=== PATIENT | female | born 1950 | race Caucasian/White ===

== ENCOUNTER 2019-11-13 13:32 | Emergency (ER) | payer MEDICARE, SELFPAY ==
--- NOTE | ~2019-11-13 | XR_ITS ---
XR foot RT min 3V, XR foot LT min 3V 11/13/2019 14:09 Indication: Foot pain in the metatarsal area. Status post foot injury. Procedure: 4 views each foot Comparison: No prior studies for comparison. Findings: There is mild bilateral osteoarthritis of the first MTP joint. There are degenerative calca alphonse enthesophytes. No fracture or traumatic malalignment. Lisfranc joints intact. No erosive changes . Normal mineralization. No focal soft tissue abnormality. 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 2: Prominent bilateral calcaneal enthesophytes. Reviewed, dictated and finalized at location A. 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 2: Prominent bilateral calcaneal enthesophytes. 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 2: Prominent bilateral calcaneal enthesophytes.
--- NOTE | 2019-11-13 13:40 | ED.GENADULT ---
HPI - General Adult General Chief complaint: Extremity Injury, Lower Stated complaint: injury Foot Time Seen by Provider: 11/13/19 13:40 Source: patient Mode of arrival: ambulatory Limitations: no limitations History of Present Illness HPI narrative: 69-year-old female patient presents to the [facility] with complaints of bilateral foot pain but more so on the left than the right. Patient states about 3 days ago she was helping her daughter clean out her garage and states that biking some shovels fell on both feet. Patient states she has had a lot more pain to the left foot and is having pain with movement as well as trying to bear weight on the foot. Patient states she does have a history of neuropathy so she states that the pain does have to be pretty high for her to feel it. Patient states she has been taking ibuprofen for her symptoms. Patient was told couple months ago that she is prediabetic and started on metformin. Related Data Home Medications Medication Instructions Recorded Confirmed allopurinol 300 mg DAILY 11/13/19 11/13/19 amitriptyline 50 mg BID 11/13/19 11/13/19 atorvastatin 10 mg DAILY 11/13/19 11/13/19 meclizine 25 mg TID PRN 11/13/19 11/13/19 metformin 500 mg DAILY 11/13/19 11/13/19 omeprazole 20 mg BID 11/13/19 11/13/19 triamterene-hydrochlorothiazid 1 tablet DAILY 11/13/19 11/13/19 Allergies Allergy/AdvReac Type Severity Reaction Status Date / Time morphine Allergy Severe ANAPHALACTI Unverified 11/13/19 13:57 C Review of Systems Review of Systems: Narrative: CONSTITUTIONAL: Denies fever, chills, or sweats. EYES: Denies visual changes, redness, or discharge. ENT: Denies rhinorrhea, congestion, sore throat, or otalgia. CARDIOVASCULAR: Denies chest pain, palpitations, or edema. RESPIRATORY: Denies cough or dyspnea. GASTROINTESTINAL: Denies abdominal pain, nausea, vomiting, or diarrhea. GENITOURINARY: Denies dysuria or hematuria. SKIN: Denies rash or itching. MUSCULOSKELETAL: Denies back pain, joint pain, or myalgia. Positive bilateral foot pain x3 days more so on the left than the right. NEUROLOGIC: Denies headache, numbness, or weakness. PSYCHIATRIC: Denies anxiety or depression. [facility] Past Medical History Medical History (Updated 11/13/19 @ 14:20 by KENDRICK White) Anxiety Arthritis Asthma Bronchitis Cataracts, bilateral Cholecystitis, acute COPD (chronic obstructive pulmonary disease) Depression Diabetes Fibromyalgia Fractures Right foot GERD (gastroesophageal reflux disease) Hypertension Pneumonia Sleep apnea Surgical History Surgical History (Updated 11/13/19 @ 13:44 by KENDRICK White) H/O: hysterectomy Social History Social History Gender identity (if verbalized by the patient): Female Comments At the time of my signature I agree with nursing past medical history, surgical, social, and family history. There is no relevant family history pertinent to the presenting complaint. Exam Narrative: Exam Narrative: GENERAL: Well-appearing, well-nourished, and in no acute distress. HEAD: Normocephalic, atraumatic. EYES: PERRLA and EOMI. ENT: Nares clear, no rhinorrhea or epistaxis. Mucous membranes moist. NECK: Supple. No lymphadenopathy CHEST: Clear to auscultation. No respiratory distress. HEART: Regular rate and rhythm. No murmur heard. Normal peripheral pulses. ABDOMEN: Soft, nontender, nondistended, normal active bowel sounds. EXTREMITIES: Patient unable to bear weight and ambulate on left foot. Patient is able to bear weight onto the right foot and is able to ambulate on the right foot. erythema noted on the lateral side of the left foot, no lesions, ulcers or break in skin integrity. There is some warmth noted over the redness to the left lateral foot area. The L foot is without obvious asymmetry or deformity when compared to the R foot. No bony step-off, tender to palpation over the right midfoot p
[2019-11-13 13:52] VITALS: BP 118/83; PULSE 102; RESP 16; TEMP 37.5; O2SAT 99
== END 2019-11-13 14:24 | disposition home or self-care (01) ==
PROVIDERS: Emergency Provider Nurse Practitioner Family
DX: S93.602A Unspecified sprain of left foot, initial encounter (principal); S93.601A Unspecified sprain of right foot, initial encounter; L03.116 Cellulitis of left lower limb; J44.9 Chronic obstructive pulmonary disease, unspecified; E11.9 Type 2 diabetes mellitus without complications; I10 Essential (primary) hypertension; W22.8XXA Striking against or struck by other objects, initial encounter
CPT/HCPCS: 73630; 99214; G0463

== ENCOUNTER 2022-07-01 08:52 | Outpatient (CLI) | payer MEDICARE, SELFPAY | END 2022-07-01 08:53 | disposition home or self-care (01) | LOC: ANHAUDIO 08:53 | PROVIDERS: PCP Internal Medicine; Visit Provider Otolaryngology | DX: H90.3 Sensorineural hearing loss, bilateral (principal) | CPT/HCPCS: 92557; 92567 ==

== ENCOUNTER 2023-05-21 09:18 | Inpatient (IN) | payer MEDICARE, MEDICAID, SELFPAY ==
[2023-05-21] VITALS (22 sets, daily range): BP systolic 98–170; BP diastolic 48–152; PULSE 92–103; RESP 12–29; TEMP 36.4–36.5; O2SAT 85–97; BMI 34.2
--- NOTE | ~2023-05-21 | CT_ITS ---
EXAMINATION: CT cervical spine wo con DATE: 05/21/2023 10:38 INDICATION: Head injury TECHNIQUE: Computed tomography (CT) of the cervical spine was performed without intravenous contrast. The dose-length product was 447.21 mGy-cm. COMPARISON: None FINDINGS: Straightening of the normal cervical lordosis. No spondylolisthesis or facet subluxation. Moderate os teoarthritis at the atlantoaxial articulation. Vertebral body heights are normal. No fracture. Modera te to severe disc height loss at C5-C6, moderate disc height loss at C4-C5 and C6-C7 and mild disc he ight loss at remaining as well as in the remaining cervical spine and at T1-T2. Severe uncovertebral osteoarthritis on the right at C4-C5 and on the left at C5-C6 and C6-C7. Mild to moderate uncovertebr al osteoarthritis at a few additional cervical levels. Severe facet osteoarthritis on the left at C2- C3 and C7-T1 through T2-T3 and on the right at C3-C4, C6-C7 and T2-T3. Mild to moderate facet osteoar thritis the remaining levels. There is mild central canal stenosis resulting from a prominent posteri or disc osteophyte complex at C5-C6. There is multilevel mild bilateral cervical neural foraminal tyrell nosis most prominent on the left at C5-C6 and C6-C7. Small amount of atherosclerotic calcifications a t the bilateral distal common carotid arteries and carotid bulbs. Cervical soft tissues are otherwise unremarkable. Visualized apices of lungs are clear. IMPRESSION: 1. Moderate to severe cervical spondylosis. No acute osseous abnormality. Reviewed, dictated and finalized at location A. CT OPENER
--- NOTE | ~2023-05-21 | CT_ITS ---
EXAMINATION: CT abdomen pelvis wo con DATE: 05/21/2023 12:59 INDICATION: Diffuse abdominal tenderness and vomiting TECHNIQUE: Computed tomography (CT) of the abdomen and pelvis was performed without intravenous contr ast. The dose-length product was 2174.11 mGy-cm. Automated exposure control and iterative reconstruct ion technique were employed. COMPARISON: CT dated 12/09/2005. FINDINGS: There is a 9 mm left lower lobe nodule. There is bibasilar airspace disease which may repre sent atelectasis or pneumonia. Mild cardiomegaly. No significant pleural or pericardial effusion. Moderate diffuse atherosclerosis without aneurysm. Nonobstructive bowel gas pattern. The liver, pancr eas, adrenal glands and kidneys are unremarkable for limits of noncontrast examination with motion ar tifact. There is splenomegaly. Gallbladder not identified, likely surgically absent. There is fluid t hroughout the small bowel which is nonspecific, although can be seen within enteritis. No lymphadenop athy. No acute osseous abnormality. IMPRESSION: 1. Bilateral lower lobe airspace disease may represent atelectasis and/or pneumonia. 2: 9 mm left lower lobe nodule. Follow-up low dose CT chest and 3 months recommended. 3: Small bowel contains fluid throughout with air-fluid levels. No obstruction. Findings suspicious f or enteritis in the appropriate clinical setting. Reviewed, dictated and finalized at location A. ARATION SUPERVISOR CANNING IMPRESSION: 1. Bilateral lower lobe airspace disease may represent atelectasis and/or pneum onia. 2: 9 mm left lower lobe nodule. Follow-up low dose CT chest and 3 months recom mended. 3: Small bowel contains fluid throughout with air-fluid levels. No obstruction. Findings suspicious for enteritis in the appropriate clinical setting.
--- NOTE | ~2023-05-21 | CT_ITS ---
EXAMINATION: CTA chest PE protocol DATE: 05/23/2023 12:43 BARTENDER INDICATION: Hypoxia. TECHNIQUE: Computed tomographic angiography (CTA) of the chest was performed with 100 mL Omnipaque-35 0 intravenous contrast. The dose-length product was 680.95 mGy-cm. Maximum intensity projection 3D-re constructions of the aorta and other arteries were constructed by the technologist on a separate work station. Automated exposure control and iterative reconstruction technique were employed. COMPARISON: Nuclear ventilation perfusion scan and chest x-ray dated 05/21/2023. FINDINGS: Study is technically adequate without evidence for central pulmonary embolism. Lower lobe s ubsegmental pulmonary arteries not well evaluated due to motion artifact. Small pleural effusions. Me diastinal lymphadenopathy, likely reactive. Right hilar lymphadenopathy. There is multifocal pneumoni a of the right upper and lower lobe and to a lesser degree the left lower lobe, consistent with pneum onia. No pneumothorax. No endobronchial lesions. IMPRESSION: 1. Multifocal pneumonia with small pleural effusions. 2: No large central pulmonary embolism. 3: Mediastinal and right hilar lymphadenopathy, likely reactive. Reviewed, dictated and finalized at location B. ENDER
--- NOTE | ~2023-05-21 | US_ITS ---
EXAMINATION:US venous doppler LE BI INDICATION:Moderate embolism TECHNIQUE: Multiple grayscale, color flow and Doppler images of the right and left lower extremity de ep venous systems were obtained and reviewed. COMPARISON:No prior studies for comparison. FINDINGS: The common femoral, superficial femoral and popliteal veins demonstrate normal respiratory variation, augmentation and compressibility. Color flow is also seen within the posterior tibial, pe roneal, greater saphenous and profunda veins. IMPRESSION: 1: No lower extremity deep venous thrombosis. Reviewed, dictated and finalized at location A. KER MECHANIC
--- NOTE | ~2023-05-21 | NM_ITS ---
NM lung vent and perfusion INDICATION: Elevated d-dimer. Hypoxia. TECHNIQUE: The patient inhaled aerosolized 13.2 mCi xenon-133. Following ventilation scan, 5.5 mCi T c 99m MAA was injected intravenously for perfusion images. Multiple images were then acquired. COMPARISON: Chest x-ray dated 05/21/2023 FINDINGS: The comparison chest radiograph demonstrates right perihilar airspace disease, suspicious f or pneumonia. The lungs are hyperinflated which is consistent with, but not diagnostic of chronic obs tructive pulmonary disease. There is retention of radiotracer on washout images. There are small-mod erate perfusion abnormalities of the mid lungs bilaterally IMPRESSION: 1: Intermediate probability for pulmonary embolism. Reviewed, dictated and finalized at location A. OR MECHANICAL DEVELOPMENT ENGINEER
--- NOTE | ~2023-05-21 | XR_ITS ---
EXAMINATION: XR chest 1V portable DATE: 05/21/2023 10:32 INDICATION: Shortness of breath and medial right-sided chest pain TECHNIQUE: frontal view of the chest was obtained. COMPARISON: Chest radiograph dated 06/08/2014 FINDINGS: Linear discoid atelectasis at the lateral left lower lung zone. More ill-defined right perihilar opac ities which could represent additional atelectasis or pneumonia. No pleural effusion or pneumothorax. The cardiomediastinal silhouette is normal. Reverse right total shoulder arthroplasty. IMPRESSION: 1. Right perihilar opacities which could represent atelectasis or pneumonia. Reviewed, dictated and finalized at location A. ULTING INTERN
--- NOTE | ~2023-05-21 | CT_ITS ---
EXAMINATION: CT brain wo con DATE: 05/21/2023 10:38 INDICATION: Head injury TECHNIQUE: Computed tomography (CT) of the head was performed without intravenous contrast. Sagittal and coronal reconstructions were performed. The mA was adjusted according to patient size. Iterative reconstruction technique was employed. The dose-length product was 605.33 mGy-cm. COMPARISON: head CT dated 03/26/2004 FINDINGS: No fracture. There is mild streak artifact centered near the vertex which does not significantly limi t evaluation. No acute intracranial hemorrhage, acute infarction or abnormal extra axial fluid collec tion. Symmetric prominence of the sulci consistent with mild age-appropriate diffuse cerebral volume loss. Ventricles are normal and symmetric. No mass/mass effect. Changes of left intraocular lens repl acement. Small left mastoid effusion. IMPRESSION: 1. Normal aging brain. No fracture or acute intracranial process. Reviewed, dictated and finalized at location A. WICH MACHINE OPERATOR
--- NOTE | 2023-05-21 09:26 | ECG_ITS ---
Measurements Intervals [place] Rate: 99 P: 76 IN: 147 QRS: 4 QRSD: 94 T: 90 QT: 333 QTc: 429 Interpretive Statements SINUS RHYTHM BASELINE ARTIFACT NONSPECIFIC ST & T-WAVE ABNORMALITY BORDERLINE ECG NO PREVIOUS ECG AVAILABLE FOR COMPARISON Electronically Signed On 05-21-2023 14:10:16 INSPECTOR CIRCUITRY NEGATIVE by Wilfredo Plasencia M.D.
[2023-05-21] MEDS: ONDANSETRON INJ 4 MG/2 ML VIAL IV PUSH ×3 (10:17→18:53)
[2023-05-21] MEDS: SODIUM CHLORIDE 0.9% IV 1,000 ML 999 ML IV CONT ×2 (10:17→13:07)
[2023-05-21 10:20] LABS: Alveolar/Arterial O2 Gradient 43.7 mmHg; Base Excess ABG 0.3 mEq/l (+/-2.0); Carboxyhemoglobin 1.5 % THb (0-2.0); Fractional Inspired Oxygen 21 %; HCO3 ABG 24.6 mEq/l (22.0-26.0); Methemoglobin ABG 0.1 %THb (0-1.5); Oxygen Content ABG 16.3 %vol (16.0-22.0); Oxygen Saturation ABG 91.7 % (95.0-100.0); Oxyhemoglobin 89.3 % THb (90.0-100.0); PCO2 ABG 38.3 mmHg (35.0-45.0); PO2 ABG 60.2 mmHg (80.0-100.0); PO2 FiO2 Ratio Arterial Blood 2.87 %; Reduced Hemoglobin 9.1 %THb (0-5.0); pH ABG 7.425 (7.350-7.450)
[2023-05-21 10:20] LABS: Basophils Absolute Auto 0.1 K/mm3 (0.0-0.1); Basophils Percent Auto 0.3 % (0.2-1.2); Eosinophils Absolute Auto 1.5 K/mm3 (0-0.3); Eosinophils Percent Auto 7.7 % (0-4.4); Hematocrit 40.9 % (37.0-47.0); Hemoglobin 12.6 g/dL (12.0-15.0); Immature Granulocyte Percent A 0.5 % (0-0.5); Lymphocytes Absolute Auto 1.39 K/mm3 (0.9-3.2); Lymphocytes Percent Auto 7.4 % (18.3-44.2); Mean Corpuscular HGB Conc 30.8 g/dl (32-36); Mean Corpuscular Hemoglobin 27.3 pg (26-34); Mean Corpuscular Volume 88.5 fl (80-100); Mean Platelet Volume 10.8 fl (7.4-10.4); Monocytes Absolute Auto 1.2 K/mm3 (0.1-0.6); Monocytes Percent Auto 6.5 % (2.6-8.5); Neutrophils Absolute Auto 14.7 K/mm3 (1.3-6.7); Neutrophils Percent Auto 77.6 % (45.5-73.1); Platelet Count Result 311 k/mm3 (150-375); Red Blood Count 4.62 M/mm3 (4.2-5.4); Red Cell Distribution Width 15.3 % (11.5-14.5); White Blood Count 18.9 K/mm3 (4.5-10.0)
[2023-05-21 10:22] LABS: Device ROOM AIR; Modified Allen's Test Pass; Site Drawn LEFT RADIAL
--- NOTE | 2023-05-21 10:24 | PC.NURSE ---
O2 NC 2 2l applied
[2023-05-21 10:56] LABS: Influenza A QL RT-PCR Negative (Negative); Influenza B QL RT-PCR Negative (Negative); RSV RNA, RT-PCR Negative (Negative); SARS-CoV-2 RNA PCR Negative (Negative)
[2023-05-21 11:01] LABS: Partial Thromboplastin Time 33.9 SECONDS (22.3-36.8); Prothrombin Time 13.7 Seconds (11.1-14.7)
[2023-05-21 11:18] LABS: Lactic Acid Reflex 1.2 mmol/L (0.7-2.0)
[2023-05-21 11:30] LABS: Appearance Urine Cloudy (Clear); Bacteria Urine 4+ /hpf; Bilirubin Urine Negative (Negative); Blood Urine Trace (Negative); Color Urine Yellow (Yellow); Glucose Urine UA 3+ mg/dL (Negative); Ketones Urine Trace mg/dL (Negative); Leukocyte Esterase Ur 1+ LEU/UL (Negative); Nitrate Urine Negative (Negative); Protein Urine 3+ mg/dL (Negative); RBC Urine 0-2 /hpf (0-2); Specific Grav Ur 1.026 (1.001-1.035); Squamous Epithelial Cell Urine Moderate /hpf (Few); WBC Urine 51-100 /hpf
[2023-05-21 11:31] LABS: Alanine Aminotransferase 28 U/L (6-35); Albumin Level 4.3 g/dL (3.5-5.1); Alkaline Phosphatase 125 U/L (38-126); Anion Gap 12 mmol/L (8-16); Aspartate Amino Transferase 31 U/L (14-36); Bilirubin,Total 0.9 mg/dL (0.2-1.3); Blood Urea Nitrogen 27 mg/dL (7-17); Calcium 9.3 mg/dL (8.4-10.2); Carbon Dioxide 24 mmol/L (22-30); Chloride 102 mmol/L (98-107); Estimated Glomerular Filt Rate 32; Glucose 180 mg/dL (65-110); Lipase 35 U/L (23-300); Magnesium 2.3 mg/dL (1.6-2.3); Potassium 4.1 mmol/L (3.4-5.0); Sodium 138 mmol/L (137-145)
[2023-05-21 11:42] LABS: NT Pro B Type Natriuretic Pept 223 pg/mL (19.9-100); Troponin I < 0.012 ng/mL (0.000-0.034)
[2023-05-21 11:52] LABS: Add Urine Microscopic? YES
--- NOTE | 2023-05-21 12:35 | ED.GENADULT ---
HPI - General Adult General Chief complaint: Chest Pain Stated complaint: N/V, SOB, CP X 3days Time Seen by Provider: 05/21/23 09:44 Source: patient, family, EMS, RN notes reviewed and old records reviewed Mode of arrival: EMS Limitations: no limitations History of Present Illness HPI narrative: This is a 73 year old female with history of multiple medical problems who presents for evaluation of multiple complaints. Patient states she has history of falls due to leg giving out . She reports she fell walking to bathroom on and Tuesday. She hit her head on tub but denies LOC. She also reports right lower chest pain for a few days. This pain has been constant but waxing and waning severity. She also reports nausea and vomiting. EMS reports patient was 84% on room air. She denies fever. Related Data Home Medications Medication Instructions Recorded Confirmed allopurinol 300 mg tablet 300 mg DAILY 11/13/19 11/13/19 amitriptyline 50 mg tablet 50 mg BID 11/13/19 11/13/19 atorvastatin 10 mg tablet 10 mg DAILY 11/13/19 11/13/19 meclizine 25 mg tablet 25 mg TID PRN Dizziness 11/13/19 11/13/19 metformin 500 mg tablet 500 mg DAILY 11/13/19 11/13/19 omeprazole 20 mg capsule,delayed 20 mg BID 11/13/19 11/13/19 release triamterene 75 1 tablet DAILY 11/13/19 11/13/19 mg-hydrochlorothiazide 50 mg tablet Allergies Allergy/AdvReac Type Severity Reaction Status Date / Time morphine Allergy Severe ANAPHALACTI Verified 05/21/23 11:24 C Review of Systems Constitutional: Constitutional: Reports fatigue and Reports weakness ENT: Reports epistaxis Cardiovascular: Cardiovascular: Denies syncope, Denies rapid heart rate, Denies irregular heart rhythm, Denies leg edema and Denies dyspnea Respiratory: Respiratory: Denies chest congestion, Reports cough, Denies hemoptysis, Denies excessive phlegm production and Denies dyspnea Gastrointestinal: Gastrointestinal: Reports abdominal pain, Denies hematochezia, Denies diarrhea, Reports nausea and Reports vomiting Genitourinary: Genitourinary: Denies hematuria and Denies dysuria Musculoskeletal: Musculoskeletal: Denies joint swelling, Denies loss of height and Denies muscle weakness Neurologic: Denies syncope, Denies focal weakness and Reports weakness PMFSH Past Medical History Medical History (Updated 05/21/23 @ 17:57 by Dacia Han MD) Anxiety Arthritis Asthma Bronchitis Chronic obstructive pulmonary disease Depression Fibromyalgia Fractures Right foot Gastroesophageal reflux disease Hypertension Pneumonia Sleep apnea Intolerant of CPAP. Type 2 diabetes mellitus Surgical History Surgical History (Updated 05/21/23 @ 15:45 by Paula Naylor PA-C) History of cardiac catheterization Per patient, showed signs of prior IA but no interventions undertaken. History of cholecystectomy History of exploratory laparotomy History of hysterectomy Social History Social History (Updated 05/21/23 @ 14:49 by Paula Naylor PA-C) Social History: Surrogate medical decision maker: Code status: Full code. Smoking status: Never smoker Exam Const: General: no acute distress and alert Nutritional Appearance: obese Orientation/consciousness: patient oriented x3 HENMT: Head: normal to inspection Face and sinus: normal facial exam Eyes: EOM: EOMs intact bilaterally Resp: Effort & Inspection: normal respiratory effort Auscultation: clear to auscultation bilaterally Cardio: Rate: tachycardic Rhythm: regular rhythm Heart sounds: no murmurs GI: GI Palp: Yes Soft to palpation, Yes Tenderness to palpation present (GI) (diffuse), No Guarding due to palpation present (GI) and No Rigid due to palpation Auscultation: normal bowel sounds Skin: General skin exam: normal color Rashes: no rashes Neuro: General: patient oriented x3, moves all extremities and CN's II-XI intact bilaterally Psych: Mental Status: mental status grossly normal Aff
[2023-05-21] MEDS: AZITHROMYCIN 500 MG/NS 250 ML 500 MG/250 ML BAG 250 MG IVPB (13:07)
[2023-05-21] MEDS: KETOROLAC 30 MG/ML VIAL (*BKC) IV PUSH (13:57)
--- NOTE | 2023-05-21 14:44 | PM.IMHP ---
H&P: HPI History of Present Illness Date/Time: 05/21/23 15:45 Chief Complaint: Multiple complaints. Narrative: This is a 73-year-old female with hypertension, dyslipidemia, chronic obstructive pulmonary disease, sleep apnea, type 2 diabetes mellitus, fibromyalgia, and gastroesophageal reflux disease who presented to the emergency department via EMS from home for evaluation of multiple complaints. The patient provides the following history. She has not felt well for several days with symptoms to include decreased appetite with minimal oral intake since Tuesday, nausea, vomiting, nonproductive cough, right anterior pleuritic chest pain, generalized malaise, and fatigue. She has fallen 2 times this week due to weakness and she reports hitting her head on the bathtub when trying to get off the toilet on but there was no loss of consciousness or injury. It is not unusual for her to have shortness of breath with everyday activities and she has always felt that she would benefit from oxygen at home however reports that she has never qualified. At baseline she will get short of breath even when putting dishes away. The last several days she has felt increasingly short of breath and today she came in for evaluation due to ongoing symptoms. She denies sick contacts, dysphagia, concerns for aspiration, sinus congestion, sore throat, exertional chest pain, syncope, and diarrhea. She has issues with urinary incontinence which is an ongoing problem and is not new. No dysuria or hematuria. No lower extremity edema or calf pain. She denies personal and family history of venous thromboembolism. On EMS arrival her SpO2 was 84% on room air. She is currently on 4 L nasal cannula with an SpO2 in the mid upper 90s. She was afebrile on arrival. Blood pressures have been stable. Labs were significant for a WBC count of 18.9, D-dimer 1.10, normal electrolytes, BUN 27, creatinine 1.60, lactic acid 1.2, troponin less than 0.012, proBNP 223. Urine was cloudy with 3+ protein, 3+ glucose, trace ketones, 1+ leukocyte esterase, 51 to 100 WBC, and 4+ bacteria. She tested negative for influenza, RSV, and COVID. Chest x-ray showed right perihilar opacities which could represent atelectasis or pneumonia. CT of the abdomen pelvis showed bilateral lower lobe airspace disease, 9 mm left lower lobe nodule, and small-bowel containing fluid throughout with air-fluid levels suspicious for enteritis. V/Q scan showed intermediate probability for pulmonary embolism. She received a dose of azithromycin and ceftriaxone and she is being admitted in this setting for further treatment. Review of Systems Review of Systems: Twelve systems were reviewed and are negative except for as per HPI. [facility] Past Medical History Medical History Anxiety Arthritis Asthma Bronchitis Chronic obstructive pulmonary disease Depression Fibromyalgia Fractures Right foot Gastroesophageal reflux disease Hypertension Pneumonia Sleep apnea Intolerant of CPAP. Type 2 diabetes mellitus Surgical History Surgical History History of cardiac catheterization Per patient, showed signs of prior MS but no interventions undertaken. History of cholecystectomy History of exploratory laparotomy History of hysterectomy Social History Social History (Updated 05/21/23 @ 21:53 by Paula Naylor PA-C) Social History: Surrogate medical decision maker: Rolando Urmila, spouse. Code status: Full code. Smoking status: Never smoker Alcohol intake: never Substance use: never Lack of Transportation: No Lack of Food: Never True Current Housing: I Have Housing Concerned About Future Housing: No Difficulty Paying Gas/Electric Bills: No Difficulty Paying for Meds: No Currently Unemployed: No Education: High School Diploma/GED Difficulty w/ Childcare or Family Care: No Spiritual ca
[2023-05-21] MEDS: SODIUM CHLORIDE 0.9% IV 1,000 ML 125 ML IV CONT (17:49)
--- NOTE | 2023-05-21 18:11 | ADMGEN ---
This patient, Cristal Kearns, was admitted to 3 [facility] Surg Room 325-02. Patient/family oriented to hospital policies and general routines including ID bracelet, bed and alarms, visiting hours, pain management, procedures, bathroom and other care routines, personal items, smoking policy, room service/diet, and visiting hours. Information on how to activate the Rapid Response Team has been discussed. Patient/Family are encouraged to report perceived risks to care and to ask questions if they do not understand what they are told or what they should do.
[2023-05-21 18:19] LABS: Glucose Point of Care 135 mg/dl (65-105)
[2023-05-21] MEDS: ACETAMINOPHEN 325 MG TABLET 650 MG PO (18:48)
[2023-05-21] MEDS: PANTOPRAZOLE 40 MG TABLET PO (21:14)
[2023-05-21] MEDS: HYDROcodone/acetaminophen (*CRX) 5-325 MG TABLET 1 TAB PO (21:16)
[2023-05-21] MEDS: DICYCLOMINE HCL 10 MG CAPSULE PO (21:16)
[2023-05-21] MEDS: traZODone HCL 50 MG TABLET 100 MG PO (21:16)
[2023-05-21] MEDS: GABAPENTIN 300 MG CAPSULE PO (21:16)
[2023-05-21 21:35] LABS: Glucose Point of Care 175 mg/dl (65-105)
[2023-05-21] MEDS: ENOXAPARIN 100 MG/ML SYRINGE 95 MG SUB-Q (22:53)
[2023-05-21] MEDS: VERAPAMIL HCL 180 MG TABLET ER PO (22:53)
[2023-05-21] MEDS: AMITRIPTYLINE HCL 25 MG TABLET 50 MG PO (22:53)
[2023-05-22] VITALS (20 sets, daily range): BP systolic 100–151; BP diastolic 57–66; PULSE 75–92; RESP 16–20; TEMP 36.4–36.9; O2SAT 90–97
[2023-05-22] MEDS: ALBUTEROL SULFATE NEB 2.5 MG/3 ML INH INHALATION ×4 (02:59→19:52)
[2023-05-22] MEDS: SODIUM CHLORIDE 0.9% IV 1,000 ML 125 ML IV CONT (03:17)
[2023-05-22] MEDS: HYDROcodone/acetaminophen (*CRX) 5-325 MG TABLET 1 TAB PO (03:29)
[2023-05-22 07:46] LABS: Basophils Percent Auto 0.3 % (0.2-1.2); Eosinophils Percent Auto 0.1 % (0-4.4); Hematocrit 36.3 % (37.0-47.0); Hemoglobin 10.6 g/dL (12.0-15.0); Immature Granulocyte Absolute 0.05 K/mm3 (0.00-0.031); Immature Granulocyte Percent A 0.6 % (0-0.5); Immature Platelet Fraction Pct 4.6 % (0.9-11.2); Lymphocytes Absolute Auto 1.58 K/mm3 (0.9-3.2); Lymphocytes Percent Auto 17.5 % (18.3-44.2); Mean Corpuscular HGB Conc 29.2 g/dl (32-36); Mean Corpuscular Hemoglobin 27.4 pg (26-34); Mean Corpuscular Volume 93.8 fl (80-100); Monocytes Absolute Auto 0.7 K/mm3 (0.1-0.6); Monocytes Percent Auto 7.5 % (2.6-8.5); Neutrophils Absolute Auto 6.7 K/mm3 (1.3-6.7); Platelet Count Result 218 k/mm3 (150-375); Red Blood Count 3.87 M/mm3 (4.2-5.4); Red Cell Distribution Width 15.2 % (11.5-14.5)
[2023-05-22 07:55] LABS: Alanine Aminotransferase 22 U/L (6-35); Albumin Level 3.3 g/dL (3.5-5.1); Alkaline Phosphatase 104 U/L (38-126); Anion Gap 12 mmol/L (8-16); Aspartate Amino Transferase 25 U/L (14-36); Bilirubin,Total 0.5 mg/dL (0.2-1.3); Blood Urea Nitrogen 27 mg/dL (7-17); Calcium 8.3 mg/dL (8.4-10.2); Carbon Dioxide 15 mmol/L (22-30); Chloride 110 mmol/L (98-107); Estimated CRCL calculation 32 ml/min; Estimated Glomerular Filt Rate 32; Glucose 119 mg/dL (65-110); Magnesium 2.7 mg/dL (1.6-2.3); Potassium 3.6 mmol/L (3.4-5.0); Sodium 137 mmol/L (137-145)
[2023-05-22 08:17] LABS: Glucose Point of Care 110 mg/dl (65-105)
--- NOTE | 2023-05-22 08:20 | PM.IMPN ---
Progress Note: A&P Assessment and Plan (1) Acute respiratory failure with hypoxia: Code(s): J96.01 - Acute respiratory failure with hypoxia Status: Acute Assessment and Plan: New oxygen requirement of 4 L NC to keep sats greater than 90%, slightly tachypneic and elevated heart rate on presentation. D-dimer elevated VQ scan with intermediate results for PE. CTA has been deferred at this time due to renal function. Continue treatment dosing of Lovenox for PE. Will obtain BLE doppler Wean oxygen as tolerated. 12/:Obviously dyspneic with activity. Has difficulty speaking in full sentences. SOB improves with rest. (2) Pneumonia: Qualifiers: Laterality: bilateral Lung location: lower lobe of lung Pneumonia type: due to unspecified organism Qualified Code(s): J18.9 - Pneumonia, unspecified organism Code(s): J18.9 - Pneumonia, unspecified organism Status: Acute Assessment and Plan: New o2 requirement, right sided chest pain, leukocytosis of 18.9, tachypnea, and tachycardia on admission. Sputum, urine, and blood cultures sent Started on Rocephin and Azithromycin IVF with NS at 100 ml per hour incentive spirometer Nebs Q6 hours 12/: Lungs are coarse to BLL. On CAP coverage. Encourage IS. Wean o2 as tolerated. (3) Left lower lobe pulmonary nodule: Code(s): R91.1 - Solitary pulmonary nodule Status: Acute Assessment and Plan: Incidental finding on imaging will need outpatient follow up with repeat CT scan in 3 months recommended. Added this to the D/C paperwork. (4) Renal failure: Code(s): N19 - Unspecified kidney failure Status: Acute Assessment and Plan: Unknown baseline renal function. Cr on admission was 1.60, GFR 32 IVF NS at 100 ml per hour strict I and O's. (5) Abnormal urinalysis: Code(s): R82.90 - Unspecified abnormal findings in urine Status: Acute Assessment and Plan: Concerning for possible UTI, recent falls x 2 this week. On Rocephin Urine culture sent and pending Reports urinary frequency (6) Chronic obstructive pulmonary disease: Code(s): J44.9 - Chronic obstructive pulmonary disease, unspecified Status: Acute Assessment and Plan: Not on home oxygen or daily inhalers. Only on albuterol inhaler and nebs. Q6 albuterol nebs for PNA now on 4 l NC Needs home o2 study prior to d/c (7) Type 2 diabetes mellitus: Code(s): E11.9 - Type 2 diabetes mellitus without complications Status: Acute Assessment and Plan: Hgb A1c unknown. On dapagliflozin and metformin at home. Holding metformin considering renal function. Continuing with empagliflozin achs accu checks, SSI low dose, and hypoglycemic protocol ordered. AM fasting blood glucose was 119 Placing on regular diet as her A1C is relatively normal and her fasting glucose is good. She reports that she knows what she should and should not eat. Plan Feeding:general diet Analgesia:tylenol Thromboembolic prophylaxis: lovenox Ulcer prophylaxis: na Glycemic control: Empagliflozin, SSI with hypoglycemia protocol Bowel regimen: N/A, she has chronic loose stools. Lines: PIV Antibiotics: Rocephin, azithromycin Disposition: home when medically ready Subjective Date/time seen: 05/22/23 08:20 Interval history: HPI obtained from the chart, This is a 73-year-old female with hypertension, dyslipidemia, chronic obstructive pulmonary disease, sleep apnea, type 2 diabetes mellitus, fibromyalgia, and gastroesophageal reflux disease who presented to the emergency department via EMS from home for evaluation of multiple complaints. The patient provides the following history. She has not felt well for several days with symptoms to include decreased appetite with minimal oral intake since Tuesday, nausea, vomiting, nonproductive cough, right anterior pleuritic chest pain, generalized malaise, and
[2023-05-22] MEDS: PANTOPRAZOLE 40 MG TABLET PO ×2 (08:53→18:05)
[2023-05-22] MEDS: VERAPAMIL HCL 180 MG TABLET ER PO ×2 (08:53→20:47)
[2023-05-22] MEDS: DICYCLOMINE HCL 10 MG CAPSULE PO ×3 (08:54→18:05)
[2023-05-22] MEDS: NIFEdipine 30 MG TAB.ER.24 PO (08:54)
[2023-05-22] MEDS: EMPAGLIFLOZIN 25 MG TABLET PO (08:54)
[2023-05-22] MEDS: FERROUS SULFATE 325 MG TABLET DR PO (08:54)
[2023-05-22] MEDS: ASPIRIN 325 MG TABLET PO (08:54)
[2023-05-22] MEDS: AMITRIPTYLINE HCL 25 MG TABLET 50 MG PO ×2 (08:54→18:05)
[2023-05-22] MEDS: ATORVASTATIN 10 MG TABLET PO (08:54)
[2023-05-22] MEDS: allopurinoL 300 MG TABLET PO (08:54)
[2023-05-22] MEDS: NIACIN 100 MG TABLET PO (08:54)
[2023-05-22] MEDS: SODIUM CHLORIDE 0.9% IV 1,000 ML 100 ML IV CONT (09:28)
[2023-05-22] MEDS: ENOXAPARIN 100 MG/ML SYRINGE 95 MG SUB-Q ×2 (09:28→20:47)
[2023-05-22 10:24] LABS: Hemoglobin A1C 6.5 % (<5.7)
[2023-05-22 11:42] LABS: Glucose Point of Care 120 mg/dl (65-105)
[2023-05-22] MEDS: AZITHROMYCIN 500 MG/NS 250 ML 500 MG/250 ML BAG 250 MG IVPB (13:21)
[2023-05-22] MEDS: MECLIZINE HCL 25 MG TABLET PO (13:21)
[2023-05-22 16:39] LABS: Glucose Point of Care 196 mg/dl (65-105)
[2023-05-22 20:03] LABS: Glucose Point of Care 125 mg/dl (65-105)
[2023-05-22] MEDS: traZODone HCL 50 MG TABLET 100 MG PO (20:46)
[2023-05-22] MEDS: GABAPENTIN 300 MG CAPSULE PO (20:47)
[2023-05-23] VITALS (15 sets, daily range): BP systolic 114–130; BP diastolic 61–74; PULSE 76–99; RESP 18–20; TEMP 35.9–36.6; O2SAT 91–98
[2023-05-23] MEDS: ALBUTEROL SULFATE NEB 2.5 MG/3 ML INH INHALATION ×4 (01:38→20:13)
[2023-05-23 06:16] LABS: Basophils Percent Auto 0.5 % (0.2-1.2); Hematocrit 31.4 % (37.0-47.0); Hemoglobin 9.6 g/dL (12.0-15.0); Immature Granulocyte Absolute 0.05 K/mm3 (0.00-0.031); Immature Granulocyte Percent A 0.8 % (0-0.5); Lymphocytes Absolute Auto 1.14 K/mm3 (0.9-3.2); Lymphocytes Percent Auto 17.6 % (18.3-44.2); Mean Corpuscular HGB Conc 30.6 g/dl (32-36); Mean Corpuscular Hemoglobin 27.7 pg (26-34); Mean Corpuscular Volume 90.8 fl (80-100); Monocytes Absolute Auto 0.6 K/mm3 (0.1-0.6); Monocytes Percent Auto 8.6 % (2.6-8.5); Neutrophils Absolute Auto 4.7 K/mm3 (1.3-6.7); Neutrophils Percent Auto 72.5 % (45.5-73.1); Platelet Count Result 225 k/mm3 (150-375); Red Blood Count 3.46 M/mm3 (4.2-5.4); Red Cell Distribution Width 15.3 % (11.5-14.5); White Blood Count 6.5 K/mm3 (4.5-10.0)
[2023-05-23 06:35] LABS: Alanine Aminotransferase 20 U/L (6-35); Albumin Level 2.9 g/dL (3.5-5.1); Alkaline Phosphatase 90 U/L (38-126); Anion Gap 7 mmol/L (8-16); Aspartate Amino Transferase 20 U/L (14-36); Bilirubin,Total 0.3 mg/dL (0.2-1.3); Blood Urea Nitrogen 27 mg/dL (7-17); Calcium 8.2 mg/dL (8.4-10.2); Carbon Dioxide 22 mmol/L (22-30); Chloride 111 mmol/L (98-107); Estimated CRCL calculation 33 ml/min; Estimated Glomerular Filt Rate 32; Glucose 136 mg/dL (65-110); Potassium 3.5 mmol/L (3.4-5.0); Sodium 140 mmol/L (137-145)
[2023-05-23 08:17] LABS: Glucose Point of Care 132 mg/dl (65-105)
[2023-05-23] MEDS: EMPAGLIFLOZIN 25 MG TABLET PO (08:32)
[2023-05-23] MEDS: MECLIZINE HCL 25 MG TABLET PO ×2 (08:34→16:47)
[2023-05-23] MEDS: ATORVASTATIN 10 MG TABLET PO (08:35)
[2023-05-23] MEDS: AMITRIPTYLINE HCL 25 MG TABLET 50 MG PO ×2 (08:35→16:47)
[2023-05-23] MEDS: PANTOPRAZOLE 40 MG TABLET PO ×2 (08:36→16:47)
[2023-05-23] MEDS: NIACIN 100 MG TABLET PO (08:36)
[2023-05-23] MEDS: DICYCLOMINE HCL 10 MG CAPSULE PO ×3 (08:36→16:48)
[2023-05-23] MEDS: allopurinoL 300 MG TABLET PO (08:36)
[2023-05-23] MEDS: FERROUS SULFATE 325 MG TABLET DR PO (08:36)
[2023-05-23] MEDS: NIFEdipine 30 MG TAB.ER.24 PO (08:37)
[2023-05-23] MEDS: VERAPAMIL HCL 180 MG TABLET ER PO ×2 (08:38→20:53)
[2023-05-23] MEDS: ASPIRIN 325 MG TABLET PO (08:38)
[2023-05-23] MEDS: ENOXAPARIN 100 MG/ML SYRINGE 95 MG SUB-Q (08:43)
--- NOTE | 2023-05-23 09:59 | PCPTNOTE ---
attempted PT eval 930, pt report tired, up all night due to her room mate issues. Asked PT to come back later.
--- NOTE | 2023-05-23 10:47 | PM.IMPN ---
Progress Note: A&P Assessment and Plan (1) Acute respiratory failure with hypoxia: Code(s): J96.01 - Acute respiratory failure with hypoxia Status: Acute Assessment and Plan: New oxygen requirement of 4 L NC to keep sats greater than 90%, slightly tachypneic and elevated heart rate on presentation. D-dimer elevated VQ scan with intermediate results for PE. CTA has been deferred at this time due to renal function. Continue treatment dosing of Lovenox for PE. Will obtain BLE doppler Wean oxygen as tolerated. 12/:Obviously dyspneic with activity. Has difficulty speaking in full sentences. SOB improves with rest. 12: Improved dyspnea able to speak in complete sentences minimal shortness of breath at rest (2) Pneumonia: Qualifiers: Laterality: bilateral Lung location: lower lobe of lung Pneumonia type: due to unspecified organism Qualified Code(s): J18.9 - Pneumonia, unspecified organism Code(s): J18.9 - Pneumonia, unspecified organism Status: Acute Assessment and Plan: New o2 requirement, right sided chest pain, leukocytosis of 18.9, tachypnea, and tachycardia on admission. Sputum, urine, and blood cultures sent Started on Rocephin and Azithromycin IVF with NS at 100 ml per hour incentive spirometer Nebs Q6 hours 12/: Lungs are coarse to BLL. On CAP coverage. Encourage IS. Wean o2 as tolerated. 05/23: Right upper and lower quadrant as well as left lower quadrant multifocal pneumonia. Add CPT, continue to wean oxygen as tolerated. Complete azithromycin course oral and change IV antibiotics to Augmentin. (3) Left lower lobe pulmonary nodule: Code(s): R91.1 - Solitary pulmonary nodule Status: Acute Assessment and Plan: Incidental finding on imaging will need outpatient follow up with repeat CT scan in 3 months recommended. Added this to the D/C paperwork. (4) Renal failure: Code(s): N19 - Unspecified kidney failure Status: Acute Assessment and Plan: Unknown baseline renal function. Cr on admission was 1.60, GFR 32 IVF NS at 100 ml per hour strict I and O's. 05/23: Unchanged renal function creatinine 1.6 GFR 32 today. Patient reports prior GFR was in the upper 40s. Continue IV fluids to flush kidneys status post IV contrast but likely discontinue fluids tomorrow. (5) Abnormal urinalysis: Code(s): R82.90 - Unspecified abnormal findings in urine Status: Acute Assessment and Plan: Concerning for possible UTI, recent falls x 2 this week. On Rocephin Urine culture sent and pending Reports urinary frequency 05/23: Urine culture grows pansensitive continue Augmentin (6) Chronic obstructive pulmonary disease: Code(s): J44.9 - Chronic obstructive pulmonary disease, unspecified Status: Acute Assessment and Plan: Not on home oxygen or daily inhalers. Only on albuterol inhaler and nebs. Q6 albuterol nebs for PNA now on 4 l NC Needs home o2 study prior to d/c 05/23: on 3 LPM NC, continue to wean, add CPT and encourage IS use. agree with home oxygen eval at discharge if unable to wean to Room Air (7) Type 2 diabetes mellitus: Code(s): E11.9 - Type 2 diabetes mellitus without complications Status: Acute Assessment and Plan: Hgb A1c unknown. On dapagliflozin and metformin at home. Holding metformin considering renal function. Continuing with empagliflozin achs accu checks, SSI low dose, and hypoglycemic protocol ordered. AM fasting blood glucose was 119 Placing on regular diet as her A1C is relatively normal and her fasting glucose is good. She reports that she knows what she should and should not eat. Plan Feeding:general diet Analgesia:tylenol Thromboembolic prophylaxis: lovenox, changed to daily in absence of PE Ulcer prophylaxis: na Glycemic control: Empagliflozin, SSI with hypoglycemia protocol Bowel regimen: N/A, she has chronic loose stool
[2023-05-23 11:47] LABS: Glucose Point of Care 193 mg/dl (65-105)
[2023-05-23] MEDS: AZITHROMYCIN 500 MG/NS 250 ML 500 MG/250 ML BAG 250 MG IVPB (12:17)
[2023-05-23] MEDS: SODIUM CHLORIDE 0.9% IV 1,000 ML 100 ML IV CONT (15:55)
[2023-05-23] MEDS: ACETAMINOPHEN 325 MG TABLET 650 MG PO (16:01)
[2023-05-23 16:49] LABS: Glucose Point of Care 169 mg/dl (65-105)
[2023-05-23] MEDS: traZODone HCL 50 MG TABLET 100 MG PO (20:53)
[2023-05-23] MEDS: GABAPENTIN 300 MG CAPSULE PO (20:53)
[2023-05-23 21:29] LABS: Glucose Point of Care 157 mg/dl (65-105)
[2023-05-24] VITALS (9 sets, daily range): BP systolic 117–159; BP diastolic 40–60; PULSE 77–100; RESP 16–28; TEMP 36.2–36.6; O2SAT 88–96
[2023-05-24] MEDS: ACETAMINOPHEN 325 MG TABLET 650 MG PO (01:47)
[2023-05-24] MEDS: SODIUM CHLORIDE 0.9% IV 1,000 ML 100 ML IV CONT (01:51)
[2023-05-24 06:33] LABS: Basophils Percent Auto 0.4 % (0.2-1.2); Hematocrit 32.2 % (37.0-47.0); Hemoglobin 9.6 g/dL (12.0-15.0); Immature Granulocyte Absolute 0.11 K/mm3 (0.00-0.031); Immature Granulocyte Percent A 1.6 % (0-0.5); Lymphocytes Absolute Auto 1.26 K/mm3 (0.9-3.2); Lymphocytes Percent Auto 18.5 % (18.3-44.2); Mean Corpuscular HGB Conc 29.8 g/dl (32-36); Mean Corpuscular Hemoglobin 27.3 pg (26-34); Mean Corpuscular Volume 91.5 fl (80-100); Mean Platelet Volume 9.7 fl (7.4-10.4); Monocytes Absolute Auto 0.6 K/mm3 (0.1-0.6); Monocytes Percent Auto 8.5 % (2.6-8.5); Neutrophils Absolute Auto 4.8 K/mm3 (1.3-6.7); Platelet Count Result 258 k/mm3 (150-375); Red Blood Count 3.52 M/mm3 (4.2-5.4); Red Cell Distribution Width 15.4 % (11.5-14.5); White Blood Count 6.8 K/mm3 (4.5-10.0)
[2023-05-24 07:00] LABS: Alanine Aminotransferase 17 U/L (6-35); Alkaline Phosphatase 85 U/L (38-126); Anion Gap 10 mmol/L (8-16); Aspartate Amino Transferase 17 U/L (14-36); Bilirubin,Total 0.3 mg/dL (0.2-1.3); Blood Urea Nitrogen 21 mg/dL (7-17); Calcium 8.3 mg/dL (8.4-10.2); Carbon Dioxide 18 mmol/L (22-30); Chloride 114 mmol/L (98-107); Estimated CRCL calculation 38 ml/min; Estimated Glomerular Filt Rate 37; Glucose 117 mg/dL (65-110); Potassium 3.7 mmol/L (3.4-5.0); Sodium 142 mmol/L (137-145)
[2023-05-24] MEDS: ALBUTEROL SULFATE NEB 2.5 MG/3 ML INH INHALATION ×3 (07:45→20:39)
[2023-05-24 08:35] LABS: Glucose Point of Care 125 mg/dl (65-105)
[2023-05-24] MEDS: EMPAGLIFLOZIN 25 MG TABLET PO (08:47)
[2023-05-24] MEDS: ASPIRIN 325 MG TABLET PO (08:47)
[2023-05-24] MEDS: PANTOPRAZOLE 40 MG TABLET PO ×2 (08:47→16:41)
[2023-05-24] MEDS: AZITHROMYCIN 250 MG TABLET 500 MG PO (08:47)
[2023-05-24] MEDS: MECLIZINE HCL 25 MG TABLET PO ×2 (08:47→16:41)
[2023-05-24] MEDS: VERAPAMIL HCL 180 MG TABLET ER PO ×2 (08:48→21:30)
[2023-05-24] MEDS: NIACIN 100 MG TABLET PO (08:50)
[2023-05-24] MEDS: FERROUS SULFATE 325 MG TABLET DR PO (08:50)
[2023-05-24] MEDS: allopurinoL 300 MG TABLET PO (08:50)
[2023-05-24] MEDS: FUROSEMIDE 40 MG TABLET PO (08:50)
[2023-05-24] MEDS: AMOXICILLIN/CLAVULANATE K 875-125 MG TAB 1 TABLET PO ×2 (08:51→21:30)
[2023-05-24] MEDS: DICYCLOMINE HCL 10 MG CAPSULE PO ×3 (08:51→16:41)
[2023-05-24] MEDS: NIFEdipine 30 MG TAB.ER.24 PO (08:51)
[2023-05-24] MEDS: ATORVASTATIN 10 MG TABLET PO (08:51)
[2023-05-24] MEDS: ENOXAPARIN 40 MG/0.4 ML SYRINGE SUB-Q (08:51)
[2023-05-24] MEDS: AMITRIPTYLINE HCL 25 MG TABLET 50 MG PO ×2 (08:51→16:41)
[2023-05-24] MEDS: ONDANSETRON INJ 4 MG/2 ML VIAL IV PUSH (09:01)
--- NOTE | 2023-05-24 10:50 | PM.IMPN ---
Progress Note: A&P Assessment and Plan (1) Acute respiratory failure with hypoxia: Code(s): J96.01 - Acute respiratory failure with hypoxia Status: Acute Assessment and Plan: New oxygen requirement of 4 L NC to keep sats greater than 90%, slightly tachypneic and elevated heart rate on presentation. D-dimer elevated VQ scan with intermediate results for PE. CTA has been deferred at this time due to renal function. Continue treatment dosing of Lovenox for PE. Will obtain BLE doppler Wean oxygen as tolerated. 12:Obviously dyspneic with activity. Has difficulty speaking in full sentences. SOB improves with rest. 05/23: Improved dyspnea able to speak in complete sentences minimal shortness of breath at rest 12: Oxygen titrated to 2 liters/minute. (2) Pneumonia: Qualifiers: Laterality: bilateral Lung location: lower lobe of lung Pneumonia type: due to unspecified organism Qualified Code(s): J18.9 - Pneumonia, unspecified organism Code(s): J18.9 - Pneumonia, unspecified organism Status: Acute Assessment and Plan: New o2 requirement, right sided chest pain, leukocytosis of 18.9, tachypnea, and tachycardia on admission. Sputum, urine, and blood cultures sent Started on Rocephin and Azithromycin IVF with NS at 100 ml per hour incentive spirometer Nebs Q6 hours 12: Lungs are coarse to BLL. On CAP coverage. Encourage IS. Wean o2 as tolerated. 05/23: Right upper and lower quadrant as well as left lower quadrant multifocal pneumonia. Add CPT, continue to wean oxygen as tolerated. Complete azithromycin course oral and change IV antibiotics to Augmentin. 05/24: Oxygen is being titrated, CPT is being tolerated well. (3) Left lower lobe pulmonary nodule: Code(s): R91.1 - Solitary pulmonary nodule Status: Acute Assessment and Plan: Incidental finding on imaging will need outpatient follow up with repeat CT scan in 3 months recommended. Added this to the D/C paperwork. (4) Renal failure: Code(s): N19 - Unspecified kidney failure Status: Acute Assessment and Plan: Unknown baseline renal function. Cr on admission was 1.60, GFR 32 IVF NS at 100 ml per hour strict I and O's. 05/23: Unchanged renal function creatinine 1.6 GFR 32 today. Patient reports prior GFR was in the upper 40s. Continue IV fluids to flush kidneys status post IV contrast but likely discontinue fluids tomorrow. 05/24: Creatinine 1.4 BUN 21 estimated GFR 37 estimated creatinine clearance 38. IV fluids discontinued. (5) Abnormal urinalysis: Code(s): R82.90 - Unspecified abnormal findings in urine Status: Acute Assessment and Plan: Concerning for possible UTI, recent falls x 2 this week. On Rocephin Urine culture sent and pending Reports urinary frequency 05/23: Urine culture grows pansensitive continue Augmentin (6) Chronic obstructive pulmonary disease: Code(s): J44.9 - Chronic obstructive pulmonary disease, unspecified Status: Acute Assessment and Plan: Not on home oxygen or daily inhalers. Only on albuterol inhaler and nebs. Q6 albuterol nebs for PNA now on 4 l NC Needs home o2 study prior to d/c 05/23: on 3 LPM NC, continue to wean, add CPT and encourage IS use. agree with home oxygen eval at discharge if unable to wean to Room Air 05/24: Oxygen weaned with 2 liters/minute (7) Type 2 diabetes mellitus: Code(s): E11.9 - Type 2 diabetes mellitus without complications Status: Acute Assessment and Plan: Hgb A1c unknown. On dapagliflozin and metformin at home. Holding metformin considering renal function. Continuing with empagliflozin achs accu checks, SSI low dose, and hypoglycemic protocol ordered. AM fasting blood glucose was 119 Placing on regular diet as her A1C is relatively normal and her fasting glucose is good. She reports that she knows what she should and should not eat.
[2023-05-24 11:56] LABS: Glucose Point of Care 121 mg/dl (65-105)
[2023-05-24 14:55] LABS: Influenza A QL RT-PCR Negative (Negative); Influenza B QL RT-PCR Negative (Negative); RSV RNA, RT-PCR Negative (Negative); SARS-CoV-2 RNA PCR Negative (Negative)
[2023-05-24 15:36] LABS: Strep Group A RT-PCR NOT DETECTED (Negative)
[2023-05-24 17:06] LABS: Glucose Point of Care 168 mg/dl (65-105)
[2023-05-24 20:55] LABS: Glucose Point of Care 133 mg/dl (65-105)
[2023-05-24] MEDS: traZODone HCL 50 MG TABLET 100 MG PO (21:30)
[2023-05-24] MEDS: GABAPENTIN 300 MG CAPSULE PO (21:30)
[2023-05-25] VITALS (11 sets, daily range): BP systolic 124–131; BP diastolic 49–64; PULSE 73–102; RESP 18–20; TEMP 36.3–36.6; O2SAT 91–96
[2023-05-25] MEDS: ALBUTEROL SULFATE NEB 2.5 MG/3 ML INH INHALATION ×4 (02:17→19:25)
[2023-05-25 06:45] LABS: Basophils Percent Auto 0.5 % (0.2-1.2); Hematocrit 31.7 % (37.0-47.0); Hemoglobin 9.7 g/dL (12.0-15.0); Immature Granulocyte Absolute 0.27 K/mm3 (0.00-0.031); Immature Granulocyte Percent A 3.7 % (0-0.5); Lymphocytes Absolute Auto 1.33 K/mm3 (0.9-3.2); Lymphocytes Percent Auto 18.2 % (18.3-44.2); Mean Corpuscular HGB Conc 30.6 g/dl (32-36); Mean Corpuscular Hemoglobin 27.5 pg (26-34); Mean Corpuscular Volume 89.8 fl (80-100); Mean Platelet Volume 10.1 fl (7.4-10.4); Monocytes Absolute Auto 0.6 K/mm3 (0.1-0.6); Monocytes Percent Auto 7.9 % (2.6-8.5); Neutrophils Absolute Auto 5.1 K/mm3 (1.3-6.7); Neutrophils Percent Auto 69.7 % (45.5-73.1); Nucleated Red Blood Cells Perc 0.3 % (0.0-0.2); Platelet Count Result 302 k/mm3 (150-375); Red Blood Count 3.53 M/mm3 (4.2-5.4); Red Cell Distribution Width 15.3 % (11.5-14.5); White Blood Count 7.3 K/mm3 (4.5-10.0)
[2023-05-25 07:02] LABS: Alanine Aminotransferase 17 U/L (6-35); Albumin Level 3.2 g/dL (3.5-5.1); Alkaline Phosphatase 94 U/L (38-126); Anion Gap 9 mmol/L (8-16); Aspartate Amino Transferase 17 U/L (14-36); Bilirubin,Total 0.3 mg/dL (0.2-1.3); Blood Urea Nitrogen 17 mg/dL (7-17); Calcium 8.4 mg/dL (8.4-10.2); Carbon Dioxide 22 mmol/L (22-30); Chloride 110 mmol/L (98-107); Estimated CRCL calculation 35 ml/min; Estimated Glomerular Filt Rate 34; Glucose 130 mg/dL (65-110); Potassium 3.3 mmol/L (3.4-5.0); Sodium 141 mmol/L (137-145)
[2023-05-25 07:53] LABS: Glucose Point of Care 116 mg/dl (65-105)
[2023-05-25] MEDS: DICYCLOMINE HCL 10 MG CAPSULE PO ×3 (08:44→17:38)
[2023-05-25] MEDS: FERROUS SULFATE 325 MG TABLET DR PO (08:44)
[2023-05-25] MEDS: allopurinoL 300 MG TABLET PO (08:44)
[2023-05-25] MEDS: AZITHROMYCIN 250 MG TABLET 500 MG PO (08:44)
[2023-05-25] MEDS: AMITRIPTYLINE HCL 25 MG TABLET 50 MG PO ×2 (08:44→17:38)
[2023-05-25] MEDS: EMPAGLIFLOZIN 25 MG TABLET PO (08:44)
[2023-05-25] MEDS: AMOXICILLIN/CLAVULANATE K 875-125 MG TAB 1 TABLET PO ×2 (08:45→20:51)
[2023-05-25] MEDS: VERAPAMIL HCL 180 MG TABLET ER PO ×2 (08:45→20:51)
[2023-05-25] MEDS: PANTOPRAZOLE 40 MG TABLET PO ×2 (08:45→17:38)
[2023-05-25] MEDS: FUROSEMIDE 40 MG TABLET PO (08:45)
[2023-05-25] MEDS: NIACIN 100 MG TABLET PO (08:45)
[2023-05-25] MEDS: ASPIRIN 325 MG TABLET PO (08:45)
[2023-05-25] MEDS: ATORVASTATIN 10 MG TABLET PO (08:45)
[2023-05-25] MEDS: NIFEdipine 30 MG TAB.ER.24 PO (08:45)
[2023-05-25] MEDS: POTASSIUM CHLORIDE 20 MEQ ER TABLET 40 MEQ PO (08:48)
[2023-05-25 11:21] LABS: Glucose Point of Care 161 mg/dl (65-105)
--- NOTE | 2023-05-25 11:57 | PM.IMPN ---
Progress Note: A&P Assessment and Plan (1) Acute respiratory failure with hypoxia: Code(s): J96.01 - Acute respiratory failure with hypoxia Status: Acute Assessment and Plan: New oxygen requirement of 4 L NC to keep sats greater than 90%, slightly tachypneic and elevated heart rate on presentation. D-dimer elevated VQ scan with intermediate results for PE. CTA has been deferred at this time due to renal function. Continue treatment dosing of Lovenox for PE. Will obtain BLE doppler Wean oxygen as tolerated. 12/: Obviously dyspneic with activity. Has difficulty speaking in full sentences. SOB improves with rest. 12/: Improved dyspnea able to speak in complete sentences minimal shortness of breath at rest 12/: Oxygen titrated to 2 liters/minute. 12: Patient is back to 3 liters/minute with crackles. Ordered IV diuresis. (2) Pneumonia: Qualifiers: Laterality: bilateral Lung location: lower lobe of lung Pneumonia type: due to unspecified organism Qualified Code(s): J18.9 - Pneumonia, unspecified organism Code(s): J18.9 - Pneumonia, unspecified organism Status: Acute Assessment and Plan: New o2 requirement, right sided chest pain, leukocytosis of 18.9, tachypnea, and tachycardia on admission. Sputum, urine, and blood cultures sent Started on Rocephin and Azithromycin IVF with NS at 100 ml per hour incentive spirometer Nebs Q6 hours 12/: Lungs are coarse to BLL. On CAP coverage. Encourage IS. Wean o2 as tolerated. 12: Right upper and lower quadrant as well as left lower quadrant multifocal pneumonia. Add CPT, continue to wean oxygen as tolerated. Complete azithromycin course oral and change IV antibiotics to Augmentin. 12: Oxygen is being titrated, CPT is being tolerated well. 126: Patient on oral antibiotics. Still requiring 3 L oxygen. Attempting IV diuresis. (3) Left lower lobe pulmonary nodule: Code(s): R91.1 - Solitary pulmonary nodule Status: Acute Assessment and Plan: Incidental finding on imaging will need outpatient follow up with repeat CT scan in 3 months recommended. Added this to the D/C paperwork. (4) Renal failure: Code(s): N19 - Unspecified kidney failure Status: Acute Assessment and Plan: Unknown baseline renal function. Cr on admission was 1.60, GFR 32 IVF NS at 100 ml per hour strict I and O's. 05/23: Unchanged renal function creatinine 1.6 GFR 32 today. Patient reports prior GFR was in the upper 40s. Continue IV fluids to flush kidneys status post IV contrast but likely discontinue fluids tomorrow. 05/24: Creatinine 1.4 BUN 21 estimated GFR 37 estimated creatinine clearance 38. IV fluids discontinued. 05/25: Creatinine 1.5 BUN 17 estimated GFR 34 estimated creatinine clearance 35 (5) Abnormal urinalysis: Code(s): R82.90 - Unspecified abnormal findings in urine Status: Acute Assessment and Plan: Concerning for possible UTI, recent falls x 2 this week. On Rocephin Urine culture sent and pending Reports urinary frequency 05/23: Urine culture grows pansensitive Klebsiella continue Augmentin (6) Chronic obstructive pulmonary disease: Code(s): J44.9 - Chronic obstructive pulmonary disease, unspecified Status: Acute Assessment and Plan: Not on home oxygen or daily inhalers. Only on albuterol inhaler and nebs. Q6 albuterol nebs for PNA now on 4 l NC Needs home o2 study prior to d/c 05/23: on 3 LPM NC, continue to wean, add CPT and encourage IS use. agree with home oxygen eval at discharge if unable to wean to Room Air 05/24: Oxygen weaned with 2 liters/minute 05/25: Oxygen back to 3 liters/minute (7) Type 2 diabetes mellitus: Code(s): E11.9 - Type 2 diabetes mellitus without complications Status: Acute Assessment and Plan: Hgb A1c unknown. On dapagliflozin and metformin at home. Holding metformin considering renal f
[2023-05-25] MEDS: FUROSEMIDE INJ 40 MG/4 ML VIAL IV PUSH (13:22)
[2023-05-25 14:30] LABS: Mycoplasma IgM Antibody Titer 281 U/mL (<770)
[2023-05-25 16:39] LABS: Glucose Point of Care 144 mg/dl (65-105)
[2023-05-25] MEDS: GABAPENTIN 300 MG CAPSULE PO (20:51)
[2023-05-25] MEDS: traZODone HCL 50 MG TABLET 100 MG PO (20:51)
[2023-05-25 21:16] LABS: Glucose Point of Care 160 mg/dl (65-105)
[2023-05-26] VITALS (14 sets, daily range): BP systolic 112–139; BP diastolic 50–57; PULSE 73–107; RESP 16–20; TEMP 36.6–36.8; O2SAT 91–100
[2023-05-26] MEDS: ALBUTEROL SULFATE NEB 2.5 MG/3 ML INH INHALATION ×4 (02:08→18:13)
[2023-05-26 06:29] LABS: Basophils Absolute Auto 0.1 K/mm3 (0.0-0.1); Basophils Percent Auto 0.8 % (0.2-1.2); Hemoglobin 9.5 g/dL (12.0-15.0); Immature Granulocyte Absolute 0.27 K/mm3 (0.00-0.031); Immature Granulocyte Percent A 4.5 % (0-0.5); Lymphocytes Absolute Auto 1.24 K/mm3 (0.9-3.2); Lymphocytes Percent Auto 20.8 % (18.3-44.2); Mean Corpuscular HGB Conc 30.6 g/dl (32-36); Mean Corpuscular Volume 88.1 fl (80-100); Mean Platelet Volume 9.4 fl (7.4-10.4); Monocytes Absolute Auto 0.5 K/mm3 (0.1-0.6); Monocytes Percent Auto 8.1 % (2.6-8.5); Neutrophils Absolute Auto 3.9 K/mm3 (1.3-6.7); Neutrophils Percent Auto 65.8 % (45.5-73.1); Nucleated Red Blood Cells Perc 0.3 % (0.0-0.2); Platelet Count Result 298 k/mm3 (150-375); Red Blood Count 3.52 M/mm3 (4.2-5.4); Red Cell Distribution Width 15.3 % (11.5-14.5)
[2023-05-26 06:41] LABS: Alanine Aminotransferase 17 U/L (6-35); Albumin Level 3.2 g/dL (3.5-5.1); Alkaline Phosphatase 89 U/L (38-126); Anion Gap 8 mmol/L (8-16); Aspartate Amino Transferase 19 U/L (14-36); Bilirubin,Total 0.4 mg/dL (0.2-1.3); Blood Urea Nitrogen 18 mg/dL (7-17); Calcium 8.5 mg/dL (8.4-10.2); Carbon Dioxide 22 mmol/L (22-30); Chloride 110 mmol/L (98-107); Estimated CRCL calculation 35 ml/min; Estimated Glomerular Filt Rate 34; Glucose 132 mg/dL (65-110); Potassium 3.5 mmol/L (3.4-5.0); Sodium 140 mmol/L (137-145)
[2023-05-26 08:26] LABS: Glucose Point of Care 121 mg/dl (65-105)
--- NOTE | 2023-05-26 08:51 | PM.IMPN ---
Progress Note: A&P Assessment and Plan (1) Acute respiratory failure with hypoxia: Code(s): J96.01 - Acute respiratory failure with hypoxia Status: Acute Assessment and Plan: New oxygen requirement of 4 L NC to keep sats greater than 90%, slightly tachypneic and elevated heart rate on presentation. D-dimer elevated VQ scan with intermediate results for PE. CTA has been deferred at this time due to renal function. Continue treatment dosing of Lovenox for PE. Will obtain BLE doppler Wean oxygen as tolerated. 12/3: Obviously dyspneic with activity. Has difficulty speaking in full sentences. SOB improves with rest. 12/: Improved dyspnea able to speak in complete sentences minimal shortness of breath at rest 12: Oxygen titrated to 2 liters/minute. 05/25: Patient is back to 3 liters/minute with crackles. Ordered IV diuresis. 05/26: Improving, home O2 eval, DC today or tomorrow on home oxygen (2) Pneumonia: Qualifiers: Laterality: bilateral Lung location: lower lobe of lung Pneumonia type: due to unspecified organism Qualified Code(s): J18.9 - Pneumonia, unspecified organism Code(s): J18.9 - Pneumonia, unspecified organism Status: Acute Assessment and Plan: New o2 requirement, right sided chest pain, leukocytosis of 18.9, tachypnea, and tachycardia on admission. Sputum, urine, and blood cultures sent Started on Rocephin and Azithromycin IVF with NS at 100 ml per hour incentive spirometer Nebs Q6 hours 12/3: Lungs are coarse to BLL. On CAP coverage. Encourage IS. Wean o2 as tolerated. 12: Right upper and lower quadrant as well as left lower quadrant multifocal pneumonia. Add CPT, continue to wean oxygen as tolerated. Complete azithromycin course oral and change IV antibiotics to Augmentin. 05/24: Oxygen is being titrated, CPT is being tolerated well. 05/25: Patient on oral antibiotics. Still requiring 3 L oxygen. Attempting IV diuresis. 05/26: Home O2 eval, Augmentin on discharge to complete antibiotics for pneumonia (3) Left lower lobe pulmonary nodule: Code(s): R91.1 - Solitary pulmonary nodule Status: Acute Assessment and Plan: Incidental finding on imaging will need outpatient follow up with repeat CT scan in 3 months recommended. Added this to the D/C paperwork. Patient aware of nodule from previous facility, unknown prior size. Patient has follow up scheduled in June (4) Renal failure: Code(s): N19 - Unspecified kidney failure Status: Acute Assessment and Plan: Unknown baseline renal function. Cr on admission was 1.60, GFR 32 IVF NS at 100 ml per hour strict I and O's. 05/23: Unchanged renal function creatinine 1.6 GFR 32 today. Patient reports prior GFR was in the upper 40s. Continue IV fluids to flush kidneys status post IV contrast but likely discontinue fluids tomorrow. 05/24: Creatinine 1.4 BUN 21 estimated GFR 37 estimated creatinine clearance 38. IV fluids discontinued. 05/25: Creatinine 1.5 BUN 17 estimated GFR 34 estimated creatinine clearance 35 05/26: Creatinine 1.5 BUN 18 estimated GFR 34 estimated creatinine clearance 35 (5) Abnormal urinalysis: Code(s): R82.90 - Unspecified abnormal findings in urine Status: Acute Assessment and Plan: Concerning for possible UTI, recent falls x 2 this week. On Rocephin Urine culture sent and pending Reports urinary frequency 05/23: Urine culture grows pansensitive Klebsiella continue Augmentin (6) Chronic obstructive pulmonary disease: Code(s): J44.9 - Chronic obstructive pulmonary disease, unspecified Status: Acute Assessment and Plan: Not on home oxygen or daily inhalers. Only on albuterol inhaler and nebs. Q6 albuterol nebs for PNA now on 4 l NC Needs home o2 study prior to d/c 05/23: on 3 LPM NC, continue to wean, add CPT and encourage IS use. agree with home oxygen eval at discharge if unable to wean
[2023-05-26] MEDS: ASPIRIN 325 MG TABLET PO (09:10)
[2023-05-26] MEDS: EMPAGLIFLOZIN 25 MG TABLET PO (09:10)
[2023-05-26] MEDS: PANTOPRAZOLE 40 MG TABLET PO ×2 (09:10→16:33)
[2023-05-26] MEDS: DICYCLOMINE HCL 10 MG CAPSULE PO ×3 (09:10→16:33)
[2023-05-26] MEDS: FUROSEMIDE 40 MG TABLET PO (09:10)
[2023-05-26] MEDS: FERROUS SULFATE 325 MG TABLET DR PO (09:10)
[2023-05-26] MEDS: AMOXICILLIN/CLAVULANATE K 875-125 MG TAB 1 TABLET PO ×2 (09:11→21:30)
[2023-05-26] MEDS: NIACIN 100 MG TABLET PO (09:11)
[2023-05-26] MEDS: AMITRIPTYLINE HCL 25 MG TABLET 50 MG PO ×2 (09:11→16:33)
[2023-05-26] MEDS: NIFEdipine 30 MG TAB.ER.24 PO (09:11)
[2023-05-26] MEDS: allopurinoL 300 MG TABLET PO (09:11)
[2023-05-26] MEDS: ATORVASTATIN 10 MG TABLET PO (09:11)
[2023-05-26] MEDS: VERAPAMIL HCL 180 MG TABLET ER PO ×2 (09:20→21:30)
[2023-05-26] MEDS: LOPERAMIDE HCL 2 MG CAPSULE 4 MG PO (10:37)
[2023-05-26 12:11] LABS: Glucose Point of Care 130 mg/dl (65-105)
[2023-05-26] MEDS: SACCHAROMYCES BOULARDII 250 MG CAPSULE PO ×2 (13:13→16:33)
--- NOTE | 2023-05-26 14:00 | PCRCNOTE ---
HOME O2 EVAL DONE, NO HOME O2 NEEDED AT THIS TIME. IM AWARE THAT THE PATIENT WOULD LIKE TO HAVE HOME O2, ALTHOUGH AFTER SPENDING OVER 30 MINUTES WITH PATIENT ON ROOM AIR WITH WALKING IN THE [place], HER SATS DID NOT DROP. SHE STAYED 92-93% ON ROOM AIR WITH ACTIVITY. RN NOTIFIED, KEPT HER OFF OF O2, WILL CONTINUE TO MONITOR HER SATS WITH VITALS CHECKS AND RESP. TXS
--- NOTE | 2023-05-26 14:05 | HOMEO2EVAL ---
Evaluation was performed at [facility] Home Oxygen Evaluation RC: Home Oxygen (O2) Evaluation Start: 05/26/23 10:38 Freq: ONCE Status: Active Protocol: RPE Activity Type Activity Date Activity User E-sign Co-sign Detail Recorded Client Recorded Date Recorded By Document 05/26/23 11:30 MARY ANN [email or web address] 05/26/23 14:00 MARY ANN Document 05/26/23 11:35 MARY ANN [email or web address] 05/26/23 14:00 MARY ANN Document 05/26/23 11:45 MARY ANN [email or web address] 05/26/23 14:00 MARY ANN 05/26/23 05/26/23 05/26/23 11:30 11:35 11:45 Home O2 Evaluation [Oxygen] -Test Phase Resting Exercise Resting -Oxygen Delivery Room Air Room Air Room Air [Pulse Oximetry] -Pulse Oximetry (90-100 %) 95 93 96 [Pulse Rate] -Pulse Rate (60-100 beats/min) 82 107 H 90 [Evaluation] -Activity Tolerance Fair -Rating of Perceived Dyspnea (PD) +3 Moderate Difficulty, But Can Continue -Rate of Perceived Exertion (PE) 17 Very Hard Query Text:Click the Protocol Button to View the RPE Scale [Exercise] -Ambulation Distance (feet) 400 -Ambulation Distance (meters) 121.91 [Comments] -Home Oxygen Evaluation Comments NO HOME O2 NEEDED AT THIS TIME. [Charges] -Evaluation Charges O2 Evaluation by Pulmonary
[2023-05-26 14:43] LABS: Toxigenic C. Diff NEGATIVE (NEGATIVE)
[2023-05-26 17:21] LABS: Glucose Point of Care 173 mg/dl (65-105)
[2023-05-26 21:05] LABS: Glucose Point of Care 193 mg/dl (65-105)
[2023-05-26] MEDS: traZODone HCL 50 MG TABLET 100 MG PO (21:30)
[2023-05-26] MEDS: GABAPENTIN 300 MG CAPSULE PO (21:30)
[2023-05-26] MEDS: ACETAMINOPHEN 325 MG TABLET 650 MG PO (21:30)
[2023-05-27] VITALS (11 sets, daily range): BP systolic 115; BP diastolic 96; PULSE 80–130; RESP 18; TEMP 36.6; O2SAT 87–93
[2023-05-27] MEDS: ALBUTEROL SULFATE NEB 2.5 MG/3 ML INH INHALATION ×2 (02:44→09:17)
[2023-05-27 07:49] LABS: Glucose Point of Care 131 mg/dl (65-105)
[2023-05-27] MEDS: DICYCLOMINE HCL 10 MG CAPSULE PO ×2 (08:27→13:45)
[2023-05-27] MEDS: allopurinoL 300 MG TABLET PO (08:28)
[2023-05-27] MEDS: AMITRIPTYLINE HCL 25 MG TABLET 50 MG PO (08:28)
[2023-05-27] MEDS: EMPAGLIFLOZIN 25 MG TABLET PO (08:28)
[2023-05-27] MEDS: FUROSEMIDE 40 MG TABLET PO (08:28)
[2023-05-27] MEDS: FERROUS SULFATE 325 MG TABLET DR PO (08:28)
[2023-05-27] MEDS: ASPIRIN 325 MG TABLET PO (08:28)
[2023-05-27] MEDS: AMOXICILLIN/CLAVULANATE K 875-125 MG TAB 1 TABLET PO (08:28)
[2023-05-27] MEDS: NIFEdipine 30 MG TAB.ER.24 PO (08:28)
[2023-05-27] MEDS: NIACIN 100 MG TABLET PO (08:29)
[2023-05-27] MEDS: SACCHAROMYCES BOULARDII 250 MG CAPSULE PO ×2 (08:29→13:45)
[2023-05-27] MEDS: PANTOPRAZOLE 40 MG TABLET PO (08:29)
[2023-05-27] MEDS: VERAPAMIL HCL 180 MG TABLET ER PO (08:29)
[2023-05-27] MEDS: ATORVASTATIN 10 MG TABLET PO (08:29)
--- NOTE | 2023-05-27 10:59 | HOMEO2EVAL ---
Evaluation was performed at [facility] Home Oxygen Evaluation RC: Home Oxygen (O2) Evaluation Start: 05/26/23 10:38 Freq: ONCE Status: Active Protocol: RPE Activity Type Activity Date Activity User E-sign Co-sign Detail Recorded Client Recorded Date Recorded By Document 05/26/23 11:30 MARY ANN [email or web address] 05/26/23 14:00 MARY ANN Document 05/26/23 11:35 MARY ANN [email or web address] 05/26/23 14:00 MARY ANN Document 05/26/23 11:45 MARY ANN [email or web address] 05/26/23 14:00 MARY ANN Document 05/27/23 10:00 MARY ANN [email or web address] 05/27/23 10:59 MARY ANN Document 05/27/23 10:01 MARY ANN [email or web address] 05/27/23 10:59 MARY ANN Document 05/27/23 10:05 MARY ANN [email or web address] 05/27/23 10:59 MARY ANN Document 05/27/23 10:06 MARY ANN [email or web address] 05/27/23 10:59 MARY ANN Document 05/27/23 10:15 MARY ANN [email or web address] 05/27/23 10:59 MARY ANN 05/26/23 05/26/23 05/26/23 11:30 11:35 11:45 Home O2 Evaluation [Oxygen] -Test Phase Resting Exercise Resting -Oxygen Delivery Room Air Room Air Room Air -Oxygen Flow Rate (L/min) [Pulse Oximetry] -Pulse Oximetry (90-100 %) 95 93 96 [Pulse Rate] -Pulse Rate (60-100 beats/min) 82 107 H 90 [Evaluation] -Activity Tolerance Fair -Rating of Perceived Dyspnea (PD) +3 Moderate Difficulty, But Can Continue -Rate of Perceived Exertion (PE) 17 Very Hard Query Text:Click the Protocol Button to View the RPE Scale [Exercise] -Ambulation Distance (feet) 400 -Ambulation Distance (meters) 121.91 [Comments] -Home Oxygen Evaluation Comments NO HOME O2 NEEDED AT THIS TIME. [Charges] -Evaluation Charges O2 Evaluation by Pulmonary 05/27/23 05/27/23 05/27/23 10:00 10:01 10:05 Home O2 Evaluation [Oxygen] -Test Phase Resting Resting Exercise -Oxygen Delivery Room Air Nasal Cannula Nasal Cannula -Oxygen Flow Rate (L/min) 2 2 [Pulse Oximetry] -Pulse Oximetry (90-100 %) 87 L 93 87 L [Pulse Rate] -Pulse Rate (60-100 beats/min) 100 129 H [Evaluation] -Activity Tolerance -Rating of Perceived Dyspnea (PD) -Rate of Perceived Exertion (PE) Query Text:Click the Protocol Button to View the RPE Scale [Exercise] -Ambulation Distance (feet) -Ambulation Distance (meters) [Comments] -Home Oxygen Evaluation Comments Pt requires 2 L at rest and 3 L with activity [Charges] -Evaluation Charges O2 Evaluation by Pulmonary 05/27/23 05/27/23 10:06 10:15 Home O2 Evaluation [Oxygen] -Test Phase Exercise Resting -Oxygen Delivery Nasal Cannula Nasal Cannula -Oxygen Flow Rate (L/min) 3 2 [Pulse Oximetry] -Pulse Oximetry (90-100 %) 90 92 [Pulse Rate] -Pulse Rate (60-100 beats/min) 130 H 96 [Evaluation] -Activity Tolerance -Rating of Perceived Dyspnea (PD) -Rate of Perceived Exertion (PE) Query Text:Click the Protocol Button to View the RPE Scale [Exercise] -Ambulation Distance (feet) -Ambulation Distance (meters) [Comments] -Home Oxygen Evaluation Comments [Charges] -Evaluation Charges
--- NOTE | 2023-05-27 11:11 | PCRCNOTE ---
Home o2 eval repeated, pt requires 2 l rest and 3 l activity. Will arrange O2 with [facility] [place], she has CPAP and Nebs with [facility] [place] already. RN notified.
[2023-05-27] MEDS: BENZONATATE 100 MG CAPSULE 200 MG PO ×2 (11:33→13:45)
[2023-05-27 11:41] LABS: Glucose Point of Care 146 mg/dl (65-105)
--- NOTE | 2023-05-27 12:01 | PM.DS ---
DS: Admitting Diagnosis Discharge Date 05/27/2023 Admitting Diagnosis acute respiratory failure with hypoxia, pneumonia, left lower lobe pulmonary nodule, renal failure, abnormal urinalysis, type 2 diabetes mellitus, COPD DS: Discharge Diagnosis Discharge Diagnosis (1) Acute respiratory failure with hypoxia: Code(s): J96.01 - Acute respiratory failure with hypoxia Status: Acute (2) Pneumonia: Qualifiers: Laterality: bilateral Lung location: lower lobe of lung Pneumonia type: due to unspecified organism Qualified Code(s): J18.9 - Pneumonia, unspecified organism Code(s): J18.9 - Pneumonia, unspecified organism Status: Acute (3) Left lower lobe pulmonary nodule: Code(s): R91.1 - Solitary pulmonary nodule Status: Acute (4) Renal failure: Code(s): N19 - Unspecified kidney failure Status: Acute (5) Abnormal urinalysis: Code(s): R82.90 - Unspecified abnormal findings in urine Status: Acute (6) Chronic obstructive pulmonary disease: Code(s): J44.9 - Chronic obstructive pulmonary disease, unspecified Status: Acute (7) Type 2 diabetes mellitus: Code(s): E11.9 - Type 2 diabetes mellitus without complications Status: Acute DS: Summary Hospital Course Reason for hospitalization: Multiple complaints including shortness of breath and cough Hospital Course: This is a 73-year-old female with hypertension, dyslipidemia, chronic obstructive pulmonary disease, sleep apnea, type 2 diabetes mellitus, fibromyalgia, and gastroesophageal reflux disease who presented to the emergency department via EMS from home for evaluation of multiple complaints. The patient provides the following history. She has not felt well for several days with symptoms to include decreased appetite with minimal oral intake since Tuesday, nausea, vomiting, nonproductive cough, right anterior pleuritic chest pain, generalized malaise, and fatigue. She has fallen 2 times this week due to weakness and she reports hitting her head on the bathtub when trying to get off the toilet on but there was no loss of consciousness or injury. It is not unusual for her to have shortness of breath with everyday activities and she has always felt that she would benefit from oxygen at home however reports that she has never qualified. At baseline she will get short of breath even when putting dishes away. The last several days she has felt increasingly short of breath and today she came in for evaluation due to ongoing symptoms. She denies sick contacts, dysphagia, concerns for aspiration, sinus congestion, sore throat, exertional chest pain, syncope, and diarrhea. She has issues with urinary incontinence which is an ongoing problem and is not new. No dysuria or hematuria. No lower extremity edema or calf pain. She denies personal and family history of venous thromboembolism. 05/22:? Patient is seen today resting in bed on 3 L nasal cannula.? She appears unwell.? Today she reports weakness, shortness of breath with exertion, inspiratory right-sided chest pain with a nonproductive cough, urinary frequency and generalized pain to her abdomen and back. She does report chronic loose stools and some fecal incontinence that she has had since a bowel surgery 3 years ago. 05/23:? Patient seen resting in bed on 3 L nasal cannula.? She appears less ill than previously described.? Patient still having shortness of breath with exertion and still requiring 3 L oxygen for 91% saturation per nursing staff.? Patient was up all night because her roommate was significantly ill.? IV fluids continue to infuse.? Renal function stable since admission.? Patient recalls last GFR was in the upper 40s but she has remained at 32 since admission.? He due to sustained hypoxia in intermediate risk on V/Q scan, ordered CTA of the chest definitive PE evaluation.? CTA was negative for PE does show multifocal pneumonia and small pleural effusio
== END 2023-05-27 14:15 | disposition home health service (06) | DRG 193 ==
LOC: ANHED 10:01 → ANH3MEDSUR 16:04
PROVIDERS: Internal Medicine; Nurse Practitioner Acute Care; Physician Assistant; Admitting Provider Hospitalist; Emergency Provider General Practice; PCP Internal Medicine; Visit Provider Nurse Practitioner
DX: J18.9 Pneumonia, unspecified organism (principal); I26.99 Other pulmonary embolism without acute cor pulmonale; J96.01 Acute respiratory failure with hypoxia; N17.9 Acute kidney failure, unspecified; J44.0 Chronic obstructive pulmonary disease with (acute) lower respiratory infection; N39.0 Urinary tract infection, site not specified; J90 Pleural effusion, not elsewhere classified; B96.1 Klebsiella pneumoniae [K. pneumoniae] as the cause of diseases classified elsewhere; R91.1 Solitary pulmonary nodule; E78.5 Hyperlipidemia, unspecified; E11.9 Type 2 diabetes mellitus without complications; K21.9 Gastro-esophageal reflux disease without esophagitis; R32 Unspecified urinary incontinence; M79.7 Fibromyalgia; Z20.822 Contact with and (suspected) exposure to COVID-19; M19.90 Unspecified osteoarthritis, unspecified site; F41.9 Anxiety disorder, unspecified; Z90.49 Acquired absence of other specified parts of digestive tract; Z90.710 Acquired absence of both cervix and uterus; Z79.84 Long term (current) use of oral hypoglycemic drugs
CPT/HCPCS: 36415; 36600; 70450; 71045; 71275; 72125; 74176; 78582; 80053; 81001; 82375; 82805; 82948; 83036; 83050; 83605; 83690; 83735; 83880; 84484; 85025; 85055; 85380; 85610; 85730; 86738; 87040; 87077; 87086; 87088; 87186; 87493; 87637; 87651; 93005; 93970; 94618; 94640; 94668; 97110; 97161; 97165; 97530; 97535; A9270; A9540; A9558; J0456; J0696; J1650; J1885; J1940; J2405; J7030; Q9967

== ENCOUNTER 2023-09-21 14:12 | Inpatient (IN) | payer MEDICARE, MEDICAID, SELFPAY ==
[2023-09-21] VITALS (41 sets, daily range): BP systolic 112–170; BP diastolic 48–131; PULSE 77–104; RESP 13–31; TEMP 36.1–36.6; O2SAT 91–100; BMI 35.4
--- NOTE | ~2023-09-21 | US_ITS ---
EXAMINATION: US venous doppler [facility] DATE: 09/23/2023 13:12 INDICATION: Syncope. Shortness of breath. Elevated d-dimer. TECHNIQUE: Grayscale ultrasound images without and with compression and Doppler ultrasound images of the bilateral lower extremity veins were obtained. COMPARISON: 05/22/2023 FINDINGS: The visualized portions of right common femoral vein, profunda (deep) femoral vein, femoral vein, pop liteal vein, posterior tibial veins, peroneal veins, gastrocnemius vein and greater saphenous vein ou tflow are patent. The visualized portions of left common femoral vein, profunda femoral vein, femoral vein, popliteal v ein, posterior tibial veins, peroneal veins, gastrocnemius vein and greater saphenous vein outflow ar e patent. IMPRESSION: 1. No deep venous thrombosis in either lower limb. Reviewed, dictated and finalized at location A.
--- NOTE | ~2023-09-21 | CT_ITS ---
EXAMINATION: CTA BRAIN/CAROTID DATE: 09/22/2023 15:18 INDICATION: Syncope. TECHNIQUE: Computed tomographic angiography (CTA) of the head and neck was performed with 100 mL Omni paque-350 intravenous contrast. Multiplanar reconstructions and maximum intensity projection 3D-recon structions of the carotid arteries and of the intracranial arteries were created by the technologist on a separate workstation. Precontrast CT of the head was also obtained. Automated exposure control and iterative reconstruction technique were employed.The dose-length product was 1663.20 mGy-cm. COMPARISON: 05/21/2023 FINDINGS: Carotid arteries: Visualized aortic arch is normal in caliber with scattered nonhemodynamically significant atheroscler otic plaque and no dissection. There are some additional nonhemodynamically significant atherosclerot ic plaque in the great vessels arising from the aortic arch. There is 10% stenosis of the right carot id bulb relative to normal distal artery lumen diameter (NASCET criteria). There is 25% stenosis of t he left carotid bulb relative to normal distal artery lumen diameter. Moderate cervical spondylosis. Multinodular goiter with multiple subcentimeter likely benign thyroid nodules. Cervical soft tissues are unremarkable. Visualized portions of the lungs are clear. Head: No acute intracranial hemorrhage, acute infarction or abnormal extra axial fluid collection. There is mild scattered white matter hypoattenuation consistent with chronic small vessel ischemic disease. S ymmetric prominence of the sulci consistent with mild age-appropriate diffuse cerebral volume loss. V entricles are normal and symmetric. No mass/mass effect. No abnormally enhancing brain lesions identi fied on the post contrast images. Changes of left intraocular lens replacement. The orbits and parana jose sinuses are normal. Very small left mastoid effusion. Intracranial arteries Bilateral vertebral arteries are codominant. Small amount of nonhemodynamically significant atheroscl erotic plaque at the bilateral carotid siphons. There is no hemodynamically significant stenosis in t he vertebral, basilar and internal carotid arteries. Vertebral arteries are codominant. There are no aneurysms identified. Both A1 and P1 segments are patent. There is a patent anterior communicating a rtery. Cerebral arterial arborization appears symmetric. IMPRESSION: 1. 10% stenosis of the right carotid bulb relative to normal distal artery lumen diameter (NASCET cri teria). 2. 25% stenosis of the left carotid bulb relative to normal distal artery lumen diameter. 3. No acute intracranial process with unremarkable cerebral CT angiogram. Reviewed, dictated and finalized at location A. IMPRESSION: 1. 10% stenosis of the right carotid bulb relative to normal distal artery lume n diameter (NASCET criteria). 2. 25% stenosis of the left carotid bulb relative to normal distal artery lumen diameter. 3. No acute intracranial process with unremarkable cerebral CT angiogram.
--- NOTE | ~2023-09-21 | CT_ITS ---
EXAMINATION: CTA chest PE protocol DATE: 09/23/2023 09:38 INDICATION: Syncope. Shortness of breath. TECHNIQUE: Computed tomography angiography (CTA) of the chest was performed with 100 mL Omnipaque-350 intravenous contrast timed to evaluate the pulmonary arteries. Coronal maximum intensity projection 3D-reconstructions were created by the technologist. Automated exposure control and iterative reconst ruction technique were employed. The dose-length product was 632.60 mGy-cm. COMPARISON: CT 05/23/2023 FINDINGS: The lungs demonstrate mild atelectasis. There is a 9 mm nodule in left lower lobe. No pleur al effusion. The heart size is normal. There are coronary artery calcifications. No pericardial effus ion. The central pulmonary is enlarged, consistent with pulmonary arterial hypertension. There is no pulmonary embolus. There is a right shoulder arthroplasty. There are bridging endplate osteophytes at multiple levels in the spine, consistent with diffuse idiopathic skeletal hyperostosis (DISH). IMPRESSION: 1. No pulmonary embolus. Sensitivity is mildly decreased by motion artifact and suboptimal contrast o pacification. 2. 9 mm left lower lobe pulmonary nodule, which may be infection or primary bronchogenic carcinoma. N oncontrast low-dose chest CT is recommended in 3 months. Reviewed, dictated and finalized at location A. IMPRESSION: 1. No pulmonary embolus. Sensitivity is mildly decreased by motion artifact and suboptimal contrast opacification. 2. 9 mm left lower lobe pulmonary nodule, which may be infection or primary bro nchogenic carcinoma. Noncontrast low-dose chest CT is recommended in 3 months.
--- NOTE | ~2023-09-21 | CT_ITS ---
EXAMINATION: CT abdomen pelvis w con DATE: 09/21/2023 17:04 INDICATION: Abdominal pain TECHNIQUE: Computed tomography (CT) of the abdomen and pelvis was performed with 100 mL Omnipaque-350 intravenous contrast. Automated exposure control and iterative reconstruction technique were employe d. The dose-length product was 1121.27 mGy-cm. COMPARISON: 05/21/2023 FINDINGS: Mild discoid atelectasis/scarring at the left lung base. Interval decrease in size of a previously 9 mm, currently 8 x 6 mm nodule at the anterobasilar left lower lobe. Heart size is normal. Atheroscler otic coronary artery calcifications. No pericardial or pleural effusion. Gallbladder is not visualize d and likely surgically absent. Unchanged mild dilation of the common bile duct which measures up to 9 mm but without intrahepatic biliary ductal dilation. Pancreas, bilateral adrenal glands and left ki dney are normal. 1.1 cm low-attenuation cyst at the lower pole of the right kidney. Unchanged mild no nspecific splenomegaly measuring 18.2 cm in maximal length. There are few diverticula along the sigmo id colon without adjacent from trace stranding to suggest diverticulitis. No bowel obstruction. The a ppendix is not visualized. No pericecal inflammatory change to suggest acute appendicitis. Bladder is normal. The uterus is not identified and has likely been surgically resected. No free intraperitonea l gas or fluid. No pathologically enlarged abdominal or pelvic lymphadenopathy. There is calcified at herosclerosis of the aorta and many of the other arteries. Moderate lumbar and lower thoracic spondyl osis. IMPRESSION: 1. No acute intra-abdominal/pelvic process. 2. Persistent mild dilation the common bile duct to 9 mm which is within normal limits post cholecyst ectomy but would correlate with liver function tests. If clinically indicated could consider HIDA sca n for further evaluation. 3. Interval decrease in size of a now 8 x 6 mm indeterminate left lower lobe nodule. Recommend additi onal 6 month follow-up low-dose noncontrast chest CT. Reviewed, dictated and finalized at location A. IMPRESSION: 1. No acute intra-abdominal/pelvic process. 2. Persistent mild dilation the common bile duct to 9 mm which is within normal limits post cholecystectomy but would correlate with liver function tests. If clinically indicated could consider HIDA scan for further evaluation. 3. Interval decrease in size of a now 8 x 6 mm indeterminate left lower lobe no dule. Recommend additional 6 month follow-up low-dose noncontrast chest CT.
--- NOTE | 2023-09-21 15:09 | ECG_ITS ---
Measurements Intervals [place] Rate: 90 P: 65 IL: 157 QRS: -5 QRSD: 92 T: 82 QT: 380 QTc: 465 Interpretive Statements SINUS RHYTHM MODERATE VOLTAGE CRITERIA FOR LVH, CONSIDER NORMAL VARIANT [MEETS CRITERIA IN ONE OF: R(aVL), S(V1), R(V5), R(V5/V6)+S(V1)] NONSPECIFIC ST AND T WAVE ABNORMALITY COMPARED TO ECG 05/21/2023 09:29:40 NO SIGNIFICANT CHANGES Electronically Signed On 09-21-2023 15:56:04 CDT by Ham Montoya M.D.
[2023-09-21] MEDS: SODIUM CHLORIDE 0.9% IV 1,000 ML 999 ML IV CONT (15:36)
[2023-09-21 15:38] LABS: Basophils Percent Auto 0.2 % (0.2-1.2); Hematocrit 44.3 % (37.0-47.0); Hemoglobin 14.5 g/dL (12.0-15.0); Immature Granulocyte Absolute 0.02 K/mm3 (0.00-0.031); Immature Granulocyte Percent A 0.2 % (0-0.5); Lymphocytes Absolute Auto 1.47 K/mm3 (0.9-3.2); Lymphocytes Percent Auto 14.2 % (18.3-44.2); Mean Corpuscular HGB Conc 32.7 g/dl (32-36); Mean Corpuscular Hemoglobin 26.7 pg (26-34); Mean Corpuscular Volume 81.6 fl (80-100); Mean Platelet Volume 10.3 fl (7.4-10.4); Monocytes Absolute Auto 0.6 K/mm3 (0.1-0.6); Neutrophils Absolute Auto 8.3 K/mm3 (1.3-6.7); Neutrophils Percent Auto 79.4 % (45.5-73.1); Platelet Count Result 311 k/mm3 (150-375); Red Blood Count 5.43 M/mm3 (4.2-5.4); Red Cell Distribution Width 15.9 % (11.5-14.5); White Blood Count 10.4 K/mm3 (4.5-10.0)
--- NOTE | 2023-09-21 16:15 | ED.SYNCOPE ---
HPI - Syncope General Chief Complaint: Syncope Stated Complaint: syncopy Time Seen by Provider: 09/21/23 15:10 History of Present Illness HPI narrative: patient is a 73-year-old female who presents ER after having a syncopal episode. Patient reports she has chronic diarrhea and chronic abdominal discomfort. Today she is having bowel movement. She had had a couple episodes of diarrhea and a soft bowel movement and then lost consciousness. No chest pain or chest pressure. No fevers chills sweats. Patient does feel like she is dehydrated reports that she has a dry mouth. Related Data Home Medications Medication Instructions Recorded Confirmed allopurinol 300 mg tablet 300 mg PO DAILY 11/13/19 05/21/23 amitriptyline 50 mg tablet 50 mg PO BID 11/13/19 05/21/23 atorvastatin 10 mg tablet 10 mg PO DAILY 11/13/19 05/21/23 omeprazole 20 mg capsule,delayed 20 mg PO BID 11/13/19 05/21/23 release albuterol 90 mcg/actuation aerosol 90 mcg inhalation Q6H PRN short of 05/21/23 05/21/23 inhaler breath albuterol sulfate 2.5 mg/3 mL 2.5 mg inhalation Q6H 05/21/23 05/21/23 (0.083 %) solution for nebulization aspirin 325 mg tablet 325 mg PO DAILY 05/21/23 05/21/23 cyanocobalamin (vitamin B-12) 1 tab-cap PO DIRECTED 05/21/23 05/21/23 dapagliflozin propanediol 10 mg 10 mg PO DAILY 05/21/23 05/21/23 tablet (Farxiga) dicyclomine 10 mg capsule 10 mg PO TID 05/21/23 05/21/23 ergocalciferol (vitamin D2) 50,000 50,000 unit PO DIRECTED 05/21/23 05/21/23 unit tablet ferrous sulfate 325 mg (65 mg 325 mg PO DAILY 05/21/23 05/21/23 iron) tablet furosemide 40 mg tablet 40 mg PO DAILY 05/21/23 05/21/23 gabapentin 300 mg capsule 300 mg PO HS 05/21/23 05/21/23 hydrocodone 5 mg-acetaminophen 325 1 tablet PO Q4H PRN pain 4-6 05/21/23 05/21/23 mg tablet loperamide 2 mg tablet 2 mg PO Q3H PRN Diarrhea 05/21/23 05/21/23 niacin 100 mg tablet 100 mg PO DAILY 05/21/23 05/21/23 nifedipine 30 mg tablet,extended 30 mg PO DAILY 05/21/23 05/21/23 release 24 hr ondansetron 4 mg disintegrating 4 mg PO Q8H PRN Nausea And Vomiting 05/21/23 05/21/23 tablet trazodone 100 mg tablet 100 mg PO HS 05/21/23 05/21/23 verapamil 180 mg tablet,extended 180 mg PO BID 05/21/23 05/21/23 release Allergies Allergy/AdvReac Type Severity Reaction Status Date / Time morphine Allergy Severe ANAPHALACTI Verified 05/21/23 11:24 C Review of Systems Review of Systems: All systems reviewed & are unremarkable except as noted in HPI and below Constitutional: Constitutional: Denies chills, Reports fatigue and Denies fever(s) ENT: Reports system reviewed and no additional complaints, except as documented Cardiovascular: Cardiovascular: Reports no additional cardiovascular complaints Respiratory: Respiratory: Reports no additional respiratory complaints Gastrointestinal: Gastrointestinal: Reports abdominal pain, Reports diarrhea, Denies nausea and Denies vomiting Genitourinary: Genitourinary: Reports no additional female genitourinary complaints Musculoskeletal: Musculoskeletal: Reports no additional musculoskeletal complaints Neurologic: Reports syncope, Denies headache(s), Denies focal weakness and Denies numbness [facility] Past Medical History Medical History Anxiety Arthritis Asthma Bronchitis Chronic obstructive pulmonary disease Depression Fibromyalgia Fractures Right foot Gastroesophageal reflux disease Hypertension Pneumonia Sleep apnea Intolerant of CPAP. Type 2 diabetes mellitus Surgical History Surgical History History of cardiac catheterization Per patient, showed signs of prior PA but no interventions undertaken. History of cholecystectomy History of exploratory laparotomy History of hysterectomy Social History Social History (Updated 05/21/23 @ 21:53 by Paula Naylor PA-C) Social History: Surrogate me
[2023-09-21 16:44] LABS: Alanine Aminotransferase 22 U/L (6-35); Albumin Level 3.6 g/dL (3.5-5.1); Alkaline Phosphatase 79 U/L (38-126); Anion Gap 3 mmol/L (4-12); Aspartate Amino Transferase 25 U/L (14-36); Bilirubin,Total 0.4 mg/dL (0.2-1.3); Blood Urea Nitrogen 18 mg/dL (7-17); Calcium 8.1 mg/dL (8.4-10.2); Carbon Dioxide 36 mmol/L (22-30); Chloride 100 mmol/L (98-107); Estimated CRCL calculation 36 ml/min; Estimated Glomerular Filt Rate 37; Glucose 194 mg/dL (65-110); Potassium 2.3 mmol/L (3.4-5.0); Sodium 139 mmol/L (137-145)
[2023-09-21] MEDS: SODIUM CHLORIDE 0.9% IV 1,000 ML 30 ML (17:10)
[2023-09-21] MEDS: POTASSIUM CHLORIDE INJ 40 MEQ in SODIUM CHLORIDE 0.9% IV 500 ML 130 MEQ IVPB ×2 (17:10→23:54)
[2023-09-21 18:08] LABS: Appearance Urine Clear (Clear); Bacteria Urine None Seen /hpf; Bilirubin Urine Negative (Negative); Blood Urine Negative (Negative); Color Urine Yellow (Yellow); Glucose Urine UA 3+ mg/dL (Negative); Ketones Urine Negative (Negative); Leukocyte Esterase Ur Negative LEU/UL (Negative); Nitrate Urine Negative (Negative); Non Pathogenic Casts 0-2; Protein Urine 2+ mg/dL (Negative); RBC Urine 0-2 /hpf (0-2); Squamous Epithelial Cell Urine Occasional /hpf (Few); Urobilinogen Urine 0.2 mg/dL (<2.0); WBC Urine 0-5 /hpf (0-3); pH Urine 6.5 (5.0-9.0)
[2023-09-21 18:12] LABS: Add Urine Microscopic? YES; Specific Grav Ur 1.033 (1.001-1.035)
--- NOTE | 2023-09-21 18:46 | PM.IMHP ---
H&P: HPI History of Present Illness Date/Time: 09/21/23 18:46 [facility] Past Medical History Medical History Anxiety Arthritis Asthma Bronchitis Chronic obstructive pulmonary disease Depression Fibromyalgia Fractures Right foot Gastroesophageal reflux disease Hypertension Pneumonia Sleep apnea Intolerant of CPAP. Type 2 diabetes mellitus Surgical History Surgical History History of cardiac catheterization Per patient, showed signs of prior SD but no interventions undertaken. History of cholecystectomy History of exploratory laparotomy History of hysterectomy Social History Social History (Updated 05/21/23 @ 21:53 by Paula Naylor PA-C) Social History: Surrogate medical decision maker: Rolando Kearns, spouse. Code status: Full code. Smoking status: Never smoker Alcohol intake: never Substance use: never Lack of Transportation: No Lack of Food: Never True Current Housing: I Have Housing Concerned About Future Housing: No Difficulty Paying Gas/Electric Bills: No Difficulty Paying for Meds: No Currently Unemployed: No Education: High School Diploma/GED Difficulty w/ Childcare or Family Care: No Spiritual care concerns: No Meds Home Medications and Allergies Home Medications Medication Instructions Recorded Confirmed Type allopurinol 300 mg tablet 300 mg PO DAILY 11/13/19 05/21/23 History amitriptyline 50 mg tablet 50 mg PO BID 11/13/19 05/21/23 History atorvastatin 10 mg tablet 10 mg PO DAILY 11/13/19 05/21/23 History omeprazole 20 mg capsule,delayed 20 mg PO BID 11/13/19 05/21/23 History release albuterol 90 mcg/actuation aerosol 90 mcg inhalation Q6H PRN short of 05/21/23 05/21/23 History inhaler breath albuterol sulfate 2.5 mg/3 mL 2.5 mg inhalation Q6H 05/21/23 05/21/23 History (0.083 %) solution for nebulization aspirin 325 mg tablet 325 mg PO DAILY 05/21/23 05/21/23 History cyanocobalamin (vitamin B-12) 1 tab-cap PO DIRECTED 05/21/23 05/21/23 History dapagliflozin propanediol 10 mg 10 mg PO DAILY 05/21/23 05/21/23 History tablet (Farxiga) dicyclomine 10 mg capsule 10 mg PO TID 05/21/23 05/21/23 History ergocalciferol (vitamin D2) 50,000 50,000 unit PO DIRECTED 05/21/23 05/21/23 History unit tablet ferrous sulfate 325 mg (65 mg 325 mg PO DAILY 05/21/23 05/21/23 History iron) tablet furosemide 40 mg tablet 40 mg PO DAILY 05/21/23 05/21/23 History gabapentin 300 mg capsule 300 mg PO HS 05/21/23 05/21/23 History hydrocodone 5 mg-acetaminophen 325 1 tablet PO Q4H PRN pain 4-6 05/21/23 05/21/23 History mg tablet loperamide 2 mg tablet 2 mg PO Q3H PRN Diarrhea 05/21/23 05/21/23 History niacin 100 mg tablet 100 mg PO DAILY 05/21/23 05/21/23 History nifedipine 30 mg tablet,extended 30 mg PO DAILY 05/21/23 05/21/23 History release 24 hr ondansetron 4 mg disintegrating 4 mg PO Q8H PRN Nausea And Vomiting 05/21/23 05/21/23 History tablet trazodone 100 mg tablet 100 mg PO HS 05/21/23 05/21/23 History verapamil 180 mg tablet,extended 180 mg PO BID 05/21/23 05/21/23 History release Saccharomyces boulardii 250 mg 250 mg PO TID #90 caps 05/27/23 Rx capsule (Florastor) benzonatate 200 mg capsule 200 mg PO TID PRN cough #60 caps 05/27/23 Rx Allergies Allergy/AdvReac Type Severity Reaction Status Date / Time morphine Allergy Severe ANAPHALACTI Verified 05/21/23 11:24 C Vital Signs Vital Signs - 24 hr 09/21/23 14:20 09/21/23 15:23 09/21/23 15:30 Temperature 97.9 F Pulse Rate 95 88 87 Respiratory Rate 20 19 19 Blood Pressure 131/55 L Pulse Oximetry 91 94 Oxygen Delivery Room Air 09/21/23 15:39 09/21/23 15:45 09/21/23 15:46 Temperature Pulse Rate 85 81 82 Respiratory Rate 22 H 21 H 20 Blood Pressure 128/64 Pulse Oximetry 94 93 98 Oxygen Delivery 09/21/23 15:47 09/21/23 16:00 04
[2023-09-21] MEDS: ACETAMINOPHEN 325 MG TABLET 650 MG PO (19:47)
--- NOTE | 2023-09-21 20:27 | PM.IMHP ---
H&P: HPI History of Present Illness Date/Time: 09/21/23 20:27 Chief Complaint: Syncope Narrative: 73 y/o F presents here with syncopal event with H anxiety/depression, COPD, GERD, HTN, sleep apnea (intolerant of CPAP), asthma, and fibromyalgia. Patient presented here via EMS for further evaluation of a syncopal event. Around 1230, patient was using the restroom and passing a BM when she had a syncopal episode. Unclear how long patient had LOC. Family member was in the restroom with her and were shouting/slapping to wake patient. Vomited during episode. Patient has had 3 of bowel movements today. On average goes 7-8 times per day. Patient has had chronic diarrhea/incontinence for the past 4 years as a result of a surgery (resection of an area that was concerning for a tumor in her pelvis but was a build up of fluid, found multiple adhesions) that was done at [facility] and also has chronic abdominal discomfort. Has 2 more bowel surgeries since. PCP has referred patient to specialist but she has been unable to follow-up due to hospital admissions or ER visits. +Fatigue. Denies any other nausea or vomiting. No recent fever, chills, body aches, or infections. P.o. intake has been reduced for the past year. No recent weight loss or weight gain, does report that her weight fluctuates. Only recent complication has been poorly controlled HTN. Initial VS at presentation: 97.9? F, HR 95, RR 20, 131/55, and 91% on RA. ED workup showed: WBC 10.4, no anemia, potassium 2.3, creatinine 1.4 with a GFR 37 (1.5 on 05/26/2023), glucose 194, calcium 8.1 within normal albumin level, and UA not consistent with UTI. CT of the abdomen pelvis showed no acute intra abdominal/pelvic process, persistent mild dilation the common bile duct, interval decrease in size of a now 8 x 6 mm indeterminate left lower lobe nodule. Review of Systems Review of Systems: All systems reviewed & are unremarkable except as noted in HPI and below [facility] Past Medical History Medical History (Updated 09/21/23 @ 23:16 by Greer Flores, [place]) Anxiety Arthritis Asthma Bronchitis Chronic obstructive pulmonary disease CKD (chronic kidney disease) Depression Fibromyalgia Fractures Right foot Gastroesophageal reflux disease Hypertension Pneumonia Sleep apnea Intolerant of CPAP. Type 2 diabetes mellitus Surgical History Surgical History (Updated 09/21/23 @ 22:08 by Greer Flores APRN) History of cardiac catheterization Per patient, showed signs of prior [place] but no interventions undertaken. History of cholecystectomy History of exploratory laparotomy initial, had 2 additional abdominal surgeries History of hysterectomy Social History Social History Social History: Surrogate medical decision maker: Rolando Paytonremingtongaurav, spouse. Code status: Full code. Smoking status: Never smoker Alcohol intake: never Substance use: never Do You Feel Safe in your Home?: Yes Lack of Transportation: No Lack of Food: Never True Current Housing: I Have Housing Concerned About Future Housing: No Difficulty Paying Gas/Electric Bills: No Difficulty Paying for Meds: No Currently Unemployed: No Education: High School Diploma/GED Difficulty w/ Childcare or Family Care: No Spiritual care concerns: No Meds Home Medications and Allergies Home Medications Medication Instructions Recorded Confirmed Type allopurinol 300 mg tablet 300 mg PO DAILY 11/13/19 09/21/23 History amitriptyline 50 mg tablet 50 mg PO BID 11/13/19 09/21/23 History atorvastatin 10 mg tablet 10 mg PO DAILY 11/13/19 09/21/23 History omeprazole 20 mg capsule,delayed 20 mg PO BID 11/13/19 09/21/23 History release albuterol 90 mcg/actuation aerosol 90 mcg inhalation Q6H PRN short of 05/21/23 09/21/23 History inhaler breath albuterol sulfate 2.5 mg/3 mL 2.5 mg inhalation Q6H 05/21/23 09/21/23 History (0.083 %) solution for nebulization
[2023-09-21] MEDS: SODIUM CHLORIDE 0.9% IV 1,000 ML 125 ML IV CONT (21:53)
--- NOTE | 2023-09-21 21:54 | ADMGEN ---
This patient, Cristal Kearns, was admitted to Medical Room 253-01. Patient/family oriented to hospital policies and general routines including ID bracelet, bed and alarms, visiting hours, pain management, procedures, bathroom and other care routines, personal items, smoking policy, room service/diet, and visiting hours. Information on how to activate the Rapid Response Team has been discussed. Patient/Family are encouraged to report perceived risks to care and to ask questions if they do not understand what they are told or what they should do.
[2023-09-21] MEDS: CALCIUM GLUC 1,000 MG/NS 50 ML 1,000 MG/50 ML BAG 100 MG IVPB (22:33)
[2023-09-21 23:03] LABS: Troponin I < 0.012 ng/mL (0.000-0.034)
[2023-09-21 23:28] LABS: Anion Gap 6 mmol/L (4-12); Blood Urea Nitrogen 15 mg/dL (7-17); Calcium 6.8 mg/dL (8.4-10.2); Carbon Dioxide 22 mmol/L (22-30); Chloride 111 mmol/L (98-107); Estimated CRCL calculation 47 ml/min; Estimated Glomerular Filt Rate 49; Glucose 148 mg/dL (65-110); Potassium 2.3 mmol/L (3.4-5.0); Sodium 139 mmol/L (137-145)
[2023-09-21] MEDS: traZODone HCL 50 MG TABLET 100 MG PO (23:44)
[2023-09-21] MEDS: POTASSIUM CHLORIDE 20 MEQ ER TABLET 40 MEQ PO (23:44)
[2023-09-21] MEDS: GABAPENTIN 300 MG CAPSULE PO (23:44)
[2023-09-22] VITALS (8 sets, daily range): BP systolic 151–169; BP diastolic 64–87; PULSE 74–91; RESP 18; TEMP 36.1–36.4; O2SAT 93–94
--- NOTE | 2023-09-22 | ECHO_ITS ---
Patient Info Name: Cristal Kearns Age: 73 years : 1950 Gender: Female Ht: 65 in Wt: 212 lbs BSA: 2.14 m2 HR: 81 bpm BP: 156 / 65 mmHg Technical Quality: Fair Exam Date: 09/22/2023 4:05 PM Exam Location: Echo Lab Patient Status: Outpatient Admit Date: 09/21/2023 Staff Ordering Physician: Eugenie Montanez APRN Advertising Writer: Quang Cabrera RDCS Attending Provider: Jamaica Patel MD Referring Physician: Tarik MENDEZ; Exam Type: CA echo doppler color flow Study Info Indications R55 - Syncope and collapse Complete two-dimensional, color flow and Doppler transthoracic echocardiogram is performed. Summary 1. Complete two-dimensional, color flow and Doppler transthoracic echocardiogram is performed. 2. Left ventricular chamber dimension is normal. 3. Left ventricular systolic function is normal, estimated at 60-65%. 4. There is mild concentric increased left ventricular wall thickness. 5. The left ventricular diastolic function is grade I diastolic dysfunction. 6. E/e' 14 is mildly elevated. 7. Left atrial chamber dimension is mildly enlarged. 8. There is mild mitral valve regurgitation. 9. There is trace tricuspid valve regurgitation. 10. No pulmonary hypertension, estimated pulmonary arterial systolic pressure is 23 mmHg. Left Ventricle E/e' 14 is mildly elevated. Left ventricular chamber dimension is normal. Left ventricular systolic function is normal, estimated at 60-65%. There is mild concentric increased left ventricular wall thickness. The left ventricular diastolic function is grade I diastolic dysfunction. Right Ventricle Right ventricular chamber dimension is normal. Right ventricular systolic function is normal. Left Atria Left atrial chamber dimension is mildly enlarged. Right Atria Right atrial chamber dimension is normal. Aortic Valve The aortic valve is trileaflet. There is no aortic valve stenosis. There is no aortic valve regurgitation. Pulmonic Valve There is no pulmonic regurgitation. Mitral Valve There is no mitral valve stenosis. There is mild mitral valve regurgitation. Tricuspid Valve There is trace tricuspid valve regurgitation. No pulmonary hypertension, estimated pulmonary arterial systolic pressure is 23 mmHg. Pericardium/Pleural There is no pericardial effusion. Inferior Vena Cava Normal inferior vena cava with >50% collapse upon inspiration consistent with normal right atrial pressure, 5 mmHg. Aorta The aortic root size at the sinus of Valsalva is normal. Left Ventricular Outflow Tract Name Value Normal LVOT 2D LVOT Diameter 2.0 cm LVOT Doppler LVOT Peak Gradient 4 mmHg LVOT Mean Gradient 2 mmHg LVOT VTI 20 cm LVOT VTI/AV VTI Ratio 1.0 LVOT Stroke Volume 64 ml LVOT CO 4.6 l/min LVOT CI 2.1 l/min/m2 Pulmonic Valve Name Value Normal JANISO
[2023-09-22] MEDS: ALBUTEROL SULFATE NEB 2.5 MG/3 ML INH (02:50)
[2023-09-22 05:23] LABS: Basophils Percent Auto 0.2 % (0.2-1.2); Hematocrit 38.9 % (37.0-47.0); Hemoglobin 12.5 g/dL (12.0-15.0); Immature Granulocyte Absolute 0.02 K/mm3 (0.00-0.031); Immature Granulocyte Percent A 0.4 % (0-0.5); Lymphocytes Absolute Auto 1.32 K/mm3 (0.9-3.2); Lymphocytes Percent Auto 25.7 % (18.3-44.2); Mean Corpuscular HGB Conc 32.1 g/dl (32-36); Mean Corpuscular Hemoglobin 26.7 pg (26-34); Mean Corpuscular Volume 82.9 fl (80-100); Monocytes Absolute Auto 0.4 K/mm3 (0.1-0.6); Neutrophils Absolute Auto 3.4 K/mm3 (1.3-6.7); Neutrophils Percent Auto 66.7 % (45.5-73.1); Platelet Count Result 218 k/mm3 (150-375); Red Blood Count 4.69 M/mm3 (4.2-5.4); Red Cell Distribution Width 15.7 % (11.5-14.5); White Blood Count 5.1 K/mm3 (4.5-10.0)
[2023-09-22 05:40] LABS: Alanine Aminotransferase 19 U/L (6-35); Albumin Level 3.3 g/dL (3.5-5.1); Alkaline Phosphatase 77 U/L (38-126); Anion Gap 4 mmol/L (4-12); Aspartate Amino Transferase 20 U/L (14-36); Bilirubin,Total 0.3 mg/dL (0.2-1.3); Blood Urea Nitrogen 15 mg/dL (7-17); Calcium 8.5 mg/dL (8.4-10.2); Carbon Dioxide 27 mmol/L (22-30); Chloride 108 mmol/L (98-107); Estimated CRCL calculation 40 ml/min; Estimated Glomerular Filt Rate 40; Glucose 147 mg/dL (65-110); Potassium 3.3 mmol/L (3.4-5.0); Sodium 139 mmol/L (137-145)
[2023-09-22 08:38] LABS: Glucose Point of Care 188 mg/dl (65-105)
[2023-09-22] MEDS: NIACIN 100 MG TABLET PO (09:06)
[2023-09-22] MEDS: EMPAGLIFLOZIN 25 MG TABLET BY MOUTH (09:06)
[2023-09-22] MEDS: allopurinoL 300 MG TABLET PO (09:06)
[2023-09-22] MEDS: ATORVASTATIN 10 MG TABLET PO (09:06)
[2023-09-22] MEDS: FERROUS SULFATE 325 MG TABLET DR BY MOUTH (09:06)
[2023-09-22] MEDS: GLIMEPIRIDE 2 MG TABLET PO (09:07)
[2023-09-22] MEDS: TORSEMIDE 20 MG TABLET 40 MG PO (09:07)
[2023-09-22] MEDS: PANTOPRAZOLE 40 MG TABLET PO ×2 (09:07→17:42)
[2023-09-22] MEDS: lisinopriL 20 MG TABLET PO (09:07)
[2023-09-22] MEDS: CYANOCOBALAMIN 1,000 MCG TABLET 1000 MCG PO (09:08)
[2023-09-22] MEDS: DICYCLOMINE HCL 10 MG CAPSULE PO ×3 (09:08→17:42)
[2023-09-22] MEDS: POTASSIUM CHLORIDE 20 MEQ ER TABLET 40 MEQ PO (09:41)
--- NOTE | 2023-09-22 11:27 | PC.NURSE ---
On 09/22/23, the student, [Viji Negron], provided care and completed [facility] documentation on this patient. I have reviewed the student's documentation and agree with the findings.
[2023-09-22 12:15] LABS: Glucose Point of Care 151 mg/dl (65-105)
--- NOTE | 2023-09-22 13:34 | PM.IMPN ---
Progress Note: A&P Assessment and Plan (1) Syncope: Code(s): R55 - Syncope and collapse Status: Acute (2) Hypocalcemia: Code(s): E83.51 - Hypocalcemia Status: Acute (3) CKD (chronic kidney disease): Code(s): N18.9 - Chronic kidney disease, unspecified Status: Acute (4) Hypertension: Code(s): I10 - Essential (primary) hypertension Status: Acute (5) Acute hypokalemia: Code(s): E87.6 - Hypokalemia Status: Acute (6) Type 2 diabetes mellitus: Code(s): E11.9 - Type 2 diabetes mellitus without complications Status: Acute (7) Diarrhea: Code(s): R19.7 - Diarrhea, unspecified Status: Acute Plan Syncope Reports previous episode of syncope likely secondary to dehydration but could arrhythmia from hypokalemia or over diuresis Orthostatic negative Echo pending CTA head and neck pending lipid panel pending EKG SR Troponin negative IV fluids 1L Hypokalemia 2.3 POA replaced continuous potline monitor 3.3 today Potassium daily mag pending DDIMER pending Diabetes Accu-Cheks a.c. HS sliding scale insulin hold oral diabetic medications resume patient's home long-acting Hemoglobin A1c goal less than 7 pending lipid panel pending Diabetic diet consult to dietitian encourage lifestyle modifications and weight loss Optimize Darin inhibitors and statins. Watch for hypoglycemia/hypoglycemic protocol ordered Diarrhea Chronic resumed home medication monitor electrolytes replace as needed Code status: Full code per patient DVT prophylaxis: Lovenox Stress ulcer prophylaxis: Protonix 40 daily PT/OT notes: PT/OT pendng Disposition: Patient admitted for further evaluation of syncopal episode, plan to discharge to home when medically stable. Time Spent With Patient Time with patient: 15 - 25 minutes Subjective Date/time seen: 09/22/23 13:34 Interval history: Admission: Medical Record Narrative: 73 y/o F presents here with syncopal event with PMH anxiety/depression, COPD, GERD, HTN, sleep apnea (intolerant of CPAP), asthma, and fibromyalgia. Patient presented here via EMS for further evaluation of a syncopal event.? Around 1230, patient was using the restroom and passing a BM when she had a syncopal episode. Unclear how long patient had LOC. Family member was in the restroom with her and were shouting/slapping to wake patient. Vomited during episode. Patient has had 3 of bowel movements today. On average goes 7-8 times per day. 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 Has 2 more bowel surgeries since. PCP has referred patient to specialist but she has been unable to follow-up due to hospital admissions or ER visits. +Fatigue. Denies any other nausea or vomiting.? No recent fever, chills, body aches, or infections.? P.o. intake has been reduced for the past year. No recent weight loss or weight gain, does report that her weight fluctuates. Only recent complication has been poorly controlled HTN. Initial VS at presentation:? 97.9? F, HR 95, RR 20, 131/55, and 91% on RA. ED workup showed:? WBC 10.4, no anemia, potassium 2.3, creatinine 1.4 with a GFR 37 (1.5 on 05/26/2023), glucose 194, calcium 8.1 within normal albumin level, and UA not consistent with UTI.? CT of the abdomen pelvis showed no acute intra abdominal/pelvic process, persistent mild dilation the common bile duct, interval decrease in size of a now 8 x 6 mm indeterminate left lower lobe nodule. 09/21: Patient poor historian of event was told by family she passed out on the toilet. Patient still hypertensive will get CTA of head and carotids and echo. Patient also had complaints of LT scapula pain a
[2023-09-22 14:10] LABS: Magnesium 1.9 mg/dL (1.6-2.3)
[2023-09-22 15:28] LABS: D Dimer 0.59 ug/mL (<0.48)
[2023-09-22] MEDS: HYDROcodone/acetaminophen (*CRX) 5-325 MG TABLET 1 TAB PO (15:53)
[2023-09-22 17:04] LABS: Glucose Point of Care 137 mg/dl (65-105)
[2023-09-22] MEDS: traZODone HCL 50 MG TABLET 100 MG PO (20:03)
[2023-09-22] MEDS: GABAPENTIN 300 MG CAPSULE PO (20:03)
[2023-09-22] MEDS: AMITRIPTYLINE HCL 25 MG TABLET 50 MG PO (20:06)
[2023-09-22 20:39] LABS: Glucose Point of Care 199 mg/dl (65-105)
[2023-09-22 23:03] LABS: Hemoglobin A1C 6.6 % (<5.7)
[2023-09-23] VITALS (9 sets, daily range): BP systolic 138–151; BP diastolic 51–76; PULSE 69–106; RESP 18–20; TEMP 36.7–36.9; O2SAT 93–99
[2023-09-23 06:20] LABS: Hemoglobin 12.3 g/dL (12.0-15.0); Mean Corpuscular HGB Conc 31.5 g/dl (32-36); Mean Corpuscular Hemoglobin 26.4 pg (26-34); Mean Corpuscular Volume 83.7 fl (80-100); Mean Platelet Volume 10.4 fl (7.4-10.4); Platelet Count Result 232 k/mm3 (150-375); Red Blood Count 4.66 M/mm3 (4.2-5.4); Red Cell Distribution Width 15.7 % (11.5-14.5); White Blood Count 4.9 K/mm3 (4.5-10.0)
[2023-09-23 06:33] LABS: Alanine Aminotransferase 18 U/L (6-35); Albumin Level 3.3 g/dL (3.5-5.1); Alkaline Phosphatase 77 U/L (38-126); Anion Gap 6 mmol/L (4-12); Aspartate Amino Transferase 22 U/L (14-36); Bilirubin,Total 0.3 mg/dL (0.2-1.3); Blood Urea Nitrogen 16 mg/dL (7-17); Calcium 8.4 mg/dL (8.4-10.2); Carbon Dioxide 29 mmol/L (22-30); Chloride 104 mmol/L (98-107); Cholesterol 171 mg/dL (0-200); Estimated CRCL calculation 40 ml/min; Estimated Glomerular Filt Rate 40; Glucose 140 mg/dL (65-110); HDL Direct 29 mg/dL; Potassium 2.9 mmol/L (3.4-5.0); Sodium 139 mmol/L (137-145); Triglycerides 320 mg/dL (<150)
[2023-09-23 06:44] LABS: LDL Cholesterol Direct 97 mg/dL
[2023-09-23 08:15] LABS: Glucose Point of Care 99 mg/dl (65-105)
[2023-09-23] MEDS: LIDOCAINE 5% PATCH 1 PATCH TRANSDERM (08:24)
[2023-09-23] MEDS: AMITRIPTYLINE HCL 25 MG TABLET 50 MG PO ×2 (08:25→20:05)
[2023-09-23] MEDS: NIACIN 100 MG TABLET PO (08:26)
[2023-09-23] MEDS: DICYCLOMINE HCL 10 MG CAPSULE PO ×3 (08:26→16:12)
[2023-09-23] MEDS: PANTOPRAZOLE 40 MG TABLET PO ×2 (08:26→16:12)
[2023-09-23] MEDS: FERROUS SULFATE 325 MG TABLET DR BY MOUTH (08:26)
[2023-09-23] MEDS: lisinopriL 20 MG TABLET PO (08:26)
[2023-09-23] MEDS: allopurinoL 300 MG TABLET PO (08:27)
[2023-09-23] MEDS: GLIMEPIRIDE 2 MG TABLET PO (08:27)
[2023-09-23] MEDS: TORSEMIDE 20 MG TABLET 40 MG PO (08:27)
[2023-09-23] MEDS: EMPAGLIFLOZIN 25 MG TABLET BY MOUTH (08:27)
[2023-09-23] MEDS: ATORVASTATIN 10 MG TABLET PO (08:28)
[2023-09-23] MEDS: POTASSIUM CHLORIDE 20 MEQ ER TABLET 40 MEQ PO (08:28)
[2023-09-23] MEDS: CYANOCOBALAMIN 1,000 MCG TABLET 1000 MCG PO (08:28)
--- NOTE | 2023-09-23 11:37 | PC.NURSE ---
On 09/23/23, the student, [Joaquim Johnson], provided care and completed [facility] documentation on this patient. I have reviewed the student's documentation and agree with the findings.
[2023-09-23 11:47] LABS: Glucose Point of Care 165 mg/dl (65-105)
--- NOTE | 2023-09-23 13:24 | P.PNIM_ITS ---
Progress Note: A&P Assessment and Plan (1) Syncope: Code(s): R55 - Syncope and collapse Status: Acute (2) Hypocalcemia: Code(s): E83.51 - Hypocalcemia Status: Acute (3) CKD (chronic kidney disease): Code(s): N18.9 - Chronic kidney disease, unspecified Status: Acute (4) Hypertension: Code(s): I10 - Essential (primary) hypertension Status: Acute (5) Acute hypokalemia: Code(s): E87.6 - Hypokalemia Status: Acute (6) Type 2 diabetes mellitus: Code(s): E11.9 - Type 2 diabetes mellitus without complications Status: Acute (7) Diarrhea: Code(s): R19.7 - Diarrhea, unspecified Status: Acute Plan Syncope * Reports previous episode of syncope likely secondary to dehydration but could arrhythmia from hypokalemia or over diuresis * Orthostatic negative * Echo pending * CTA head and neck no acute findings * lipid panel pending * EKG SR * Troponin negative * IV fluids 1L * CT no PE 9mm nodule will need f/u [address] Hypokalemia * 2.3 POA * replaced * 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 HS * sliding scale insulin * hold oral diabetic medications * resume patient's home long-acting * Hemoglobin A1c goal less than 7 pending * lipid panel pending * Diabetic diet * consult to dietitian * encourage lifestyle modifications and weight loss * Optimize Darin inhibitors and statins. * Watch for hypoglycemia/hypoglycemic protocol ordered Diarrhea * Chronic * resumed home medication * monitor electrolytes replace as needed * schedule Imodium Code status: Full code per patient DVT prophylaxis: Lovenox Stress ulcer prophylaxis: Protonix 40 daily PT/OT notes: PT/OT pendng Disposition: Patient admitted for further evaluation of syncopal episode, plan to discharge to home when medically stable. Time Spent With Patient Time with patient: 15 - 25 minutes Subjective Date/time seen: 09/23/23 13:24 Interval history: Admission: Medical Record Narrative: 73 y/o F presents here with syncopal event with PMH anxiety/depression, COPD, GERD, HTN, sleep apnea (intolerant of CPAP), asthma, and fibromyalgia. Patient presented here via EMS for further evaluation of a syncopal event.? Around 1230, patient was using the restroom and passing a BM when she had a syncopal episode. Unclear how long patient had LOC. Family member was in the restroom with her and were shouting/slapping to wake patient. Vomited during episode. Patient has had 3 of bowel movements today. On average goes 7-8 times per day. 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 Has 2 more bowel surgeries since. PCP has referred patient to specialist but she has been unable to follow-up due to hospital admissions or ER visits. +Fatigue. Denies any other nausea or vomiting.? No recent fever, chills, body aches, or infections.? P.o. intake has been reduced for the past year. No recent weight loss or weight gain, does report that her weight fluctuates. Only recent complication has been poorly controlled HTN. Initial VS at presentation:? 97.9? F, HR 95, RR 20, 13
--- NOTE | 2023-09-23 13:24 | PM.IMPN ---
Progress Note: A&P Assessment and Plan (1) Syncope: Code(s): R55 - Syncope and collapse Status: Acute (2) Hypocalcemia: Code(s): E83.51 - Hypocalcemia Status: Acute (3) CKD (chronic kidney disease): Code(s): N18.9 - Chronic kidney disease, unspecified Status: Acute (4) Hypertension: Code(s): I10 - Essential (primary) hypertension Status: Acute (5) Acute hypokalemia: Code(s): E87.6 - Hypokalemia Status: Acute (6) Type 2 diabetes mellitus: Code(s): E11.9 - Type 2 diabetes mellitus without complications Status: Acute (7) Diarrhea: Code(s): R19.7 - Diarrhea, unspecified Status: Acute Plan Syncope Reports previous episode of syncope likely secondary to dehydration but could arrhythmia from hypokalemia or over diuresis Orthostatic negative Echo pending CTA head and neck no acute findings lipid panel pending EKG SR Troponin negative IV fluids 1L CT no PE 9mm nodule will need f/u [address] Hypokalemia 2.3 POA replaced continuous athletic monitor 3.3 today Potassium daily mag pending /5: 2.9 still with diarrhea replaced Diabetes Accu-Cheks a.c. HS sliding scale insulin hold oral diabetic medications resume patient's home long-acting Hemoglobin A1c goal less than 7 pending lipid panel pending Diabetic diet consult to dietitian encourage lifestyle modifications and weight loss Optimize Darin inhibitors and statins. Watch for hypoglycemia/hypoglycemic protocol ordered Diarrhea Chronic resumed home medication monitor electrolytes replace as needed schedule Imodium Code status: Full code per patient DVT prophylaxis: Lovenox Stress ulcer prophylaxis: Protonix 40 daily PT/OT notes: PT/OT pendng Disposition: Patient admitted for further evaluation of syncopal episode, plan to discharge to home when medically stable. Time Spent With Patient Time with patient: 15 - 25 minutes Subjective Date/time seen: 09/23/23 13:24 Interval history: Admission: Medical Record Narrative: 73 y/o F presents here with syncopal event with PMH anxiety/depression, COPD, GERD, HTN, sleep apnea (intolerant of CPAP), asthma, and fibromyalgia. Patient presented here via EMS for further evaluation of a syncopal event.? Around 1230, patient was using the restroom and passing a BM when she had a syncopal episode. Unclear how long patient had LOC. Family member was in the restroom with her and were shouting/slapping to wake patient. Vomited during episode. Patient has had 3 of bowel movements today. On average goes 7-8 times per day. 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 Has 2 more bowel surgeries since. PCP has referred patient to specialist but she has been unable to follow-up due to hospital admissions or ER visits. +Fatigue. Denies any other nausea or vomiting.? No recent fever, chills, body aches, or infections.? P.o. intake has been reduced for the past year. No recent weight loss or weight gain, does report that her weight fluctuates. Only recent complication has been poorly controlled HTN. Initial VS at presentation:? 97.9? F, HR 95, RR 20, 131/55, and 91% on RA. ED workup showed:? WBC 10.4, no anemia, potassium 2.3, creatinine 1.4 with a GFR 37 (1.5 on 05/26/2023), glucose 194, calcium 8.1 within normal albumin level, and UA not consistent with UTI.? CT of the abdomen pelvis showed no acute intra abdominal/pelvic process, persistent mild dilation the common bile duct, interval decrease in size of a now 8 x 6 mm indeterminate left lower lobe nodule. 09/21: Patient poor historian of event was told by family she passed out on the toilet. Patient still
[2023-09-23] MEDS: LOPERAMIDE HCL 2 MG CAPSULE PO ×3 (13:46→20:05)
[2023-09-23] MEDS: POTASSIUM CHLORIDE INJ 40 MEQ in SODIUM CHLORIDE 0.9% IV 500 ML 130 MEQ IVPB (13:46)
[2023-09-23] MEDS: HYDROcodone/acetaminophen (*CRX) 5-325 MG TABLET 1 TAB PO (13:48)
--- NOTE | 2023-09-23 14:17 | PC.NURSE ---
On 09/23/23, the student, [Mariela Quarles], provided care and completed [facility] documentation on this patient. I have reviewed the student's documentation and agree with the findings.
[2023-09-23 17:18] LABS: Glucose Point of Care 186 mg/dl (65-105)
[2023-09-23] MEDS: traZODone HCL 50 MG TABLET 100 MG PO (20:04)
[2023-09-23] MEDS: GABAPENTIN 300 MG CAPSULE PO (20:05)
[2023-09-23 20:59] LABS: Glucose Point of Care 217 mg/dl (65-105)
[2023-09-24 04:00] VITALS: PULSE 75
[2023-09-24 04:33] VITALS: BP 142/58; PULSE 77; RESP 16; TEMP 36.4; O2SAT 93
[2023-09-24 04:46] LABS: Hematocrit 41.5 % (37.0-47.0); Hemoglobin 13.1 g/dL (12.0-15.0); Mean Corpuscular HGB Conc 31.6 g/dl (32-36); Mean Corpuscular Hemoglobin 26.4 pg (26-34); Mean Corpuscular Volume 83.5 fl (80-100); Mean Platelet Volume 10.3 fl (7.4-10.4); Platelet Count Result 246 k/mm3 (150-375); Red Blood Count 4.97 M/mm3 (4.2-5.4); Red Cell Distribution Width 15.5 % (11.5-14.5)
[2023-09-24] MEDS: LOPERAMIDE HCL 2 MG CAPSULE PO ×3 (04:52→12:28)
[2023-09-24 04:58] LABS: Alanine Aminotransferase 22 U/L (6-35); Albumin Level 3.6 g/dL (3.5-5.1); Alkaline Phosphatase 83 U/L (38-126); Anion Gap 7 mmol/L (4-12); Aspartate Amino Transferase 25 U/L (14-36); Bilirubin,Total 0.3 mg/dL (0.2-1.3); Blood Urea Nitrogen 18 mg/dL (7-17); Calcium 8.6 mg/dL (8.4-10.2); Carbon Dioxide 31 mmol/L (22-30); Chloride 103 mmol/L (98-107); Estimated CRCL calculation 35 ml/min; Estimated Glomerular Filt Rate 34; Glucose 144 mg/dL (65-110); Potassium 3.3 mmol/L (3.4-5.0); Sodium 141 mmol/L (137-145)
[2023-09-24 08:00] VITALS: PULSE 81
[2023-09-24 08:12] LABS: Glucose Point of Care 173 mg/dl (65-105)
[2023-09-24] MEDS: FERROUS SULFATE 325 MG TABLET DR BY MOUTH (08:46)
[2023-09-24] MEDS: GLIMEPIRIDE 2 MG TABLET PO (08:47)
[2023-09-24] MEDS: CYANOCOBALAMIN 1,000 MCG TABLET 1000 MCG PO (08:47)
[2023-09-24] MEDS: NIFEdipine 30 MG TAB.ER.24 PO (08:47)
[2023-09-24] MEDS: allopurinoL 300 MG TABLET PO (08:47)
[2023-09-24] MEDS: AMITRIPTYLINE HCL 25 MG TABLET 50 MG PO (08:47)
[2023-09-24] MEDS: POTASSIUM CHLORIDE 20 MEQ ER TABLET 40 MEQ PO (08:47)
[2023-09-24] MEDS: EMPAGLIFLOZIN 25 MG TABLET BY MOUTH (08:47)
[2023-09-24] MEDS: DICYCLOMINE HCL 10 MG CAPSULE PO ×2 (08:48→12:28)
[2023-09-24] MEDS: TORSEMIDE 20 MG TABLET 40 MG PO (08:48)
[2023-09-24] MEDS: PANTOPRAZOLE 40 MG TABLET PO (08:48)
[2023-09-24] MEDS: NIACIN 100 MG TABLET PO (08:48)
[2023-09-24] MEDS: ATORVASTATIN 10 MG TABLET PO (08:48)
[2023-09-24] MEDS: LIDOCAINE 5% PATCH 1 PATCH TRANSDERM (08:49)
[2023-09-24 12:00] VITALS: PULSE 87
[2023-09-24 12:20] LABS: Glucose Point of Care 152 mg/dl (65-105)
--- NOTE | 2023-09-24 12:50 | P.DS_ITS ---
DS: Admitting Diagnosis Discharge Date 09/24/2023 Admitting Diagnosis Syncope DS: Discharge Diagnosis Discharge Diagnosis (1) Syncope: Code(s): R55 - Syncope and collapse Status: Acute (2) Hypocalcemia: Code(s): E83.51 - Hypocalcemia Status: Acute (3) CKD (chronic kidney disease): Code(s): N18.9 - Chronic kidney disease, unspecified Status: Acute (4) Hypertension: Code(s): I10 - Essential (primary) hypertension Status: Acute (5) Acute hypokalemia: Code(s): E87.6 - Hypokalemia Status: Acute (6) Type 2 diabetes mellitus: Code(s): E11.9 - Type 2 diabetes mellitus without complications Status: Acute (7) Diarrhea: Code(s): R19.7 - Diarrhea, unspecified Status: Acute Plan Syncope * Reports previous episode of syncope likely secondary to dehydration but could arrhythmia from hypokalemia or over diuresis * Orthostatic negative * Echo pending * CTA head and neck no acute findings * lipid panel pending * EKG SR * Troponin negative * IV fluids 1L * CT no PE 9mm nodule will need f/u [address] Hypokalemia * 2.3 POA * replaced * continuous environmental monitoring 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 HS * sliding scale insulin * hold oral diabetic medications * resume patient's home long-acting * Hemoglobin A1c goal less than 7 pending * lipid panel pending * Diabetic diet * consult to dietitian * encourage lifestyle modifications and weight loss * Optimize Darin inhibitors and statins. * Watch for hypoglycemia/hypoglycemic protocol ordered Diarrhea * Chronic * resumed home medication * monitor electrolytes replace as needed * schedule Imodium Disposition: Patient discharged to home with family will need to follow-up with GI for chronic diarrhea and schedule Chest CT in 3 months to evaluate lung nodule. DS: Summary Hospital Course Reason for hospitalization: Syncope Hospital Course: Admission:? Medical Record Narrative: 73 y/o F presents here with syncopal event with PMH anxiety/depression, COPD, GERD, HTN, sleep apnea (intolerant of CPAP), asthma, and fibromyalgia. Patient presented here via EMS for further evaluation of a syncopal event.? Around 1230, patient was using the restroom and passing a BM when she had a syncopal episode. Unclear how long patient had LOC. Family member was in the restroom with her and were shouting/slapping to wake patient. Vomited during episode. Patient has had 3 of bowel movements today. On average goes 7-8 times per day. 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 Has 2 more bowel surgeries since. PCP has referred patient to specialist but she has been unable to follow-up due to hospital admissions or ER visits. +Fatigue. Denies any other nausea or vomiting.? No recent fever, chills, body aches, or infections.? P.o. intake has been reduced for the past year. No recent weight loss or weight gain, does report that her weight fluctuates. Only recent complication has been poorly controlled HTN. Initial VS at presentation:? 97.9? F, HR 95, RR 20, 131/55, and 91% on RA. ED workup showed:? WBC 10.4,
--- NOTE | 2023-09-24 12:50 | PM.DS ---
DS: Admitting Diagnosis Discharge Date 09/24/2023 Admitting Diagnosis Syncope DS: Discharge Diagnosis Discharge Diagnosis (1) Syncope: Code(s): R55 - Syncope and collapse Status: Acute (2) Hypocalcemia: Code(s): E83.51 - Hypocalcemia Status: Acute (3) CKD (chronic kidney disease): Code(s): N18.9 - Chronic kidney disease, unspecified Status: Acute (4) Hypertension: Code(s): I10 - Essential (primary) hypertension Status: Acute (5) Acute hypokalemia: Code(s): E87.6 - Hypokalemia Status: Acute (6) Type 2 diabetes mellitus: Code(s): E11.9 - Type 2 diabetes mellitus without complications Status: Acute (7) Diarrhea: Code(s): R19.7 - Diarrhea, unspecified Status: Acute Plan Syncope Reports previous episode of syncope likely secondary to dehydration but could arrhythmia from hypokalemia or over diuresis Orthostatic negative Echo pending CTA head and neck no acute findings lipid panel pending EKG SR Troponin negative IV fluids 1L CT no PE 9mm nodule will need f/u [address] Hypokalemia 2.3 POA replaced continuous quality assurance monitor body 3.3 today Potassium daily mag pending 09/22: 2.9 still with diarrhea replaced Diabetes Accu-Cheks a.c. HS sliding scale insulin hold oral diabetic medications resume patient's home long-acting Hemoglobin A1c goal less than 7 pending lipid panel pending Diabetic diet consult to dietitian encourage lifestyle modifications and weight loss Optimize Darin inhibitors and statins. Watch for hypoglycemia/hypoglycemic protocol ordered Diarrhea Chronic resumed home medication monitor electrolytes replace as needed schedule Imodium Disposition: Patient discharged to home with family will need to follow-up with GI for chronic diarrhea and schedule Chest CT in 3 months to evaluate lung nodule. DS: Summary Hospital Course Reason for hospitalization: Syncope Hospital Course: Admission:? Medical Record Narrative: 73 y/o F presents here with syncopal event with PMH anxiety/depression, COPD, GERD, HTN, sleep apnea (intolerant of CPAP), asthma, and fibromyalgia. Patient presented here via EMS for further evaluation of a syncopal event.? Around 1230, patient was using the restroom and passing a BM when she had a syncopal episode. Unclear how long patient had LOC. Family member was in the restroom with her and were shouting/slapping to wake patient. Vomited during episode. Patient has had 3 of bowel movements today. On average goes 7-8 times per day. 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 Has 2 more bowel surgeries since. PCP has referred patient to specialist but she has been unable to follow-up due to hospital admissions or ER visits. +Fatigue. Denies any other nausea or vomiting.? No recent fever, chills, body aches, or infections.? P.o. intake has been reduced for the past year. No recent weight loss or weight gain, does report that her weight fluctuates. Only recent complication has been poorly controlled HTN. Initial VS at presentation:? 97.9? F, HR 95, RR 20, 131/55, and 91% on RA. ED workup showed:? WBC 10.4, no anemia, potassium 2.3, creatinine 1.4 with a GFR 37 (1.5 on 05/26/2023), glucose 194, calcium 8.1 within normal albumin level, and UA not consistent with UTI.? CT of the abdomen pelvis showed no acute intra abdominal/pelvic process, persistent mild dilation the common bile duct, interval decrease in size of a now 8 x 6 mm indeterminate left lower lobe nodule. 09/21: Patient poor historian of event was told by family she passed out on the toilet.? Patient still hypertensive will get CTA of head and carotids and ech
== END 2023-09-24 13:40 | disposition home or self-care (01) | DRG 641 ==
LOC: ANHED 18:04 → ANH3MEDSUR 20:07 → ANH2MED 21:02
PROVIDERS: Student in an Organized Health Care Education/Training Program; Admitting Provider Family Medicine; Emergency Provider Emergency Medicine; PCP Internal Medicine; Visit Provider Nurse Practitioner Family
DX: E86.0 Dehydration (principal); R55 Syncope and collapse; K52.9 Noninfective gastroenteritis and colitis, unspecified; E83.51 Hypocalcemia; E87.6 Hypokalemia; E11.22 Type 2 diabetes mellitus with diabetic chronic kidney disease; F41.9 Anxiety disorder, unspecified; F32.A Depression, unspecified; G47.30 Sleep apnea, unspecified; I12.9 Hypertensive chronic kidney disease with stage 1 through stage 4 chronic kidney disease, or unspecified chronic kidney disease; J44.9 Chronic obstructive pulmonary disease, unspecified; K21.9 Gastro-esophageal reflux disease without esophagitis; M79.7 Fibromyalgia; R91.8 Other nonspecific abnormal finding of lung field; N18.32 Chronic kidney disease, stage 3b; Z90.49 Acquired absence of other specified parts of digestive tract; Z90.710 Acquired absence of both cervix and uterus; Z79.82 Long term (current) use of aspirin; Z79.84 Long term (current) use of oral hypoglycemic drugs
CPT/HCPCS: 36415; 70496; 70498; 71275; 74177; 80048; 80053; 80061; 81001; 82948; 83036; 83735; 84443; 84484; 85025; 85027; 85380; 93005; 93306; 93970; 96361; 96365; 96366; 96375; 96376; 97161; 97165; 99285; A9270; G0378; J0612; J3480; J7030; J7040; Q9967

== ENCOUNTER 2023-11-01 06:56 | Emergency (ER) | payer MEDICARE, MEDICAID, SELFPAY ==
--- NOTE | ~2023-11-01 | CT_ITS ---
Clinical Indication: Chest pain CT Scan of the Chest with Contrast: Technique: Contiguous sections were acquired throughout the chest after intravenous administration of 100 cc of Omnipaque 350. Dose reduction technique was used on this scan by utilizing automated expos ure control and iterative reconstruction technique. The dose-length product (DLP) was 489.77 mGy-cm. COMPARISON: 09/23/2023 Findings: There is no evidence of any significant mediastinal, hilar or axillary lymphadenopathy. There is no f illing defect in the pulmonary arterial tree to suggest pulmonary embolus. There is no evidence of ao rtic dissection or aneurysm. There is no evidence of pleural or pericardial effusion. Stable 9 mm left lower lobe pulmonary nodule present. There is new patchy consolidation extensive inv olving the right upper lobe, with more focal areas of involvement in the left upper lobe and right lo wer lobe. Images through the upper abdomen reveal stable mild epigastric/peripancreatic lymphadenopathy. Impression: No evidence of pulmonary embolus, aortic dissection, or aortic aneurysm. Patchy multifocal pneumonia, most extensive in the right upper lobe, with additional involvement as d etailed above. Stable 9 mm left lower lobe pulmonary nodule, indeterminate. Mild epigastric/peripancreatic lymphadenopathy is indeterminate, stable from prior exam. Reviewed, dictated and finalized at location M. Impression: No evidence of pulmonary embolus, aortic dissection, or aortic aneurysm. Patchy multifocal pneumonia, most extensive in the right upper lobe, with addit ional involvement as detailed above. Stable 9 mm left lower lobe pulmonary nodule, indeterminate. Mild epigastric/peripancreatic lymphadenopathy is indeterminate, stable from pr ior exam.
--- NOTE | ~2023-11-01 | XR_ITS ---
Clinical Indication: Chest pain PA and lateral views of the chest: Comparison: 05/21/2023 Findings: There is focal hazy opacity, somewhat nodular morphology, the right perihilar region. There is linear left basilar scarring or atelectasis.. Cardiomediastinal silhouette is within normal limi ts. Bones and soft tissues are unremarkable, aside from stable right shoulder arthroplasty. Impression: Focal hazy, somewhat nodular opacity, in the right perihilar region. Findings could reflect focal pne umonia, or possibly pulmonary nodule. Consider short-term follow-up exam after interval therapy versu s chest CT to further evaluate at this time. Reviewed, dictated and finalized at location . Impression: Focal hazy, somewhat nodular opacity, in the right perihilar region. Findings c ould reflect focal pneumonia, or possibly pulmonary nodule. Consider short-term follow-up exam after interval therapy versus chest CT to further evaluate at t his time.
[2023-11-01 06:56] VITALS: BP 154/71; PULSE 88; RESP 13; TEMP 36.4; O2SAT 95
--- NOTE | 2023-11-01 07:05 | ECG_ITS ---
SEE SCANNED COPY FOR CONFIRMED REPORT MTDD
--- NOTE | 2023-11-01 07:33 | ED.CHESTPAIN ---
HPI - Chest Pain General Chief Complaint: Chest Pain Stated Complaint: CHEST PAIN Time Seen by Provider: 11/01/23 07:03 History of Present Illness HPI narrative: 73-year-old female presenting to the ED for evaluation chest pain that started last night. Patient states that the chest pain started last night while she is resting. Patient was treated with aspirin and nitro EN route by EMS and reports no change in her symptoms. Patient does report a prior cardiac history. Related Data Home Medications Medication Instructions Recorded Confirmed allopurinol 300 mg tablet 300 mg PO DAILY 11/13/19 09/21/23 amitriptyline 50 mg tablet 50 mg PO BID 11/13/19 09/21/23 omeprazole 20 mg capsule,delayed 20 mg PO BID 11/13/19 09/21/23 release albuterol 90 mcg/actuation aerosol 90 mcg inhalation Q6H PRN short of 05/21/23 09/21/23 inhaler breath albuterol sulfate 2.5 mg/3 mL 2.5 mg inhalation Q6H 05/21/23 09/21/23 (0.083 %) solution for nebulization cyanocobalamin (vitamin B-12) 1 tab-cap PO DIRECTED 05/21/23 09/21/23 dapagliflozin propanediol 10 mg 10 mg PO BID 05/21/23 09/21/23 tablet (Farxiga) dicyclomine 10 mg capsule 10 mg PO TID 05/21/23 09/21/23 ergocalciferol (vitamin D2) 50,000 50,000 unit PO DIRECTED 05/21/23 09/21/23 unit tablet ferrous sulfate 325 mg (65 mg 325 mg PO DAILY 05/21/23 09/21/23 iron) tablet gabapentin 300 mg capsule 300 mg PO HS 05/21/23 09/21/23 loperamide 2 mg tablet 2 mg PO Q3H PRN Diarrhea 05/21/23 09/21/23 niacin 100 mg tablet 100 mg PO DAILY 05/21/23 09/21/23 ondansetron 4 mg disintegrating 4 mg PO Q8H PRN Nausea And Vomiting 05/21/23 09/21/23 tablet trazodone 100 mg tablet 100 mg PO HS 05/21/23 09/21/23 glimepiride 2 mg tablet 2 mg PO DAILY 09/21/23 09/21/23 meclizine 25 mg tablet 25 mg PO TID PRN Dizziness Or 09/21/23 09/21/23 Vertigo metformin 500 mg tablet 500 mg PO DAILY 09/21/23 09/21/23 torsemide 40 mg tablet 40 mg PO QAM 09/21/23 09/21/23 Allergies Allergy/AdvReac Type Severity Reaction Status Date / Time No Known Allergies Allergy Verified 09/21/23 23:29 Review of Systems Review of Systems: All systems reviewed & are unremarkable except as noted in HPI and below PMFSH Past Medical History Medical History (Updated 11/01/23 @ 09:55 by Dyllan Hoyos MD) Anxiety Arthritis Asthma Bronchitis Chronic obstructive pulmonary disease CKD (chronic kidney disease) Depression Fibromyalgia Fractures Right foot Gastroesophageal reflux disease Hypertension Pneumonia Sleep apnea Intolerant of CPAP. Type 2 diabetes mellitus Surgical History Surgical History (Updated 09/21/23 @ 22:08 by Greer Flores APRN) History of cardiac catheterization Per patient, showed signs of prior AK but no interventions undertaken. History of cholecystectomy History of exploratory laparotomy initial, had 2 additional abdominal surgeries History of hysterectomy Social History Social History Social History: Surrogate medical decision maker: Rolando Kearns, spouse. Code status: Full code. Smoking status: Never smoker Alcohol intake: never Substance use: never Do You Feel Safe in your Home?: Yes Lack of Transportation: No Lack of Food: Never True Current Housing: I Have Housing Concerned About Future Housing: No Difficulty Paying Gas/Electric Bills: No Difficulty Paying for Meds: No Currently Unemployed: No Education: High School Diploma/GED Difficulty w/ Childcare or Family Care: No Spiritual care concerns: No Exam Narrative: APPEARANCE: Well appearing, no pain, no distress, well-nourished. HEAD: normocephalic, atraumatic. EYES: PERRLA/EOMI, conjunctivae clear. NOSE: Normal no drainage EARS:TMS clear with good light reflex. THROAT: Pharynx clear, no exudate. NECK: Supple. No adenopathy, no masses. RESPIRATORY: Airway patent, respirations nonlabored. Clear to auscultation bilatera
[2023-11-01 07:35] LABS: Basophils Percent Auto 0.2 % (0.2-1.2); Hematocrit 39.9 % (37.0-47.0); Hemoglobin 12.9 g/dL (12.0-15.0); Immature Granulocyte Absolute 0.06 K/mm3 (0.00-0.031); Immature Granulocyte Percent A 0.5 % (0-0.5); Lymphocytes Absolute Auto 1.73 K/mm3 (0.9-3.2); Lymphocytes Percent Auto 15.2 % (18.3-44.2); Mean Corpuscular HGB Conc 32.3 g/dl (32-36); Mean Corpuscular Hemoglobin 26.9 pg (26-34); Mean Corpuscular Volume 83.1 fl (80-100); Mean Platelet Volume 10.4 fl (7.4-10.4); Monocytes Absolute Auto 0.8 K/mm3 (0.1-0.6); Neutrophils Absolute Auto 8.8 K/mm3 (1.3-6.7); Neutrophils Percent Auto 77.1 % (45.5-73.1); Platelet Count Result 287 k/mm3 (150-375); Red Cell Distribution Width 15.7 % (11.5-14.5); White Blood Count 11.4 K/mm3 (4.5-10.0)
[2023-11-01 07:46] LABS: Alanine Aminotransferase 16 U/L (6-35); Albumin Level 3.8 g/dL (3.5-5.1); Alkaline Phosphatase 100 U/L (38-126); Anion Gap 7 mmol/L (4-12); Aspartate Amino Transferase 20 U/L (14-36); Bilirubin,Total 0.7 mg/dL (0.2-1.3); Blood Urea Nitrogen 19 mg/dL (7-17); Calcium 8.8 mg/dL (8.4-10.2); Carbon Dioxide 27 mmol/L (22-30); Chloride 104 mmol/L (98-107); Estimated CRCL calculation 43 ml/min; Estimated Glomerular Filt Rate 44; Glucose 173 mg/dL (65-110); Lipase 26 U/L (23-300); Potassium 3.2 mmol/L (3.4-5.0); Prothrombin Time 14.1 Seconds (11.1-14.7); Sodium 138 mmol/L (137-145)
[2023-11-01 07:57] LABS: Troponin I < 0.012 ng/mL (0.000-0.034)
[2023-11-01 08:03] VITALS: BP 159/91; PULSE 88; RESP 16; O2SAT 94
[2023-11-01 09:00] VITALS: BP 150/88; PULSE 88; RESP 16; O2SAT 97
[2023-11-01 10:00] VITALS: BP 120/88; PULSE 88; RESP 16; O2SAT 96
[2023-11-01 10:04] LABS: Influenza A QL RT-PCR Negative (Negative); Influenza B QL RT-PCR Negative (Negative); RSV RNA, RT-PCR Negative (Negative); SARS-CoV-2 RNA PCR Negative (Negative)
[2023-11-01] MEDS: AMOXICILLIN/CLAVULANATE K 875-125 MG TAB 1 TABLET PO (10:04)
[2023-11-01] MEDS: AZITHROMYCIN 250 MG TABLET 500 MG PO (10:05)
--- NOTE | 2023-11-01 11:01 | ECG_ITS ---
SEE SCANNED COPY FOR CONFIRMED REPORT MTDD
[2023-11-01 11:22] LABS: Troponin I < 0.012 ng/mL (0.000-0.034)
[2023-11-01 11:30] VITALS: BP 184/80; PULSE 88; RESP 20; O2SAT 97
== END 2023-11-01 11:30 | disposition home or self-care (01) ==
PROVIDERS: Emergency Provider Emergency Medicine; PCP Internal Medicine
DX: J18.9 Pneumonia, unspecified organism (principal); F41.9 Anxiety disorder, unspecified; J45.909 Unspecified asthma, uncomplicated; N18.9 Chronic kidney disease, unspecified; K21.9 Gastro-esophageal reflux disease without esophagitis; E11.22 Type 2 diabetes mellitus with diabetic chronic kidney disease; I12.9 Hypertensive chronic kidney disease with stage 1 through stage 4 chronic kidney disease, or unspecified chronic kidney disease; J44.9 Chronic obstructive pulmonary disease, unspecified; Z20.822 Contact with and (suspected) exposure to COVID-19
CPT/HCPCS: 36415; 71046; 71275; 80053; 83690; 84484; 85025; 85610; 85730; 87637; 93005; 99284; A9270; Q9967

== ENCOUNTER 2024-07-29 02:39 | Observation (INO) | payer MEDICARE, MEDICAID, SELFPAY ==
[2024-07-29] VITALS (7 sets, daily range): BP systolic 130–179; BP diastolic 52–89; PULSE 76–89; RESP 12–22; TEMP 35.8–36.7; O2SAT 94–97
--- NOTE | ~2024-07-29 | CT_ITS ---
EXAMINATION: CT abdomen pelvis w con DATE: 07/29/2024 04:02 INDICATION: Chronic diarrhea TECHNIQUE: Computed tomography (CT) of the abdomen and pelvis was performed with 100 mL Omnipaque-350 intravenous contrast. Automated exposure control and iterative reconstruction technique were employe d. The dose-length product was 1231.34 mGy-cm. COMPARISON: None FINDINGS: Minimal discoid atelectasis at the lingula. No significant change sufficient respiratory motion in an approximately 1 cm nodular opacity in the anterobasilar left lower lobe which appears well decreased since earlier CT dated 05/21/2023. Heart size is normal. Lipomatous hypertrophy of the atrial septum. No pericardial effusion. Unchanged mild dilation of the common bile duct without intrahepatic biliar y ductal dilation and likely relate to prior cholecystectomy with absent gallbladder. Splenomegaly me asuring at least 15.8 cm in maximal length. Pancreas, bilateral adrenal glands and left kidney are no rmal. Unchanged 1 cm low-attenuation cyst at the inferior right kidney. There is fluid throughout the colon consistent with nonspecific diarrhea. No bowel obstruction. Mild sigmoid diverticulosis withou t adjacent inflammatory stranding to suggest diverticulitis. Bladder is normal. The uterus is not ekta ntified and has likely been surgically resected. No free intraperitoneal gas or fluid. No pathologica lly enlarged abdominal or pelvic lymphadenopathy. Moderate lumbar and lower thoracic spondylosis.. IMPRESSION: 1. Fluid throughout the colon consistent with nonspecific diarrhea. Correlate clinically for possible gastroenteritis. 2. Nonspecific splenomegaly which could be related to body habitus. 3. No significant change in approximately 1 cm left lower lobe nodule which appears decreased in size since 05/21/2023 favoring a benign etiology, likely sequela of prior infection. Reviewed, dictated and finalized at location A. [employer] BIOM[employer]UFA[employer]URING TECHNICIAN IMPRESSION: 1. Fluid throughout the colon consistent with nonspecific diarrhea. Correlate c linically for possible gastroenteritis. 2. Nonspecific splenomegaly which could be related to body habitus. 3. No significant change in approximately 1 cm left lower lobe nodule which yao ears decreased in size since 05/21/2023 favoring a benign etiology, likely seque la of prior infection.
--- NOTE | ~2024-07-29 | XR_ITS ---
EXAMINATION: XR chest 1V DATE: 07/29/2024 04:02 INDICATION: Weakness TECHNIQUE: frontal view of the chest was obtained. COMPARISON: Chest radiograph and CT dated 11/01/2023 FINDINGS: The lungs are now clear with no focal airspace opacities, pulmonary edema, pleural effusion or pneumo thorax. The cardiomediastinal silhouette is normal. Reverse right total shoulder arthroplasty. IMPRESSION: 1. No acute cardiopulmonary disease. Reviewed, dictated and finalized at location A. K TURNER
--- NOTE | 2024-07-29 02:50 | ECG_ITS ---
Test Date: 2024-07-29 02:55:01 Measurements Intervals [place] Rate: 85 P: 79 IN: 163 QRS: -10 QRSD: 90 T: 74 QT: 357 QTc: 426 Interpretive Statements SINUS RHYTHM LOW QRS VOLTAGE IN PRECORDIAL LEADS POSSIBLE ANTERIOR MYOCARDIAL INFARCTION , PROBABLY OLD CONSIDER INFERIOR INFARCT, AGE INDETERMINATE BORDERLINE ST-T WAVE ABNORMALITY- HIGH LATERAL LEADS BASELINE ARTIFACT- I, II, III, AVR, AVL, AVF ABNORMAL ECG No previous ECG available for comparison Electronically Signed On 07-29-2024 07:50:56 BIOMETRIC SCREENER by Jacob Bardales D.O.
--- NOTE | 2024-07-29 02:52 | ED_ITS ---
HPI - Weakness General Chief complaint: Weakness Stated complaint: SICK/WEAK Time Seen by Provider: 07/29/24 02:46 Source: patient and RN notes reviewed Mode of arrival: EMS Limitations: no limitations History of Present Illness HPI Narrative: Patient presents with report of sickness and being weak approximately 1 week's duration. He has been having diarrhea for several weeks. She continues to pass flatus. She lives at states that her son moved in her at 1 point during a divorce but she also somewhat recently lost her . She denies any recent travel. She was prescribed antibiotics in the form of azithromycin 3 weeks ago, in other words preceding the symptoms. She was prescribed is due to a virus that she had at that time. At this point she cannot keep any foods down recently. She only experiences abdominal pain she stools. She is not on anticoagulation other than aspirin. EMS found her to be saturating on room air at 83% and applied 2 L nasal cannula at which point she improved to 94%. She states that she is supposed to be on 4 L supplemental oxygen p.r.n. at home. Her granddaughter has been sick and vomiting. She has a history of COPD and CHF as well CKD and depression. She states she has been experiencing occasional chest pain. She has not been taking any of her medications in the past week. She was hospitalized with pneumonia twice in the past 6 months. In regards to cardiac risk factors: Hypertension +, hyperlipidemia +, nonsmoker, diabetes mellitus +; obese +; she is on Farxiga for her diabetes. 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 Her father had myocardial infarction at age of 60. Related Data Home Medications ?Medication ?Instructions ?Recorded ?Confirmed ?Last Taken ?Type allopurinol 300 mg tablet 300 mg PO DAILY 11/13/19 07/29/24 07/22/24 History amitriptyline 50 mg tablet 50 mg PO BID 11/13/19 07/29/24 07/22/24 History omeprazole 20 mg capsule,delayed 20 mg PO BID 11/13/19 07/29/24 07/22/24 History release albuterol 90 mcg/actuation aerosol 90 mcg inhalation Q6H PRN short of 05/21/23 07/29/24 Unknown History inhaler breath albuterol sulfate 2.5 mg/3 mL 2.5 mg inhalation Q6H 05/21/23 07/29/24 Unknown History (0.083 %) solution for nebulization cyanocobalamin (vitamin B-12) 1 tab-cap PO DIRECTED 05/21/23 07/29/24 Unknown History dapagliflozin propanediol 10 mg 10 mg PO BID 05/21/23 07/29/24 07/22/24 History tablet (Farxiga) dicyclomine 10 mg capsule 10 mg PO TID 05/21/23 07/29/24 07/22/24 History ergocalciferol (vitamin D2) 50,000 50,000 unit PO DIRECTED 05/21/23 07/29/24 07/22/24 History unit tablet ferrous sulfate 325 mg (65 mg 325 mg PO DAILY 05/21/23 07/29/24 07/22/24 History iron) tablet gabapentin 300 mg capsule 300 mg PO TID 05/21/23 07/29/24 07/22/24 History loperamide 2 mg tablet 2 mg PO Q3H PRN Diarrhea 05/21/23 07/29/24 07/22/24 History niacin 100 mg tablet 100 mg PO DAILY 05/21/23 07/29/24 Unknown History ondansetron 4 mg disintegrating 4 mg PO Q8H PRN Nausea And Vomiting 05/21/23 07/29/24 07/22/24 History tablet trazodone 100 mg tablet 100 mg PO HS 05/21/23 07/29/24 07/22/24 History glimepiride 2 mg tablet 2 mg PO DAILY 09/21/23 07/29/24 07/22/24 History meclizine 25 mg tablet 25 mg PO TID PRN Dizziness Or 09/21/23 07/29/24 07/22/24 History Vertigo metformin 500 mg tablet 500 mg PO DAILY 09/21/23 07/29/24 Unknown History torsemide 40 mg tablet 40 mg PO QAM 09/21/23 07/29/24 07/22/24 History clotrimazole-betamethasone 1 1 applic topical BID 07/29/24 07/29/24 Unknown History %-0.05 % topical cream escitalopram oxalate 10 mg tablet 10 mg PO DAILY 07/29/24 07/29/24 07/22/24 History furosemide 40 mg tablet mg 07/29/24 07/22/24 History triamcinolone acetonide 0.1 % applic topical 07/29/24 Unknown History topical cream Allergies Allergy/AdvReac Type Severity Reaction Status Date / Time No Known Allergies Allergy Verified 07/29/24 09:41 [facility] Past Medical History Medical History (Updated 07/30/24 @ 18:50 by Roseanna Aguilar MD) HLD (hyperlipidemia) CKD (chronic kidney disease) Type 2 diabetes mellitus Gastroesophageal reflux disease Chronic obstructive pulmonary disease Anxiety Depression Arthritis Fractures Right foot Fibromyalgia Sleep apnea Intolerant of CPAP. Pneumonia Bronchitis Asthma Hypertension Surgical History Surgical History (Updated 09/21/23 @ 22:08 by Greer Flores APRN) History of cardiac catheterization Per patient, showed signs of prior VT but no interventions undertaken. History of exploratory laparotomy initial, had 2 additional abdominal surgeries History of cholecystectomy History of hysterectomy Family History Family History Father Cardiomegaly Mother Breast cancer Social History Social History (Updated 07/30/24 @ 18:51 by Roseanna Aguilar MD) Social History: Previous Surrogate medical decision maker: Rolando Urmila, spouse (but she states she underwent a divorce and that he recently ) Code status: Full code. Smoking status: Never smoker Alcohol intake: never Substance use: never Do You Feel Safe in your Home?: Yes Lack of Transportation: No Lack of Food: Never True Current Housing: I Have Housing Concerned About Future Housing: No Difficulty Paying Gas/Electric Bills: No Difficulty Paying for Meds: No Currently Unemployed: No Education: High School Diploma/GED Difficulty w/ Childcare or Family Care: No Living arrangements: with family Additional living arrangements comments: son moved in Spiritual care concerns: No Exam 2 Narrative: GENERAL: well-nourished, and in mild acute distress. HEAD: Normocephalic, atraumatic. EYES: Non injected, non icteric ENT: Nares clear, no rhinorrhea or epistaxis. NECK: Supple. CHEST: Speaking in full sentences. No respiratory distress. On nasal cannula. HEART: Regular rate and rhythm. . ABDOMEN: Soft, nondistended. Generalized tenderness to palpation throughout. No rigidity or guarding. Not peritoneal. EXTREMITIES: Normal range of motion. No lower extremity edema. SKIN: Warm, dry, no rash. NEURO: No focal deficits. Alert and oriented x3. PSYCH: Normal mood and affect. Course Vital Signs Vital signs: Vital Signs Temperature 96.5 F L 07/29/24 02:41 Pulse Rate 84 07/29/24 02:41 Respiratory Rate 18 07/29/24 02:41 Blood Pressure 179/89 H 07/29/24 02:41 Pulse Oximetry 95 07/29/24 02:41 Oxygen Delivery Nasal Cannula 07/29/24 02:41 Oxygen Flow Rate 2 07/29/24 02:41 Temperature 97.7 F 07/30/24 14:00 Pulse Rate 66 07/30/24 14:00 Respiratory Rate 20 07/30/24 14:00 Blood Pressure 116/72 07/30/24 14:00 Pulse Oximetry 97 07/30/24 14:00 Oxygen Delivery Room Air 07/30/24 08:00 Oxygen Flow Rate 2 07/29/24 02:41 MDM - Weakness MDM Narrative Medical decision making narrative: Patient presents with report diarrhea a few weeks duration and that at this point she has been weak for approximately 1 week. In the emergency department she is afebrile with vital signs that show hypertension. She is saturating appropriately on nasal cannula. History of COPD and CHF and she reports that she is supposed to be on L O2 PRN at home but had been hypoxic on room air 83% when EMS arrived b/c not wearing it. My differential diagnosis for chronic diarrhea includes, but not limited to: Infectious (giardia, E histolytica, C difficile), medications (antibiotics, antacids, lactulose, sorbitol, chemotherapy, colchicine, gold), inflammatory etiology (such as IBD, radiation enteritis, ischemic colitis, diverticulitis). Also possible are malabsorption issues due to bile salt deficiency (cirrhosis, cholestasis, ileal disease, bacterial overgrowth), pancreatic insufficiency, mucosal abnormalities (celiac sprue, tropical sprue, Whipple disease), or lactose intolerance. They are also secretory causes such as hormonal (VIP, carcinoid tumor, medullary cancer of thyroid, a linear [place]son, glucagon, thyroxine), laxative abuse, neoplasm; finally motility issues may be the cause (IBS, scleroderma, hyperthyroidism, diabetic autonomic neuropathy). Patient's hemoglobin is 16.1, already concerning for a degree of hemoconcentration but especially when compared to previous which is now a 4 g increase. Patient's creatinine is 1.73 which is elevated from baseline although it does appear she has chronic kidney dysfunction therefore MOOSE superimposed on CKD. Will give 1 L IV fluids. She is mildly hyperglycemic with anion gap and low CO2 but not frankly acidotic and without ketonuria on UA (only proteinuria and glucosuria). Only mild elevation of BNP. Unable to obtain orthostatics as even just performing bedside ambulation assessment does not go well. Patient becomes very symptomatic, nauseated, vomiting, and nearly fainted. Admitted after discussing with hospitalist Differential Diagnosis Differential diagnosis: Likely acute myocardial infarction, anemia, hypoglycemia, sepsis, dehydration and other (Concern for electrolyte abnormalities) Lab Data Attestation: I reviewed the patient's lab results. 07/29/24 02:58 07/29/24 02:58 Labs: Lab Results 07/29/24 07/29/24 07/29/24 Range/Units 02:55 02:56 02:58 WBC 9.6 (4.5-10.0) K/mm3 RBC 5.63 H (4.2-5.4) M/mm3 Hgb 16.1 H D (12.0-15.0) g/dL Hct 48.5 H (37.0-47.0) % MCV 86.1 (80-100) fl MCH 28.6 (26-34) pg MCHC 33.2 (32-36) g/dl RDW 15.1 H (11.5-14.5) % Plt Count 305 (150-375) k/mm3 MPV 9.7 (7.4-10.4) fl Immature Gran % (Auto) 0.5 (0-0.5) % Neut % (Auto) 75.6 H (45.5-73.1) % Lymph % (Auto) 18.1 L (18.3-44.2) % [place] % (Auto) 5.4 (2.6-8.5) % Eos % (Auto) 0.0 (0-4.4) % Baso % (Auto) 0.4 (0.2-1.2) % Lymph # (Auto) 1.74 (0.9-3.2) K/mm3 [place] # (Auto) 0.5 (0.1-0.6) K/mm3 Eos # (Auto) 0.0 (0-0.3) K/mm3 Baso # (Auto) 0.0 (0.0-0.1) K/mm3 Abs Immat Gran (auto) 0.05 H (0.00-0.031) K/mm3 Absolute Neuts (auto) 7.3 H (1.3-6.7) K/mm3 Absolute Nucleated RBC 0.000 (0.0-0.012) K/mm3 Nucleated RBC % 0.0 (0.0-0.2) % PT 13.8 (11.1-14.7) Seconds INR 1.0 APTT 31.8 (22.3-36.8) Seconds Sodium 138 (137-145) mmol/L Potassium 4.6 (3.4-5.0) mmol/L Chloride 105 (98-107) mmol/L Carbon Dioxide 17 L (22-30) mmol/L Anion Gap 16 H (4-12) mmol/L BUN 41 H D (7-17) mg/dL Creatinine 1.73 H (0.7-1.0) mg/dL Estim Creat Clear Calc Not Reportable Estimated GFR 29 L (59 - ) Glucose 171 H (65-110) mg/dL Lactic Acid 1.2 (0.7-2.0) mmol/L Calcium 9.1 (8.4-10.2) mg/dL Magnesium 2.2 (1.6-2.3) mg/dL Total Bilirubin 0.8 (0.2-1.3) mg/dL AST 36 (14-36) U/L ALT 42 H (6-35) U/L Alkaline Phosphatase 104 (38-126) U/L Troponin I < 0.012 (0.000-0.034) ng/mL NT-Pro-B Natriuret Pep 209 H (19.9-100) pg/mL Total Protein 9.0 H (6.3-8.2) g/dL Albumin 4.4 (3.5-5.1) g/dL Urine Color (Yellow) Urine Appearance (Clear) Urine pH (5.0-9.0) Ur Specific [place] (1.001-1.035) Urine Protein (Negative) mg/dL Urine Glucose (UA) (Negative) mg/dL Urine Ketones (Negative) mg/dL Ur Blood (Man) (Negative) Urine Nitrate (Negative) Urine Bilirubin (Negative) Urine Urobilinogen (<2.0) mg/dL Add Ur Microanalysis Leukocyte Esterase Rfl (Negative) CARLTON/UL Urine RBC (0-2) /hpf Urine WBC (0-3) /hpf Ur Squamous Epith Cells (Few) /hpf Urine Bacteria /hpf Urine Casts Hyaline Casts (None) /lpf Granular Casts (None) /lpf Urine Mucus /lpf Influenza A (RT-PCR) (Negative) Influenza B (RT-PCR) (Negative) RSV (RT-PCR) (Negative) SARS-CoV-2 RNA (RT-PCR) (Negative) 07/29/24 07/29/24 Range/Units 02:59 03:39 WBC (4.5-10.0) K/mm3 RBC (4.2-5.4) M/mm3 Hgb (12.0-15.0) g/dL Hct (37.0-47.0) % MCV (80-100) fl MCH (26-34) pg MCHC (32-36) g/dl RDW (11.5-14.5) % Plt Count (150-375) k/mm3 MPV (7.4-10.4) fl Immature Gran % (Auto) (0-0.5) % Neut % (Auto) (45.5-73.1) % Lymph % (Auto) (18.3-44.2) % [place] % (Auto) (2.6-8.5) % Eos % (Auto) (0-4.4) % Baso % (Auto) (0.2-1.2) % Lymph # (Auto) (0.9-3.2) K/mm3 [place] # (Auto) (0.1-0.6) K/mm3 Eos # (Auto) (0-0.3) K/mm3 Baso # (Auto) (0.0-0.1) K/mm3 Abs Immat Gran (auto) (0.00-0.031) K/mm3 Absolute Neuts (auto) (1.3-6.7) K/mm3 Absolute Nucleated RBC (0.0-0.012) K/mm3 Nucleated RBC % (0.0-0.2) % PT (11.1-14.7) Seconds INR APTT (22.3-36.8) Seconds Sodium (137-145) mmol/L Potassium (3.4-5.0) mmol/L Chloride (98-107) mmol/L Carbon Dioxide (22-30) mmol/L Anion Gap (4-12) mmol/L BUN (7-17) mg/dL Creatinine (0.7-1.0) mg/dL Estim Creat Clear Calc Estimated GFR (59 - ) Glucose (65-110) mg/dL Lactic Acid (0.7-2.0) mmol/L Calcium (8.4-10.2) mg/dL Magnesium (1.6-2.3) mg/dL Total Bilirubin (0.2-1.3) mg/dL AST (14-36) U/L ALT (6-35) U/L Alkaline Phosphatase (38-126) U/L Troponin I (0.000-0.034) ng/mL NT-Pro-B Natriuret Pep (19.9-100) pg/mL Total Protein (6.3-8.2) g/dL Albumin (3.5-5.1) g/dL Urine Color Yellow (Yellow) Urine Appearance Clear (Clear) Urine pH 5.0 (5.0-9.0) Ur Specific [place] 1.025 (1.001-1.035) Urine Protein 3+ H (Negative) mg/dL Urine Glucose (UA) 3+ H (Negative) mg/dL Urine Ketones Negative (Negative) mg/dL Ur Blood (Man) Trace (Negative) Urine Nitrate Negative (Negative) Urine Bilirubin Negative (Negative) Urine Urobilinogen 0.2 (<2.0) mg/dL Add Ur Microanalysis Reviewed Leukocyte Esterase Rfl Negative (Negative) CARLTON/UL Urine RBC 0-2 (0-2) /hpf Urine WBC 0-5 (0-3) /hpf Ur Squamous Epith Cells Few (Few) /hpf Urine Bacteria None seen /hpf Urine Casts >20 Hyaline Casts Present (None) /lpf Granular Casts Present (None) /lpf Urine Mucus Present /lpf Influenza A (RT-PCR) Negative (Negative) Influenza B (RT-PCR) Negative (Negative) RSV (RT-PCR) Negative (Negative) SARS-CoV-2 RNA (RT-PCR) Negative (Negative) ABG Data ABG results: 07/29/24 04:26 VBG pH 7.314 VBG pCO2 38.0 L VBG pO2 45.5 H VBG HCO3 18.9 L O2 Delivery Device Nasal cannula O2 Liters/Min 2.0 FiO2 28 Imaging Data Attestation: I personally reviewed and interpreted this imaging study as follows: My impression: Cardiomegaly and left-sided haziness on my independent interpretation of chest x-ray. Patient also has evidence of a prior shoulder replacement Radiologist's impression: CT abdomen pelvis with contrast Stat Rad: Comparison is made to prior CT scan of the abdomen and pelvis dated 09/21/2023. The gallbladder is not visualized. Mild common bile duct dilatation can be seen post cholecystectomy. Sigmoid diverticulosis without acute diverticulitis. Splenomegaly. No acute findings in the abdomen or pelvis. No incidental findings. ECG Data EKG #1: Attestation: I personally reviewed and interpreted this ECG as follows: ECG completion date: 07/29/24 ECG completion time: 02:55 Interpretation: Normal sinus rhythm at a rate of 85 beats per minute. OR interval 163. QRS 90. QT/QTC 357/399. No T-wave inversions. Discharge Plan Discharge Clinical Impression: Elevated hemoglobin, Acute kidney injury superimposed on CKD, Hyperglycemia due to diabetes mellitus, Proteinuria due to type 2 diabetes mellitus, Glucosuria, Generalized weakness, Chronic diarrhea Patient Disposition: Still a Patient Condition: Stable
[2024-07-29 03:01] LABS: Basophils Percent Auto 0.4 % (0.2-1.2); Hematocrit 48.5 % (37.0-47.0); Hemoglobin 16.1 g/dL (12.0-15.0); Immature Granulocyte Absolute 0.05 K/mm3 (0.00-0.031); Immature Granulocyte Percent A 0.5 % (0-0.5); Lymphocytes Absolute Auto 1.74 K/mm3 (0.9-3.2); Lymphocytes Percent Auto 18.1 % (18.3-44.2); Mean Corpuscular HGB Conc 33.2 g/dl (32-36); Mean Corpuscular Hemoglobin 28.6 pg (26-34); Mean Corpuscular Volume 86.1 fl (80-100); Mean Platelet Volume 9.7 fl (7.4-10.4); Monocytes Absolute Auto 0.5 K/mm3 (0.1-0.6); Monocytes Percent Auto 5.4 % (2.6-8.5); Neutrophils Absolute Auto 7.3 K/mm3 (1.3-6.7); Neutrophils Percent Auto 75.6 % (45.5-73.1); Platelet Count Result 305 k/mm3 (150-375); Red Blood Count 5.63 M/mm3 (4.2-5.4); Red Cell Distribution Width 15.1 % (11.5-14.5); White Blood Count 9.6 K/mm3 (4.5-10.0)
[2024-07-29 03:11] LABS: Lactic Acid Reflex 1.2 mmol/L (0.7-2.0); Sodium 138 mmol/L (137-145)
--- OUTSIDE RECORDS SUMMARY | 2024-07-29 03:23 | XMS_ITS | Encounter Summary ---
Author Organization [facility] Address 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 diff 12/05/2021 12/04/2021 12/05/2021 3:51 PM CDT R/O C. diff 04/11/2023 04/11/2023 04/11/2023 8:12 AM CDT documented as of this encounter Care Teams Pearl Glue Drier Relationship Specialty Start Date End Date Jevon Felix MD [address] [phone] PCP - General Internal Medicine 09/01/21 documented as of this encounter
--- OUTSIDE RECORDS SUMMARY | 2024-07-29 03:23 | XMS_ITS | Encounter Summary ---
Author Organization [facility] Address 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
--- OUTSIDE RECORDS SUMMARY | 2024-07-29 03:23 | XMS_ITS | Encounter Summary ---
Author Organization [facility] Address 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
--- OUTSIDE RECORDS SUMMARY | 2024-07-29 03:23 | XMS_ITS | Data Portability ---
Author Organization [facility], Main Office Address [address] [place] [address] Care Team Providers Care [employer]er Name Role Phone [facility] FAX OTHER Assessment Encounter Date Assessment Date Assessment LastModified by Organization Details LastModified Time 10/12/2021 10/12/2021 71 year old s/p right shoulder reverse total replacment aitzkowitz Not available 10/18/2021 18:42:56 10/13/2021 10/13/2021 71 year old s/p right shoulder reverse total replacment aitzkowitz Not available 10/18/2021 20:20:19 10/15/2021 10/15/2021 71 year old s/p right shoulder reverse total replacment aitzkowitz Not available 10/18/2021 21:11:29 Plan of Treatment Reminders Order Date Submit Date Provider Last Modified By Organization Details Last Modified Time Details Appointments None recorded. Lab None recorded. Referral physical therapist referral 2021 ÓSCAR Not available 3 05:01:25 occupationa l therapist referral 2021 022 ÓSCAR Not available 3 05:01:25 Procedures None recorded. Surgeries None recorded. Imaging None recorded. Medication Orders allopurinol 300 mg tablet 2021 022 [email or web address] Not available 04:11:25 cyanocobala min (vitamin B-12) 5,000 mcg capsule 2021 022 [email or web address] Not available 04:11:25 metformin 500 mg tablet 2021 022 pcheng9 Not available 04:11:25 niacin 100 mg tablet 2021 022 pcheng9 Not available 04:11:26 albuterol sulfate 2.5 mg/3 mL (0.083 %) solution for nebulizatio n 2021 022 pcheng9 Not available 04:11:24 albuterol sulfate HFA 90 mcg/actuati on aerosol inhaler 2021 022 pcheng9 Not available 04:11:25 hydrocodone 10 mg-acetamin ophen 325 mg tablet 2021 022 pcheng9 Not available 04:11:25 ibuprofen 600 mg tablet 2021 022 pcheng9 Not available 04:11:26 trazodone 100 mg tablet 2021 022 pcheng9 Not available 04:11:26 furosemide 20 mg tablet 2021 022 pcheng9 Not available 04:11:26 verapamil ER (SR) 180 mg tablet,exte nded release 2021 022 pcheng9 Not available 04:11:26 gabapentin 300 mg capsule 2021 022 pcheng9 Not available 2 04:11:25 nortriptyli ne 50 mg capsule 2021 022 pcheng9 Not available 04:11:26 omeprazole 20 mg capsule,del ayed release 2021 022 pcheng9 Not available 2 04:11:26 ferrous sulfate 325 mg (65 mg iron) tablet 2021 022 pcheng9 Not available 04:11:25 atorvastati n 10 mg tablet 2021 022 pcheng9 Not available 04:11:25 meclizine 25 mg tablet 2021 022 pcheng9 Not available 04:11:26 aspirin 325 mg tablet,carson yed release 2021 022 pcheng9 Not available 04:11:25 gabapentin 300 mg capsule 2021 022 pcheng9 Not available 04:09:55 cyanocobala min (vitamin B-12) 5,000 mcg capsule 2021 022 pcheng9 Not available 04:09:55 metformin 500 mg tablet 2021 022 pcheng9 Not available 04:09:55 niacin 100 mg tablet 2021 022 pcheng9 Not available 04:09:56 nortriptyli ne 50 mg capsule 2021 022 pcheng9 Not available 04:09:55 omeprazole 20 mg capsule,del ayed release 2021 022 pcheng9 Not available 04:09:56 albuterol sulfate 2.5 mg/3 mL (0.083 %) solution for nebulizatio n 2021 022 pcheng9 Not available 2 04:09:54 albuterol sulfate HFA 90 mcg/actuati on aerosol inhaler 2021 022 pcheng9 Not available 04:09:54 atorvastati n 10 mg tablet 2021 022 pcheng9 Not available 04:09:55 hydrocodone 10 mg-acetamin ophen 325 mg tablet 2021 022 pcheng9 Not available 04:09:55 ibuprofen 600 mg tablet 2021 022 pcheng9 Not available 04:09:55 aspirin 325 mg tablet,carson yed release 2021 022 pcheng9 Not available 04:09:55 trazodone 100 mg tablet 2021 022 pcheng9 Not available 04:09:56 furosemide 20 mg tablet 2021 022 pcheng9 Not available 04:09:55 verapamil ER (SR) 180 mg tablet,exte nded release 2021 022 pcheng9 Not available 04:09:56 cyanocobala min (vitamin B-12) 5,000 mcg capsule 2021 022 pcheng9 Not available 04:09:03 metformin 500 mg tablet 2021 022 pcheng9 Not available 04:09:03 niacin 100 mg tablet 2021 022 pcheng9 Not available 04:09:03 gabapentin 300 mg capsule 2021 022 pcheng9 Not available 04:09:03 albuterol sulfate 2.5 mg/3 mL (0.083 %) solution for nebulizatio n 2021 022 pcheng9 Not available 04:09:02 albuterol sulfate HFA 90 mcg/actuati on aerosol inhaler 2021 022 pcheng9 Not available 04:09:02 hydrocodone 10 mg-acetamin ophen 325 mg tablet 2021 022 pcheng9 Not available 04:09:03 ibuprofen 600 mg tablet 2021 022 pcheng9 Not available 04:09:03 aspirin 325 mg tablet,carson yed release 2021 022 pcheng9 Not available 04:09:03 trazodone 100 mg tablet 2021 022 pcheng9 Not available 04:09:03 furosemide 20 mg tablet 2021 022 pcheng9 Not available 04:09:03 verapamil ER (SR) 180 mg tablet,exte nded release 2021 022 pcheng9 Not available 04:09:03 Patient TargetsNo targets recorded. Patient Instructions Encounter Date Encounter Id Patient Instructions Last Modified By Organization Details Last Modified Time 10/12/2021 [id number] gout: care instructions aitzkowitz Not available 10/18/2021 19:01:54 learning about t ype 2 diabetes aitzkowitz Not available 10/18/2021 19:01:54 type 2 diabetes: care instructions aitzkowitz Not available 10/18/2021 19:01:53 chronic obstruct dara pulmonary disease (COPD): care instructions aitzkowitz Not available 10/18/2021 19:01:54 learning about c opd and how to prevent lung infections aitzkowitz Not available 10/18/2021 19:01:53 anxiety disorder : care instructions aitzkowitz Not available 10/18/2021 19:01:53 high blood press ure: care instructions aitzkowitz Not available 10/18/2021 19:01:53 learning about h igh blood pressure aitzkowitz Not available 10/18/2021 19:01:53 Preventing Depression From Coming Back: Care Instructions aitzkowitz Not available 10/18/2021 19:01:53 gastroesophageal reflux disease (GERD): care instructions aitzkowitz Not available 10/18/2021 19:01:53 anemia: care instructions aitzkowitz Not available 10/18/2021 19:01:53 high cholesterol : care instructions aitzkowitz Not available 10/18/2021 19:01:53 I have personall y reviewed prior hospital documents, labs, studies, and orders relevant to this encounter. All recent laboratory data fully reviewed. I spent {{16 17 18 19 20* 21 22 23 24 25}} minutes counseling and discussing advance directives and/or end of life care planning and decisions with the {{patient* surrogate patient and surrogate}} today. I reviewed the current relevant diagnoses, treatment options, natural history, and prognosis and clarified the patient's goals of care. aitzkowitz Not available 10/18/2021 19:01:33 10/13/2021 [id number] learning about t ype 2 diabetes aitzkowitz Not available 10/18/2021 20:29:01 type 2 diabetes: care instructions aitzkowitz Not available 10/18/2021 20:29:01 Preventing Depression From Coming Back: Care Instructions aitzkowitz Not available 10/18/2021 20:29:01 gastroesophageal reflux disease (GERD): care instructions aitzkowitz Not available 10/18/2021 20:29:01 chronic obstruct dara pulmonary disease (COPD): care instructions aitzkowitz Not available 10/18/2021 20:29:00 learning about c opd and how to prevent lung infections aitzkowitz Not available 10/18/2021 20:29:00 high cholesterol : care instructions aitzkowitz Not available 10/18/2021 20:29:00 anxiety disorder : care instructions aitzkowitz Not available 10/18/2021 20:29:01 high blood press ure: care instructions aitzkowitz Not available 10/18/2021 20:29:00 learning about h igh blood pressure aitzkowitz Not available 10/18/2021 20:29:01 10/15/2021 [id number] learning about t ype 2 diabetes aitzkowitz Not available 10/18/2021 21:13:01 type 2 diabetes: care instructions aitzkowitz Not available 10/18/2021 21:13:01 chronic obstruct dara pulmonary disease (COPD): care instructions aitzkowitz Not available 10/18/2021 21:13:02 learning about c opd and how to prevent lung infections aitzkowitz Not available 10/18/2021 21:13:02 anxiety disorder : care instructions aitzkowitz Not available 10/18/2021 21:13:02 high blood press ure: care instructions azucena Not available 10/18/2021 21:13:02 learning about h igh blood pressure azucena Not available 10/18/2021 21:13:02 Reason for Referral Physical Therapist Referral for Rehabilitation therapy Referring Physician: Remy Gutierrez, Internal Medicine, Encounter Date: 10/12/2021 Occupational Therapist Refer ral for Rehabilitation therapy Referring Physician: Remy Gutierrez, Internal Medicine, Encounter Date: 10/12/2021 Results Created Date Observation Date Name Description Value Unit Range Abnormal Flag Note LastModifiedBy Organization Detail LastModifiedTime Result Notes None recorded. Problems Name Problem SNOMED Code Status Onset Date Resolution Date Notes Provider Name and Address Organization Details Recorded Time Generalized anxiety disorder 23568121 Active 2021 [place] [address] [place], [address], [place] [facility] 2 17:34:46 Lumbar radiculopat hy 984121629 Active 2021 [place] [address] [place], [address], [place] [facility] 2 17:34:55 Chronic kidney disease stage 3 967916249 Active 2021 [place] [address] [place], [address], [place] [facility] 2 17:35:07 Chronic obstructive pulmonary disease 31806454 Active 2021 [place] [address] [place], [address], [place] [facility] 2 17:35:19 Type 2 diabetes mellitus 31582312 Active 2021 Remy Gutierrez MD [address] [place] [address], [address], [place] [facility] 2 17:38:36 Diabetic peripheral neuropathy 097973052 Active 2021 [place] [address] [facility] [place], [address], [place] [facility] 2 17:38:47 Essential hypertensio n 80209488 Active 2021 [place] [address] [place], [address], [place] [facility] 2 17:38:59 Gastroesoph ageal reflux disease 652221676 Active 2021 [place] [address] [place], [address], [place] [facility] 2 17:39:05 Gout 48198636 Active 2021 Remy Gutierrez MD [address] [place] [address], [address], [place] [facility] 2 17:39:10 Hyperlipide andrew 95896817 Active 2021 Remy Gutierrez MD [address] [place] [address], [address], [place] [facility] 2 17:39:17 Irritable bowel syndrome 77870432 Active 2021 Remy Gutierrez MD [address] [place] [address], [place], [address], [place] [facility] 2 17:39:28 Obesity 320748777 Active 2021 [place] [address] [place], [address], [place] [facility] 2 17:39:33 Obstructive sleep apnea syndrome 54277401 Active 2021 Remy Gutierrez MD [address] [place] [address], [address], [place] [facility] 2 17:39:40 Rheumatoid arthritis 32366738 Active 2021 [place] [address] [place], [address], [place] [facility] 2 17:39:47 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 2021 [place] [address] [facility], [place], [address], [place] [facility] 2 17:52:30 Chronic kidney disease due to type 2 diabetes mellitus 230532171219 Active 2021 [place] [address] [address] [facility], [place], [address], [place] [facility] 2 17:53:12 Morbid obesity 806236864 Active 2021 [place] [address] [facility], [place], [address], [place] [facility] 2 17:53:23 Major depressive disorder 407377280 Active 2021 [place] [address] [facility], [place], [address], [place] [facility] 2 18:29:52 Total shoulder replacement Active 2021 [place] [address] [address] [facility], [place], [address], [place] [facility] 2 18:30:17 Disorder of rotator cuff 199742578 Active 2021 [place] [address] [address] [facility], [place], [address], [place] [facility] 2 18:31:03 Anemia 619076736 Active 2021 [place] [address] [facility], [place], [address], [place] [facility] 2 18:41:47 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 Procedures Surgical History Date Name Laterality Status Provider Name and Address Organization Details Recorded Time Appendectomy completed Remy Gutierrez MD [address] [place] [address], [address], [facility] 10/18/2021 17:40:32 total hysterectomy completed Remy Gutierrez MD [address] [place] [address], [address], [facility] 10/18/2021 17:48:32 cholecystectomy completed Remy Gutierrez MD [address] [place] [address], [address], [facility] 10/18/2021 17:48:46 Cardiac Catheterization / PCI completed Remy Gutierrez MD [address] [place] [address], [address], [facility] 10/18/2021 17:48:57 Imaging Results None recorded. Procedure Notes None recorded. Medical Equipment None Reported. Allergies No known drug allergies Medications Name Sig Start Date Stop Date Status Note LastModified by Organization Details LastModified Time metformin 500 mg tablet Take 1 tablet every day by oral route. 2021 active Not Available Not Available Not Avai lable acetaminophe n 325 mg tablet Take 2 tablets every 6 hours by oral route as needed. active Not Available Not Available N ot Available albuterol sulfate 2.5 mg/3 mL (0.083 %) solution for nebulization Inhale 3 mL every 6 hours by nebulizatio n route. 2021 active Not Available Not Available Not Avai lable atorvastatin 10 mg tablet Take 1 tablet every day by oral route. 2021 active Not Available Not Available Not Avai lable verapamil ER (SR) 180 mg tablet,exten ded release Take 1 tablet twice a day by oral route. 2021 active Not Available Not Available Not Avai lable hydrocodone 10 mg-acetamino phen 325 mg tablet from ekit 10325 one every six hours prn 2021 active Not Available Not Available Not Avai lable aspirin 325 mg tablet,delay ed release Take 1 tablet twice a day by oral route. 2021 active Not Available Not Available Not Avai lable trazodone 100 mg tablet Take 1 tablet every day by oral route. 2021 active Not Available Not Available Not Avai lable meclizine 25 mg tablet Take 1 tablet 3 times a day by oral route as needed. 2021 active Not Available Not Available Not Avai lable ferrous sulfate 325 mg (65 mg iron) tablet Take 1 tablet every day by oral route. 2021 active Not Available Not Available Not Avai lable niacin 100 mg tablet Take 1 tablet every day by oral route. 2021 active Not Available Not Available Not Avai lable gabapentin 300 mg capsule Take 1 capsule every day by oral route. 2021 active Not Available Not Available Not Avai lable omeprazole 20 mg capsule,carson yed release Take 1 capsule twice a day by oral route. 2021 active Not Available Not Available Not Avai lable allopurinol 300 mg tablet Take 1 tablet every day by oral route. 2021 active Not Available Not Available Not Avai lable furosemide 20 mg tablet Take 1 tablet every day by oral route. 2021 active Not Available Not Available Not Avai lable ibuprofen 600 mg tablet Take 1 tablet every 6 hours by oral route as needed. 2021 active Not Available Not Available Not Avai lable albuterol sulfate HFA 90 mcg/actuatio n aerosol inhaler Inhale 2 puffs every 6 hours by inhalation route as needed. 2021 active Not Available Not Available Not Avai lable ondansetron 4 mg disintegrati ng tablet Place 1 tablet every 8 hours by translingua l route as needed. active Not Available Not Available No t Available nortriptylin e 50 mg capsule Take 1 capsule twice a day by oral route. 2021 active Not Available Not Available Not Avai lable cyanocobalam in (vitamin B-12) 5,000 mcg capsule Take 1 capsule every day by oral route. 2021 active Not Available Not Available Not Avai lable Vitals Date Recorded Body temperature Respiratory rate Oxygen saturation Oxygen saturation in Arterial blood by Pulse oximetry Heart rate Body weight Body mass index (BMI) Body height Systolic blood pressure Diastolic blood pressure Provider Name and Address Organization Details Last Updated DateTime 2 98.4 [degF] 22 /min 96 % 96 % 86 /min 67014.2 9 g 31 kg/m2 170.18 cm 173 mm[Hg] 91 mm[Hg] [place] [address] [place], [address], [facility] 17:50:37 Date Recorded Body height Heart rate Oxygen saturation Oxygen saturation in Arterial blood by Pulse oximetry Respiratory rate Body temperature Systolic blood pressure Diastolic blood pressure Provider Name and Address Organization Details Last Updated DateTime 2 170.18 cm 83 /min 96 % 96 % 18 /min 97.1 [degF] 143 mm[Hg] 74 mm[Hg] [place] [address] [place], [address] , [facility] 19:57:41 Date Recorded Body height Heart rate Oxygen saturation Oxygen saturation in Arterial blood by Pulse oximetry Respiratory rate Body temperature Systolic blood pressure Diastolic blood pressure Provider Name and Address Organization Details Last Updated DateTime 2 170.18 cm 78 /min 96 % 96 % 16 /min 98.7 [degF] 137 mm[Hg] 63 mm[Hg] [place] [address] [place], [address] [facility] 2 20:56:45 Social History Question Answer Notes LastModified by Organizat ion Details LastModified Time Tobacco Smoking Status Never Smoker Marie Boby [facility], [facility] 10/10/2021 17:08:32 Do You Have An Advance Directive? Yes Information not available 10/18/2021 What Is Your Level Of Alcohol Consumption? None Information not available 10/18/2021 Are You Blind Or Do You Have Difficulty Seeing? No Information not available 10/18/2021 What Is Your Code Status? Full Code Information not available 10/10/2021 Are You Deaf Or Do You Have Serious Difficulty Hearing? No Information not available 10/18/2021 Able To Care For Self? Yes Information not available 10/18/2021 Live Alone Or With Others? Alone Information not available 10/18/2021 Do You Have A Caregiver? No Information not available 10/18/2021 Do You Have A Medical Power Of Assisted Living Assistant? Yes Information not available 10/18/2021 How Many Children Do You Have? 2 Information not available 10/18/2021 What Is Your Relationship Status? Information not available 10/18/2021 Do You Use Any Illicit Or Recreational Drugs? No Information not available 10/10/2021 Sex: Unknown Functional Status Question Answer Note LastModified by Organizat ion Details LastModified Time Do you have difficulty walking or climbing stairs? No Information not available 10/18/2021 Are you able to walk? YESWOREST Information not available 10/18/2021 Do you have difficulty doing errands alone? No Information not available 10/18/2021 Are you able to care for yourself? Yes Information not available 10/18/2021 Do you have difficulty dressing or bathing? No Information not available 10/18/2021 Mental Status Question Answer Note LastModified by Organization D etails LastModified Time Do you have difficulty concentrating, remembering or making decisions? No Information no t available 10/18/2021 Family History Nothing Reported. Medical History Condition Response Diabetes Y Psychiatric -- Anxiety Disorder Y Osteoarthritis / DJD Y Obesity Y Hyperlipidemia Y Asthma Y Anemia Y Back Pain Y GERD / Reflux Y Sleep Apnea / RON Y Hypertension Y Gynecological HistoryNo gynecological history recorded. Obstetrics History GPAL:G 0 P 0 0 0 0 Immunizations Vaccine Type Date Status Note Provider Nam e and Address Organization Details Recorded Time SARS-COV-2 (COVID-19) vaccine, UNSPECIFIED 1 completed Marie Saleeby null, [place] - [facility] 10/10/2021 17:05:01 SARS-COV-2 (COVID-19) vaccine, UNSPECIFIED 1 completed Marie Saleeby null[place] [facility] 10/10/2021 17:05:10 Hep A, unspecified formulation 6 completed Marie Saleeby [place] [facility] 10/10/2021 17:05:24 influenza, unspecified formulation 9 completed Marie Saleeby [place] [facility] 10/10/2021 17:06:36 influenza, unspecified formulation 0 completed Marie Saleeby [place] [facility] 10/10/2021 17:06:59 Pneumococcal conjugate PCV 13 9 completed Marie Saleeby null[place] [facility] 10/10/2021 17:07:24 pneumococcal polysaccharide PPV23 0 completed Marie Saleeby null[place] [facility] 10/10/2021 17:07:38 pneumococcal polysaccharide PPV23 0 completed Marie Saleeby null[place] [facility] 10/10/2021 17:07:48 Tdap 6 completed Marie Saleeby [place] [facility] 10/10/2021 17:08:05 Tdap 6 completed Marie Saleeby null[place] [facility] 10/10/2021 17:08:14 Past Encounters Encounter ID Performer Location Encounter Start Date Encounter Closed Date Diagnosis/Indication Diagnosis SNOMED-CT Code Diagnosis ICD10 Code Diagnosis Note [id number] Remy Gutierrez MD [facility] [address] [address] [place] [address] 10/12/2021 16:41:51 10/24/2021 00:38:14 Disorder of rotator cuff 391314235 M75.81 has had total right shoulder replacemen t , Chronic ki dney disease due to type 2 diabetes mellitus 6384959568 08 E11.22 stage three , avoid nsaids and nephrotoxi c agentsmoni tor hgbaic , Chronic ob structive pulmonary disease 92364375 J44.9 has had some issues before leaving hospital ,, was evaluted for PE and was negativesh e does not want to use cpap at night , Major depr essive disorder 070629047 F32.9 long history of mdd , will continue nortryptyl ine Essential hypertension 95812735 I10 vital signs every eight hours ,echo Global systolic function was normal. The estimated ejection fraction was65%.- Left atrium: The atrium was normal in size.- Right ventricle: The cavity size was normal. Systolic function was normal. Gastroesop hageal reflux disease 479615230 K21.9 no complaints of reflux , continue ppi Diabetic p eripheral neuropathy 852558581 E11.40 on low dose of gabapentin ,, will titrate if needed, Gout 24380125 M10.9 no recnet flares, remains on allopurina l at high dose which can be nephrotoxi c in itself, will need to monitor renal function as well as uric acid Hyperlipidemia 70980246 E78.5 continue on low alessandra sugar diabetic diet as well as low fat cardiac Type 2 melvin betes mellitus 35498134 E11.22 accuchecks ac and hadhgbaic with admission labson low dose of metformin ,, only on one dose a day , Anemia 578917429 D64.9 monitor cbc to trend H?h History of reverse prosthetic total arthroplasty of right shoulder 2993875074 4662742 Z96.611 has done well ,, ar remains in sling, has followup appt with orthopedic surgeon on ontinu e PT and pain managemnt Vertigo 590424469 R42 long hisotry ,, uses meclizine prn Generalize d anxiety disorder 96936137 F41.1 has been taking trazdone and can increase dose during day if needed Anterior epistaxis 50167 4002 R04.0 sudden onset on 10/11.. 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 The estimated ejection fraction was65%.- Left atrium: The atrium was normal in size.- Right ventricle: The cavity size was normal. Systolic function was normal. Gastroesop hageal reflux disease [id number] K21.9 no complaints of reflux , continue ppi Diabetic p eripheral neuropathy 104911730 E11.40 on low dose of gabapentin ,, will titrate if needed, Hyperlipidemia 86931329 E78.5 continue on low alessandra sugar diabetic diet as well as low fat cardiac Type 2 melvin betes mellitus 19793635 E11.22 accuchecks ac and hadhgbaic with admission labson low dose of metformin ,, only on one dose a day , History of reverse prosthetic total arthroplasty of right shoulder [id number] Z96.611 has done well ,, ar remains in sling, has followup appt with orthopedic surgeon on ontinu e PT and pain managemnt Generalize d anxiety disorder 86612368 F41.1 has been taking trazodone and can increase dose during day if needed Anterior epistaxis [id number] [id number] R04.0 sudden onset on 10/11.. continues today ,, packed with vaseline gauze and taped in place, will followup in am10/13.. packing removed without further bleeding noted , [id number] Remy Gutierrez MD PAC 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 The estimated ejection fraction was65%.- Left atrium: The atrium was normal in size.- Right ventricle: The cavity size was normal. Systolic function was normal. Diabetic p eripheral neuropathy [id number] E11.40 on low dose of gabapentin ,, will titrate if needed, Type 2 melvin betes mellitus 37083477 E11.22 accuchecks ac and hadhgbaic with admission labson low dose of metformin ,, only on one dose a day ,10/15 hgbaic 7.3.. will continue meds as ordered, History of reverse prosthetic total arthroplasty of right shoulder [id number] Z96.611 has done well ,, ar remains in sling, has followup appt with orthopedic surgeon on ontinu e PT and pain managemnt Generalize d anxiety disorder 04642050 F41.1 has been taking trazodone and can increase dose during day if needed Health Concerns Section Related Observation LastModified by Organization Detai ls LastModified Time None Recorded Concern Status LastModified by Organization Details LastModified Time None Recorded Advance Directives Directive Y: Payers Encounter Date Sequence Insurance Name Policy Number Policy De Jesus Covered Member ID De Jesus Member ID Guarantor Name 10/12/2021 1 [facility] (MEDICARE REPLACEMENT/A DVANTAGE - HMO) [id number] Cristal Martínez [id number] Brad Martínez 10/13/2021 1 [facility] (MEDICARE REPLACEMENT/A DVANTAGE - HMO) [id number] Cristal Martínez [id number] Brad Martínez 10/15/2021 1 [facility] (MEDICARE REPLACEMENT/A DVANTAGE - HMO) [id number] Cristal Martínez [id number] Brad Martínez Notes Date Note Type Note Provider Name and Address Organization Details Recorded Time 10/12/2021 text/html 71 y.o. female p mh signif for copd, t2dm ckd 3 , morbid obesity and gout admitted from [facility] on 10/09 after admission of 10/05-10/09 after surgery for right shoulder pain ,, she has had symptoms of decreased range of motion, in the Right shoulder joint due to rotator cuff arthropathy and Osteoarthritis severe. She was managed with pain meds , physcial therapy for several months without improvemnt , Mri of 07/2021 ,,,. Complete full-thickness tear of the supraspinatus tendon withretraction.2. Infraspinatus tendinosis with partial undersurface tear involvingthe anterior fibers at the insertion.3. Marked thinning of the entire subscapularis tendon due tohigh-grade partial versus full-thickness tear.4. Nonvisualization of the extra-articular biceps tendon compatiblewith proximal rupture.5. Glenohumeral joint degenerative arthrosis with moderate effusionand diffuse synovitis.6. Moderate acromioclavicular joint degenerative arthrosis.7. Abnormal signal within the teres major and latissimus dorsi musclescould be related to prior muscle injury versus intramuscular lipomas.Would suggest follow-up imaging in 6-12 months to confirm stability.8. Increased intermediate T1 signal within the bone marrow of proximalhumerus can be due to red marrow hyperplasia as can be seen withanemia, smoking or obesity. Correlation with CBC recommended.Myeloproli ferative/replacing process is in the differential diagnosis.Continued symptoms noted despite medications including NSAIDS for 4 month(s) and Narcotics for 2 month(s)Conservative therapy including dedicated home exercise program was attempted for greater than 12 weeks with no significant improvementshe describes her pain as diffuse right shoulder pain. made worse with with rotation of shoulder forward flexion, reaching behind her back, and reaching out.post operatively she complained of increaseing sob , she has stat CTA..IMPRESSION:1. No pulmonary embolism.2. No acute cardiopulmonary process.3. Stranding and edema with scattered subcutaneous air in the rightaxilla and subpectoral regionwas placed on supplemental oxygen , stat ECHOCARDIOGRA ,,,- Left ventricle: The cavity size was normal. Wall thickness was increased.Global systolic function was normal. The estimated ejection fraction was65%.- Left atrium: The atrium was normal in size.- Right ventricle: The cavity size was normal. Systolic function was normal.Postoperatively she had a slow recovery, with complaints of pain, hypoxia, and difficulty getting off of oxygen. Medical evaluation revealed chronic asthma and sleep apnea, and further evaluation is being done. Meanwhile, she has remained on nasal cannula oxygen. Her shoulder was healing well, with pain reasonably well managed with [place] 10 mg.was discharged to skilled rehab for ongoing nursing and [place] [address] [place], [address], [facility] 10/18/2021 19:03:38 10/13/2021 text/html 71 y.o. female p mh signif for copd, t2dm ckd 3 , morbid obesity and gout admitted from [facility] on 10/09 after admission of 10/05-10/09 after surgery for right shoulder pain ,, she has had symptoms of decreased range of motion, in the Right shoulder joint due to rotators cuff arthropathy and Osteoarthritis severe. She was managed with pain meds , physical therapy for several months without improvement , Mri of 07/2021 ,,,. Complete full-thickness tear of the supraspinatus tendon withretraction.2. Infraspinatus tendinosis with partial undersurface tear involvingthe anterior fibers at the insertion.3. Marked thinning of the entire subscapularis tendon due tohigh-grade partial versus full-thickness tear.4. Nonvisualization of the extra-articular biceps tendon compatiblewith proximal rupture.5. Glenohumeral joint degenerative arthrosis with moderate effusionand diffuse synovitis.6. Moderate acromioclavicular joint degenerative arthrosis.7. Abnormal signal within the teres major and latissimus dorsi musclescould be related to prior muscle injury versus intramuscular lipomas.Would suggest follow-up imaging in 6-12 months to confirm stability.8. Increased intermediate T1 signal within the bone marrow of proximalhumerus can be due to red marrow hyperplasia as can be seen withanemia, smoking or obesity. Correlation with CBC recommended.Myeloproli ferative/replacing process is in the differential diagnosis.Continued symptoms noted despite medications including NSAIDS for 4 month(s) and Narcotics for 2 month(s)Conservative therapy including dedicated home exercise program was attempted for greater than 12 weeks with no significant improvementshe describes her pain as diffuse right shoulder pain. made worse with with rotation of shoulder forward flexion, reaching behind her back, and reaching out.post operatively she complained of increaseing sob , she has stat CTA..IMPRESSION:1. No pulmonary embolism.2. No acute cardiopulmonary process.3. Stranding and edema with scattered subcutaneous air in the rightaxilla and subpectoral regionwas placed on supplemental oxygen , stat ECHOCARDIOGRA ,,,- Left ventricle: The cavity size was normal. Wall thickness was increased.Global systolic function was normal. The estimated ejection fraction was65%.- Left atrium: The atrium was normal in size.- Right ventricle: The cavity size was normal. Systolic function was normal.Postoperatively she had a slow recovery, with complaints of pain, hypoxia, and difficulty getting off of oxygen. Medical evaluation revealed chronic asthma and sleep apnea, and further evaluation is being done. Meanwhile, she has remained on nasal cannula oxygen. Her shoulder was healing well, with pain reasonably well managed with [place] 10 mg.was discharged to skilled rehab for ongoing nursing and physical therapy 10/13... has maintained the packing in her left nares,, when removed no further bleeding noted ,, she continues with right shoulder pain and receiving pain meds, , she is using the polar pad on her shoulder and she reports that it does help . she continues on bipap and has been wearing it at night ,,she requires higher dose of o2 via nasal cannula , she is up ambulating in the room for short periods of time and tolerates well ,she denies chest pain or sob no abdominal pain ,nausea or emesis , , her appetite is fair and she is staying hydrated, , she has appt with ortho on 10/20 and her is aware , [place] [address] [facility], [place], [address], [place] [facility] 10/18/2021 20:30:22 10/15/2021 text/html 71 y.o. female p mh signif for copd, t2dm ckd 3 , morbid obesity and gout admitted from [facility] on 10/09 after admission of 10/05-10/09 after surgery for right shoulder pain ,, she has had symptoms of decreased range of motion, in the Right shoulder joint due to rotators cuff arthropathy and Osteoarthritis severe. She was managed with pain meds , physical therapy for several months without improvement , Mri of 07/2021 ,,,. Complete full-thickness tear of the supraspinatus tendon withretraction.2. Infraspinatus tendinosis with partial undersurface tear involvingthe anterior fibers at the insertion.3. Marked thinning of the entire subscapularis tendon due tohigh-grade partial versus full-thickness tear.4. Nonvisualization of the extra-articular biceps tendon compatiblewith proximal rupture.5. Glenohumeral joint degenerative arthrosis with moderate effusionand diffuse synovitis.6. Moderate acromioclavicular joint degenerative arthrosis.7. Abnormal signal within the teres major and latissimus dorsi musclescould be related to prior muscle injury versus intramuscular lipomas.Would suggest follow-up imaging in 6-12 months to confirm stability.8. Increased intermediate T1 signal within the bone marrow of proximalhumerus can be due to red marrow hyperplasia as can be seen withanemia, smoking or obesity. Correlation with CBC recommended.Myeloproli ferative/replacing process is in the differential diagnosis.Continued symptoms noted despite medications including NSAIDS for 4 month(s) and Narcotics for 2 month(s)Conservative therapy including dedicated home exercise program was attempted for greater than 12 weeks with no significant improvementshe describes her pain as diffuse right shoulder pain. made worse with with rotation of shoulder forward flexion, reaching behind her back, and reaching out.post operatively she complained of increaseing sob , she has stat CTA..IMPRESSION:1. No pulmonary embolism.2. No acute cardiopulmonary process.3. Stranding and edema with scattered subcutaneous air in the rightaxilla and subpectoral regionwas placed on supplemental oxygen , stat ECHOCARDIOGRA ,,,- Left ventricle: The cavity size was normal. Wall thickness was increased.Global systolic function was normal. The estimated ejection fraction was65%.- Left atrium: The atrium was normal in size.- Right ventricle: The cavity size was normal. Systolic function was normal.Postoperatively she had a slow recovery, with complaints of pain, hypoxia, and difficulty getting off of oxygen. Medical evaluation revealed chronic asthma and sleep apnea, and further evaluation is being done. Meanwhile, she has remained on nasal cannula oxygen. Her shoulder was healing well, with pain reasonably well managed with [place] 10 mg.was discharged to skilled rehab for ongoing nursing and physical therapy 4/26... has maintained the packing in her left nares,, when removed no further bleeding noted ,, she continues with right shoulder pain and receiving pain meds, , she is using the polar pad on her shoulder and she reports that it does help . she continues on bipap and has been wearing it at night ,,she requires higher dose of o2 via nasal cannula , she is up ambulating in the room for short periods of time and tolerates well ,she denies chest pain or sob no abdominal pain ,nausea or emesis , , her appetite is fair and she is staying hydrated, , she has appt with ortho on 10/20 and her is aware , 10/15.. continues with pain and,, she remains in a sling with ice packs prn , taking pain meds when needed,, she reports pain is tolerable except when doing therapy , ,denies chest pain or sob ,, has been ambulating in room without assistance , accuchecks have been consistently under 200 ,, [place] [address] [place], [address], [facility] 10/18/2021 21:16:01 OBGyn Episode No OBEpisode recorded.
--- OUTSIDE RECORDS SUMMARY | 2024-07-29 03:23 | XMS_ITS | Encounter Summary ---
Author Organization [email or web address] Address 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 diff 12/05/2021 12/04/2021 12/05/2021 3:51 PM CDT R/O C. diff 04/11/2023 04/11/2023 04/11/2023 8:12 AM CDT documented as of this encounter Care Teams Review Trainer Relationship Specialty Start Date End Date Jevon Felix MD [address] [phone] PCP - General Internal Medicine 09/01/21 documented as of this encounter
--- OUTSIDE RECORDS SUMMARY | 2024-07-29 03:24 | XMS_ITS | Encounter Summary ---
Author Organization [facility] Address 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
--- OUTSIDE RECORDS SUMMARY | 2024-07-29 03:24 | XMS_ITS | Clinical Summary ---
Author Organization [facility] e Address [address] 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 6.7 Gram 1 04/09/20 19 Active lancets (One Touch Delica) 33 gauge E11.9 TEST TID 300 Each 6 07/02/19 20 Active acetaminophen (TYLENOL) 325 mg tablet Take 2 Tablets (650 mg) by mouth every 6 hours as needed (pain/temp). 12/29/19 20 Active Nebulizer & Compressor For Neb Device NEBUL[employer]IES, [facility] PATIENT; [id number] 1 Each 2 01/28/20 20 Active albuterol (PROVENTIL,VENT MARY ANN) 2.5 mg /3 mL (0.083 %) Solution for Nebulization Take 3 mL (2.5 mg) by inhalation every 6 hours. [facility]; [id number] 360 mL 11 01/28/20 20 Active blood sugar diagnostic (OneTouch Verio test strips) Strip USE 4 TIMES DAILY 400 Strip 3 03/31/20 20 Active allopurinoL (ZYLOPRIM) 300 mg tablet TAKE 1 TABLET BY MOUTH DAILY 90 Tablet 3 05/09/20 20 Active atorvastatin (LIPITOR) 10 mg tablet TAKE 1 TABLET BY MOUTH DAILY LATE IN DAY 90 Tablet 3 05/09/20 20 Active gabapentin (NEURONTIN) 300 mg capsuleIndicati ons:Neuropathy involving both lower extremities TAKE 1 CAPSULE BY MOUTH DAILY AT BEDTIME 90 Capsule 3 01/21/20 21 Active Additional Information Patient taking differently: 300 mg Oral THREE TIMES DAILY, Reported on 08/25/2023 ondansetron (ZOFRAN) 4 mg Tablet Take 1 Tablet (4 mg) by mouth every 8 hours as needed for Nausea/Emesis. 24 Tablet 1 02/27/20 21 Active traZODone (DESYREL) 100 mg tablet TAKE 1 TABLET BY MOUTH EVERYDAY AT BEDTIME 30 Tablet 2 03/23/20 21 Active omeprazole (PriLOSEC) 20 mg Capsule, Delayed Release(E.C.) TAKE 1 CAPSULE BY MOUTH TWICE DAILY 180 Capsule 3 04/13/20 21 Active metFORMIN (GLUCOPHAGE) 500 mg tablet TAKE 1 TABLET BY MOUTH DAILY WITH BREAKFAST 90 Tablet 3 04/13/20 21 Active ferrous sulfate 325 mg (65 mg iron) tabletIndicatio ns:Iron deficiency anemia, unspecified iron deficiency anemia type Take 1 Tablet (325 mg) by mouth daily. 30 Tablet 2 04/14/20 21 Active meclizine (ANTIVERT) 25 mg tablet TAKE 1 TABLET BY MOUTH 3 TIMES DAILY NEEDED FOR DIZZINESS 90 Tablet 06/05/20 21 Active amitriptyline (ELAVIL) 50 mg tabletIndicatio ns:Pain in joint, multiple sites Take 1 Tablet (50 mg) by mouth 2 times daily. 180 Tablet 07/23/19 22 Active cyanocobalamin, vitamin B-12, 5,000 mcg tablet, IR & ER, biphasic Take by mouth. Ac tive niacin (NIACOR) 100 mg Tablet Take 100 mg by mouth daily. Active ergocalciferol (VITAMIN D2) 50,000 unit capsule 10/21/19 22 Active ondansetron (ZOFRAN ODT) 4 mg Tablet, Rapid Dissolve DISSOLVE ONE TABLET ON TONGUE FOUR TIMES A DAY NEEDED 10/28/19 22 Active triamterene-hyd roCHLOROthiazid e (MAXZIDE) 75-50 mg tablet 10/24/19 22 Active dapagliflozin propanediol (Farxiga) 10 mg Tablet Take 10 mg by mouth 2 times daily. Active diphenhydrAMINE (CHILDREN'S BENADRYL) 12.5 mg Tablet, Chewable Take by mouth. Activ e glimepiride (AMARYL) 2 mg tablet Take 2 mg by mouth daily with breakfast. Active HYDROcodone-long taminophen (NORCO) 5-325 mg tablet Take 1 Tablet by mouth every 4 hours as needed for Pain, Moderate. Active lisinopriL (PRINIVIL) 20 mg tablet Take 20 mg by mouth daily. Active loperamide (IMODIUM) 2 mg capsule Take 2 mg by mouth every 3 hours as needed for Diarrhea/Loose Stools. Active amLODIPine (NORVASC) 5 mg tablet Take 1 Tablet (5 mg) by mouth daily. 90 Tablet 3 09/01/19 24 Active furosemide (LASIX) 40 mg tablet take 1 tablet by mouth every day 90 Tablet 1 04/16/20 24 Active dicyclomine (BENTYL) 10 mg capsuleIndicati ons:Generalized abdominal pain TAKE 1 CAPSULE BY MOUTH THREE TIMES A DAY 270 Capsule 07/02/19 25 Active dicyclomine (BENTYL) 10 mg capsuleIndicati ons:Generalized abdominal pain take 1 capsule by mouth three times a day 270 Capsule 03/29/20 24 025 Discontinued Active Problems Problem Noted Date Diagnosed Date Benign hypertension 09/01/2023 Bilateral lower extremity edema 09/01/2023 Mild CAD 09/01/2023 Polyarthralgia 10/20/2020 CAMACHO (dyspnea on exertion) 12/26/2019 Aortic atherosclerosis 12/01/2018 Overview (12/01/2018): Chest XR; 04-03-18, Care Everywhere kh Multiple gastric polyps 07/03/2018 Overview (10/08/2021): Added automatically from request for surgery [id number] Added automatically from request for surgery [id number] Primary osteoarthritis of right knee 06/07/2018 Dupuytren's contracture of both hands 06/07/2018 Chronic right-sided low back pain 06/07/2018 Ovarian mass, left 04/03/2018 Obesity (BMI 30.0-34.9) 09/09/2015 Non-cardiac chest pain 06/11/2014 Overview (09/21/2016): Resolved symptom from May 2014 kh Memory loss 11/20/2013 Anxiety 09/22/2010 Carpal tunnel syndrome 09/17/2010 Sleep apnea 07/08/2008 Moderate persistent asthma without complication 07/08/2008 Overview (04/12/2018): Updated per 04-10-18 query kh Type 2 diabetes mellitus wit hout complication, without long-term current use of insulin 07/08/2008 Overview (12/01/2018): Updated per 11-28-18 query kh Essential hypertension Gastroesophageal reflux dise ase with esophagitis without hemorrhage Hyperlipidemia Overview (12/01/2018): Updated per 11-28-18 query kh Displacement of lumbar inter vertebral disc without myelopathy Abdominal mass Abnormal cardiovascular stress test Resolved Problems Problem Noted Date Diagnosed Date Resolved Date Postoperative anemia due to acute blood loss 2 10/20/2021 Osteoarthritis of right shoulder 10/07/2021 10/20/2021 Acute respiratory failure with hypoxia 10/07/2021 11/11/2021 Overview (10/09/2021): 10/09/2021: O2 sat <90% with PE findings of dyspnea with speaking and chronic CAMACHO which has been worked up in the past, CTA neg for PE and w/o e/o acute IT process, ECHO 10/08/2021 w/o e/o structural heart or valve disease, oxygen walk study to be considered prior to discharge at next care facility (apparently has used friends' portable oxygen in the past with noted improvement), suspect suboptimal CPAP use + opioids having synergistic effect in pt with probable OHS and nocturnal oxygen dependence Syncope 12/26/2019 10/07/2021 MOOSE (acute kidney injury) 12/26/2019 Pelvic mass in female 12/14/20162020 BMI 33.0-33.9,adult 09/09/2015 09/22/19 17 Overview (09/21/2016): Resolved inaccurate BMI kh Acute parotitis 01/10/2015 09/21/2016 Overview (09/21/2016): Resolved acute diagnosis from December 2014 kh Chronic post-traumatic headache 11/22/2014 10/07/2021 Acute renal failure 06/12/2014 09/22/19 17 Overview (09/21/2016): Resolved acute diagnosis from May 2014 kh Unspecified musculoskeletal disorders and symptoms referable to neck 01/03/2014 12/01/2018 Morbid obesity 11/20/2013 09/21/2016 Overview (09/21/2016): Resolved. BMI under 35.0 and obesity with BMI 30.0-34.9 has been added kh Body mass index 35.0-35.9, adult 11/20/2013 09/09/2015 Rotator cuff arthropathy 11/20/2013 Post concussion syndrome 07/04/2013 Epigastric abdominal pain 09/22/2010 Elevated LFTs 09/22/2010 12/01/2018 Stress 09/22/2010 12/01/2018 Dupuytren contracture 09/17/20102018 Overview (11/28/2018): Resolved duplicate diagnosis per HCC process. Kh Cardiac enlargement 09/17/2010 10/08/19 22 Myalgia and myositis 019 Reactive depression 04/10/20 18 Abdominal pain, right upper quadrant 11/20/2013 Unstable angina 10/07/2021 Encounters Date Type Department Care Team Description 07/11/2024 External Device Data [facility] Provider, Abstract 07/11/2024 External Device Data [facility] Provider, Abstract 07/04/2024 External Device Data [facility] Provider, Abstract 06/30/2024 [facility] Gastroenterology [facility] [address] [address] Eleazar Branham MD Generalized abdominal pain from Last 3 Months Immunizations Immunization Administration Dates Next Due (ADACEL/BOOSTRIX)(10 YR UP) TDAP VACCINE, 0.5ML, IM 09/09/2015,07/14/2005 (PNEUMOVAX 23)(50 YRS UP) PN EUMOCOCCAL POLYSACCHARIDE (PPV23) 0.5 ML, IM 04/16/2020,03/19/2010 (PREVNAR 13)(6 WKS UP) PNEUM OCOCCAL CONJUGATE (PCV13) 0.5 ML, IM 04/18/2019 (SPIKEVAX) (12 YRS UP PRIMAR Y SERIES) COVID-19 VACCINE - MRNA-1273(PF) 100 MCG/0.5 ML IM SUSP 08/07/2020 Hepatitis A Vaccine 04/21/2006 INFLUENZA VACCINE HIGH DOSE QUADRIVALENT 65 YR UP PF IM 04/16/2020 INFLUENZA VACCINE QUADRIVALE NT 3 YR UP PF IM 05/20/2015 Influenza Seasonal Unspecifi ed Formulation IM 01/31/2014,04/21/2006,09/24/2004,01/17,04/02/1997,04/05/1996 Influenza Vaccine High Dose 65+ Yrs IM 9,04/10/2018,05/18/2016 Influenza Vaccine Split 3+ Yrs IM 2012,04/12/2012,03/19/2010,04/04,04/02/2008 Family History Medical History Relation Name Comments Cancer Brother 1 Pancreatic Cancer Brother 1 Cancer Brother 2 Heart Failure Father Hypertension Father Breast Cancer Mother Diabetes Mother Heart Failure Mother Hypertension Mother Asthma Neg Hx Bronchitis Neg Hx Colon Cancer Neg Hx Emphysema Neg Hx Lung Cancer Neg Hx Mesothelioma Neg Hx Ovarian Cancer Neg Hx Uterine Cancer Neg Hx Relation Name Status Comments Brother 1 Brother 2 Father Mother Social History Tobacco Use Types Packs/Day Years Used Date Smoking Tobacco: Never Smokeless Tobacco: Never Alcohol Use Standard Drinks/Week Comments Never 0 (1 standard drink = 0.6 oz pur e alcohol) Financial Resource Strain Answer Date R ecorded How hard is it for you to pa y for the very basics like food, housing, medical care, and heating? Somewhat hard 06/09/2021 Food Insecurity Answer Date Recorded In the past 12 months, have you worried that your food would run out before you had money to buy more? Never true 06/09/2021 In the past 12 months, did y ou run out of food and didn't have money to buy more? Never true 06/09/2021 Transportation Needs Answer Date Record ed In the past 12 months, has l ack of transportation kept you from medical appointments or from getting medications? No 06/09/2021 Lack of Transportation (Non-Medical) Not on file 06/09/2021 Comments No Sex and Gender Information Value Date Recorded Sex Assigned at Not on file Legal Sex Female 3:06 AM [employer]ICK[employer] Gender Identity Not on file Sexual Orientation Not on file Occupation Industry Job Start Date Job End Date Not on file Not on file Not on file Not on file Last Filed Vital Signs Vital Sign Reading Time Taken Comments Blood Pressure 168/70 08/25/2023 3:00 PM [employer] Pulse 72 08/25/2023 3:00 PM [employer] Temperature 36.8 C (98.2 F) 10/09/2021 8:24 AM CDT Respiratory Rate 18 10/09/2021 3:02 PM CDT Oxygen Saturation 96% 08/25/2023 3:00 PM [employer] Inhaled Oxygen Concentration - - Weight 89.4 kg (197 lb) 08/25/2023 3:00 PM [employer] Height 165.1 cm (5' 5 ) 08/25/2023 3:00 PM [employer] Body Mass Index 32.78 08/25/2023 3:00 PM [employer] Plan of Treatment Health Maintenance Due Date Last Done Comments FIT-DNA Q 3 years 1996 Flex Sig/CT Colonography Q 5 years 1996 FIT/FOBT Q 1 year 10/11/2000 10/12/1999 ZOSTER VACCINE (1 of 2) 2001 RSV VACCINE (60+ or ) (1 - Risk 60-74 years 1-dose series) 2011 DIABETES ANNUAL RETINAL EXAM 01/30/2021 01/31/2020, 11/28/2018 DIABETES ANNUAL FOOT EXAM 10/21/2021 10/21/2020, BREAST CANCER SCREENING 09/17/2022 09/18/19, 01/15/2020, 01/03/2017, Additional history exists INFLUENZA VACCINE (#1) 2024 , 04/16/2020, 04/18/2019, Additional history exists COVID-19 Vaccine (2023-2 5 season) 2024 09/23/2020, 08/07/2020 DIABETES HBA1C Q 6 MONTHS 03/08/20242023, 02/07/2022, 06/09/2021, Additional history exists DIABETES MICROALBUMIN ANNUAL SCREEN 09/05/2024 09/06/2023, 04/13/2021, 12/10/2019, Additional history exists LDL CHOLESTEROL ANNUAL 09/05/2024 , 06/09/2021, 04/13/2021, Additional history exists DTAP/TDAP/TD VACCINES (3 - T d or Tdap) 09/08/2025 09/09/2015, 07/14/2005 COLORECTAL SCREENING 12/12/2030 12/12/2020, 12/12/2020, 04/05/2018, Additional history exists Colorectal Cancer Screening 12/12/2030 PNEUMOCOCCAL VACCINE 65+ YEARS Completed 1 , 04/18/2019, 03/19/2010 OSTEOPOROSIS SCREENING Completed 09/17/2021, 2021 Medical Devices Implanted Type [employer] Custodian Device Identifier Shelf Expiration Date Model / Serial / Lot Screw Comp Fix Loc 4.76s61th [id number] - [id number] Implanted:Qty: 1 on 10/05/2021 by Carloz Angel MD at [facility] Screw Right: Shoulder FARHANA BIOMET 07/28/2031 [id number] / / [id number] Screw Comp Carlos [id number] 655858 - [id number] Implanted:Qty: 1 on 10/05/2021 by Carloz Angel MD at [facility] Screw Right: Shoulder FARHANA BIOMET 06/30/2030 [id number] / / [id number] Screw Comp Carlos [id number] 117120 - [id number] Implanted:Qty: 1 on 10/05/2021 by Carloz Angel MD at [facility] Screw Right: Shoulder FARHANA BIOMET 05/06/2031 [id number] / / [id number] Screw Cntrl Comp Rvs 6.5x30mm [id number] - [id number] Implanted:Qty: 1 on 10/05/2021 by aCrloz Angel MD at [facility] Screw Right: Shoulder FARHANA BIOMET 07/03/2031 [id number] / / [id number] Screw Comp Fix Loc 4.36k21ka 049360 - [id number] Implanted:Qty: 1 on 10/05/2021 by Carloz Angel MD at [facility] Screw Right: Shoulder FARHANA BIOMET 07/26/2031 [id number] / / [id number] Sealant Floseal 10ml [id number] - [id number] Implanted:Qty: 1 on 01/31/2017 by Spenser Shaw MD at [facility] Sealant N/A: Abdomen SINGLETARY- GO-SIM 03/03/2018 [id number] / / [id number] Baseplate Hum Comp Rvrs Mini 25mm [id number] - [id number] Implanted:Qty: 1 on 10/05/2021 by Carloz Angel MD at [facility] Shoulder Right: Shoulder FARHANA BIOMET 09/15/2031 [id number] / / [id number] Description:All Biomet shoul joanne components are processed on requisition, [id number]. Glnsphr Versa-Dial Comp Rvs [id number] - [id number] Implanted:Qty: 1 on 10/05/2021 by Carloz Angel MD at [facility] Shoulder Right: Shoulder FARHANA BIOMET 07/29/2031 [id number] / / [id number] Stem Hum Comp Mini 11mm 164779 - [id number] Implanted:Qty: 1 on 10/05/2021 by Carloz Angel MD at [facility] Shoulder Right: Shoulder FARHANA BIOMET 01/21/2031 [id number] / / [id number] Comprehensive Reverse Shoulder System Prolon Highly Crosslinked Polyethylene Bearing Standard Implanted:Qty: 1 on 10/05/2021 by Carloz Angel MD at [facility] Shoulder Right: Shoulder FARHANA BIOMET [id number] 03/31/2026 [id number] / / [id number] Comprehensive Reverse Shoulder System Mini Humeral Tray Standard Thickness Implanted:Qty: 1 on 10/05/2021 by Carloz Angel MD at [facility] Shoulder Right: Shoulder FARHANA BIOMET [id number] 08/18/2031 [id number] / / [id number] Explanted Type [employer] Custodian Device Identifier Shelf Expiration Date Model / Serial / Lot Pin Kenyon Pablod Tip [id number] - [id number] Explanted:Qty: 1 on 10/05/2021 by Carloz Angel MD at [facility] Pin Right: Shoulder FARHANA BIOMET 09/16/2031 [id number] / / [id number] Procedures Procedure Name Priority Date/Time Associated Diagnosis Comments MICROALBUMIN/CREATI NINE RATIO, RANDOM UR Routine 09/06/2023 10:43 AM CDT LIPID PANEL Routine 09/06/2023 10:43 AM CDT HEMOGLOBIN A1C Routine 09/06/2023 10:43 AM CDT MAMMO 3D BRENTON SCREEN BILAT W OR WO CAD Routine 09/17/2021 2:28 PM CDT Breast cancer screening by mammogram XR DEXA BONE DENSITY AXIAL 1 OR MORE SITES Routine 09/17/2021 1:50 PM CDT Screening for osteoporosis HM DIABETES EYE EXAM Routine 01/31/2020 ENDOSCOPY, COLON, DIAGNOSTIC Routine 04/05/2018 from Last 3 Months or Most Recently Relevant to Health Maintenance Results * MICROALBUMIN/CREATININE RATIO, RANDOM UR (09/06/2023 10:43 AM CDT) Creatinine, Urine 213 20 - 275 mg/dL [facility] MICROALBUMIN, URINE >600.0 See Note: mg/dL [facility] Comment: Reference Range: Reference Range Not established Verified by repeat analysis. MICROALBUMIN/CREAT RATIO, UR NOTE <30 mg/g creat [facility] Comment: THE URINE ALBUMIN VALUE IS GREATER THAN 600 mg/dL THEREFORE WE ARE UNABLE TO CALCULATE EXCRETION AND/OR CREATININE RATIO. The ADA defines abnormalities in albumin excretion as follows: Albuminuria Category Result (mg/g creatinine) Normal to Mildly increased <30 Moderately increased 30-299 Severely increased > OR = 300 The ADA recommends that at least two of three specimens collected within a 3-6 month period be abnormal before considering a patient to be within a diagnostic category. [address] [address] 09/06/2023 10:4 3 AM CDT 09/06/2023 10:44 AM CDT us Jevon Felix MD URINE ORDERABLES Final Result [facility] [phone] [facility] [address] [place] [address] * (ABNORMAL) HEMOGLOBIN A1C (09/06/2023 10:43 AM CDT) HEMOGLOBIN A1C 6.7(H) <5.7 % of total Hgb [facility] Comment: For someone without known diabetes, a hemoglobin A1c value of 6.5% or greater indicates that they may have diabetes and this should be confirmed with a follow-up test. For someone with known diabetes, a value <7% indicates that their diabetes is well controlled and a value greater than or equal to 7% indicates suboptimal control. A1c targets should be individualized based on duration of diabetes, age, comorbid conditions, and other considerations. Currently, no consensus exists regarding use of hemoglobin A1c for diagnosis of diabetes for children. This test was performed on the Sharonda chio c503 platform. Effective 09/05/23, a change in test platforms from the [employer] Therapy Assistant to the Sharonda chio c503 may have shifted HbA1c results compared to historical results. Based on laboratory validation testing conducted at [facility], the Sharonda platform relative to the Vargas platform had an average increase in HbA1c value of < or = 0.3%. This difference is within accepted variability established by the National Glycohemoglobin Standardization Program. Note that not all individuals will have had a shift in their results and direct comparisons between historical and current results for testing conducted on different platforms is not recommended. 2ND INS CARD ON PHONE FASTING:YES FASTING: YES [address] [address] 09/06/2023 10:4 3 AM CDT 09/06/2023 10:44 AM CDT us Jevon Felix MD CHEMISTRY ORDERABLES Final Res ult [facility] [phone] [facility] [address] [place] [address] * (ABNORMAL) LIPID PANEL (09/06/2023 10:43 AM CDT) CHOLESTEROL 226(H) <200 mg/dL [facility] HDL 35(L) > OR = 50 mg/dL [facility] TRIGLYCERIDE 476(H) <150 mg/dL [facility] Comment: If a non-fasting specimen was collected, consider repeat triglyceride testing on a fasting specimen if clinically indicated. Jennifer et al. J. of Clin. Lipidol. 2015;9:129-169. LDL CALCULATED mg/dL (calc) [facility] Comment: LDL cholesterol not calculated. Triglyceride levels greater than 400 mg/dL invalidate calculated LDL results. Reference range: <100 Desirable range <100 mg/dL for primary prevention; <70 mg/dL for patients with CHD or diabetic patients with > or = 2 CHD risk factors. LDL-C is now calculated using the Enoc-Whit calculation, which is a validated novel method providing better accuracy than the Friedewald equation in the estimation of LDL-C. Enoc AMAYA et al. LACIE. 2013;310(19): 1661-9172 (http://education.MEDSEEK/faq/CSG769) CHOL/HDL RATIO 6.5(H) <5.0 (calc) [facility] Ye[facility] TOTAL NON-HDL CHOL(LDL+VLDL) 191(H) <130 mg/dL (calc) [facility] Comment: For patients with diabetes plus 1 major ASCVD risk factor, treating to a non-HDL-C goal of <100 mg/dL (LDL-C of <70 mg/dL) is considered a therapeutic option. [address] [address] 09/06/2023 10:4 3 AM CDT 09/06/2023 10:44 AM CDT us Jevon Felix MD CHEMISTRY ORDERABLES Final Res ult [facility] [phone] [facility] [address] [place] [address] * MAMMO SCRN BILAT 3D BR[place] W OR WO CAD (09/17/2021 2:28 PM CDT) Anatomical Region Laterality Modality Breast Bilateral Mammography Narrative 09/17/2021 3:32 PM CDT Bilateral Digital Mammogram with CAD and 3D Tomography Reason for Exam: Screening Comparison: Compared to: 01/15/2020 MAMMO SCRN BILAT 3D BR[place] W OR WO CAD Technique: 3D MLO and CC digital tomosynthesis images were acquired and synthesized 2D images (C view) were generated. This digital mammogram was also analyzed by the Computer Aided Detection System CAD). Findings: The breasts are heterogeneously dense, which may obscure small masses. There are no suspicious masses, areas of architectural distortions, or microcalcifications to suggest malignancy. No significant new findings since the prior mammogram(s). Impression: Negative screening mammogram. Recommendation: Routine annual follow-up Overall Assessment: Birads Category 1: Negative Lian Carmen [facility] MAMMO ORDERABLES Final Result * XR DEXA BONE DENSITY AXIAL 1 OR MORE SITES (09/17/2021 1:50 PM CDT) Anatomical Region Laterality Modality Digital Radiogra phy 09/17/2021 1:51 PM CDT Impressions 09/17/2021 1:54 PM CDT IMPRESSION: This is a summary page. Please refer to the complete detailed report found in the Imaging Section of the [facility] EMR. Normal bone mineral densities. Lumbar Spine: T-Score: 0.9 Left Femoral Neck: T-Score: 0.2 Left Total Femur: T-Score: 1.7 Right Femoral Neck: T-Score: 0.2 Right Total Femur: T-Score: 1.1 Statistical change: No prior exam is available. FRAX FRACTURE RISK ASSESSMENT: (Only valid Between 40-89 Years Of Age) Risk factors: Secondary osteoporosis. Rheumatoid arthritis. 10 Year Probability Of Fracture Major Osteoporotic: 8.2 % Hip: 0.4 % Comparison population: [place], Race: White A major osteoporotic fracture is defined as a fracture of the spine, forearm, hip or shoulder. Definitions: Normal: T-score above -1.0 Osteopenia T-score less than -1.0 and above -2.5 Osteoporosis: T-score <= -2.5 Follow-up Recommendations: Patients without high risk factors for osteoporosis T-score -1.0 to -1.5 - Consider repeat BMD in 5-10 years T-score -1.5 to - 2.0 - Consider repeat BMD in 3-5 years T-score -2.0 to - 2.5 - Consider repeat BMD every 2 years Patients on treatment for osteoporosis 1-2 years after initiation of treatment and every 2 [address] Tommy Lopez MD DICTATION LOCATION: 09/17/2021 1:54 PM CDT EXAMINATION: BONE DENSITY STUDY (DXA) DATE: 09/17/2021 1:50 PM HISTORY: 71 years Female. Postmenopausal. PROCEDURE: Planar images of the lumbar spine and hip(s) using a LUNAR DEXA scanner for bone mineral density determination (BMD). FINDINGS: Lumbar Spine (L1-L2): T-Score: 0.9 1.274 g/sq cm Left Femoral Neck: T-Score: 0.2 1.062 g/sq cm Left Total Femur: T-Score: 1.7 Right Femoral Neck: T-Score: 0.2 1.071 g/sq cm Right Total Femur: T-Score: 1.1 INCIDENTAL FINDINGS: L3-L4 excluded because of statistical variation. Procedure Note Tommy Lopez MD - 09/17/2021 EXAMINATION: BONE DENSITY STUDY (DXA) DATE: 09/17/2021 1:50 PM HISTORY: 71 years Female. Postmenopausal. PROCEDURE: Planar images of the lumbar spine and hip(s) using a LUNAR DEXA scanner for bone mineral density determination (BMD). FINDINGS: Lumbar Spine (L1-L2): T-Score: 0.9 1.274 g/sq cm Left Femoral Neck: T-Score: 0.2 1.062 g/sq cm Left Total Femur: T-Score: 1.7 Right Femoral Neck: T-Score: 0.2 1.071 g/sq cm Right Total Femur: T-Score: 1.1 INCIDENTAL FINDINGS: L3-L4 excluded because of statistical variation. IMPRESSION: This is a summary page. Please refer to the complete detailed report found in the Imaging Section of the [facility] EMR. Normal bone mineral densities. Lumbar Spine: T-Score: 0.9 Left Femoral Neck: T-Score: 0.2 Left Total Femur: T-Score: 1.7 Right Femoral Neck: T-Score: 0.2 Right Total Femur: T-Score: 1.1 Statistical change: No prior exam is available. FRAX FRACTURE RISK ASSESSMENT: (Only valid Between 40-89 Years Of Age) Risk factors: Secondary osteoporosis. Rheumatoid arthritis. 10 Year Probability Of Fracture Major Osteoporotic: 8.2 % Hip: 0.4 % Comparison population: [place], Race: White A major osteoporotic fracture is defined as a fracture of the spine, forearm, hip or shoulder. Definitions: Normal: T-score above -1.0 Osteopenia T-score less than -1.0 and above -2.5 Osteoporosis: T-score <= -2.5 Follow-up Recommendations: Patients without high risk factors for osteoporosis T-score -1.0 to -1.5 - Consider repeat BMD in 5-10 years T-score -1.5 to - 2.0 - Consider repeat BMD in 3-5 years T-score -2.0 to - 2.5 - Consider repeat BMD every 2 years Patients on treatment for osteoporosis 1-2 years after initiation of treatment and every 2 years [address] Tommy Lopez MD DICTATION LOCATION: 1 us [facility]AG[facility] ORDERABLES F inal Result * DIABETES EYE EXAM (01/31/2020) us Abstract Provider HEALTH MAINTENANCE Edited Resu lt - Final [facility] * ENDOSCOPY, COLON, DIAGNOSTIC (04/05/2018) us Regina Matt MD GI PROCEDURE ORDERABLES Edite d Result - Final [facility] [id number] [address] from Last 3 Months or Most Recently Relevant to Health Maintenance Insurance RX [employer] RX Member Subscriber Plan / Payer (Ef fective 2016-Present) Name:Cristal Martínez Relation to Subscriber:Self Name:Cristal Martínez Payer ID:Not on file Group ID:[id number] Type:RX Medicare Part D Address: [place] [address] Advance Directives For more information, please contact: [phone] * Full Code (Latest Code Status on File) Date Activated Date Inactivated Comments 10/05/2021 6:15 PM 10/09/2021 6:22 PM * Full Code Date Activated Date Inactivated Comments 10/05/2021 12:22 PM 10/05/2021 6:15 PM * Full Code Date Activated Date Inactivated Comments 03/20/2020 3:05 PM 03/21/2020 6:04 PM * Full Code Date Activated Date Inactivated Comments 12/26/2019 9:55 PM 12/29/2019 10:15 PM * Full Code Date Activated Date Inactivated Comments 01/31/2017 11:38 AM 02/03/2017 9:56 PM Care Teams Bottom Cementer Relationship Specialty Start Date End Date Jevon Felix MD [address] [phone] PCP - General Internal Medicine 09/01/21
--- OUTSIDE RECORDS SUMMARY | 2024-07-29 03:24 | XMS_ITS | Encounter Summary ---
Author Organization [facility] Address 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
--- OUTSIDE RECORDS SUMMARY | 2024-07-29 03:24 | XMS_ITS | Referral Summary ---
Author Organization [facility] Healthcare Address [address] [place] [address] Care Team Providers Care Field Crop Harvest Contractor Name Role Phone Regina Matt MD Unavailable Lindsay Nettles MD PhD Unavailable [phone] Linwood Franco MD Unavailable [phone] Jevon Felix MD Unavailable [phone] Jevon Felix MD Primary Care Provider [phone] Allergies No known active allergies Medications amitriptyline (ELAVIL) 50 mg tablet Take 50 mg by mouth 2 (two) times a day Active omeprazole (PriLOSEC) 20 mg capsule Take 20 mg by mouth 2 (two) times a day Active atorvastatin (LIPITOR) 20 mg tablet Take 2 tablets (40 mg total) by mouth nightly Active albuterol HFA (PROVENTIL HFA,VENTOLIN HFA,PROAIR HFA) 90 mcg/actuation inhalerIndicatio ns:Acute Asthma Attack Inhale 2 puffs every 4 (four) hours as needed for wheezing Active meclizine (ANTIVERT) 25 mg tabletIndication s:Vertigo Take 1 tablet (25 mg total) by mouth 2 (two) times a day as needed for dizziness or nausea 8 Active gabapentin (NEURONTIN) 300 mg capsule Take 1 capsule (300 mg total) by mouth 4 (four) times a day 1 Active loperamide (IMODIUM) 2 mg capsule Take 2 mg by mouth 5 times daily as needed for diarrhea 2 Active L.acid/L.casei/B .bif/B.lara/FOS (PROBIOTIC BLEND ORAL) Take 2 capsules by mouth 2 (two) times a day Active allopurinoL (ZYLOPRIM) 300 mg tablet Take 1 tablet (300 mg total) by mouth daily Active dicyclomine (BENTYL) 10 mg capsule Take 1 capsule (10 mg total) by mouth 3 (three) times a day Active dapagliflozin propanediol (FARXIGA) 10 mg tablet Take 1 tablet (10 mg total) by mouth daily Active ferrous sulfate 325 mg (65 mg of elemental iron) tabletIndication s:Iron Deficiency Anemia Take 1 tablet (325 mg total) by mouth daily with breakfast Active glimepiride (AMARYL) 2 mg tabletIndication s:type 2 diabetes mellitus Take 1 tablet (2 mg total) by mouth 2 (two) times a day Active NIFEdipine (NIFEdipine XL) 30 mg 24 hr tablet Take 1 tablet (30 mg total) by mouth daily Active ergocalciferol (VITAMIN D) 50,000 unit capsule Take 1 capsule (50,000 Units total) by mouth once a week Active meloxicam (MOBIC) 15 mg tablet Take 1 tablet (15 mg total) by mouth daily Active lidocaine (LIDODERM) 5 % Place 2 patches on the skin daily Remove & discard patch within 12 hours or as directed by . 30 patch 4 Active furosemide (LASIX) 40 mg tablet Take 1 tablet (40 mg total) by mouth daily 30 tablet 1 4 Active potassium chloride ER (KLOR-CON) 20 mEq CR tablet Take 1 tablet (20 mEq total) by mouth daily Take one tab with lasix 30 tablet 1 4 Active Active Problems Problem Noted Date Diagnosed Date Multifocal pneumonia 04/09/2024 Abdominal pain 02/08/2022 Colitis 02/06/2022 Gastroesophageal reflux dise ase with esophagitis without hemorrhage 02/16/2021 Abnormal cardiovascular stress test 10/20/2020 Cervicalgia 10/20/2020 Displacement of lumbar inter vertebral disc without myelopathy 10/20/2020 Esophagitis 10/20/2020 Essential hypertension 10/20/2020 Hyperlipidemia 10/20/2020 Overview (10/20/2020): Updated per 11-28-18 query kh Myalgia 10/20/2020 Never smoked cigarettes 10/20/2020 Abdominal mass 10/20/2020 Polyarthralgia 10/20/2020 Unstable angina (CMS/HCC) 10/20/2020 MOOSE (acute kidney injury) 12/26/2019 CAMACHO (dyspnea on exertion) 12/26/2019 Syncope 12/26/2019 Aortic atherosclerosis 12/01/2018 Overview (10/20/2020): Chest XR; 04-03-18, Care Everywhere kh Special screening for malignant neoplasms, colon 07/04/2018 Overview (07/04/2018): Added automatically from request for surgery [id number] Gastric polyp 07/04/2018 Overview (07/04/2018): Added automatically from request for surgery [id number] Multiple gastric polyps 07/03/2018 Bowel habit changes 07/03/2018 Colon cancer screening 07/03/2018 Abnormal liver scan 07/03/2018 Chronic right-sided low back pain 06/07/2018 Dupuytren's contracture of both hands 06/07/2018 Primary osteoarthritis of right knee 06/07/2018 Hypokalemia 04/03/2018 Ovarian mass, left 04/03/2018 Chest pain 04/03/2018 Acute epigastric pain 04/02/2018 Overview (04/03/2018): Added automatically from request for surgery [id number] Anemia 04/02/2018 Overview (04/03/2018): Added automatically from request for surgery [id number] Absolute anemia 04/02/2018 Overview (04/04/2018): Added automatically from request for surgery [id number] Obesity (BMI 30.0-34.9) 09/09/2015 Chronic post-traumatic headache 11/22/2014 Memory loss 11/20/2013 Post concussion syndrome 07/04/2013 Anxiety 09/22/2010 Cardiac enlargement 09/17/2010 Carpal tunnel syndrome 09/17/2010 Moderate persistent asthma without complication 07/08/2008 Overview (10/20/2020): Updated per 04-10-18 query Sleep apnea 07/08/2008 Type 2 diabetes mellitus with hypoglycemia witho ut coma 07/08/2008 Overview (10/20/2020): Updated per 11-28-18 query Immunizations Name Administration Dates Next Due Hep A, Adult 04/21/2006 Influenza, Quadrivalent, Hig h Dose, Preservative Free, Intrr 04/16/2020 Influenza, Quadrivalent, Spl it, Preservative Free, Intramuscular 05/20/2015 Influenza, Trivalent, High D ose, Split, Preservative Free, Intramuscular 04/18/2019,04/10/2018,05/18/2016 Influenza, Trivalent, IM (MDV) 4,03/20/2013,04/12/2012,03/19,04/04/2009,04/02/2008,04/21/2006 ,09/24/2004,01/18/2000,04/02/1997,03/20 Moderna SARS-CoV-2 Monovalen t Vaccination (12+ YRS) 09/23/2020,08/07/2020 Pneumococcal Conjugate PCV 13 04/18/2019 Pneumococcal Polysaccharide PPV23 04/16/2020, Tdap 09/09/2015,07/14/2005 Social History Tobacco Use Types Packs/Day Years Used Date Smoking Tobacco: Never Smokeless Tobacco: Never Alcohol Use Standard Drinks/Week Comments No 0 (1 standard drink = 0.6 oz pur e alcohol) [facility] Utilities Answer Date Recorded In the past 12 months has e [employer], gas, oil, or water Futon threatened to shut off services in your home? No 04/10/2024 Social Connection and Isolat ion Panel [NHANES] Answer Date Recorded In a typical week, how many times do you talk on the phone with family, friends, or neighbors? Three times a week 04/10/2024 How often do you get togethe r with friends or relatives? Once a week 04/10/2024 How often do you attend chur ch or jainism services? Never 04/10/2024 Do you belong to any clubs o r organizations such as presybeterian groups, unions, fraternal or athletic groups, or school groups? Yes 04/10/2024 How often do you attend meet ings of the clubs or organizations you belong to? More than 4 times per year 04/10/2024 Are you , , di vorced, , never , or living with a partner? 04/10/2024 AUDIT-C Answer Date Recorded Q1: How often do you have a drink containing alc ohol? Never 02/07/2022 Average Number of Drinks Not on file 022 Frequency of Binge Drinking Not on file 01/19 Overall Financial Resource Strain (CARDIA) Answe r Date Recorded How hard is it for you to pa y for the very basics like food, housing, medical care, and heating? Not very hard 04/10/2024 Hunger Vital Sign Answer Date Recorded Within the past 12 months, y ou worried that your food would run out before you got the money to buy more. Never true 04/10/20 24 Within the past 12 months, t he food you bought just didn't last and you didn't have money to get more. Never true 04/10/2024 PRAPARE - Transportation Answer Date Re corded In the past 12 months, has l ack of transportation kept you from medical appointments or from getting medications? No 03/21 In the past 12 months, has l ack of transportation kept you from meetings, work, or from getting things needed for daily living? No 04/10/2024 Housing Stability Vital Sign Answer Gabriel e Recorded In the last 12 months, was t here a time when you were not able to pay the mortgage or rent on time? No 04/10/2024 In the past 12 months, how m any times have you moved where you were living? 1 04/10/2024 At any time in the past 12 m [facility], were you homeless or living in a fci (including now)? No 04/10/2024 Personal Safety Answer Date Recorded Have you ever been in or are you currently in a harmful physical or emotional relationship or is someone making you feel afraid or unsafe? 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 Gender Identity Not on file Sexual Orientation Not on file Last Filed Vital Signs Vital Sign Reading Time Taken Comments Blood Pressure 157/97 04/14/2024 8:03 AM CDT Pulse 92 04/14/2024 12:33 PM CDT Temperature 36.3 C (97.3 F) 04/14/2024 8:03 AM CDT Respiratory Rate 20 04/14/2024 8:03 AM CDT Oxygen Saturation 94% 04/14/2024 12:33 PM CDT Inhaled Oxygen Concentration - - Weight 93.3 kg (205 lb 11 oz) 04/13/2024 11:31 P M CDT Height 165.1 cm (5' 5 ) 04/10/2024 9:54 PM CDT Body Mass Index 34.23 04/10/2024 9:54 PM CDT Plan of Treatment Not on file Medical Devices Implanted Type Area Livestock Speculator Device Identifier Shelf Expiration Date Model / Serial / Lot [employer] R Bard [id number] [id number] Monofilament Scaffold Full Resorbable Square Mesh - Sna - [id number] Implanted:Qty: 1 on 01/27/2021 by Marlon Decker MD at [facility] Mesh N/A: Abdomen [employer] [id number] 08/17/2023 [id number] / NA / Procedures Procedure Name Priority Date/Time Associated Diagnosis Comments EGFR Routine 04/14/2024 1:00 AM CDT HEMOGLOBIN A1C Add-On 02/07/2022 6:13 AM CDT LIPID PANEL Timed 01/27/2021 10:44 PM CDT COLONOSCOPY 12/12/2020 9:17 AM CDT from Last 3 Months or Most Recently Relevant to Health Maintenance Results * (ABNORMAL) eGFR (04/14/2024 1:00 AM CDT) eGFR 47(L) >=60 mL/min/1. 73 m2 Comment: Interpretive Data Reference Interval Normal >/= 90 mL/min/1.73m2 Mildly decreased* 60 - 89 mL/min/1.73m2 Mildly to moderately decreased 45 - 59 mL/min/1.73m2 Moderately to severely decreased 30 - 44 mL/min/1.73m2 Severely decreased 15 - 29 mL/min/1.73m2 Kidney Failure < 15 mL/min/1.73m2 *Relative to young adult level Estimated glomerular filtration rate is determined by the 2020 CKD-EPI equation recommended by the National Kidney Foundation (A Unifying Approach to GFR Estimation: Recommendations of the NKF-ASK Task Force on Reassessing the Inclusion of Race in Diagnosing Kidney Disease, JASN 2020). The CKD-EPI equation should not be used for patients with unstable renal function and has not been validated in children and those over 70. Current interpretive data was last reviewed 2021. Blood 04/14/2024 1:00 AM CDT 04/14/2024 1:14 AM CDT Erasto Hwang MD LAB BLOOD ORDERABLES Final Result [address] [place] [address] * (ABNORMAL) Hemoglobin A1c (02/07/2022 6:13 AM CDT) Hgb A1C 6.5(H) 4.0 - 5.6 % [facility] Estimated Average Glucose 140 mg/dL [facility] Comment: The ADA recommends reporting an estimated Average Glucose (eAG) with all Hemoglobin A1c results using the equation derived from a study of 507 normal and diabetic adults. Minority populations were underrepresented and children were not included. (Diabetes Care 31:6559-8029, 2008). The eAG is not equivalent to a fasting glucose. Blood 02/07/2022 6:13 AM CDT 02/07/2022 7:05 AM CDT Jake Roberts MAKE UP OPERATOR LAB BLOOD ORDERABLES F inal Result [facility] [address] [facility] Department [place] [address] * (ABNORMAL) Lipid panel (01/27/2021 10:44 PM CDT) Cholesterol 116 30 - 199 mg/dL [facility] Comment: Interpretive Data Ages < or = 19 years Acceptable: <170 mg/dL Borderline high: 170-199 mg/dL High: >or= 200 mg/dL Ages > or = 20 years Desirable: <200 mg/dL Borderline high: 200-239 mg/dL High: >or= 240 mg/dL Literature References: 1. Expert Panel on Integrated Guidelines for Cardiovascular Health and Risk Reduction in Children and Adolescents. Pediatrics 2011;128:S213 2. NCEP Expert Panel. Circulation 2004;110:227 Current Interpretive Data was last revised on 2018. Triglycerides 197(H) <=149 mg/dL [facility] Comment: Interpretive Data Ages < or = 9 years Acceptable: <75 mg/dL Borderline high: 75-99 mg/dL High: >or= 100 mg/dL Ages 10 to 20 years Acceptable: <90 mg/dL Borderline high: 90-129 mg/dL High: >or= 130 mg/dL Ages > or = 20 years Desirable: <150 mg/dL Borderline high: 150-199 mg/dL High: 200-499 mg/dL Very high: >or= 499 mg/dL Literature References: 1. Expert Panel on Integrated Guidelines for Cardiovascular Health and Risk Reduction in Children and Adolescents. Pediatrics 2011;128:S213 2. NCEP Expert Panel. Circulation 2004;110:227 Current Interpretive Data was last revised on 2018. HDL 27(L) >=40 mg/dL [facility] Comment: Interpretive Data Ages < or = 19 years Acceptable: >45 mg/dL Borderline low: 40-45 mg/dL Low: <40 mg/dL Ages > or = 20 years Desirable: >or= 60 mg/dL Low: <40 mg/dL Literature References: 1. Expert Panel on Integrated Guidelines for Cardiovascular Health and Risk Reduction in Children and Adolescents. Pediatrics 2011;128:S213 2. NCEP Expert Panel. Circulation 2004;110:227 Current Interpretive Data was last revised on 2018. LDL, calculated 50 <=129 mg/dL [facility] Comment: Interpretive Data Ages < or = 19 years Acceptable: <110 mg/dL Borderline high: 110-129 mg/dL High: >or= 130 mg/dL Ages > or = 20 years Optimal: <100 mg/dL Near optimal: 100-129 mg/dL Borderline high: 130-159 mg/dL High: >160 mg/dL Literature References: 1. Expert Panel on Integrated Guidelines for Cardiovascular Health and Risk Reduction in Children and Adolescents. Pediatrics 2011;128:S213 2. NCEP Expert Panel. Circulation 2004;110:227 Current Interpretive Data was last revised on 2018. Non-HDL Cholesterol 89 mg/dL [facility] Comment: Interpretive Data Ages < or = 19 years Acceptable: <120 mg/dL Borderline high: 120-144 mg/dL High: >145 mg/dL Ages > or = 20 years When triglycerides are >200 mg/dL, Non-HDL cholesterol is a secondary target of therapy with treatment goals that are 30 mg/dL greater than the LDL cholesterol target. Literature References: 1. Expert Panel on Integrated Guidelines for Cardiovascular Health and Risk Reduction in Children and Adolescents. Pediatrics 2011;128:S213 2. NCEP Expert Panel. Circulation 2004;110:227 Current Interpretive Data was last revised on 2018. Chol/HDL ratio 4 [facility] Blood specimen (specimen) 01/27/2021 10:44 PM CDT 01/27/2021 11:33 PM CDT us Marlon Decker MD LAB BLOOD ORDERABLES Fin al Result [facility] [address] [facility] Department of Laboratories [place], [place] [id number] * COLONOSCOPY (12/12/2020 9:17 AM CDT) Anatomical Region Laterality Modality Other Narrative Procedure Note Pepito Davalos MD - 12/12/2020 9:17 AM CDT GI ENDOSCOPY [facility] Patient Name: Sathya Martínez Procedure Date: 12/12/2020 9:17 AM Date of : 1950 Admit Type: Outpatient Age: 70 Gender: Female Attending MD: Pepito Davalos M.D. Room: [facility] ENDOSCOPY ROOM 8 Note Status: Finalized Procedure: Colonoscopy Indications: Screening for colorectal malignant neoplasm, Last colonoscopy: March 2018, Incidental constipation noted, Last scope inadequate (poor prep), pre-op planning for pelvic mass Referring MD: Linwood Franco M.D., Lindsay Nettles MD,PHD, Marlon Decker M.D. Providers: Pepito Davalos M.D. Medicines: Monitored Anesthesia Care Complications: No immediate complications. Estimated Blood Loss: Estimated blood loss: none. Procedure: Pre-Anesthesia Assessment: - Immediately prior to administration ofmedications, the patient was re-assessed for adequacy to receive sedatives. - Sedation was administered by an anesthesia professional. The sedation level attained wasmoderate. - The physical status of the patient wasre-assessed after the procedure. - The risks and benefits of the procedure and the sedation options and risks were discussed with the patient. All questions were answered and informed consent was obtained. The benefits, risks and alternatives of theprocedure and sedation were discussed and informed consentwas obtained. All questions were answered. Please referto the signed informed consent document in the medical record. The scope was passed under direct vision.The [id number] endoscope was introduced through the anus and advanced to the cecum, identified by appendiceal orifice and ileocecal valve. The colonoscopy was somewhat difficult due to poor endoscopic visualization and a tortuous colon. Successful completion of the procedure was aided by straightening and shortening the scope to obtainbowel loop reduction, using scope torsion and lavage. The patient tolerated the procedure well. The qualityof the bowel preparation was adequate to identifypolyps. The quality of the bowel preparation was evaluated using the BBPS ([place] Bowel Preparation Scale)with scores of: Right Colon = 2 (minor amount ofresidual staining, small fragments of stool and/or opaque liquid, but mucosa seen well), Transverse Colon = 3 (entire mucosa seen well with no residual staining, small fragments of stool or opaque liquid) and Left Colon = 2 (minor amount of residual staining, small fragments of stool and/or opaque liquid, but mucosa seen well). The total BBPS score equals 7. Thebowel preparation used was bisacodyl tablets via singledose instruction. Bowel prep was administered using a single dose. Findings: Skin tags were found on perianal exam. The digital rectal exam was normal. Pertinent negatives include no palpable rectal lesions. Non-bleeding external hemorrhoids were found during retroflexion and during endoscopy. The hemorrhoids were moderate. Multiple small-mouthed diverticula were found in the sigmoid colon. The exam was otherwise without abnormality on direct and retroflexion views. Impression: - Perianal skin tags found on perianal exam. - Non-bleeding external hemorrhoids. - Diverticulosis in the sigmoid colon. - The examination was otherwise normal on directand retroflexion views. - No specimens collected. Recommendation: - Discharge patient to home. - Advance diet as tolerated and high fiber diet indefinitely. - Continue present medications. - Use fiber, for example Citrucel, Fibercon, Konsylor Metamucil. - Repeat colonoscopy in 5 years for screeningpurposes. - Return to referring physician as previously scheduled. - For polyp and cancer prevention: Consider daily aspirin if OK with primary care provider; Calcium, folate, and vitamin D; healthy diet low inprocessed and red meats, exercise regularly, maintain healthy weight. See [facility] Cancer website for moreprevention tips. - Call the Colorectal Surgery offices [phone] with any questions, concerns, complications. After hours and weekends/Holidays, you will be directedto the on-call physician, if needed. Electronically signed by Pepito Davalos MD Pepito Davalos M.D. 12/12/2020 10:25:58 AM . Number of Addenda: 0 Note Initiated On: 12/12/2020 9:17 AM Recognized by the [place] [employer] for promoting quality in endoscopy Pepito Davalos MD ENDOSCOPY PROCEDURES Final R esult from Last 3 Months or Most Recently Relevant to Health Maintenance Insurance [facility] MDCR HMO REF MEDICARE SOLUTIONS IDPA [facility] MEDICARE SOLUTIONS Advance Directives For more information, please contact: [phone] * Full Code (Latest Code Status on File) Date Activated Date Inactivated Comments 04/10/2024 12:09 AM 04/14/2024 6:17 PM * Full Code Date Activated Date Inactivated Comments 02/07/2022 12:07 AM 02/09/2022 8:55 PM * Full Code Date Activated Date Inactivated Comments 01/27/2021 9:09 PM 02/06/2021 5:46 PM * Full Code Date Activated Date Inactivated Comments 12/12/2020 10:21 AM 12/12/2020 3:00 PM * Full Code Date Activated Date Inactivated Comments 12/12/2020 8:00 AM 12/12/2020 10:21 AM Care Teams Field Crop Harvest Contractor Relationship Specialty Start Date End Date Jevon Felix MD [address] [facility] [id number] [place] [address] PCP - General Internal Medicine 02/17/22 Regina Matt MD [address] [place] [address] Consulting Physician Gastroenterology 04/06/18 José MiguelLindsay MD PhD [address] [facility] [address] [place] [address] Referring Physician Obstetrics and Gynecology 11/11/20 Linwood Franco MD [address] [facility] [phone] [place] [address] Surgeon Colon and Rectal Surgery 11/11/20 Jevon Felix MD [address] [facility] [phone] [place] [address] Referring Physician Internal Medicine 02/09/22
--- OUTSIDE RECORDS SUMMARY | 2024-07-29 03:24 | XMS_ITS | Encounter Summary ---
Author Organization [facility] Address 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 diff 12/05/2021 12/04/2021 12/05/2021 3:51 PM CDT R/O C. diff 04/11/2023 04/11/2023 04/11/2023 8:12 AM CDT documented as of this encounter Care Teams Energy Conservation Engineer Relationship Specialty Start Date End Date Jevon Felix MD [address] [facility] [address] [place] [id number] PCP - General Internal Medicine 09/01/21 documented as of this encounter
--- OUTSIDE RECORDS SUMMARY | 2024-07-29 03:24 | XMS_ITS | Encounter Summary ---
Author Organization [facility] Address 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
--- OUTSIDE RECORDS SUMMARY | 2024-07-29 03:24 | XMS_ITS | Encounter Summary ---
Author Organization [facility] Address [address] [place] [address] Care Team Providers Care E Commerce Marketing Manager Name Role Phone Jevon Felix MD Primary Care Provider [phone] Encounter Details Date Type Department Care Team (Late st Contact Info) Description 12/16/2003 Outpatient Historical [address] [place] [phone] Liam Galeano MD NO ADDRESS ON FILE Social History Tobacco Use Types Packs/Day Years Used Date Smoking Tobacco: Never Assessed Comments Unknown Sex and Gender Information Value Date Recorded Sex Assigned at Not on file Legal Sex Female 3:06 AM FINANCIAL REPORTING DIRECTOR Gender Identity Not on file Sexual Orientation [...] documented as of this encounter Care Teams E Commerce Marketing Manager Relationship Specialty Start Date End Date Jevon Felix MD [address] [phone] PCP - General Internal Medicine 09/01/21 documented as of this encounter
--- OUTSIDE RECORDS SUMMARY | 2024-07-29 03:24 | XMS_ITS | Encounter Summary ---
Author Organization [facility] Address [address] [place] [address] Care Team Providers Care Instructor Of Sociology Name Role Phone Jevon Felix MD Primary Care Provider [phone] Encounter Details Date Type Department Care Team (Late st Contact Info) Description 09/25/2002 Outpatient Historical [address] [place] [phone] Liam Galeano MD NO ADDRESS ON FILE Social History Tobacco Use Types Packs/Day Years Used Date Smoking Tobacco: Never Assessed Comments Unknown Sex and Gender Information Value Date Recorded Sex Assigned at Not on file Legal Sex Female 3:06 AM CORPORATE TRAVEL AGENT Gender Identity Not on file Sexual Orientation [...] documented as of this encounter Care Teams Instructor Of Sociology Relationship Specialty Start Date End Date Jevon Felix MD [address] [phone] PCP - General Internal Medicine 09/01/21 documented as of this encounter
--- OUTSIDE RECORDS SUMMARY | 2024-07-29 03:24 | XMS_ITS | Encounter Summary ---
Author Organization [facility] Address [address] [place] [address] Care Team Providers Care Medical Writer Name Role Phone Jevon Felix MD Primary Care Provider [phone] Encounter Details Date Type Department Care Team (Late st Contact Info) Description 09/26/2002 Outpatient Historical [address] [place] [phone] Liam Galeano MD NO ADDRESS ON FILE Social History Tobacco Use Types Packs/Day Years Used Date Smoking Tobacco: Never Assessed Comments Unknown Sex and Gender Information Value Date Recorded Sex Assigned at Not on file Legal Sex Female 3:06 AM HEALTH AND WELLNESS ADVISOR Gender Identity Not on file Sexual Orientation [...] documented as of this encounter Care Teams Medical Writer Relationship Specialty Start Date End Date Jevon Felix MD [address] [phone] PCP - General Internal Medicine 09/01/21 documented as of this encounter
--- OUTSIDE RECORDS SUMMARY | 2024-07-29 03:24 | XMS_ITS | Encounter Summary ---
Author Organization [facility] Address 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 diff 12/05/2021 12/04/2021 12/05/2021 3:51 PM CDT R/O C. diff 04/11/2023 04/11/2023 04/11/2023 8:12 AM CDT documented as of this encounter Care Teams Abrasive Worker Relationship Specialty Start Date End Date Jevon Felix MD [address] [facility] 4 [place] [phone] PCP - General Internal Medicine 09/01/21 documented as of this encounter
--- OUTSIDE RECORDS SUMMARY | 2024-07-29 03:24 | XMS_ITS | Encounter Summary ---
Author Organization [facility] Address [address] [place] [address] Care Team Providers Care Metal Cleaner Name Role Phone Jevon Felix MD Primary Care Provider [phone] Encounter Details Date Type Department Care Team (Late st Contact Info) Description 05/19/2000 Outpatient Historical [address] [place] [phone] Liam Galeano MD NO ADDRESS ON FILE Social History Tobacco Use Types Packs/Day Years Used Date Smoking Tobacco: Never Assessed Comments Unknown Sex and Gender Information Value Date Recorded Sex Assigned at Not on file Legal Sex Female 3:06 AM DAY GUARD Gender Identity Not on file Sexual Orientation [...] documented as of this encounter Care Teams Metal Cleaner Relationship Specialty Start Date End Date Jevon Felix MD [address] [phone] PCP - General Internal Medicine 09/01/21 documented as of this encounter
--- OUTSIDE RECORDS SUMMARY | 2024-07-29 03:24 | XMS_ITS | Encounter Summary ---
Author Organization [facility] Address 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
--- OUTSIDE RECORDS SUMMARY | 2024-07-29 03:24 | XMS_ITS | Continuity of Care Document ---
Author Organization [facility] Address [address] [facility] [address] [place] [address] Phone Care Team Providers Care Director Of Infection Control Name Role Phone Deandre Lea MD Unavailable Unavailable Allergies, Adverse Reactions, Alerts Substance Reaction Status Criticality morphine Active No Information Medications Medication Instructions Dosage Effective Dates (start - stop) Status Comments diazepam 2 mg tablet take 1 tablet by oral route 3 times every day as needed 2 MG - Active LIPITOR (unknown strength) Not Available - Active ALLOPURINOL (unknown strength) Not Available - Active ALBUTEROL SULFATE HFA (unknown strength) Not Available - Active AMITRIPTYLINE HCL (unknown strength) Not Available - Active HYDROCODONE-ACETAMIN OPHEN (unknown strength) Not Available - Active IBUPROFEN (unknown strength) Not Available - Active MECLIZINE HCL (unknown strength) Not Available - Active OMEPRAZOLE (unknown strength) Not Available - Active TRIAMTERENE-HYDROCHL OROTHIAZID (unknown strength) Not Available - Active SYMBICORT (unknown strength) Not Available - Active ADVAIR DISKUS (unknown strength) Not Available - Active BENICAR (unknown strength) Not Available - Active Procedures Procedure Date OFFICE/OUTPATIENT VISIT EST OFFICE/OUTPATIENT VISIT EST OFFICE/OUTPATIENT VISIT EST OFFICE/OUTPATIENT VISIT EST OFFICE/OUTPATIENT VISIT EST OFFICE/OUTPATIENT VISIT EST OFFICE/OUTPATIENT VISIT EST OFFICE/OUTPATIENT VISIT EST OFFICE/OUTPATIENT VISIT EST OFFICE/OUTPATIENT VISIT NEW OFFICE/OUTPATIENT VISIT EST Advance Directives Directive Yes / No Effective Date File Name No Information Encounters Encounter Description Practice Location Reason(s) For Visit Diagnoses Date Provider Providers Copied on Encounter [facility], [address] [place] [address], [address], [place] [phone] [facility] Follow Up of lbp (chief complaint) LumbagoSacroili itisOther chronic pain 5 Venu Carrera. [address] [place], [place], [id number] . tel: [phone] [facility], [address] [place] [address], [address], [place] [phone] [facility] Follow Up of lbp (chief complaint) LumbagoLumbosac ral spondylosis without myelopathyChron ic pain disorder 5 Venu Carrera. [address] [place], [place], [id number] . tel: [phone] OFFICE/OUTPA TIENT VISIT EST [facility], [address] [place] [address], [address], [place] [phone] [facility] B L3 L4 L5 RFN (chief complaint) Lumbosacral spondylosis without myelopathyLumba go 5 Mmia Beal. [address] [place], [place], [id number] . tel: [phone] Referring Provider: Deandre Lea, [place], [address] . [facility], [address] [place] [address], [address], [place] tel:[phone] [facility] [address] Lumbosacral spondylosis without myelopathy 5 Mima Beal. [address] [place], [place], [id number] . tel: [phone] [facility], [address] [place] [address], [address], [place] [phone] [facility] Follow Up of neck and back (chief complaint) LumbagoCervical giaChronic painLumbosacral spondylosis without myelopathy 5 Venu Deandre. [address] [place], [place], [id number] . tel: [phone] [facility], [address] [place] [address], [address], [phone] [facility] Follow Up of neck, shoulder, and back pain (chief complaint) NECK DISORDER/SYMPT NOSShoulder pain 5 Venu Deandre. [address] [place], [place], [id number] . tel: [phone] OFFICE/OUTPA TIENT VISIT [facility], [address] [place] [address], [address], [place] tel:[phone] [facility] neck pain (chief complaint) NECK DISORDER/SYMPT NOS 4 Venu Deandre. [address] [place] [address], [id number] . tel: [phone] [facility], [address] [place] [address], [address], [place] [phone] [facility] neck pain (chief complaint) NECK DISORDER/SYMPT NOSCervicalgiaS houlder pain 4 Venu Deandre. [address] [place] [address], [id number] . tel: [phone] OFFICE/OUTPA TIENT VISIT [facility], [address] [place] [address], [address], [place] tel:[phone] [facility] Follow Up of neck and arm symptoms (chief complaint) NECK DISORDER/SYMPT NOS 4 Venu Deandre. [address] [place] [address], [id number] . tel: [phone] Referring Provider: Liam crowley, RETIRED [address], [place], [address] . tel:[phone] [facility], [address] [place] [address] [place], [address], [place] tel:[phone] [facility] shoulder pain (chief complaint) Shoulder painRotator cuff tear Nov-2 - 4 Venu Carrera. [address] [facility], [place], [place], [id number] . tel: [phone] OFFICE/OUTPA TIENT VISIT [facility], [address] [place] [address], [place], [address], [place] tel:[phone] [facility] Rt shoulder (chief complaint) Rotator cuff tear Simon-0 4 Allan Henry. [address] . [place], [place], [id number] . tel: [phone] OFFICE/OUTPA TIENT VISIT [facility], [address] [place] [address], [place], [address], [place] tel:[phone] [facility] MRI RESULTS (chief complaint) Rotator cuff tear Simon-0 4 Radha Diaz. [address] [facility] [address], [place], [place], [id number] . tel: [phone] OFFICE/OUTPA TIENT VISIT [facility], [address] [place] [address], [place], [address], [place] tel:[phone] [facility] Shoulder pain 4 Radha Diaz. [address] [place] [address] [address], [place], [place], [id number] . tel: [phone] OFFICE/OUTPA TIENT VISIT [facility], [address] [place] [address], [place], [address], [place] tel:[phone] [facility] Lumbosacral spondylosis without myelopathyLumba go 4 Mima Beal. [address] [facility], [place], [place], [id number] . tel: [phone] OFFICE/OUTPA TIENT VISIT [facility], [address] [place] [address] [address], [place], [address], [place] tel:[phone] [facility] LBP (chief complaint) LumbagoLumbosac ral spondylosis without myelopathy 4 Venu Carrera. [address] [place] [address], [id number] . tel: [phone] [facility], [address] [place] [address], [address], [place] [phone] [facility] Lumbosacral spondylosis without myelopathyLumba go 4 Mima Beal. [address] [place] [address], [id number] . tel: [phone] Referring Provider: Deandre Lea, [place], [address] . [facility], [address] [place] [address], [address], [phone] [facility] Lumbosacral spondylosis without myelopathy 4 Venu Carrera. [address] [place] [address], [id number] . tel: [phone] [facility], [address] [place] [address], [address], [place] [phone] [facility] medial branch blocks (chief complaint) Lumbago 4 Venu Carrera. [address] [place] [address], [id number] . tel: [phone] Referring Provider: Eleazar Thomson, [address] [place] [address], [address] . tel:[phone] OFFICE/OUTPA TIENT VISIT EST [facility], [address] [place] [address], [address], [place] tel:[phone] [facility] neck and back pain (chief complaint) CervicalgiaLumb ago 0 8 4 Venu Carrera. [address] [place] [address], [id number] . tel: [phone] Referring Provider: Eleazar Thomson, [address] [place] [address], [address] . tel:[phone] OFFICE/OUTPA TIENT VISIT [facility], [address] [place] [address], [address], tel:[phone] [facility] LumbagoCervical giaRotator cuff strain 4 Venu Carrera. [address] [place] [address], [id number] . [phone] Referring Provider: Eleazar Thomson, [address] [place] [address], [address] . tel:[phone] OFFICE/OUTPA TIENT VISIT [facility], [address] [place] [address], [address], tel:[phone] [facility] Rotator cuff strain 4 Carly Bush. [address] [place] [address], [id number] . [phone] Family History Family Member Type Diagnosis Age At Onset No Information Payers Payer name Insurance type Covered libertarian ID Authoriza tion(s) No Information Social History Type Description Quantity Date Captured Comments Alcohol Use Details Unknown Caffeine Use Details Unknown Tobacco Use Status No Information Smoking Status No Information Sex Female Chief Complaint And Reason For Visit From encounter dated '10/23/2014 08:45'. Follow Up of lbp (chief complaint). Description: Better after the RFN but still with a couple of areas of discomfort. Diazepam helps very little. Pain in the LB. Has had more than one trial of PT. Has obtained the services of an gravel wheeler to help with the issues related to her fall last fall at [facility]. Reason For Referral Reason For Referral No Information Plan Of Treatment Date Type Action Status Referral Ordered: MRI ANY JT UXTR C-MATRL RT shoulder Appointment date/timeframe: 11/19/2013 ordered Referral Ordered: DESTROY LUMB/SAC FACET JNT Appointment date/timeframe: 10/26/2013 ordered Referral Ordered: SEKOU ARIEL 1 VIEW RT ordered History Of Present Illness Encounter Date Complaint History Of Prese nt Illness Follow Up of lbp Better after th e RFN but still with a couple of areas of discomfort. Diazepam helps very little. Pain in the LB. Has had more than one trial of PT. Has obtained the services of an gravel wheeler to help with the issues related to her fall last fall at [facility]. Follow Up of lbp F/U RFN. Having LBP. 2 weeks post RFN. Some left leg instability with LBP. Hydrocodone 10/325 per PMD. Also having CABAN B L3 L4 L5 RFN Follow Up of neck and back Pain in neck toward the right shoulder. Associated headaches. can't deal with the pain anymore . Not functioning. Has had PT. Dr Lemus recommended surgery on the right shoulder. Discussed need for treatment for her depression/anxiety. Follow Up of neck, s houlder, and back pain Increasing pain in the right shoulder area. Last injected in December. HH and meds reviewed. neck pain Additional infor mation: Increasing right shoulder and arm pain. In the same areas that we injected a weak ago. Took roxicet with some benefit. Has had PT without benefit. neck pain Additional infor mation: TPI helped. Less thumb symptoms. Still with neck restriction. Still doing HEP. Follow Up of neck and arm sympto ms Shoulder injection helped. Now with right neck, upper trap into the right arm/hand as well as shoulder blade. Has had PT in the recent past. shoulder pain Location: should er. Additional information: Right shoulder surgery planned. Pt not sure how she can manage at home after the OR. Is interested in repeat injection. Last injected in July 2013. Functional Status Date Functional Assessmen t No Information Instructions Date Instruction Additional Infor mation Avoid prolonged bed rest. Relate d to Sacroiliitis Activity as tolerated. Related t o Sacroiliitis Activity as tolerated. Related t o Lumbago Avoid prolonged bed rest. Relate d to Lumbago Take medication as prescribed. R elated to Lumbago Activity as tolerated. Related t o Chronic pain Avoid prolonged bed rest. Relate d to Chronic pain Take medication as prescribed. R elated to Chronic pain apply heating pad or ice as tolerated Related to Shoulder pain activity as tolerated Related to Shoulder pain Physical activity counseling Rel ated to Dietary Surveillance Counseling Activity as tolerated Activity as tolerated Activity as tolerated Assessments Type Assessment Date assessment Lumbago assessment Sacroiliitis assessment Other chronic pain Patient Care Teams Name Effective Dates (start - stop) Status Members No Information
--- OUTSIDE RECORDS SUMMARY | 2024-07-29 03:24 | XMS_ITS | Encounter Summary ---
Author Organization [facility] Address 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
--- OUTSIDE RECORDS SUMMARY | 2024-07-29 03:24 | XMS_ITS | Encounter Summary ---
Author Organization [facility] Address 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
--- OUTSIDE RECORDS SUMMARY | 2024-07-29 03:24 | XMS_ITS | Encounter Summary ---
Author Organization [facility] Address 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
--- OUTSIDE RECORDS SUMMARY | 2024-07-29 03:24 | XMS_ITS | Encounter Summary ---
Author Organization [facility] Address [address] [place] [address] Care Team Providers Care Senior Cyber Intelligence Analyst Name Role Phone Jevon Felix MD Primary Care Provider [phone] Encounter Details Date Type Department Care Team (Late st Contact Info) Description 07/14/2001 Outpatient Historical [address] [place] [phone] Liam Galeano MD NO ADDRESS ON FILE Social History Tobacco Use Types Packs/Day Years Used Date Smoking Tobacco: Never Assessed Comments Unknown Sex and Gender Information Value Date Recorded Sex Assigned at Not on file Legal Sex Female 3:06 AM CONTINUITY EDITOR Gender Identity Not on file Sexual Orientation [...] documented as of this encounter Care Teams Senior Cyber Intelligence Analyst Relationship Specialty Start Date End Date Jevon Felix MD [address] [phone] PCP - General Internal Medicine 09/01/21 documented as of this encounter
--- OUTSIDE RECORDS SUMMARY | 2024-07-29 03:24 | XMS_ITS | Encounter Summary ---
Author Organization [employer] Address [address] [place] [address] Care Team Providers Care Vice President Commercial Bank Name Role Phone Jevon Felix MD Primary Care Provider [phone] Encounter Details Date Type Department Care Team (Late st Contact Info) Description 01/31/2001 Outpatient Historical [facility] Liam Galeano MD NO ADDRESS ON FILE Other and unspecified ovarian cyst (Primary Dx) Social History Tobacco Use Types Packs/Day Years Used Date Smoking Tobacco: Never Assessed Comments Unknown Sex and Gender Information Value Date Recorded Sex Assigned at Not on file Legal Sex Female 3:06 AM SPECIAL WARFARE COMBATANT CREWMAN Gender Identity Not on file Sexual Orientation Not on file documented as of this encounter Plan of Treatment Not on file documented as of this encounter Visit Diagnoses Diagnosis Other and unspecified ovarian cyst- Primary documented in this encounter Additional Health Concerns Infection Onset Date Last Indicated Resolved Time R/O COVID-19 12/27/2019 12/27/2019 12/28/2019 3:23 AM CDT C Diff 12/04/2021 12/04/2021 11/03/2022 1:00 AM CDT R/O C. diff 12/05/2021 12/04/2021 12/05/2021 3:51 PM CDT R/O C. diff 04/11/2023 04/11/2023 04/11/2023 8:12 AM CDT documented as of this encounter Care Teams Vice President Commercial Bank Relationship Specialty Start Date End Date Jevon Felix MD [address] [facility] [address] [place] [phone] PCP - General Internal Medicine 09/01/21 documented as of this encounter
--- OUTSIDE RECORDS SUMMARY | 2024-07-29 03:24 | XMS_ITS | Encounter Summary ---
Author Organization [facility] Address 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
--- OUTSIDE RECORDS SUMMARY | 2024-07-29 03:24 | XMS_ITS | Clinical Summary ---
Author Organization [facility] Address [address] [place] [address] Care Team Providers Care Paper Steamer Name Role Phone Regina Matt MD Unavailable Lindsay Nettles MD PhD Unavailable [phone] Linwood Franco MD Unavailable [phone] Jevon Felix MD Unavailable [phone] Jevon Felix MD Primary Care Provider [phone] Allergies No known active allergies Medications amitriptyline [...] (07/04/2018): Added automatically from request for surgery [id number] Gastric polyp 07/04/2018 Overview (07/04/2018): Added automatically from request for surgery [id number] Multiple gastric polyps 07/03/2018 Bowel habit changes 07/03/2018 Colon cancer screening 07/03/2018 Abnormal liver scan 07/03/2018 Chronic right-sided low back pain 06/07/2018 Dupuytren's contracture of both hands 06/07/2018 Primary osteoarthritis of right knee 06/07/2018 Hypokalemia 04/03/2018 Ovarian mass, left 04/03/2018 Chest pain 04/03/2018 Acute epigastric pain 04/02/2018 Overview (04/03/2018): Added automatically from request for surgery [id number] Anemia 04/02/2018 Overview (04/03/2018): Added automatically from request for surgery [id number] Absolute anemia 04/02/2018 Overview (04/04/2018): Added automatically from request for surgery [id number] Obesity (BMI 30.0-34.9) 09/09/2015 Chronic post-traumatic headache [...] 04/18/2019 Pneumococcal Polysaccharide PPV23 04/16/2020, Tdap 09/09/2015,07/14/2005 Surgical History Surgery Date Site/Laterality Comments CHOLECYSTECTOMY TOTAL ABDOMINAL HYSTERECTOMY W/ BILATERAL SALPINGOOPHORECTOMY APPENDECTOMY COLONOSCOPY UPPER GASTROINTESTINAL ENDOSCOPY Medical History Medical History Date Comments Chronic GERD Back pain Hypertension Hypercholesterolemia Vertigo Gout Diabetes mellitus (HCC) Frequent headaches Asthma Arthritis Umbilical hernia Type 2 diabetes mellitus (HCC) Sleep apnea Family History Medical History Relation Name Comments Heart attack Father Heart failure Father Breast cancer Mother Clotting disorder Mother Heart attack Mother Heart failure Mother Anesthesia problems Neg Hx Relation Name Status Comments Father Mother Social History Tobacco Use Types Packs/Day Years Used Date Smoking Tobacco: Never Smokeless Tobacco: Never Alcohol Use Standard Drinks/Week Comments No 0 (1 standard drink = 0.6 oz pur e alcohol) [facility] Utilities Answer Date Recorded In the past 12 months has th e electric, gas, oil, or water company threatened to shut off services in your [...] often do you attend chur ch or mormon services? Never 04/10/2024 Do you belong to any clubs o r organizations such as mormon groups, unions, fraternal or athletic groups, or [...] any time in the past 12 [facility], were you homeless or living in a retirement (including now)? No 04/10/2024 Personal Safety Answer Date Recorded Have you ever been in or are you currently in a harmful physical or emotional relationship or is someone making you feel afraid or unsafe? 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 Gender Identity Not on file Sexual Orientation Not on file Obstetrics History Para Term AB IAB SAB Ectopic Multiple Livin g Live Births 3 2 2 1 1 Date Outcome GA Total Labor Labor/2nd/3rd Weight Sex Type Anes PTL Steph A1 A5 Name Clin Term Term SAB Last Filed Vital Signs Vital Sign Reading [...] 04/10/2024 9:54 PM CDT Plan of Treatment Health Maintenance Due Date Last Done Comments Albumin Creatinine Ratio, Urine 1950 Depression Screening 1950 Hepatitis C Screening 1950 Dilated Eye Exam 1950 Foot Exam 1950 Hepatitis B Screening 1969 Zoster Vaccine (1 of 2) 2001 Well Visit 65+ 2016 Lipid Panel 01/27/2022 01/27/2021, 05/09/2018 Hemoglobin A1C 08/10/2022 02/07/2022, 01/09/2021 Breast Cancer Screening-Mammogram 09/17/2022 09/17/2021, 09/17/2021, 01/15/2020, Additional history exists Osteoporosis Screening-Bone Density Scan 09/18/2023 09/17/2021, 09/17/2021 Covid-19 Vaccine (3 - 2023-2 5 season) 2024 09/23/2020, 08/07/2020 Influenza Vaccine (#1) 2024 , 04/16/2020, 04/18/2019, Additional history exists Fall Risk Assessment 04/14/2025 04/14/2024 eGFR 04/14/2025 04/14/2024, 03/21, 04/12/2024, Additional history exists DTaP/Tdap/Td Vaccine (3 - Td or Tdap) 09/08/2025 09/09/2015, 07/14/2005 Colon Cancer Screening-Colonoscopy 12/12/2030 12/12/2020, 04/05/2018 Pneumococcal vaccine 65+ Completed 020, 04/18/2019, 03/19/2010 Colon Cancer Screening-CT Colonography Discontinued 12/12/2020, 04/05/2018 Colon Cancer Screening-DNA Stool Discontinued 12/13/19 21, 04/05/2018 Colon Cancer Screening-FIT Discontinued 12/12/2020, Colon Cancer Screening-Sigmoidoscopy Discontinued 12/12/2020, 04/05/2018 Medical Devices Implanted Type Area Dulite Machine Bluer Device Identifier Shelf Expiration Date Model / Serial / Lot Davol Inc/C R Bard [id number] [id number] Monofilament Scaffold Full Resorbable Square Mesh - Sna - [id number] Implanted:Qty: 1 on 01/27/2021 by Marlon Decker MD at [facility] Mesh N/A: Abdomen [employer] Inc/C R Bard [id number] 08/17/2023 [id number] / NA / Procedures Procedure Name Priority [...] 1:00 AM CDT 04/14/2024 1:14 AM CDT us Erasto Hwang MD LAB BLOOD ORDERABLES Final Result [facility] [address] [facility] Department [place] [address] * (ABNORMAL) Hemoglobin A1c (02/07/2022 6:13 AM CDT) Hgb A1C 6.5(H) 4.0 - 5.6 % [facility] Estimated Average Glucose 140 mg/dL [facility] Comment: The ADA recommends reporting an estimated Average Glucose (eAG) with all Hemoglobin A1c results using the equation derived from a study of 507 normal and diabetic adults. Minority populations were underrepresented and children were not included. (Diabetes Care 31:5021-9660, 2008). The eAG is not equivalent to a fasting glucose. Blood 02/07/2022 6:13 AM CDT 02/07/2022 7:05 AM CDT Jake Brijesh Armando HIGH RIGGER LAB BLOOD ORDERABLES F inal Result [facility] [address] Department [place] [address] * (ABNORMAL) Lipid panel (01/27/2021 10:44 PM CDT) Cholesterol 116 30 - 199 mg/dL [facility] Comment: Interpretive Data Ages < or = [...] revised on 2018. Triglycerides 197(H) <=149 mg/dL [facility] Comment: Interpretive Data Ages < or = [...] revised on 2018. HDL 27(L) >=40 mg/dL [facility] Comment: Interpretive Data Ages < or = [...] on 2018. LDL, calculated 50 <=129 mg/dL [facility] Comment: Interpretive Data Ages < or = [...] revised on 2018. Non-HDL Cholesterol 89 mg/dL [facility] Comment: Interpretive Data Ages < or = [...] last revised on 2018. Chol/HDL ratio [address] [facility] Blood specimen (specimen) 01/27/2021 10:44 PM CDT 01/27/2021 11:33 PM CDT us Marlon Decker MD LAB BLOOD ORDERABLES Fin al Result [facility] [address] [facility] [place] [address] * COLONOSCOPY (12/12/2020 9:17 AM CDT) Anatomical Region Laterality Modality Other Narrative Procedure Note Pepito Davalos MD - 12/12/2020 9:17 AM CDT [facility] Patient Name: Sathya Martínez Procedure Date: 12/12/2020 9:17 AM Date of : 1950 Admit Type: Outpatient Age: 70 Gender: Female Attending MD: Pepito Davalos M.D. Room: [facility] 8 Note Status: Finalized Procedure: [...] The scope was passed under direct vision.The [id number] endoscope was introduced through the anus [...] bowel preparation was evaluated using the BBPS (Sidney Bowel Preparation Scale)with scores of: Right Colon [...] meats, exercise regularly, maintain healthy weight. See [facility] Cancer website for moreprevention tips. - Call the Colorectal Surgery offices [phone] with any questions, concerns, complications. After hours and weekends/Holidays, you will be directedto the on-call physician, if needed. Electronically signed by Pepito Davalos MD Pepito Davalos M.D. 12/12/2020 10:25:58 AM . Number of Addenda: 0 Note Initiated On: 12/12/2020 9:17 AM Recognized by the [place] [employer] for promoting quality in endoscopy Pepito Davalos MD ENDOSCOPY PROCEDURES Final R esult from Last 3 Months or Most Recently Relevant to Health Maintenance Insurance [facility] HMO REF MEDICARE [employer] [facility] MEDICARE SOLUTIONS Advance Directives For more information, please contact: [phone] * Full Code (Latest Code Status on [...] 8:00 AM 12/12/2020 10:21 AM Care Teams Paper Steamer Relationship Specialty Start Date End Date Jevon Felix MD [address] [facility] [phone] [place] [address] PCP - General Internal Medicine 02/17/22 Regina Matt MD [address] [facility] [address] [place] [address] Consulting Physician Gastroenterology 04/06/18 Lindsay Nettles MD PhD [address] [facility] [address] [address] [place] [address] Referring Physician Obstetrics and Gynecology 11/11/20 Linwood Franco MD [address] [facility] [phone] [place] [address] Surgeon Colon and Rectal Surgery 11/11/20 Jevon Felix MD [phone] [place] [address] Referring Physician Internal Medicine 02/09/22
--- OUTSIDE RECORDS SUMMARY | 2024-07-29 03:24 | XMS_ITS | Encounter Summary ---
Author Organization [facility] Address 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
--- OUTSIDE RECORDS SUMMARY | 2024-07-29 03:24 | XMS_ITS | Encounter Summary ---
Author Organization [employer] [facility] Address [address] [place] [address] Care Team Providers Care Software Clerk Name Role Phone Jevon Felix MD Primary Care Provider [phone] Encounter Details Date Type Department Care Team (Late st Contact Info) Description 09/25/2002 Outpatient Historical [facility] Support Serv. (Adt Cardiology-[facility]) [address] 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
--- OUTSIDE RECORDS SUMMARY | 2024-07-29 03:24 | XMS_ITS | Encounter Summary ---
Author Organization [facility] Address 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
--- OUTSIDE RECORDS SUMMARY | 2024-07-29 03:24 | XMS_ITS | Encounter Summary ---
Author Organization [facility] Address 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
--- OUTSIDE RECORDS SUMMARY | 2024-07-29 03:24 | XMS_ITS | Encounter Summary ---
Author Organization [facility] Address 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
--- OUTSIDE RECORDS SUMMARY | 2024-07-29 03:24 | XMS_ITS | Encounter Summary ---
Author Organization [employer] [facility] Address [address] [place] [address] Care Team Providers Care Insulator Technician Name Role Phone Jevon Felix MD Primary Care Provider [phone] Encounter Details Date Type Department Care Team (Late st Contact Info) Description 09/25/2002 Outpatient Historical [facility] Support Serv. (Adt Cardiology[facility]) [address] [place] 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
--- OUTSIDE RECORDS SUMMARY | 2024-07-29 03:24 | XMS_ITS | Encounter Summary ---
Author Organization [facility] Address 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
--- OUTSIDE RECORDS SUMMARY | 2024-07-29 03:24 | XMS_ITS | Encounter Summary ---
Author Organization [facility] Address 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
--- OUTSIDE RECORDS SUMMARY | 2024-07-29 03:24 | XMS_ITS | Data Portability ---
Author Organization [place] - [facility] [facility], Main Office Address [address] [place] [address] Care Team Providers Care [employer] Firer Name Role Phone SHUN FELIX Primary Care Provider SHUN FELIX Referring Provider Assessment Encounter Date Assessment Date Assessment LastModified by Organization Details LastModified Time 04/02/2024 04/02/2024 73-year-old female presents for evaluation of bilateral knees, right worse than left. She has pain for about 3 years, getting progressively worse. She reports also the knees giving out frequently. Her pain is 10/10. She has been using Voltaren but has not had any other treatments. She can only walk a minimal distance before her knees begin to bother her. She has a history of diabetes, A1c level of 5.3 Review of systems per patient questionnaire physical exam: She has nonantalgic gait. Tenderness palpation over the medial joint line also over patellofemoral joints bilaterally. Range of motion 0-130 bilaterally. BMI 31.6. X-rays of the bilateral knees were reviewed, demonstrating medial degenerative changes bilaterally with joint space narrowing, sclerosis for her bilateral knee arthritis, right worse than left, we will continue conservative management. Orders for meloxicam PT were given. We also discussed cortisone injection, given her severity of pain and disruption of her sleep and other everyday activities. She tolerated that well. She will follow up as needed. She states that she wants to be seen for her shoulders as well and she can make an appointment for that. [email or web address] Not available 04/03/2024 14:10:05 04/06/2024 04/06/2024 She is here for surgical clearance for cataract but she had many medical problems that she still needs to see dr felix to have addressed. She needs to see Dr. Felix for a f/u and review of meds and possible changes in medications. She has not f/u recently and labs from october and february need repeated. has a small lymph node swollen on left clavical that she feels she is getting bigger and is more painful, will watch for now needs f/u with dr felix she has issues with incontinence and her skin gets sore easily she has a chronic rash that does not get better and is asking for more diflucan blood pressure recheck was 160/74 call placed to [facility] and was informed that the procedure was already cancelled for this patient but if we go ahead and send in the clearance it will be good for 90 days. she has an appointment with dr felix on 04/16 medication list reconciled by me today [email or web address] Not available 04/06/2024 17:01:59 04/26/2024 04/26/2024 I have reconcile d the patient's medications post their discharge from inpatient facility. Not available 04/26/2024 10:07:47 Plan of Treatment Reminders Order Date Submit Date Provider Last Modified By Organization Details Last Modified Time Details Appointments None recorded. Lab HbA1c (hemoglobin A1c), blood 2024 025 [employer] [facility], [address], [address] , [place], [address], 5 04:16:30 Referral physical therapist referral 2023 024 [email or web address] Not available 12:20:[address] referral - Please call patient to schedule an appointment . Thank you. 2024 025 [email or web address] Kush Mancini MD, [address] [place], [address], 5 13:13:54 Procedures injection/a spiration joint/bursa (PROC) 2023 024 [email or web address] In-Office Order, Internal Use Only DO Not Attach Compendium DO Not Attach Compendium, Do Not Delete/merge, [address] 4 12:25:14 Surgeries None recorded. Imaging XR, knee 2023 ÓSCAR [facility], [address] [place], [address], 14:44:40 Medication Orders Marcaine (PF) 0.5 % (5 mg/mL) injection solution 2023 [email or web address] [facility] [address], [address], 4 10:00:48 Kenalog 10 mg/mL suspension for injection 2023 024 [email or web address] [facility] [address], [address], 4 10:00:43 meloxicam 15 mg tablet 2023 024 [email or web address] [facility] [address], [address], 5 12:11:44 albuterol sulf 90 mcg/actuati on breath activated powder inhaler,sen sor 2023 024 [email or web address] [facility] [address], [address], 4 14:00:58 fluconazole 150 mg tablet 2023 024 [email or web address] [facility] [address], [address], 5 11:35:39 benzonatate 200 mg capsule 2023 024 [email or web address] [facility] [address], [address], 4 10:09:04 trazodone 100 mg tablet 2023 024 ÓSCAR [facility] [address], [address], 4 10:20:30 Diflucan 150 mg tablet 2023 024 [email or web address] [facility] [address], [address], 5 11:35:39 clotrimazol e-betametha sone 1 %-0.05 % topical cream 2023 024 ÓSCAR [facility] [address], [address], 4 10:20:30 loperamide 2 mg capsule 2024 025 ÓSCAR [facility] [address], [address], 5 13:17:40 ondansetron 4 mg disintegrat ing tablet 2024 025 ÓSCAR [facility] [address], [address], 5 13:17:41 Zithromax Z-Abram 250 mg tablet 2024 025 [email or web address] [facility] [address], [address], 5 11:35:29 escitalopra m 10 mg tablet 2024 025 ÓSCAR [facility] [address], [address], 5 12:15:22 Patient TargetsNo targets recorded. Patient Instructions Encounter Date Encounter Id Patient Instructions Last Modified By Organization Details Last Modified Time 04/26/2024 [id number] Thank you for your visit to our office today. We would like to request that you reach out to your referring or previous provider and request that they send us a Summary of Care in electronic form, so that we may have it on file in your medical record. At your visit, we had the medical records we needed to provide you with the best possible care; however, for insurance purposes, an electronic Summary of Care is beneficial. Thank you for your assistance in obtaining this information and we look forward to providing continued care to you. Please review your medication list from the Summary of Care for this visit. If there are any differences from what you are currently taking at home, please call us to discuss. Not available 04/26/2024 10:07:48 Homebound Status : {{Patient has an inability to leave the home without a taxing effort and assistance from another person Does not meet homebound status}} Required Home Health Services: {{none snf, physical therapy, occupational therapy snf, physical therapy snf}} Durable Medical Equipment needed: {{cane walker wal ker with seat manual wheelchair bedsid e commode oxygen}} Billing Guidelines CPT code 64504- Transitional Care Management services with moderate medical decision complexity ([id number]-[id number] visit within 14 days of discharge). CPT code 18334- Transitional Care Management services with high medical decision complexity (yhox-tj-pkcu visit within 7 days of discharge). Not available 04/26/2024 10:07:48 Reason for Referral Physical Therapist Referral for Pain of bilateral knee joints Referring Physician: Rolando Tripathi, Orthopedic Surgery, Encounter Date: 04/02/2024 Bulk Sealer Referral for M ultiple nodules of lung Please call patient to schedule an appointment. Thank you. Referring Physician: Shun Felix, Internal Medicine, Encounter Date: 07/20/2024 Results Created Date Observation Date Name Description Value Unit Range Abnormal Flag Note LastModifiedBy Organization Detail LastModifiedTime 04/02/20 24 XR, knee No observ ation record ed. [email or web address] [facility] [address], [place], [address], 04/02/2024 12:05:22 04/16/2004/02/2024 XR, knee No observ ation record ed. [email or web address] [facility] [address] [facility], [place], [address], 04/17/2024 09:15:39 Result Notes None recorded. Problems Name Problem SNOMED Code Status Onset Date Resolution Date Notes Provider Name and Address Organization Details Recorded Time Diverticu litis of colon 922485596 Active 2021 Not Available [employer] 4 22:35:30 Chronic back pain 051432280 Active 2021 Not Available [employer] 4 22:35:30 Folliculi tis 85701431 Completed 202109/01/2022 Chiquis mcgovern RMA null, [place] [facility] 3 12:12:39 Hearing loss 87653434 Active 2021 Not Available [employer] 4 22:35:30 Acute sinusitis 89367526 Completed 202109/01/2022 Kush Mancini MD [address] [facility], [place], [address] , [place] [facility] 3 16:50:25 Recurrent urinary tract infection 487671819 Completed 202109/01/2022 Chiquis mcgovern RMA null, [place] [facility] 3 12:13:05 Microscop ic hematuria 902084550 Completed 202109/01/2022 Chiquis mcgovern RMA null, [place] [facility] 3 12:13:42 Gastroeso phageal reflux disease 251258125 Active 2021 Not Available [employer] 4 22:35:31 Hypertrig lyceridem ia 680423895 Active 2021 Not Available [facility] 4 22:35:31 Polyp of nasal sinus 98825848 Active 2021 Not Available [facility] 4 22:35:31 Blood in urine 54677169 Completed 202109/01/2022 Chiquis mcgovern RMA null, [place] [facility] 3 12:12:15 Vitamin D deficienc y 45732416 Active 2021 Not Available [facility] 4 22:35:31 Neuropath y 499600537 Active 2021 Not Available [facility] 4 22:35:31 Osteoarth ritis 320173699 Active 2021 Not Available [facility] 4 22:35:31 Vertigo 633747447 Active 2021 Not Available [facility] 4 22:35:31 Bilateral tinnitus 25923612491 02 Active 2021 Not Available [facility] 4 22:35:31 Anxiety 98856934 Active 2021 Not Available [facility] 4 22:35:31 Acute upper respirato ry infection 48983001 Completed 202109/01/2022 Chiquis mcgovern RMA null, [place] [facility] [employer] [facility] 3 12:13:32 Essential hypertens ion 67380321 Active 2021 Not Available [facility] 4 22:35:31 Diarrhea 69764423 Completed 202109/01/2022 Kyleigh Ruvalcaba MA null, [place] [facility] [employer] [facility] 4 09:16:10 Diabetes mellitus 41022033 Active 2021 Not Available [facility] 4 22:35:31 Type 2 diabetes mellitus 62515083 Completed 202209/01/2022 Chiquis mcgovern RMA null, [place] [facility] 3 12:13:54 Chronic kidney disease 916572183 Active 2022 Not Available [facility] 4 22:35:31 Multiple nodules of lung 498019427 Active 2022 Not Available [facility] 4 22:35:31 Congestiv e heart failure 67739250 Active 2022 Chiquis mcgovern RMA null, [place] [facility] 4 15:37:34 COVID-19 193690820 Completed 202208/30/2023 Chiquis Sabillon n, RMA null, [place] [facility] 4 15:38:02 Anemia 857507723 Active 2022 Chiquis Sabillon n, RMA null, [place] [facility] 4 15:37:53 Type 2 diabetes mellitus without complicat ion 581338757 Completed 202303/20/2024 Chiquis mcgovern RMA null, [place] [facility] 4 15:26:30 Dyspnea on exertion 48061089 Active 2023 Chiquis mcgovern RMA null, [place] [facility] 4 15:37:57 Hyperlipi demia 57304597 Active 2023 Chiquis mcgovern, RMA null, [place] [facility] 15:26:36 Hypokalem ia 13198462 Active 2023 Chiquis mcgovern, RMA null, [place] [facility] 4 15:26:32 Gout 38249102 Active 2023 Chiquis mcgovern, RMA null, [place] [facility] 15:26:21 Candidias is of vagina 44085110 Completed 202303/20/2024 Shun Felix MD [address] [place] [address], [address] , [place] [facility] 4 10:16:38 Acute urinary tract infection 416573912 Completed 202303/20/2024 Chiquis mcgovern RMA null, [place] [facility] 15:26:14 Atrophic vaginitis 14161250 Completed 202303/20/2024 Chiquis mcgovern, RMA null, [facility] 4 15:26:18 Viral gastroent eritis 386612770 Active 2023 Shun Felix MD [address], [place], [address] , [facility] 4 15:39:45 Diarrhea 05465903 Active 2023 Kyleigh Ruvalcaba MA null, [facility] 4 09:16:10 Pain of bilateral knee joints 80528223112 4104 Active 2023 Tamy Keenan CNA null, [facility] 4 12:05:02 Candidias is of skin 27142481 Active 2023 Stacy Jesus NP [address], [place], [address] , [facility] 4 15:14:46 Chronic bronchiti s 30467675 Active 2023 Stacy Jesus NP [address], [place], [address] , [facility] 4 15:17:10 Cataract 015095685 Active 2023 Stacy Jesus NP [address], [place], [address] , [facility] 4 15:18:25 Pneumonia 431442666 Active 2023 Shun Felix MD [address], [place], [address] , [facility] 4 10:16:18 Candidias is of vagina 70661768 Active 2023 Shun Felix MD [address], [place], [address] , [facility] 4 10:16:38 Insomnia 338018024 Active 2023 Shun Felix MD [address], [place], [address] , [employer] 4 10:17:45 Upper respirato ry infection 29307039 Active 2024 Shun Felix MD [address], [place], [address] , [employer] 5 13:13:23 Chronic diarrhea 767940237 Active 2024 Shun Felix MD [address], [place], [address] , [facility] 5 13:14:05 Nausea 431771993 Active 2024 Shun Felix MD [address], [place], [address] , [facility] 5 13:15:26 Edema 176613165 Active 2024 Shun Felix MD [address], [place], [address] , [facility] 5 12:11:21 Notes:Medical History: Anxie ty Vertigo Bilateral hearing loss/tinnitus COVID infection 05/2023 Eosinophils 0/uL IgE 76 IU/mL Nasal polyp AAT PiMZ 124 mg% Lingular pulmonary nodule Speckeld SUKHWINDER 1:80 P-ANCA 1:40 Anti-MPO 3.8 units CHF Hypertension Mixed hyperlipidemia 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 Please review this document and add these problems to the patient's chart manually as needed. Problem Notes None recorded. Procedures Surgical History Date Name Laterality Status Provider Name and Address Organization Details Recorded Time 04/26/20 24 Transitional_Care_M anagement completed Chiquis Arellano , RMA [facility] 04/26/2024 10:07:48 04/02/20 24 Ortho - Cortisone Injection completed Rolando Tripathi MD [address] [facility] [facility] [address], [place], [address], [facility] 04/03/2024 14:10:13 04/21/20 23 Transitional_Care_M anagement completed Margie Peterson RN [facility] 04/21/2023 10:43:53 Cholecystectomy completed Tamy Keenan CNA [facility] 04/02/2024 12:02:03 Appendectomy completed Tamy Keenan CNA [facility] 04/02/2024 12:01:56 Imaging Results Imaging Date Name Status LastModified by Organiz ation Details LastModified Time 04/02/2024 XR, knee completed [email or web address] [facility] [address] [facility], [place], [address], 04/02/2024 12:05:22 04/02/2024 XR, knee completed [email or web address] [facility] [address] [facility], [place], [address], 04/17/2024 09:15:39 Procedure Notes None recorded. Medical Equipment None Reported. Allergies No known drug allergies Medications Name Sig Start Date Stop Date Status Note LastModified by Organization Details LastModified Time losartan 50 mg tablet TAKE 1 TABLET BY MOUTH EVERY DAY 06/15 completed By Hospital Not Available Not Available Not Available nifedipin e ER 30 mg tablet,ex tended release 24 hr TAKE 1 TABLET BY MOUTH EVERY DAY 2023 active ANTON 04/26/24 ok to rf Not Available Not Available Not Available cyclobenz aprine 10 mg tablet TAKE 1 TABLET BY MOUTH TWICE A DAY NEEDED FOR MUSCLE SPASM 11/17 completed Not Available Not Available Not Available amoxicill in 500 mg capsule TAKE 1 CAPSULE BY MOUTH 3 TIMES A DAY 06/15 completed Not Available Not Available Not Available furosemid e 40 mg tablet TAKE 1 TABLET BY MOUTH EVERY DAY active Not Available Not Available No t Available atorvasta tin 40 mg tablet TAKE 1 TABLET BY MOUTH EVERYDAY AT BEDTIME active Not Available Not Available No t Available metformin 500 mg tablet 02/18 completed Not Available Not Available Not Available doxycycli ne hyclate 100 mg capsule TAKE 1 CAPSULE BY MOUTH TWICE A DAY FOR 7 DAYS 11/17 completed Not Available Not Available Not Available atorvasta tin 20 mg tablet TAKE 1 TABLET BY MOUTH ONCE DAILY 04/02 completed Not Available Not Available Not Available clindamyc in HCl 300 mg capsule TAKE 1 CAPSULE BY MOUTH THREE TIMES A DAY 07/03 completed Not Available Not Available Not Available albuterol sulfate 2.5 mg/3 mL (0.083 %) solution for nebulizat ion INHALE 1 VIAL VIA NEBULIZE R THREE TIMES A DAY NEEDED FOR WHEEZING active Not Available Not Available No t Available loperamid e 2 mg capsule TAKE 1 CAPSULE BY MOUTH FOUR TIMES A DAY NEEDED FOR DIARRHEA active Not Available Not Available No t Available trazodone 50 mg tablet TAKE 1 TABLET BY MOUTH EVERY DAY AT NIGHT 08/12 completed Not Available Not Available Not Available atorvasta tin 10 mg tablet Take 1 tablet every day by oral route. 12/08 completed Not Available Not Available Not Available azithromy gigi 250 mg tablet TAKE 2 TABLETS BY MOUTH TODAY, THEN TAKE 1 TABLET DAILY FOR 4 DAYS DIRECTED 07/20 completed Not Available Not Available Not Available aspirin 325 mg tablet TAKE 1 TABLET BY MOUTH EVERY DAY START NEXT DAY 04/02 completed Not Available Not Available Not Available ofloxacin 0.3 % eye drops INSTILL 1 DROP INTO EYE THREE TIMES DAILY STARTING 2 DAYS BEFORE SURGERY, CONTINUE FOR 1 WEEK AFTER 01/11 completed Not Available Not Available Not Available fluconazo le 150 mg tablet TAKE ONE TABLET BY MOUTH TODAY AND REPEAT DOSE IN ONE WEEK 07/20 completed Not Available Not Available Not Available benzonata te 200 mg capsule TAKE 1 CAPSULE BY MOUTH THREE TIMES A DAY NEEDED FOR COUGH 06/19 completed Not Available Not Available Not Available hydrocodo ne 5 mg-acetam inophen 325 mg tablet TAKE 1 TABLET BY MOUTH EVERY 4 HOURS NEEDED FOR PAIN ON SCALE 4-6 active Not Available Not Available No t Available flurbipro fen 0.03 % eye drops INSTILL 1 DROP 3 TIMES A DAY IN SURGICAL EYE 2 DAYS PRIOR TO SURGERY, CONTINUE FOR 2 WEEKS AFTER 12/05 completed Not Available Not Available Not Available meloxicam 15 mg tablet TAKE 1 TABLET BY MOUTH EVERY DAY 07/20 completed Not Available Not Available Not Available lisinopri l 20 mg tablet TAKE 1 TABLET BY MOUTH EVERY DAY 06/15 completed Not Available Not Available Not Available ondansetr on HCl 4 mg tablet TAKE 1 TABLET (4 MG) BY MOUTH EVERY 8 HOURS NEEDED FOR NAUSEA/V OMITING 08/18 completed Not Available Not Available Not Available prednison e 20 mg tablet TAKE 2 TABLETS BY MOUTH ONCE DAILY 07/03 completed Not Available Not Available Not Available verapamil ER (SR) 180 mg tablet,ex tended release TAKE 1 TABLET BY MOUTH TWICE A DAY 04/06 completed Not Available Not Available Not Available metronida zole 500 mg tablet TAKE 1 TABLET BY MOUTH THREE TIMES A DAY FOR 7 DAYS 08/18 completed Not Available Not Available Not Available nifedipin e ER 30 mg tablet,ex tended release Take 1 tablet every day by oral route. 06/16 completed Not Available Not Available Not Available acetamino phen 300 mg-codein e 30 mg tablet TAKE 1 TABLET BY MOUTH EVERY 6 HOURS NEEDED FOR PAIN, MODERATE . 08/12 completed Not Available Not Available Not Available ciproflox acin 250 mg tablet TAKE 1 TABLET BY MOUTH EVERY 12 HOURS 04/02 completed Not Available Not Available Not Available amlodipin e 5 mg tablet TAKE 1 TABLET BY MOUTH DAILY 04/02 completed Not Available Not Available Not Available sulfameth oxazole 800 mg-trimet hoprim 160 mg tablet TAKE 1 TABLET BY MOUTH EVERY 12 HOURS 02/18 completed Not Available Not Available Not Available hydrocodo ne 10 mg-acetam inophen 325 mg tablet TAKE 1 TABLET BY MOUTH EVERY 4 HOURS NEEDED FOR PAIN, MODERATE . MAX DAILY AMOUNT 6 TABLETS 07/03 completed Not Available Not Available Not Available tramadol 50 mg tablet TAKE 1 TABLET BY MOUTH EVERY 8 HOURS NEEDED 06/15 completed Not Available Not Available Not Available amitripty line 50 mg tablet TAKE 1 TABLET BY MOUTH TWICE A DAY active Not Available Not Available No t Available triamcino lone acetonide 0.1 % topical cream APPLY A THIN LAYER TO THE AFFECTED AREA(S) BY TOPICAL ROUTE 2 TIMES PER DAY active Not Available Not Available No t Available diphenhyd ramine 12.5 mg chewable tablet Chew 2 tablets every 4 hours by oral route. 06/15 completed Not Available Not Available Not Available amoxicill in 500 mg tablet TAKE 1 TABLET BY MOUTH EVERY 8 HOURS FOR 10 DAYS 07/03 completed Not Available Not Available Not Available vancomyci n 125 mg capsule TAKE 1 CAPSULE (125 MG) BY MOUTH EVERY 6 HOURS FOR 10 DAYS. 02/18 completed Not Available Not Available Not Available glimepiri de 2 mg tablet TAKE 1 TABLET BY MOUTH TWICE A DAY REFILL S AT APPT active Not Available Not Available No t Available ketorolac 0.5 % eye drops APPLY 1 DROP 3 TIMES DAILY STARTING 2 DAYS BEFORE SURGERY, CONTINUE FOR 2 WEEKS AFTER 06/15 completed Not Available Not Available Not Available potassium chloride ER 20 mEq tablet,ex tended release(p art/cryst ) TAKE 1 TABLET BY MOUTH EVERY DAY 2024 active ANTON 04/26/24 ok to rf Not Available Not Available Not Available prednisol one acetate 1 % eye drops,dwayne pension INSTILL 1 DROP 3 TIMES A DAY STARTING AFTER SURGERY, CONTINUE FOR 3 WEEKS 12/05 completed Not Available Not Available Not Available trazodone 100 mg tablet TAKE 1 TABLET BY MOUTH EVERYDAY AT BEDTIME. NEED OFFICE VISIT FOR 90 DAYS 2024 active Not Available Not Available Not Avai lable dicyclomi ne 20 mg tablet TAKE 1 TABLET (20 MG) BY MOUTH 4 TIMES DAILY 08/18 completed Not Available Not Available Not Available ciproflox acin 0.3 % eye drops INSTILL 1 DROP 3 TIMES A DAY IN SURGICAL EYE 2 DAYS PRIOR TO SURGERY, CONTINUE FOR 1 WEEK AFTER 12/05 completed Not Available Not Available Not Available Kenalog 10 mg/mL suspensio n for injection Take 10 mg by injectio n route. 04/26 completed [facility]: [phone] Not Available Not Available Not Available meclizine 25 mg tablet TAKE 1 TABLET BY MOUTH TWICE A DAY NEEDED active Not Available Not Available No t Available amlodipin e 10 mg tablet TAKE 1 TABLET BY MOUTH EVERY DAY 04/21 completed Not Available Not Available Not Available cephalexi n 500 mg capsule TAKE 1 CAPSULE BY MOUTH TWICE A DAY 09/28 completed Not Available Not Available Not Available ferrous sulfate 325 mg (65 mg iron) tablet TAKE 1 TABLET BY MOUTH EVERY DAY 2023 active Not Available Not Available Not Avai lable clotrimaz ole-betam ethasone 1 %-0.05 % topical cream APPLY TOPICALL Y TO AFFECTED SURROUND ING AREAS OF SKIN TWICE A DAY X 2 WKS IN THE MORNING AND EVENING active Not Available Not Available No t Available lisinopri l 10 mg tablet TAKE 1 TABLET BY MOUTH DAILY 06/15 completed Not Available Not Available Not Available lidocaine 5 % topical patch PLACE 2 PATCHES ON THE SKIN DAILY REMOVE AND DISCARD PATCHES WITHIN 12 HOURS OR DIRECTED BY MD active Not Available Not Available No t Available gabapenti n 300 mg capsule TAKE 1 CAPSULE BY MOUTH THREE TIMES A DAY active Not Available Not Available No t Available omeprazol e 20 mg capsule,d elayed release TAKE 1 CAPSULE BY MOUTH EVERY DAY active Not Available Not Available No t Available allopurin ol 300 mg tablet TAKE 1 TABLET BY MOUTH EVERY DAY 2023 active Not Available Not Available Not Avai lable mupirocin 2 % topical ointment APPLY A SMALL AMOUNT TO THE AFFECTED AREA 3 TIMES A DAY 09/01 completed Not Available Not Available Not Available furosemid e 20 mg tablet TAKE 1 TABLET BY MOUTH EVERY DAY 04/21 completed Not Available Not Available Not Available triamtere ne 75 mg-hydroc hlorothia zide 50 mg tablet 06/15 completed D/C at Hospital Not Available Not Available Not Available ergocalci ferol (vitamin D2) 1,250 mcg (50,000 unit) capsule TAKE ONE CAPSULE BY MOUTH EVERY WEEK FOR 12 WEEKS active Not Available Not Available No t Available ibuprofen 600 mg tablet Take 1 tablet 3 times a day by oral route. 06/15 completed Not Available Not Available Not Available levofloxa gigi 500 mg tablet TAKE 1 TABLET BY MOUTH EVERY DAY FOR 7 DAYS 08/18 completed Not Available Not Available Not Available levofloxa gigi 750 mg tablet 07/03 completed Not Available Not Available Not Available methylpre dnisolone 4 mg tablets in a dose pack UUD On packet 12/08 completed Not Available Not Available Not Available albuterol sulfate HFA 90 mcg/actua tion aerosol inhaler TAKE 2 PUFFS BY MOUTH EVERY 4 HOURS NEEDED active Not Available Not Available No t Available ondansetr on 4 mg disintegr ating tablet PLACE 1 TABLET ON TOP OF TONGUE AND ALLOW TO DISSOLVE 3 TIMES A DAY NEEDED active Not Available Not Available No t Available cefdinir 300 mg capsule TAKE 1 CAPSULE BY MOUTH TWICE DAILY 07/03 completed Not Available Not Available Not Available dicyclomi ne 10 mg capsule TAKE 1 CAPSULE BY MOUTH THREE TIMES A DAY active Not Available Not Available No t Available amoxicill in 875 mg-potass ium clavulana te 125 mg tablet TAKE 1 TABLET BY MOUTH EVERY 12 HOURS 12/05 completed Not Available Not Available Not Available oxycodone 5 mg tablet TAKE 1 TABLET BY MOUTH EVERY 4 HOURS NEEDED FOR PAIN 08/12 completed Not Available Not Available Not Available escitalop vikram 10 mg tablet Take 1 tablet every day by oral route. 2024 active Not Available Not Available Not Avai lable rosuvasta tin 20 mg tablet TAKE 1 TABLET BY MOUTH EVERY DAY. PATIENT SHOULD CALL OFFICE 04/06 completed Not Available Not Available Not Available bupropion HCl XL 150 mg 24 hr tablet, extended release TAKE 1 TABLET (150 MG) BY MOUTH DAILY [employer]. 08/12 completed Not Available Not Available Not Available Marcaine (PF) 0.5 % (5 mg/mL) injection solution Take 20 mg by injectio n route. 04/26 completed Not Available Not Available Not Available vancomyci n 12/14 completed Not Available Not Available Not Available diclofena c 1 % topical gel APPLY 4 GRAMS TO RIGHT KNEE UP TO FOUR TIMES DAILY 08/12 completed Not Available Not Available Not Available Gavilyte- C 240 gram-22.7 2 gram-6.72 gram-5.84 gram oral solution TAKE DIRECTED 08/12 completed Not Available Not Available Not Available Suprep Bowel Prep Kit 17.5 gram-3.13 gram-1.6 gram oral solution PLEASE SEE ATTACHED FOR DETAILED DIRECTIO NS 08/12 completed Not Available Not Available Not Available OneTouch Verio test strips USE 1 STRIP TWICE A DAY active Not Available Not Available No t Available Farxiga 10 mg tablet TAKE 1 TABLET BY MOUTH EVERY DAY 2023 active ANTON 04/26/24 NOV 06/07/24 ok to rf Not Available Not Available Not Available potassium chloride ER 20 mEq tablet,ex tended release TAKE 2 TABLETS BY MOUTH EVERY DAY 04/06 completed Not Available Not Available Not Available OneTouch Delica Plus Lancet 30 gauge USE TO TEST TWICE A DAY 06/15 completed Not Available Not Available Not Available albuterol sulf 90 mcg/actua tion breath activated powder inhaler,s ensor Inhale 2 puffs every 4 hours by inhalati on route. 04/11 completed Not Available Not Available Not Available OneTouch Verio Reflect Meter USE TO TEST TWICE A DAY 06/15 completed Not Available Not Available Not Available Soaanz 40 mg tablet active Not Available Not Available No t Available Paxlovid 150 mg-100 mg tablets in a dose pack (Renal Dose) PLEASE SEE ATTACHED FOR DETAILED DIRECTIO NS 06/15 completed Not Available Not Available Not Available Vitals Date Recorded Body height Body mass index (BMI) Body weight Provider Name and Address Organization Details Last Updated DateTime 04/02/2024 165.1 cm 31.6 kg/m2 65325.55 g Tamy Keenan CNA [facility] [employer] [facility] 04/02/2024 11:53:28 Date Recorded Body height Body mass index (BMI) Body weight Body temperature Oxygen saturation Oxygen saturation in Arterial blood by Pulse oximetry Heart rate Systolic blood pressure Diastolic blood pressure Provider Name and Address Organization Details Last Updated DateTime 4 165.1 cm 33.5 kg/m2 58996.5 g 99.9 [degF] 94 % 94 % 113 /min 180 mm[Hg] 88 mm[Hg] Nancy Pablo RN [facility] [employer] [facility] 14:32:10 Date Recorded Body weight Body temperature Heart rate Oxygen saturation Oxygen saturation in Arterial blood by Pulse oximetry Systolic blood pressure Diastolic blood pressure Provider Name and Address Organization Details Last Updated DateTime 4 67869.7 g 97.2 [degF] 92 /min 96 % 96 % 138 mm[Hg] 70 mm[Hg] Chiquis becker [employer] 4 09:58:11 Date Recorded Body weight Body temperature Heart rate Oxygen saturation Oxygen saturation in Arterial blood by Pulse oximetry Systolic blood pressure Diastolic blood pressure Provider Name and Address Organization Details Last Updated DateTime 5 24715.8 4 g 98.1 [degF] 77 /min 95 % 95 % 138 mm[Hg] 64 mm[Hg] Mariposa fernando Corso12 [employer] 5 12:55:32 Date Recorded Body height Body mass index (BMI) Body weight Body temperature Heart rate Oxygen saturation Oxygen saturation in Arterial blood by Pulse oximetry Systolic blood pressure Diastolic blood pressure Provider Name and Address Organization Details Last Updated DateTime 5 165.1 cm 34.6 kg/m2 95712.2 1 g 96.8 [degF] 98 /min 95 % 95 % 130 mm[Hg] 60 mm[Hg] Chiquis becker Elieser Corso12 [employer] 5 11:33:19 Social History Question Answer Notes LastModified by Organizat ion Details LastModified Time Tobacco Smoking Status Never Smoker Not Available [facility] 08/18/2022 10:41:35 What Is Your Level Of Alcohol Consumption? None [id number] Information not available 08/18/2022 What Is Your Level Of Caffeine Consumption? None [id number] Information not available 08/18/2022 In The 14 Days Before Symptom Onset, Have You Had Close Contact With A Laboratory-confir med COVID-19 While That Case Was Ill? No Her, And Son Positive 05/20/23 Information not available 06/23/2023 In The 14 Days Before Symptom Onset, Have You Had Close Contact With A Person Who Is Under Investigation For COVID-19 While That Person Was Ill? No [id number] Information not available 08/18/2022 What Type Of Diet Are You Following? REGULAR Information not available 06/23/2023 Do You Have An Electrostatic Air Filter? Yes Information not available 06/23/2023 Do You Have A Humidifier? Yes Information not available 06/23/2023 Do You Have Moisture Problems In Your Home? No Information not available 06/23/2023 What Was The Date Of Your Most Recent Tobacco Screening? 06/23/2023 Information not available 06/23/2023 Do You Have Any Pets? Yes Information not available 06/23/2023 Do You Use Your Seat Belt Or Car Seat Routinely? Yes Information not available 06/23/2023 Do You Have Smoke And Carbon Monoxide Detectors In Your Home? Yes Information not available 06/23/2023 Are You Passively Exposed To Smoke? No Information no t available 06/23/2023 Do You Use Any Illicit Or Recreational Drugs? No [id number] Information not available 08/18/2022 Do You Use Sunscreen Routinely? No Doesn't Get Out In The Sun, When Out Will Use Information not available 06/23/2023 Has Tobacco Cessation Counseling Been Provided? No [id number] Information not available 08/18/2022 Have You Recently Traveled Abroad? No [id number] Information not available 08/18/2022 Do You Have Any Dietary Restrictions? No Information not available 06/23/2023 Do You Or Have You Ever Used Any Other Forms Of Tobacco Or Nicotine? No [id number] Information not available 08/18/2022 Sex: Unknown Functional Status None recorded. Mental Status None recorded. Family History Relationship Description Onset Age of this Age Resolved Age Notes LastModified by Organization Details LastModified Time Father Diabetes mellitus [id number] Not available 08/18/2022 10:42:52 Father Heart disease [id number] Not available 08/18/2022 10:42:52 Father Hypertensive disorder [id number] Not available 08/18/2022 10:42:52 Mother Diabetes mellitus [email or web address] Not available 2023 12:00:40 Mother Heart disease [email or web address] Not available 2023 12:01:00 Brother Diabetes mellitus multip le brothe rs Not available 04/02/2024 12:00:56 Brother Hypertensive disorder multip le brothe rs Not available 04/02/2024 12:01:18 Notes:cancer-mother Medical History Condition Response CYSTITIS N BLINDNESS N RHEUMATIC FEVER N KIDNEY STONES N BLADDER PROBLEMS N Enlarged Prostate N SLEEP APNEA N MRSA N INFECTIOUS DISEASE N LUNG DISEASE/DISORDER N HEART ARRHYTHMIA N PROSTATE N INSOMNIA N HISTORY OF DRUG ABUSE N RADIATION / CHEMOTHERAPY N COPD Y HIGH CHOLESTEROL / HYPERLIPIDEMIA N HYPERTHYROIDISM N UTI N BLOOD DISEASES N EDEMA N HYPOTHYROIDISM N SHINGLES N DEPRESSION (INCLUDING POST ) N BOWEL PROBLEMS N BACK / NECK PROBLEMS N HAVE YOU BEEN HOSPITALIZED OR SEEN IN HEALTH SYSTEM ER IN THE PAST YEAR ? N STROKE/TIA N THYROID DISEASE N BENIGN PROSTATIC HYPERPLASIA N DIALYSIS N OBESITY N GERD/NAUSEA N HISTORY WITH COMPLICATIONS WITH ANESTHES IA ? N ANEURYSM N OSTEOPOROSIS N URINARY/BLADDER/KIDNEY PROBLEMS N Increased Urination N CORONARY ARTERY DISEASE (CAD) N ARTHRITIS Y USE OF BLOOD THINNERS N NO SIGNIFICANT PAST MEDICAL HISTORY N DIABETES, TYPE Y EMPHYSEMA N [place] N GASTROINTESTINAL DISORDER N GASTROINTESTINAL BLEEDING N BLOOD CLOTS N Difficulty Urinating N HEPATITIS / LIVER DISEASE N ASTHMA Y CATARACTS N GOUT N SLEEP DISORDER N ALZHEIMER'S DISEASE N HERPES N ERECTILE DYSFUNCTION N SEIZURES/EPILEPSY N HEADACHES/MIGRAINES N GI PROBLEMS N PACEMAKER N Low Testosterone N HEART MURMUR N DIZZINESS N KIDNEY DISEASE N HEART DISEASE/HEART PROBLEMS N AIDS/HIV N MULTIPLE SCLEROSIS N LIVER DISEASE N MALE HYPOGONADISM N HYPERTENSION Y CANCER: SPECIFY N TOURETTE'S N BLOOD TRANSFUSION N ANESTHESIA COMPLICATIONS N ANEMIA/BLOOD DISORDER N ATRIAL FIBRILLATION N AUTOIMMUNE DISEASE N TUBERCULOSIS N GLAUCOMA N Gynecological HistoryNo gynecological history recorded. Obstetrics History GPAL:G 0 P 0 0 0 0 Immunizations Vaccine Type Date Status Note Provider [facility] e and Address Organization Details Recorded Time influenza nasal, unspecified formulation 04/02/2024 completed Carmen Roberts [facility] [email or web address] [facility] 04/03/2024 09:05:56 Past Encounters Encounter ID Performer Location Encounter Start Date Encounter Closed Date Diagnosis/Indication Diagnosis SNOMED-CT Code Diagnosis ICD10 Code Diagnosis Note [id number] [facility] [address] [address] 08/12/2021 00:00:00 08/12/2021 17:29:05 [id number] [facility] [id number] [place] [address] 09/10/2021 00:00:00 09/10/2021 11:36:36 [id number] [facility] [place] [address] [facility], [address] [place] [address] 09/17/2021 00:00:00 09/17/2021 11:09:32 [id number] [facility] [address] [facility] [place] [address] 09/28/2021 00:00:00 09/28/2021 11:44:52 [id number] [facility] [address] [facility] [address] 10/27/2021 00:00:00 10/27/2021 12:15:12 [id number] [facility] [address] [address] 11/10/2021 00:00:00 11/10/2021 13:24:08 [id number] [facility] [place] [address] [place] [address] 12/16/2021 00:00:00 12/16/2021 15:53:32 [id number] [facility] [address] [address] 02/18/2022 00:00:00 02/18/2022 16:20:23 [id number] [facility] [address] [address] 06/08/2022 00:00:00 06/08/2022 13:07:13 [id number] Shun Felix MD [facility] [address] [address] 08/18/2022 14:29:24 08/18/2022 14:54:04 Pre-surgery evaluation 514470131 Z01.818 check labs then decide Type 2 melvin betes mellitus 91422006 E11.9 needs labs Long-term drug therapy 031523906 Z79.899 [id number] Shun Felix MD [facility] [address] [place] [address] 09/01/2022 11:59:20 09/01/2022 12:48:20 Diabetes mellitus 38371653 E11.9 not under control, watch diet, stop metformin Essential hypertension 21831079 I10 ^ the dose Incontinence of feces 72 540310 R15.9 uisng depends Kidney disease 36604841 N08 stop metformin Liver func tion tests outside reference range 598180740 R94.5 lose weight, follow low fat diet [id number] Shun Felix MD [facility] [address] [place] [address] 11/03/2022 11:49:29 11/03/2022 12:16:01 Injury of finger 41457918 S69.90XA Essential hypertension 23832289 I10 advise dto take 20 mg qd Diabetes mellitus 153215 09 E11.9 not under control,ad d glimepride [id number] Shun Felix MD [facility] Med [address] [facility] [place] [address] 01/17/2023 12:00:11 01/17/2023 12:49:43 Diabetes mellitus 41848583 E11.9 getting better Essential hypertension 20447410 I10 better Incontinence of feces 72 205792 R15.9 using depends Kidney disease 90970106 N08 to see nephrology Liver func tion tests outside reference range 562828349 R94.5 lose weight, Adult heal th examination 950070597 Z00.00 Gastroesop hageal reflux disease 292299550 K21.9 meds help Hypertriglyceridemia 302 901332 E78.1 advised to watch diet Insomnia 113937960 G47.0 0 on trazodone Proteinuria 29175090 R80 .9 on lisinopril Bilateral tinnitus 14800 15572 102 H93.13 seen ENT Vitamin D deficiency 347 99208 E55.9 ON OTC Vertigo 734472447 R42 MECLIZINE HELP Osteoarthritis 932944393 M19.90 OTC Hyperlipidemia 68099063 E78.5 watch diet Neuropathy 123257235 G62 .9 ^ pm dose of gabapentin 600 mg Pre-surger y evaluation 302642703 Z01.818 labs , then decide [id number] Shun Felix MD [facility] Med [address] [place] [address] 04/21/2023 10:49:15 04/21/2023 12:00:38 Transition of care 6663548318 105 Z75.8 Facility: [facility] Date: 04/13/23 scharge Date: 04/15/23 scharge Diagnoses: Chest pain, orthostati c headache, hypokalemi a, heart failure Congestive heart failure 57215114 I50.9 better Essential hypertension 69857478 I10 better Nausea 881664065 R11.0 [id number] Shun Felix MD [facility] Med [facility] [address] [place] [address] 06/02/2023 14:46:17 06/02/2023 15:28:31 Cough 06744033 R05.9 likely covid ( just diagnosed today ) Pneumonia 543874320 J18. 9 already treated in the hospital Solitary n odule of lung 550642669 R91.1 needs f/u CT in 3 months [id number] Kush Mancini MD [facility] [address] [address] 06/23/2023 11:57:19 06/24/2023 08:20:06 Dyspnea on exertion 55011006 R06.09 R05.9 T78.40XA D89.9 J98.4 Solitary n odule of lung 141521755 R91.1 [id number] Shun Felix MD [facility] Med [facility] [address] [place] [address] 06/23/2023 15:22:39 06/23/2023 16:35:33 Edema of lower extremity 408665903 R60.0 keep taking furosemide [id number] Kush Mancini MD [facility] [address] [address] 07/20/2023 09:01:19 07/21/2023 15:30:03 Solitary nodule of lung 839645232 R91.1 Dyspnea on exertion 6084 5006 R06.09 R05.9 T78.40XA D89.9 J98.4 [id number] Shun Felix MD [facility] [address] [facility] [address] 08/30/2023 15:24:33 08/30/2023 16:02:55 Pre-surgery evaluation 040647615 Z01.818 low risk for cataract surgery Essential hypertension 72352843 I10 under control Diabetes mellitus 772051 09 E11.9 getting better, acu checks reviewed Long-term drug therapy 070026629 Z79.747 [id number] Stacy Jesus NP [facility] [address] [facility] [address] 02/17/2024 11:31:04 02/17/2024 12:36:43 Diabetes mellitus 07688397 E11.9 needs update labs, has urinary issues and skin is sore Dyspnea on exertion 6084 5006 R06.09 R05.9 T78.40XA D89.9 J98.4 sees pulmonary and f/u every six months Essential hypertension 58054696 I10 blood pressure borderline today, taking meds as prescribed needs to update labs; have pharmacy call if needs refills Osteoarthritis 277571885 M19.90 has arthritis in the knees, right worse, has used cream in the past but is thinking an injection might help better, the cream does not help (voltaren) Acute urin brock tract infection 405831651 N39.0 Atrophic vaginitis 74990 000 N95.2 needs to use mild soap like dove or plain dialneeds to rinse with water and pat dry with wash cloth, avoid any topical over the counter creams like vagisil Vitamin D deficiency 347 07969 E55.9 will treat with meds and recheck labs at a later date Vertigo 585780130 R42 [id number] Shun Felix MD [facility] Med [facility] [address] [facility] [address] 03/20/2024 14:55:07 03/20/2024 15:42:59 Viral gastroenteritis 032614837 A08.4 diet discussed, imodium prn, liquids [id number] Rolando Tripathi MD [facility] [address] [address] 04/02/2024 11:47:47 04/02/2024 12:44:33 Pain of bilateral knee joints 7487366549 09706 M25.561 M25.045 [id number] Stacy Jesus NP [facility] Internal [address] [place] [address] 04/06/2024 14:01:52 04/06/2024 15:32:08 Candidiasis of skin 72317266 B37.2 Candidiasis of vagina 72 051644 B37.31 Chronic bronchitis 52283 004 J42 Cataract 095389362 H26.9 trying to get right cataract completed, has had to cancel multiple times because of life changes, will try to clear now. over all is ok physical health, has a lot of stress and depression but overall ok physical assessment , will recheck blood pressure if still elevated will need to see dr felix before she can be cleared. has an upcoming appointmen with dr felix [id number] Shun Felix MD [facility] Internal [address] [place] [address] 04/26/2024 09:46:59 04/26/2024 10:31:12 Transition of care 4697340711 105 Z75.8 Facility: [facility] Date: 04/13/23 scharge Date: 04/15/23 scharge Diagnoses: Chest pain, orthostati c headache, hypokalemi a, heart failure Pneumonia 956047259 J18. 9 already treated in the hospital and better Candidiasis of vagina 72 670593 B37.31 Insomnia 229079217 G47.0 0 on trazodone [id number] Shun Felix MD [facility] Internal [address] [place] [address] 07/02/2024 12:38:08 07/02/2024 13:22:06 Upper respiratory infection 54873807 J06.9 Chronic diarrhea 6224800 09 K52.9 Nausea 453525590 R11.0 [id number] Shun Felix MD [facility] Internal [address] [place] [address] 07/20/2024 11:23:50 07/20/2024 12:22:01 Anemia 717683574 D64.9 improved Chronic back pain 103924 002 G89.29 otc Anxiety 84719901 F41.9 getting worse Chronic ki dney disease 201274320 N18.9 stable Congestive heart failure 99039581 I50.9 better Diabetes mellitus 901804 09 E11.9 better Essential hypertension 89534188 I10 under control Gastroesop hageal reflux disease 410411200 K21.9 meds help Hearing loss 22125644 H9 1.93 Hyperlipidemia 29686928 E78.5 watch diet Neuropathy 989556302 G62 .9 gabapentin helps Multiple n odules of lung 789991488 R91.8 to see pulm Osteoarthritis 007371774 M19.90 OTC Vitamin D deficiency 347 09285 E55.9 ON OTC Adult heal th examination 651919296 Z00.00 Colonoscop y- In the pastMammog vikram- 2022- NL per ptDEXA- NEVERPneum ovax- States that shes hadFLU- 04/02/2024 COVID- Had the first 3, does not want any more Edema 619848246 R60.9 on furosemide Pre-surger y evaluation 579533700 Z01.818 low risk for cataract surgery Health Concerns Section Related Observation LastModified by Organization Detai ls LastModified Time None Recorded Concern Status LastModified by Organization Details LastModified Time None Recorded Advance Directives Directive None Recorded Payers Encounter Date Sequence Insurance Name Policy Number Policy De Jesus Covered Member ID De Jesus Member ID Guarantor Name 04/02/2024 1 [facility] (MEDICARE REPLACEMENT/A DVANTAGE - HMO) [id number] Cristal Martínez [id number] Cristal Martínez 04/02/2024 2 [place] Cristal Martínez [id number] Cristal Martínez 04/06/2024 1 [facility] (MEDICARE REPLACEMENT/A DVANTAGE - HMO) [id number] Cristal Martínez [id number] Cristal Martínez 04/06/2024 2 [place] Cristal Martínez [id number] Cristal Martínez 04/26/2024 1 [facility] (MEDICARE REPLACEMENT/A DVANTAGE - HMO) [id number] Cristal Mckeon McQuay [id number] Cristal Martínez 04/26/2024 2 [place] [facility] Cristal Martínez [id number] Cristal Martínez 07/02/2024 1 [facility] (MEDICARE REPLACEMENT/A DVANTAGE - HMO) [id number] Cristal Mckeon McQuay [id number] Cristal Mckeon McQuay 07/02/2024 2 [place] [facility] Cristal Martínez [id number] Cristal Mckeon McQuay 07/20/2024 1 [facility] (MEDICARE REPLACEMENT/A DVANTAGE - HMO) [id number] Cristal Martínez [id number] Cristal Martínez 07/20/2024 2 [place] [facility] Cristal Martínez [id number] Cristal Martínez Notes Date Note Type Note Provider Name and Address Organization Details Recorded Time 04/06/2024 text/html patient is here for surgical clearance for cataract surgery for right eye. Patient experiencing grief over loss of , has son who is going through divorce living with her. Displays stress. Stacy Jesus NP [address] [address], [place], [address], [facility] [employer] [facility] 04/06/2024 17:19:38 04/26/2024 text/html Pt is here today for a follow up from the hospitalRecord and d/c summary reviewed Recovery from pneumonia- treated with abx in the hospitalFinished doxyStill has some SOB and cough. Would like a refill on her tessalon pearls. States that her sternum is real sore and tender from all the coughingHas a large nodule on her neck, states that it is sore and feels it getting largerHaving trouble sleeping, Avg maybe 2-3 hours of sleep at night which makes her so tired though out the dayStill has an irritation in the vaginal area, was treated with diflucan and a cream but states that its not helping. Itches real bad.PT IS FASTING ( [facility] ) Shun Felix MD [address] [facility] [address], [place], [address], [employer] [facility] 04/26/2024 10:29:37 07/02/2024 text/html pt is here today for sick visit onset 06/14/24. pt is having diarrea more than usual but she just started to take here medicine for that 3days ago. forgetful when it come to taking her medicine.pt is having a cough with wheezing (but is normal for her) yellowish phlegm, no tempnothing otc but tylenolpt is having body aches from a fall in on Tuesday that she had fell head first in the tub also affecting her lower left abdomen. she was rushing to the bathroom and lost her balance and couldn't stop and fell into the tubshe takes loperamide, it helps Shun Felix MD [address], [place], [address], [employer] 07/02/2024 13:18:00 07/20/2024 text/html Pt is here today for her routine follow up Will get SOB if she gets up and tries to do anything, She has been retaining fluid in her legs and had to stop wearing her rings because her fingers swell so bad. Has gained 4 lbs in the last 2 weeksShe feels her memory is getting worse. she is grieving from her husbands in 01/10 Hypertension- Controlled with medsMeds- Amlodipine 10mg daily, Lisinopril 20mg daily Diabetes- Glucose runs 150, A1c- 7.0 (03/07/24)Last eye exam- 2022- [facility] Glimepiride 2mg BID, Farxiga 10 mg qd, metformin was stopped due to kidney disease Neuropathy-gets pain and tingling in the hands and feet, more at night, Meds helpingMeds- Gabapentin 300mg qid Osteoarthritis- otc Hyperlipidemia- labs still mildly high, advise dto watch dietMeds- Atorvastatin 20mg daily Migraine- Takes med as a preventionMeds- Amitriptyline 50mg BID Pulm nodules right and left, PET 2022 showed benign, was never a smoker. Acute renal failure- improved with hydration, metformin , Furosemide and diltiazem was stopped, now on amlodipine, GFR 39, needs nephrology f/u., again discussedGERD- meds help, Omeprazole 20mg daily Bilateral hearing loss/ tinnitus - worse in her left earVertigo- meclizine helps H/O DIVERTICULITIS Unsteady gait- happens when starts walking then becomes better, using walker some timesInsomnia- on Trazodone Chronic diarrhea/ faecal incontinence, has not seen GI as ordered, taking loperamide, not under control, need to see GI Shun Felix MD [address] [facility], [facility] [address], [place], [address], [place] - [facility] 07/20/2024 12:17:05 OBGyn Episode No OBEpisode recorded.
--- OUTSIDE RECORDS SUMMARY | 2024-07-29 03:24 | XMS_ITS | Encounter Summary ---
Author Organization [facility] Address 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
--- OUTSIDE RECORDS SUMMARY | 2024-07-29 03:24 | XMS_ITS | Encounter Summary ---
Author Organization [facility] Address 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
--- OUTSIDE RECORDS SUMMARY | 2024-07-29 03:24 | XMS_ITS | Encounter Summary ---
Author Organization [employer] Address 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 diff 12/05/2021 12/04/2021 12/05/2021 3:51 PM CDT R/O C. diff 04/11/2023 04/11/2023 04/11/2023 8:12 AM CDT documented as of this encounter Care Teams Diversity Manager Relationship Specialty Start Date End Date Jevon Felix MD [address] [facility] [address] [place] [phone] PCP - General Internal Medicine 09/01/21 documented as of this encounter
--- OUTSIDE RECORDS SUMMARY | 2024-07-29 03:24 | XMS_ITS | Encounter Summary ---
Author Organization [facility] Address 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
--- OUTSIDE RECORDS SUMMARY | 2024-07-29 03:24 | XMS_ITS | Encounter Summary ---
Author Organization [facility] Address [address] [place] [address] Care Team Providers Care Bag Turner Name Role Phone Jevon Felix MD Primary Care Provider [phone] Encounter Details Date Type Department Care Team (Late st Contact Info) Description 02/02/2000 Outpatient Historical [address] [place] [phone] Liam Galeano MD NO ADDRESS ON FILE Social History Tobacco Use Types Packs/Day Years Used Date Smoking Tobacco: Never Assessed Comments Unknown Sex and Gender Information Value Date Recorded Sex Assigned at Not on file Legal Sex Female 3:06 AM MANAGER ACTUARIAL Gender Identity Not on file Sexual Orientation [...] documented as of this encounter Care Teams Bag Turner Relationship Specialty Start Date End Date Jevon Felix MD [address] [phone] PCP - General Internal Medicine 09/01/21 documented as of this encounter
--- OUTSIDE RECORDS SUMMARY | 2024-07-29 03:24 | XMS_ITS | Encounter Summary ---
Author Organization [facility] Address 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
--- OUTSIDE RECORDS SUMMARY | 2024-07-29 03:24 | XMS_ITS | Encounter Summary ---
Author Organization [employer] Address [address] [place] [address] Care Team Providers Care Aging Room Operator Name Role Phone Jevon Felix MD Primary Care Provider [phone] Encounter Details Date Type Department Care Team (Late st Contact Info) Description 09/24/2002 Outpatient Historical [facility] [address] [place] [address] Benitez Blanchard MD NO ADDRESS ON FILE Social History Tobacco Use Types Packs/Day Years Used Date Smoking Tobacco: Never Assessed Comments Unknown Sex and Gender Information Value Date Recorded Sex Assigned at Not on file Legal Sex Female 3:06 AM LIPCOAT SPRAYER Gender Identity Not on file Sexual Orientation [...] documented as of this encounter Care Teams Aging Room Operator Relationship Specialty Start Date End Date Jevon Felix MD [address] [phone] PCP - General Internal Medicine 09/01/21 documented as of this encounter
--- OUTSIDE RECORDS SUMMARY | 2024-07-29 03:24 | XMS_ITS | Encounter Summary ---
Author Organization [facility] Address 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
--- OUTSIDE RECORDS SUMMARY | 2024-07-29 03:24 | XMS_ITS | Encounter Summary ---
Author Organization [facility] Address [address] [place] [address] Care Team Providers Care Marketing Secretary Name Role Phone Jevon Felix MD Primary Care Provider [phone] Encounter Details Date Type Department Care Team (Late st Contact Info) Description 03/20/2003 Outpatient Historical [address] [place] [phone] Liam Galeano MD NO ADDRESS ON FILE Social History Tobacco Use Types Packs/Day Years Used Date Smoking Tobacco: Never Assessed Comments Unknown Sex and Gender Information Value Date Recorded Sex Assigned at Not on file Legal Sex Female 3:06 AM QUENCHER OPERATOR Gender Identity Not on file Sexual [...] documented as of this encounter Care Teams Marketing Secretary Relationship Specialty Start Date End Date Jevon Felix MD [address] [phone] PCP - General Internal Medicine 09/01/21 documented as of this encounter
--- OUTSIDE RECORDS SUMMARY | 2024-07-29 03:24 | XMS_ITS | Encounter Summary ---
Author Organization [facility] Address 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
--- OUTSIDE RECORDS SUMMARY | 2024-07-29 03:24 | XMS_ITS | Encounter Summary ---
Author Organization [facility] Address 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
--- OUTSIDE RECORDS SUMMARY | 2024-07-29 03:25 | XMS_ITS | Encounter Summary ---
Author Organization [facility] Address [address] [place] [address] Care Team Providers Care Tea Plantation Worker Name Role Phone Jevon Felix MD Primary Care Provider [phone] Encounter Details Date Type Department Care Team (Late st Contact Info) Description 09/30/2005 Outpatient Historical [address] [place] [phone] Liam Galeano MD NO ADDRESS ON FILE Social History Tobacco Use Types Packs/Day Years Used Date Smoking Tobacco: Never Assessed Comments Unknown Sex and Gender Information Value Date Recorded Sex Assigned at Not on file Legal Sex Female 3:06 AM ALCOHOLISM WORKER Gender Identity Not on file Sexual [...] documented as of this encounter Care Teams Tea Plantation Worker Relationship Specialty Start Date End Date Jevon Felix MD [address] [phone] PCP - General Internal Medicine 09/01/21 documented as of this encounter
--- OUTSIDE RECORDS SUMMARY | 2024-07-29 03:25 | XMS_ITS | Encounter Summary ---
Author Organization [facility] Address 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
--- OUTSIDE RECORDS SUMMARY | 2024-07-29 03:25 | XMS_ITS | Encounter Summary ---
Author Organization [facility] Address 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
--- OUTSIDE RECORDS SUMMARY | 2024-07-29 03:25 | XMS_ITS | Encounter Summary ---
Author Organization [facility] Address [address] [place] [address] Care Team Providers Care Runner Worker Name Role Phone Jevon Felix MD Primary Care Provider [phone] Encounter Details Date Type Department Care Team (Late st Contact Info) Description 09/30/2005 Outpatient Historical [address] [place] [phone] Liam Galeano MD NO ADDRESS ON FILE Social History Tobacco Use Types Packs/Day Years Used Date Smoking Tobacco: Never Assessed Comments Unknown Sex and Gender Information Value Date Recorded Sex Assigned at Not on file Legal Sex Female 3:06 AM FREIGHT REPRESENTATIVE Gender Identity Not on file Sexual Orientation [...] documented as of this encounter Care Teams Runner Worker Relationship Specialty Start Date End Date Jevon Felix MD [address] [phone] PCP - General Internal Medicine 09/01/21 documented as of this encounter
--- OUTSIDE RECORDS SUMMARY | 2024-07-29 03:25 | XMS_ITS | Encounter Summary ---
Author Organization [facility] Address [address] [place] [address] Care Team Providers Care Cleaning And Maintenance Worker Name Role Phone Jevon Felix MD Primary Care Provider [phone] Encounter Details Date Type Department Care Team (Late st Contact Info) Description 06/07/2007 Outpatient Historical [address] [place] [phone] Liam Galeano MD NO ADDRESS ON FILE Social History Tobacco Use Types Packs/Day Years Used Date Smoking Tobacco: Never Assessed Comments Unknown Sex and Gender Information Value Date Recorded Sex Assigned at Not on file Legal Sex Female 3:06 AM BUSINESS SERVICES REPRESENTATIVE Gender Identity Not on file Sexual [...] documented as of this encounter Care Teams Cleaning And Maintenance Worker Relationship Specialty Start Date End Date Jevon Felix MD [address] [phone] PCP - General Internal Medicine 09/01/21 documented as of this encounter
--- OUTSIDE RECORDS SUMMARY | 2024-07-29 03:25 | XMS_ITS | Encounter Summary ---
Author Organization [employer] Address [address] [place] [address] Care Team Providers Care House Principal Name Role Phone Jevon Felix MD Primary Care Provider [phone] Encounter Details Date Type Department Care Team (Latest Contact Info) Description 04/16/2008 Outpatient Historical [facility] [address] Liam Galeano MD NO ADDRESS ON FILE Hematuria, Unspecified Social History Tobacco Use Types Packs/Day Years Used Date Smoking Tobacco: Never Alcohol Use Standard Drinks/Week Comments Not Asked 0 (1 standard drink = 0.6 oz pur e alcohol) Comments No Sex and Gender Information Value Date Recorded Sex Assigned at Not on file Legal Sex Female 3:06 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 diff 12/05/2021 12/04/2021 12/05/2021 3:51 PM CDT R/O C. diff 04/11/2023 04/11/2023 04/11/2023 8:12 AM CDT documented as of this encounter Care Teams House Principal Relationship Specialty Start Date End Date Jevon Felix MD [address] [phone] PCP - General Internal Medicine 09/01/21 documented as of this encounter
--- OUTSIDE RECORDS SUMMARY | 2024-07-29 03:25 | XMS_ITS | Encounter Summary ---
Author Organization [facility] Address 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
--- OUTSIDE RECORDS SUMMARY | 2024-07-29 03:25 | XMS_ITS | Encounter Summary ---
Author Organization [facility] Address [address] [place] [address] Care Team Providers Care Buggy Runner Name Role Phone Jevon Felix MD Primary Care Provider [phone] Encounter Details Date Type Department Care Team (Late st Contact Info) Description 06/08/2007 Outpatient Historical [address] [place] [phone] Liam Galeano MD NO ADDRESS ON FILE Social History Tobacco Use Types Packs/Day Years Used Date Smoking Tobacco: Never Assessed Comments Unknown Sex and Gender Information Value Date Recorded Sex Assigned at Not on file Legal Sex Female 3:06 AM CABLE TELEVISION PROGRAM DIRECTOR Gender Identity Not on file Sexual [...] documented as of this encounter Care Teams Buggy Runner Relationship Specialty Start Date End Date Jevon Felix MD [address] [phone] PCP - General Internal Medicine 09/01/21 documented as of this encounter
--- OUTSIDE RECORDS SUMMARY | 2024-07-29 03:25 | XMS_ITS | Encounter Summary ---
Author Organization [facility] Address [address] [place] [address] Care Team Providers Care Motor Expert Name Role Phone Jevon Felix MD Primary Care Provider [phone] Encounter Details Date Type Department Care Team (Late st Contact Info) Description 04/04/2006 Outpatient Historical [address] [place] [phone] Liam Galeano MD NO ADDRESS ON FILE Social History Tobacco Use Types Packs/Day Years Used Date Smoking Tobacco: Never Assessed Comments Unknown Sex and Gender Information Value Date Recorded Sex Assigned at Not on file Legal Sex Female 3:06 AM BMET Gender Identity Not on file Sexual Orientation [...] documented as of this encounter Care Teams Motor Expert Relationship Specialty Start Date End Date Jevon Felix MD [address] [phone] PCP - General Internal Medicine 09/01/21 documented as of this encounter
--- OUTSIDE RECORDS SUMMARY | 2024-07-29 03:25 | XMS_ITS | Encounter Summary ---
Author Organization [facility] Address [address] [place] [address] Care Team Providers Care Battery Charger Name Role Phone Jevon Felix MD Primary Care Provider [phone] Encounter Details Date Type Department Care Team (Late st Contact Info) Description 09/20/2006 Outpatient Historical [address] [place] [phone] Liam Galeano MD NO ADDRESS ON FILE Social History Tobacco Use Types Packs/Day Years Used Date Smoking Tobacco: Never Assessed Comments Unknown Sex and Gender Information Value Date Recorded Sex Assigned at Not on file Legal Sex Female 3:06 AM LOBBY CONCIERGE Gender Identity Not on file Sexual Orientation [...] documented as of this encounter Care Teams Battery Charger Relationship Specialty Start Date End Date Jevon Felix MD [address] [phone] PCP - General Internal Medicine 09/01/21 documented as of this encounter
--- OUTSIDE RECORDS SUMMARY | 2024-07-29 03:25 | XMS_ITS | Encounter Summary ---
Author Organization [facility] Address 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 Gender Identity Not on file Sexual Orientation Not on file documented as of this encounter Plan of Treatment Not on file documented as of this encounter Procedures Procedure Name Priority Date/Time Associated Diagnosis Comments POC CREATININE Routine 02/13/2007 1:46 PM CDT documented in this encounter Results * POC CREATININE (02/13/2007 1:46 PM CDT) CREATININE POC 1.1 0.6 - 1.3 mg/dL INTERFACE SYSTEM 02/13/2007 1:46 PM CDT [facility] POINT OF CARE TESTING Edited INTERFACE SYSTEM Refer to clinic/hospital department documented in this encounter Visit Diagnoses Diagnosis Other chronic nonalcoholic liver disease- Primary documented in this encounter Additional Health Concerns Infection Onset Date Last Indicated Resolved Time R/O COVID-19 12/27/2019 12/27/2019 12/28/2019 3:23 AM CDT C Diff 12/04/2021 12/04/2021 11/03/2022 1:00 AM CDT R/O C. diff 12/05/2021 12/04/2021 12/05/2021 3:51 PM CDT R/O C. diff 04/11/2023 04/11/2023 04/11/2023 8:12 AM CDT documented as of this encounter Care Teams Litigation Attorney Associate Relationship Specialty Start Date End Date Jevon Felix MD [address] [phone] PCP - General Internal Medicine 09/01/21 documented as of this encounter
--- OUTSIDE RECORDS SUMMARY | 2024-07-29 03:25 | XMS_ITS | Encounter Summary ---
Author Organization [facility] Address 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
--- OUTSIDE RECORDS SUMMARY | 2024-07-29 03:25 | XMS_ITS | Encounter Summary ---
Author Organization [facility] Address [address] [place] [address] Care Team Providers Care Sewing Trimmer Name Role Phone Jevon Felix MD Primary Care Provider [phone] Encounter Details Date Type Department Care Team (Late st Contact Info) Description 04/12/2002 Outpatient Historical [address] [place] [phone] Liam Galeano MD NO ADDRESS ON FILE Social History Tobacco Use Types Packs/Day Years Used Date Smoking Tobacco: Never Assessed Comments Unknown Sex and Gender Information Value Date Recorded Sex Assigned at Not on file Legal Sex Female 3:06 AM SUPERVISOR WET ROOM Gender Identity Not on file Sexual Orientation [...] documented as of this encounter Care Teams Sewing Trimmer Relationship Specialty Start Date End Date Jevon Felix MD [address] [phone] PCP - General Internal Medicine 09/01/21 documented as of this encounter
--- OUTSIDE RECORDS SUMMARY | 2024-07-29 03:25 | XMS_ITS | Encounter Summary ---
Author Organization [facility] Address 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
--- OUTSIDE RECORDS SUMMARY | 2024-07-29 03:25 | XMS_ITS | Encounter Summary ---
Author Organization [facility] Address 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
--- OUTSIDE RECORDS SUMMARY | 2024-07-29 03:25 | XMS_ITS | Encounter Summary ---
Author Organization [facility] Address 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
--- OUTSIDE RECORDS SUMMARY | 2024-07-29 03:25 | XMS_ITS | Encounter Summary ---
Author Organization [facility] Address [address] [place] [address] Care Team Providers Care Punch Out Crew Member Name Role Phone Jevon Felix MD Primary Care Provider [phone] Encounter Details Date Type Department Care Team (Late st Contact Info) Description 04/17/2008 Outpatient Historical [facility] [place], Authorized P NO ADDRESS ON FILE Ronaldo Puentes DO [address] 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 Gender Identity Not on file Sexual Orientation Not on file documented as of this encounter Plan of Treatment Not on file documented as of this encounter Procedures Procedure Name Priority Date/Time Associated Diagnosis Comments CT ABDOMEN PELVIS WO CONTRAST Routine 04/17/2008 7:06 PM CDT URINE CULTURE Stat 04/17/2008 6:39 PM CDT PT AND APTT Stat 04/17/2008 6:35 PM CDT CBC WITH DIFFERENTIAL Stat 04/17/2008 6:35 PM CDT COMPREHENSIVE METABOLIC PANEL Stat 04/17/2008 6:35 PM CDT POC URINALYSIS DIPSTICK NON AUTOMATED Routine 04/17/2008 6:23 PM CDT URINALYSIS W/REFLEX MICROSCOPIC Stat 04/17/2008 6:20 PM CDT documented in this encounter Results * CT ABDOMEN PELVIS WO CONTRAST (04/17/2008 7:06 PM CDT) Anatomical Region Laterality Modality Abdomen Other 04/17/2008 7:06 PM CDT Narrative 04/17/2008 7:27 PM CDT [facility] [address] [place], [place] [address] Admit Date: 04/17/2008 SATHYA MARTÍNEZ Linda Sex: F Admit Prov: ER, AUTHORIZED P Date: 1950 Primary Care Prov: PILLOLiam WOODS CMRN: [id number] Room: ER-A SSN: [id number] IMAGING SERVICES Ordering Prov: N/A Accession Number: [id number] Interpretation Exam: CT the abdomen and pelvis without intravenous contrast. History: Hematuria. Right flank pain. CT the abdomen pelvis is performed without intravenous contrast. Spiral imaging is performed above the diaphragm to below the symphysis pubis. Images reconstructed in axial plane at 5 ileus. Lung liver soft tissue and bone windows reviewed. Lung bases are clear. The liver is enlarged measuring 20 cm vertical dimension. There is diffuse fatty infiltration liver. No focal lesion is seen liver on this noncontrast exam. The spleen is unremarkable this noncontrast exam. The pancreas and adrenal glands are unremarkable. There is a 2 mm nonobstructing stone in the posterior right kidney. No additional renal stones are seen. There is no renal obstruction. The ureters are normal in appearance and no ureteral stone or obstruction is seen. The uterus is surgically absent. No bowel obstruction, fluid collection, free fluid, free air, or focal acute inflammatory process is seen. The appendix is not definitely identified but I see no evidence of appendicitis or other acute abnormality. Impression: Enlarged, fatty-replaced liver. 2 mm nonobstructing stone in the right kidney. No additional urinary tract stone is seen. There is no urinary tract obstruction. Status post hysterectomy. No additional finding. No bowel obstruction or acute inflammatory process is seen. . Dictated by: ABEBE ROBLES 04/17/2008 19:22 Electronically signed by: ABEBE ROBLES 04/17/2008 19:25 Procedure Note Abebe Robles - 04/17/2008 [facility] [address] [place], [place] [address] Admit Date: 04/17/2008 RITUARNOLDOSATHYA Sex: F Admit Prov: CON, RUDY P Date:1950 Primary Care Prov: PILLOLiam WOODS CMRN: [id number] [facility] SS[facility]: [id number] IMAGING SERVICES Ordering Prov: N/A Interpretation Exam: CT the abdomen and pelvis without intravenous contrast. History: Hematuria. Right flank pain. CT the abdomen pelvis is performed without intravenous contrast.Spiral imaging is performed above the diaphragm to below the symphysispubis. Images reconstructed in axial plane at 5 ileus. Lung liver softtissue and bone windows reviewed. Lung bases are clear. The liver is enlarged measuring 20 cmvertical dimension. There is diffuse fatty infiltration liver. No focal lesionis seen liver on this noncontrast exam. The spleen is unremarkablethis noncontrast exam. The pancreas and adrenal glands are unremarkable. There is a 2 mm nonobstructing stone in the posterior right kidney.No additional renal stones are seen. There is no renal obstruction.The ureters are normal in appearance and no ureteral stone or obstructionis seen. The uterus is surgically absent. No bowel obstruction, fluid collection, free fluid, free air, or focal acute inflammatory processis seen. The appendix is not definitely identified but I see no evidenceof appendicitis or other acute abnormality. Impression: Enlarged, fatty-replaced liver. 2 mm nonobstructing stone in the right kidney. No additional urinarytract stone is seen. There is no urinary tract obstruction. Status post hysterectomy. No additional finding. No bowel obstruction or acute inflammatoryprocess is seen. . Dictated by: ABEBE ROBLES 04/17/2008 19:22 Electronically signed by: ABEBE ROBLES 04/17/2008 19:[address] ORDERABLES Final Result * URINE CULTURE (04/17/2008 6:39 PM CDT) FINAL REPORT 10-50,000 colonies/mL Escherichia coli Normal urethral dom also present. [facility] SUSCEPTIBILITY PERFORMED ON ESCHERICHIA COLI [facility] 04/17/2008 6:39 PM CDT 04/17/2008 7:03 PM CDT Narrative INTERFACE SYSTEM - 04/17/2008 11:09 PM CDT urnie in lab Organism Antibiotic Method Susceptibility Escherichia coli AMPICILLIN ELLEN MCG/ML >=32: Resistant Escherichia coli AMPICILLIN/ SULBACTAM ELLEN MCG/ML >=32: Resistant Escherichia coli PIPERACILLIN/ TAZOBACTAM ELLEN MCG/ML <=8: Susceptible Escherichia coli CEFAZOLIN ELLEN MCG/ML <=8: Susceptible Escherichia coli AZTREONAM ELLEN MCG/ML <=8: Susceptible Escherichia coli LEVOFLOXACIN ELLEN MCG/ML <=1: Susceptible Escherichia coli GENTAMICIN ELLEN MCG/ML <=0.5: Susceptible Escherichia coli TRIMETHOPRIM/ SULFAMETHOXAZOLE ELLEN MC G/ML <=10: Susceptible Escherichia coli NITROFURANTOIN ELLEN MCG/ML <=32: Susceptible Ronaldo Puentes DO MICROBIOLOGY - GENERAL ORDER JILLIAN Final Result INTERFACE SYSTEM Refer to clinic/hospital department [facility] CLIA# [id number] [address], [place] [address] * PT AND APTT (04/17/2008 6:35 PM CDT) INR 1.0 0.9 - 1.1 [facility] Comment: INR Therapeutic Range: Adult: 2.0 - 3.0 for pulmonary embolism or prophylaxis against venous thrombosis or systemic embolization. 2.0 - 3.0 for patients with tissue heart valves. 2.5 - 3.5 for patients with mechanical heart valves or post RI. Pediatric (12 years and under): 1.5 - 3.0 Although the target range in children is not well established, INR values of 1.5 - 3.0 are recommended for most patients. Higher values have been used in children with prosthetic cardiac valves and hereditary clotting disorders. (<3 days) therapeutic ranges have not been established. PROTIME 13.7 12.7 - 15.1 Seconds [facility] PTT 29.2 24.4 - 36.4 Seconds [facility] Comment: PTT Therapeutic Range: Heparin Level PTT (seconds) <0.10 units/mL <53 0.10 - 0.30 units/mL 53 - 67 0.30 - 0.70 units/mL* 67 - 95* 0.70 - 1.00 units/mL 95 - 116 *corresponds to therapeutic range for unfractionated heparin Blood specimen (specimen) 04/17/2008 6:35 PM CDT 04/17/2008 6:42 PM CDT us Ronaldo Puentse DO HEMATOLOGY ORDERABLES Edited INTERFACE SYSTEM Refer to clinic/hospital department [facility] CLIA# [id number] [address] [place] [address] * (ABNORMAL) COMPREHENSIVE METABOLIC PANEL (04/17/2008 6:35 PM CDT) CREATININE 0.76 0.51 - 0.95 mg/dL [facility] ALT 59(H) 0 - 31 U/L [facility] SODIUM 136 135 - 145 mmol/L [facility] ALKALINE PHOSPHATASE 68 35 - 104 U/L [facility] CO2 27 22 - 30 mmol/L [facility] BILIRUBIN TOTAL 0.3 0.2 - 1.0 mg/dL [facility] POTASSIUM 3.1(L) 3.5 - 4.9 mmol/L [facility] TOTAL PROTEIN 7.8 6.3 - 8.6 g/dL [facility] GLUCOSE 127(H) 65 - 99 mg/dL [facility] AST 44(H) 12 - 32 U/L [facility] BUN 16 6 - 20 mg/dL [facility] CALCIUM 9.0 8.6 - 10.2 mg/dL [facility] ALBUMIN 4.3 3.4 - 4.8 g/dL [facility] CHLORIDE 98 96 - 108 mmol/L [facility] GFR, >60 >=60 mL/min/1. 7 sq meter [facility] GFR >60 >=60 mL/min/1. 7 sq meter [facility] Comment: Modification of Diet in Renal Disease (MDRD) study formula. Estimated GFR rate interpretative information for both Americans and non- Americans is available on the [facility] Intranet at: [email or web address] Select: Lab Policies and Procedures Select: Reference Ranges - GFR Blood specimen (specimen) 04/17/2008 6:35 PM CDT 04/17/2008 6:42 PM CDT us Ronaldo Puentes DO CHEMISTRY ORDERABLES Edited INTERFACE SYSTEM Refer to clinic/hospital department [facility] CLIA# [id number] [address], [place] [address] * (ABNORMAL) CBC WITH DIFFERENTIAL (04/17/2008 6:35 PM CDT) HEMATOCRIT 41.9 35.5 - 44.0 % [facility] RDW-STDEV 41.5 37.1 - 48.7 fL [facility] RBC 5.02(H) 3.90 - 4.90 M/uL [facility] MCHC 35.3 31.5 - 35.5 % [facility] MCV 83.5 82.0 - 99.0 fL [facility] PLATELETS 339 140 - 350 K/uL [facility] HEMOGLOBIN 14.8 11.8 - 14.8 g/dL [facility] RDW 13.8 11.5 - 14.5 % [facility] WBC 10.5(H) 4.0 - 9.8 K/uL [facility] MCH 29.5 27.2 - 32.6 pg [facility] MPV 9.9 9.3 - 12.4 fL [facility] MONOCYTE ABSOLUTE 0.73 0.10 - 1.30 K/uL [facility] NEUTROPHIL ABSOLUTE 6.59 1.90 - 7.00 K/uL [facility] NEUTROPHILS 63 45 - 70 % [facility] EOSINOPHILS 0 0 - 7 % [facility] EOSINOPHIL ABSOLUTE 0.00 0.00 - 0.70 K/uL [facility] LYMPHOCYTE ABSOLUTE 3.13 0.70 - 4.50 K/uL [facility] LYMPHOCYTES 30 16 - 45 % [facility] BASOPHILS 0 0 - 2 % [facility] BASOPHILS ABSOLUTE 0.03 0.00 - 0.20 K/uL [facility] MONOCYTES 7 3 - 13 % [facility] Blood specimen (specimen) 04/17/2008 6:35 PM CDT 04/17/2008 6:42 PM CDT us Ronaldo Puentes DO HEMATOLOGY ORDERABLES Edited INTERFACE SYSTEM Refer to clinic/hospital department [facility] CLIA# [id number] [address] [place] [address] * POC URINALYSIS DIPSTICK NON AUTOMATED (04/17/2008 6:23 PM CDT) CLARITY UA Clear [facility] BLOOD UA Negative Negative [facility] PROTEIN UA Negative Negative [facility] LEUKOCYTE ESTERASE UA Negative Negative [facility] UROBILINOGEN UA Normal <=1 mg/dL [facility] SPECIFIC GRAVITY UA 1.025 1.001 - 1.030 [facility] GLUCOSE UA Negative Negative [facility] COLOR UA Yellow [facility] NITRITE UA Negative Negative [facility] BILIRUBIN UA Negative Negative [facility] PH UA 5.0 5.0 - 8.0 [facility] KETONES UA Negative Negative [facility] Urine specimen (specimen) 04/17/2008 6:23 PM CDT 04/17/2008 6:23 PM CDT us Authorized P Er POINT OF CARE TESTING Final Resu lt INTERFACE SYSTEM Refer to clinic/hospital department [facility] CLIA# [id number] [address] [place] [address] * URINALYSIS (04/17/2008 6:20 PM CDT) SPECIFIC GRAVITY UA 1.013 1.001 - 1.035 [facility] BLOOD UA Negative Negative [facility] GLUCOSE UA Negative Negative [facility] COLOR UA Yellow [facility] NITRITE UA Negative Negative [facility] UROBILINOGEN UA <1 <=1 mg/dL [facility] PH UA 5.0 5.0 - 8.0 [facility] KETONES UA Negative Negative [facility] CLARITY UA Clear Clear [facility] PROTEIN UA Negative Negative [facility] BILIRUBIN UA Negative Negative [facility] LEUKOCYTE ESTERASE UA Negative Negative [facility] Urine specimen (specimen) 04/17/2008 6:20 PM CDT 04/17/2008 6:32 PM CDT us Ronaldo Puentes DO URINE ORDERABLES Final Resul t INTERFACE SYSTEM Refer to clinic/hospital department [facility] CLIA# [id number] [address], [place] [address] documented in this encounter Visit Diagnoses Not on filedocumented in this encounter Additional Health Concerns Infection Onset Date Last Indicated Resolved Time R/O COVID-19 12/27/2019 12/27/2019 12/28/2019 3:23 AM CDT C Diff 12/04/2021 12/04/2021 11/03/2022 1:00 AM CDT R/O C. diff 12/05/2021 12/04/2021 12/05/2021 3:51 PM CDT R/O C. diff 04/11/2023 04/11/2023 04/11/2023 8:12 AM CDT documented as of this encounter Care Teams Punch Out Crew Member Relationship Specialty Start Date End Date Jevon Felix MD [address] [facility] [address] [place] [phone] PCP - General Internal Medicine 09/01/21 documented as of this encounter"
--- OUTSIDE RECORDS SUMMARY | 2024-07-29 03:25 | XMS_ITS | Encounter Summary ---
Author Organization [employer] Address 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 diff 12/05/2021 12/04/2021 12/05/2021 3:51 PM CDT R/O C. diff 04/11/2023 04/11/2023 04/11/2023 8:12 AM CDT documented as of this encounter Care Teams Shipping Room Supervisor Relationship Specialty Start Date End Date Jevon Felix MD [address] [phone] PCP - General Internal Medicine 09/01/21 documented as of this encounter
--- OUTSIDE RECORDS SUMMARY | 2024-07-29 03:25 | XMS_ITS | Encounter Summary ---
Author Organization [facility] Address 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
--- OUTSIDE RECORDS SUMMARY | 2024-07-29 03:25 | XMS_ITS | Encounter Summary ---
Author Organization [employer] Address 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 diff 12/05/2021 12/04/2021 12/05/2021 3:51 PM CDT R/O C. diff 04/11/2023 04/11/2023 04/11/2023 8:12 AM CDT documented as of this encounter Care Teams Strip Deburrer Relationship Specialty Start Date End Date Jevon Felix MD [address] [phone] PCP - General Internal Medicine 09/01/21 documented as of this encounter
--- OUTSIDE RECORDS SUMMARY | 2024-07-29 03:25 | XMS_ITS | Encounter Summary ---
Author Organization [facility] [facility] Address [address] [place] [address] Care Team Providers Care Rice Drier Operator Name Role Phone Jevon Felix MD Primary Care Provider [phone] Encounter Details Date Type Department Care Team (Late st Contact Info) Description 01/24/2006 Outpatient Historical [facility] ([facility]) [address] 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
--- OUTSIDE RECORDS SUMMARY | 2024-07-29 03:25 | XMS_ITS | Encounter Summary ---
Author Organization [facility] Address 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
--- OUTSIDE RECORDS SUMMARY | 2024-07-29 03:25 | XMS_ITS | Encounter Summary ---
Author Organization [facility] Address 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
--- OUTSIDE RECORDS SUMMARY | 2024-07-29 03:25 | XMS_ITS | Encounter Summary ---
Author Organization [email or web address] Address 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 diff 12/05/2021 12/04/2021 12/05/2021 3:51 PM CDT R/O C. diff 04/11/2023 04/11/2023 04/11/2023 8:12 AM CDT documented as of this encounter Care Teams Open Hearth Laborer Relationship Specialty Start Date End Date Jevon Felix MD [address] [facility] [address] [place] [phone] PCP - General Internal Medicine 09/01/21 documented as of this encounter
--- OUTSIDE RECORDS SUMMARY | 2024-07-29 03:25 | XMS_ITS | Encounter Summary ---
Author Organization [facility] Address 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
--- OUTSIDE RECORDS SUMMARY | 2024-07-29 03:25 | XMS_ITS | Encounter Summary ---
Author Organization [facility] Address 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
--- OUTSIDE RECORDS SUMMARY | 2024-07-29 03:25 | XMS_ITS | Encounter Summary ---
Author Organization [facility] Address 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
--- OUTSIDE RECORDS SUMMARY | 2024-07-29 03:25 | XMS_ITS | Encounter Summary ---
Author Organization [facility] Address 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
--- OUTSIDE RECORDS SUMMARY | 2024-07-29 03:25 | XMS_ITS | Encounter Summary ---
Author Organization [employer] Address 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 Gender Identity Not on file Sexual Orientation Not on file documented as of this encounter Plan of Treatment Not on file documented as of this encounter Procedures Procedure Name Priority Date/Time Associated Diagnosis Comments TROPONIN (W/REFLEX CKMB/CK) Routine 01/23/2006 10:38 PM CDT ED HOLD Routine 01/23/2006 10:38 PM CDT CBC WITH DIFFERENTIAL Routine 01/23/2006 10:38 PM CDT CBC WITH DIFFERENTIAL Routine 01/23/2006 10:38 PM CDT C-REACTIVE PROTEIN Routine 01/23/2006 10 :38 PM CDT COMPREHENSIVE METABOLIC PANEL Routine 01/23/2006 10:38 PM CDT documented in this encounter Results * CBC WITH DIFFERENTIAL (01/23/2006 10:38 PM CDT) NEUTROPHILS 59 45 - 70 % INTERFAC E SYSTEM LYMPHOCYTES 33 16 - 45 % INTERFAC E SYSTEM MONOCYTES 8 3 - 13 % INTERFACE SYSTEM EOSINOPHILS 0 0 - 7 % INTERFAC E SYSTEM BASOPHILS 0 0 - 2 % INTERFACE SYSTEM NEUTROPHIL ABSOLUTE 4.90 1.90 - 7.00 K/uL INTERFACE SYSTEM LYMPHOCYTE ABSOLUTE 2.73 0.70 - 4.50 K/uL INTERFACE SYSTEM MONOCYTE ABSOLUTE 0.68 0.10 - 1.30 K/uL INTERFACE SYSTEM EOSINOPHIL ABSOLUTE 0.00 0.00 - 0.70 K/uL INTERFACE SYSTEM BASOPHILS ABSOLUTE 0.02 0.00 - 0.20 K/uL INTERFACE SYSTEM 01/23/2006 10:3 8 PM CDT Michelle Villaseñor MD HEMATOLOGY ORDERABLES Final Resu lt Performing Organization Address [facility] de Phone Number INTERFACE SYSTEM Refer to clinic/hospital department * CBC WITH DIFFERENTIAL (01/23/2006 10:38 PM CDT) WBC 8.3 4.0 - 9.8 K/uL INTERFACE SYSTEM RBC 4.75 3.90 - 4.90 M/uL INTERFACE SYSTEM HEMOGLOBIN 13.9 11.8 - 14.8 g/dL INTERFACE SYSTEM HEMATOCRIT 40.1 35.5 - 44.0 % INTERFACE SYSTEM MCV 84.4 82.0 - 99.0 fL INTERFACE SYSTEM MCH 29.3 27.2 - 32.6 pg INTERFACE SYSTEM MCHC 34.7 31.5 - 35.5 % INTERFACE SYSTEM RDW 13.3 11.5 - 14.5 % INTERFACE SYSTEM RDW-STDEV 40.9 37.1 - 48.7 fL INTERFACE SYSTEM PLATELETS 311 140 - 350 K/uL INTERFACE SYSTEM MPV 11.3 9.3 - 12.4 fL INTERFACE SYSTEM 01/23/2006 10:3 8 PM CDT Michelle Villaseñor MD HEMATOLOGY ORDERABLES Final Resu lt INTERFACE SYSTEM Refer to clinic/hospital department * C-REACTIVE PROTEIN (01/23/2006 10:38 PM CDT) CRP 0.7 0.0 - 0.8 mg/dL INTERFACE SYSTEM 01/23/2006 10:3 8 PM CDT Michelle Villaseñor MD CHEMISTRY ORDERABLES Final Resul t Performing Organization Address [facility] Phone Number INTERFACE SYSTEM Refer to clinic/hospital department * (ABNORMAL) COMPREHENSIVE METABOLIC PANEL (01/23/2006 10:38 PM CDT) GLUCOSE 116(H) 65 - 99 mg/dL INTERFACE SYSTEM CREATININE 0.9 0.4 - 1.2 mg/dL INTERFACE SYSTEM CALCIUM 8.5(L) 8.6 - 10.2 mg/dL INTERFACE SYSTEM ALKALINE PHOSPHATASE 60 35 - 104 U/L INTERFACE SYSTEM AST 37(H) 12 - 32 U/L INTERFACE SYSTEM ALT 45(H) 0 - 31 U/L INTERFACE SYSTEM TOTAL PROTEIN 7.2 6.3 - 8.6 g/dL INTERFACE SYSTEM ALBUMIN 4.2 3.4 - 4.8 g/dL INTERFACE SYSTEM BILIRUBIN TOTAL 0.2 0.2 - 1.0 mg/dL INTERFACE SYSTEM BUN 21(H) 6 - 20 mg/dL INTERFACE SYSTEM SODIUM 140 135 - 145 mmol/L INTERFACE SYSTEM POTASSIUM 3.5 3.5 - 4.9 mmol/L INTERFACE SYSTEM CHLORIDE 105 96 - 108 mmol/L INTERFACE SYSTEM CO2 24 22 - 30 mmol/L INTERFACE SYSTEM 01/23/2006 10:3 8 PM CDT Michelle Villaseñor MD CHEMISTRY ORDERABLES Final Resul t Performing Organization Address [facility] Phone Number INTERFACE SYSTEM Refer to clinic/hospital department * TROPONIN (W/REFLEX CKMB/CK) (01/23/2006 10:38 PM CDT) TROPONIN T <0.01 <=0.03 ng/mL INTERFACE SYSTEM TROPONIN T INTERP Negative INTERFACE SYSTEM 01/23/2006 10:3 8 PM CDT us Michelle Villaseñor MD CHEMISTRY ORDERABLES Final Resul t INTERFACE SYSTEM Refer to clinic/hospital department * ED HOLD (01/23/2006 10:38 PM CDT) SPECIMEN HOLD, BLOOD 7 days INTERFACE SYSTEM 01/23/2006 10:3 8 PM CDT us Historical Provider CHEMISTRY ORDERABLES Final R esult INTERFACE SYSTEM Refer to clinic/hospital department documented in this encounter Visit Diagnoses Diagnosis Precordial pain- Primary documented in this encounter Additional Health Concerns Infection Onset Date Last Indicated Resolved Time R/O COVID-19 12/27/2019 12/27/2019 12/28/2019 3:23 AM CDT C Diff 12/04/2021 12/04/2021 11/03/2022 1:00 AM CDT R/O C. diff 12/05/2021 12/04/2021 12/05/2021 3:51 PM CDT R/O C. diff 04/11/2023 04/11/2023 04/11/2023 8:12 AM CDT documented as of this encounter Care Teams Picture Frames Inspector Relationship Specialty Start Date End Date Jevon Felix MD [address] [phone] PCP - General Internal Medicine 09/01/21 documented as of this encounter
--- OUTSIDE RECORDS SUMMARY | 2024-07-29 03:25 | XMS_ITS | CONTINUITY OF CARE DOCUMENT ---
Author Name archanadeloresjessica kelly Address Unknown Organization [facility] Address [address] [facility] [address] [place] [address] Phone [phone] Care Team Providers Care Certified Addiction Counselor Name Role Phone Humberto Connelly MD Unavailable [phone] Liam LOPEZ MD Unavailable Liam LOPEZ MD Unavailable [phone] INSURANCE PROVIDERS Payer name Policy type / Coverage type Newell red green party ID [facility] Medicaid 3 [id number] [facility] MEDICARE COMPLETE HMO Other [id number]
--- OUTSIDE RECORDS SUMMARY | 2024-07-29 03:25 | XMS_ITS | Encounter Summary ---
Author Organization [facility] Address 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
[2024-07-29 03:28] LABS: Alanine Aminotransferase 42 U/L (6-35); Albumin Level 4.4 g/dL (3.5-5.1); Alkaline Phosphatase 104 U/L (38-126); Anion Gap 16 mmol/L (4-12); Aspartate Amino Transferase 36 U/L (14-36); Bilirubin,Total 0.8 mg/dL (0.2-1.3); Blood Urea Nitrogen 41 mg/dL (7-17); Calcium 9.1 mg/dL (8.4-10.2); Carbon Dioxide 17 mmol/L (22-30); Chloride 105 mmol/L (98-107); Estimated Glomerular Filt Rate 29; Glucose 171 mg/dL (65-110); Magnesium 2.2 mg/dL (1.6-2.3); Potassium 4.6 mmol/L (3.4-5.0)
[2024-07-29 03:45] LABS: Prothrombin Time 13.8 Seconds (11.1-14.7)
[2024-07-29 03:46] LABS: Partial Thromboplastin Time 31.8 Seconds (22.3-36.8)
[2024-07-29 03:57] LABS: Add Urine Microscopic? YES; Appearance Urine Clear (Clear); Bacteria Urine None Seen /hpf; Bilirubin Urine Negative (Negative); Blood Urine Trace (Negative); Color Urine Yellow (Yellow); Glucose Urine UA 3+ mg/dL (Negative); Granular Casts Urine Present /lpf; Hyaline Casts Urine Present /lpf; Ketones Urine Negative (Negative); Leukocyte Esterase Ur Negative LEU/UL (Negative); Mucus Urine Present /lpf; Need Manual Microscopic Reviewed; Nitrate Urine Negative (Negative); Non Pathogenic Casts >20; Protein Urine 3+ mg/dL (Negative); RBC Urine 0-2 /hpf (0-2); Specific Grav Ur 1.025 (1.001-1.035); Squamous Epithelial Cell Urine Few /hpf (Few); Urobilinogen Urine 0.2 mg/dL (<2.0); WBC Urine 0-5 /hpf (0-3)
[2024-07-29 04:07] LABS: Troponin I < 0.012 ng/mL (0.000-0.034)
--- NOTE | 2024-07-29 04:21 | PCRCNOTE ---
Respiratory delayed in obtaining VBG from nurse due to patient being in CT for scans. Obtained when available.
[2024-07-29] MEDS: SODIUM CHLORIDE 0.9% IV 1,000 ML 999 ML IV CONT (04:27)
[2024-07-29 04:30] LABS: Fractional Inspired Oxygen 28 %; HCO3 VBG 18.9 mEq/l (24.0-30.0); PO2 VBG 45.5 mmHg (35.0-45.0); pH VBG 7.314 (7.300-7.400)
[2024-07-29 04:32] LABS: Device NASAL CANNULA
[2024-07-29 05:51] LABS: Influenza A QL RT-PCR Negative (Negative); Influenza B QL RT-PCR Negative (Negative); RSV RNA, RT-PCR Negative (Negative); SARS-CoV-2 RNA PCR Negative (Negative)
[2024-07-29] MEDS: ONDANSETRON INJ 4 MG/2 ML VIAL IV PUSH (08:26)
[2024-07-29 08:42] LABS: NT Pro B Type Natriuretic Pept 209 pg/mL (19.9-100)
--- NOTE | 2024-07-29 09:10 | ADMGEN ---
This patient, Cristal Kearns, was admitted to [facility] Surg Room 307-01. Patient/family oriented to hospital policies and general routines including ID bracelet, bed and alarms, visiting hours, pain management, procedures, bathroom and other care routines, personal items, smoking policy, room service/diet, and visiting hours. Information on how to activate the Rapid Response Team has been discussed. Patient/Family are encouraged to report perceived risks to care and to ask questions if they do not understand what they are told or what they should do.
--- NOTE | 2024-07-29 10:39 | PM.IMHP ---
H&P: HPI History of Present Illness Date/Time: 07/29/24 10:39 Chief Complaint: diarrhea Narrative: 74-year-old female past medical history of type 2 diabetes, and hypertension who presented to account of persistent diarrhea. Patient reported she was in usual state of health until about a week ago she started having diarrhea about 7-8 episodes per noted occasional vomiting but denies any abdominal pain no shortness for breath no chest pain no dysuria. Your which interval 4 temperature 96.5?, pulse rate 84, respiratory rate 18, saturating 95% on air. Blood pressure 179/89. Labs notable for creatinine 1.73 baseline is 1.5, NT proBNP is 2 9, UA unremarkable flu COVID RSV negative. Hemoglobin 16.1. CT abdomen and pelvis showed fluid throughout the colon consistent with nonspecific diarrhea. He was given admission. Review of Systems Review of Systems: All other systems reviewed and negative except as noted in history above. [facility] Past Medical History Medical History (Updated 07/29/24 @ 10:23 by Roseanna Aguilar MD) CKD (chronic kidney disease) Type 2 diabetes mellitus Gastroesophageal reflux disease Chronic obstructive pulmonary disease Anxiety Depression Arthritis Fractures Right foot Fibromyalgia Sleep apnea Intolerant of CPAP. Pneumonia Bronchitis Asthma Hypertension Surgical History Surgical History (Updated 09/21/23 @ 22:08 by Greer Flores APRN) History of cardiac catheterization Per patient, showed signs of prior NV but no interventions undertaken. History of exploratory laparotomy initial, had 2 additional abdominal surgeries History of cholecystectomy History of hysterectomy Family History Family History Father Cardiomegaly Mother Breast cancer Social History Social History Social History: Surrogate medical decision maker: Rolando Urmila, spouse. Code status: Full code. Smoking status: Never smoker Alcohol intake: never Substance use: never Do You Feel Safe in your Home?: Yes Lack of Transportation: No Lack of Food: Never True Current Housing: I Have Housing Concerned About Future Housing: No Difficulty Paying Gas/Electric Bills: No Difficulty Paying for Meds: No Currently Unemployed: No Education: High School Diploma/GED Difficulty w/ Childcare or Family Care: No Spiritual care concerns: No Meds Home Medications and Allergies Home Medications ?Medication ?Instructions ?Recorded ?Confirmed ?Type allopurinol 300 mg tablet 300 mg PO DAILY 11/13/19 07/29/24 History amitriptyline 50 mg tablet 50 mg PO BID 11/13/19 07/29/24 History omeprazole 20 mg capsule,delayed 20 mg PO BID 11/13/19 07/29/24 History release albuterol 90 mcg/actuation aerosol 90 mcg inhalation Q6H PRN short of 05/21/23 07/29/24 History inhaler breath albuterol sulfate 2.5 mg/3 mL 2.5 mg inhalation Q6H 05/21/23 07/29/24 History (0.083 %) solution for nebulization cyanocobalamin (vitamin B-12) 1 tab-cap PO DIRECTED 05/21/23 07/29/24 History dapagliflozin propanediol 10 mg 10 mg PO BID 05/21/23 07/29/24 History tablet (Farxiga) dicyclomine 10 mg capsule 10 mg PO TID 05/21/23 07/29/24 History ergocalciferol (vitamin D2) 50,000 50,000 unit PO DIRECTED 05/21/23 07/29/24 History unit tablet ferrous sulfate 325 mg (65 mg 325 mg PO DAILY 05/21/23 07/29/24 History iron) tablet gabapentin 300 mg capsule 300 mg PO TID 05/21/23 07/29/24 History loperamide 2 mg tablet 2 mg PO Q3H PRN Diarrhea 05/21/23 07/29/24 History niacin 100 mg tablet 100 mg PO DAILY 05/21/23 07/29/24 History ondansetron 4 mg disintegrating 4 mg PO Q8H PRN Nausea And Vomiting 05/21/23 07/29/24 History tablet trazodone 100 mg tablet 100 mg PO HS 05/21/23 07/29/24 History glimepiride 2 mg tablet 2 mg PO DAILY 09/21/23 07/29/24 History meclizine 25 mg tablet 25 mg PO TID PRN Dizziness Or 09/21/23 07/29/24 History Vertigo metformin 500 mg tablet 500 mg PO DAILY 09/21/23 07/29/24 History torsemide 40 mg tablet 40 mg PO QAM 09/21/23 07/29/24 History atorvastatin 40 mg tablet 40 mg PO HS #30 tabs 09/24/23 07/29/24 Rx cyclobenzaprine 10 mg tablet 10 mg PO BID PRN Muscle Spasm #30 09/24/23 07/29/24 Rx tabs hydrocodone 5 mg-acetaminophen 325 1 tablet PO Q4H PRN pain 4-6 #15 09/24/23 07/29/24 Rx mg tablet tabs lidocaine 5 % topical patch 1 patch transdermal DAILY #30 ea 09/24/23 07/29/24 Rx (Lidoderm) nifedipine 30 mg tablet,extended 30 mg PO QAM #30 tabs 09/24/23 07/29/24 Rx release 24 hr (Procardia XL) potassium chloride 20 mEq 40 meq (2 x 20 mEq) PO DAILY #30 09/24/23 07/29/24 Rx tablet,extended release (K-Tab) tabs clotrimazole-betamethasone 1 1 applic topical BID 07/29/24 07/29/24 History %-0.05 % topical cream escitalopram oxalate 10 mg tablet 10 mg PO DAILY 07/29/24 07/29/24 History furosemide 40 mg tablet mg 07/29/24 History triamcinolone acetonide 0.1 % applic topical 07/29/24 History topical cream Allergies Allergy/AdvReac Type Severity Reaction Status Date / Time No Known Allergies Allergy Verified 07/29/24 09:41 Vital Signs Vital Signs - 24 hr 07/29/24 02:41 07/29/24 03:02 07/29/24 04:30 Temperature 96.5 F L Pulse Rate 84 89 89 Respiratory Rate 18 22 H 18 Blood Pressure 179/89 H 161/86 H 164/77 H Pulse Oximetry 95 94 96 Oxygen Delivery Nasal Cannula Oxygen Flow Rate 2 07/29/24 05:45 07/29/24 07:26 Temperature 97.2 F L Pulse Rate 83 76 Respiratory Rate 15 20 Blood Pressure 145/77 H 154/79 H Pulse Oximetry 94 96 Oxygen Delivery Oxygen Flow Rate Exam Narrative: General: alert and comfortable Eyes: EOMI, PERRLA ENNT External ears normal, Neck is supple, no masses, Respiratory systems: Clear to auscultation Cardiovascular S1, S2, normal rhythm, no murmur, rub, or gallop; no thrill or palpable murmurs on palpation. Gastrointestinal: soft, non-tender, and non-distended abdomen with no masses; BS present Skin: no rash, lesions, ulcerations, subcutaneous nodules or induration Musculoskeletal: no abnormality and no tenderness, normal ROM Neurologic: Alert and oriented x3, non focal Mental Status Exam: normal affect H&P: Results Labs Labs: Short CBC 07/29/24 Range/Units 02:58 WBC 9.6 (4.5-10.0) K/mm3 Hgb 16.1 H D (12.0-15.0) g/dL Hct 48.5 H (37.0-47.0) % Plt Count 305 (150-375) k/mm3 BMP 07/29/24 02:58 Sodium 138 Potassium 4.6 Chloride 105 Carbon Dioxide 17 L BUN 41 H D Creatinine 1.73 H Glucose 171 H Calcium 9.1 Cardiac Enzymes 07/29/24 Range/Units 02:58 Troponin I < 0.012 (0.000-0.034) ng/mL Liver Function 07/29/24 Range/Units 02:58 Total Bilirubin 0.8 (0.2-1.3) mg/dL AST 36 (14-36) U/L ALT 42 H (6-35) U/L Alkaline Phosphatase 104 (38-126) U/L Albumin 4.4 (3.5-5.1) g/dL Urine 07/29/24 Range/Units 03:39 Urine Color Yellow (Yellow) Urine Appearance Clear (Clear) Urine pH 5.0 (5.0-9.0) Ur Specific Vaughn 1.025 (1.001-1.035) Urine Protein 3+ H (Negative) mg/dL Urine Glucose (UA) 3+ H (Negative) mg/dL Assessment and Plan Assessment and plan (1) Type 2 diabetes mellitus: Code(s): E11.9 - Type 2 diabetes mellitus without complications Status: Acute (2) Acute kidney injury superimposed on CKD: Code(s): N17.9 - Acute kidney failure, unspecified; N18.9 - Chronic kidney disease, unspecified Status: Acute Plan Diarrhea Patient had a 7-[address] abdomen pelvis unremarkable. C diff and stool culture pending. Continue fluid. MOOSE on CKD baseline creatinine appears to be 1.5, creatinine today is 1.73 Likely from dehydration Continue IV fluids and monitor closely. Type 2 diabetes Sliding scale insulin with Accu-Cheks Adjust per clinical course. Hypertension Blood pressure elevated Continue home nifedipine meds with clinical course. DVT prophylaxis Lovenox Patient is full code Surrogate decision maker is hannah Kearns Hospitalist [facility] Advance Care Plan I have confirmed that the patient's Advanced Care Plan is present, code status is documented, or surrogate decision maker is listed in patient medical record.: Yes Medication Reconciliation I have utilized all available resources to obtain, update and review the patients current medications (includes all prescriptions, OTC, herbals, cannabis, and nutritional supplements).: Yes
--- NOTE | 2024-07-29 11:25 | PCPTNOTE ---
Attempted to see for PT evaluation, Pt refused saying she is tired and sick to her stomach. Offered to get up to a chair and pt said no. Will continue to follow.
--- NOTE | 2024-07-29 11:25 | PCOTNOTE ---
Attempted OT evaluation, patient refuses due to nausea. Will follow.
[2024-07-29 12:06] LABS: Glucose Point of Care 138 mg/dl (65-105)
[2024-07-29] MEDS: NIFEdipine 30 MG TAB.ER.24 PO (16:06)
[2024-07-29] MEDS: AMITRIPTYLINE HCL 25 MG TABLET 50 MG PO (16:10)
[2024-07-29] MEDS: LACTATED RINGERS 1,000 ML 125 ML IV CONT (16:12)
[2024-07-29 16:50] LABS: Glucose Point of Care 139 mg/dl (65-105)
[2024-07-29 21:58] LABS: Glucose Point of Care 171 mg/dl (65-105)
[2024-07-30] MEDS: LACTATED RINGERS 1,000 ML 125 ML IV CONT (04:57)
[2024-07-30 06:00] VITALS: BP 118/70; PULSE 63; RESP 18; TEMP 36.5; O2SAT 96
[2024-07-30 07:54] LABS: Glucose Point of Care 139 mg/dl (65-105)
[2024-07-30] MEDS: NIFEdipine 30 MG TAB.ER.24 PO (08:18)
[2024-07-30] MEDS: AMITRIPTYLINE HCL 25 MG TABLET 50 MG PO (08:26)
[2024-07-30 11:39] LABS: Glucose Point of Care 212 mg/dl (65-105)
[2024-07-30 14:00] VITALS: BP 116/72; PULSE 66; RESP 20; TEMP 36.5; O2SAT 97
--- NOTE | 2024-07-30 14:19 | P.DS_ITS ---
DS: Admitting Diagnosis Discharge Date 07/30/24 Admitting Diagnosis diarrhea and gen weakness DS: Discharge Diagnosis Discharge Diagnosis (1) Diarrhea: Code(s): R19.7 - Diarrhea, unspecified Status: Acute DS: Summary Hospital Course Hospital Course: 74-year-old female past medical history of type 2 diabetes, and hypertension who presented to account of persistent diarrhea. Patient reported she was in usual state of health until about a week ago she started having diarrhea about 7-8 episodes per noted occasional vomiting but denies any abdominal pain no shortness for breath no chest pain no dysuria. Your which interval 4 temperature 96.5?, pulse rate 84, respiratory rate 18, saturating 95% on air. Blood pressure 179/89. Labs notable for creatinine 1.73 baseline is 1.5, NT proBNP is 2 9, UA unremarkable flu COVID RSV negative. Hemoglobin 16.1. CT abdomen and pelvis showed fluid throughout the colon consistent with nonspecific diarrhea. He was given admission. Patient noted she has not had any diarrhea since admission and she is eating and drinking okay, ambulating without any problems. BP pressure sable and wnl and will continue home meds. Thus she is discharged to follow up with PCP in 3-5 days. Time Spent with Patient Time attestation: Total time spent providing and/or coordinating discharge services: DS: Data Data Completed and Pending Labs on day of discharge: Labs from last 24 hours 07/30/24 07/30/24 07/29/24 11:34 07:49 21:02 POC Capillary Glucose 212 H 139 H 171 H 07/29/24 16:40 POC Capillary Glucose 139 H Discharge Plan Discharge Attending physician on discharge: Robbie Villavicencio Discharging Clinician: Robbie Villavicencio Anticipated Discharge Date/Time: 07/30/24 14:18 Patient Disposition: Home, Self-Care Activity: as tolerated Diet: regular Patient Instructions: Antibiotic Form Patient Language: Bermudian Stand Alone Forms: General Discharge Information Follow-up/Referrals: Elvira,Jevon Vilchis MD [Primary Care Provider] - (F/u with PCP in 3-5 days ) Discharge Medications: Continued amitriptyline 50 mg tablet 50 mg PO BID omeprazole 20 mg capsule,delayed release(DR/EC) 20 mg PO BID allopurinol 300 mg tablet 300 mg PO DAILY metformin 500 mg Tablet 500 mg PO DAILY glimepiride 2 mg Tablet 2 mg PO DAILY meclizine 25 mg Tablet 25 mg PO TID PRN (Reason: Dizziness Or Vertigo) torsemide 40 mg Tablet 40 mg PO QAM cyclobenzaprine 10 mg Tablet 10 mg PO BID PRN (Reason: Muscle Spasm) Qty: 30 0RF lidocaine [Lidoderm] 5 % Adhesive Patch,Medicated 1 patch transdermal DAILY Qty: 30 0RF nifedipine [Procardia XL] 30 mg Tablet Extended Release 24hr 30 mg PO QAM Qty: 30 0RF potassium chloride [K-Tab] 20 mEq Tablet Extended Release 40 meq PO DAILY Qty: 30 0RF atorvastatin 40 mg tablet 40 mg PO HS Qty: 30 0RF hydrocodone-acetaminophen 5-325 mg Tablet 1 tablet PO Q4H PRN (Reason: pain 4-6) Qty: 15 0RF furosemide 40 mg tablet triamcinolone acetonide 0.1 % cream TOPICAL escitalopram oxalate 10 mg tablet 10 mg PO DAILY clotrimazole-betamethasone 1-0.05 % cream 1 applic TOPICAL BID albuterol sulfate 2.5 mg /3 mL (0.083 %) Solution For Nebulization 2.5 mg INHALATION Q6H loperamide 2 mg Tablet 2 mg PO Q3H PRN (Reason: Diarrhea) Rx Instructions: administer after each loose stool until symptoms controlled; do not exceed 8 mg per 24 hrs ergocalciferol (vitamin D2) 50,000 unit Tablet 50,000 unit PO DIRECTED Rx Instructions: continue taking same as home trazodone 100 mg tablet 100 mg PO HS ferrous sulfate 325 mg (65 mg iron) Tablet 325 mg PO DAILY niacin 100 mg Tablet 100 mg PO DAILY gabapentin 300 mg Capsule 300 mg PO TID albuterol 90 mcg/actuation Aerosol 90 mcg INHALATION Q6H PRN (Reason: short of breath) Rx Instructions: take 2 puffs inhaled as needed every 6 hours ondansetron 4 mg tablet,disintegrating 4 mg PO Q8H PRN (Reason: Nausea And Vomiting) dicyclomine 10 mg capsule 10 mg PO TID dapagliflozin propanediol [Farxiga] 10 mg tablet 10 mg PO BID cyanocobalamin (vitamin B-12) 1 tab-cap PO DIRECTED Rx Instructions: continue taking same as home Date of admission: 07/29/24 07:49 Primary Care Provider: Elvira,Jevon K. Admitting Provider: Robbie Villavicencio Attending physician on admission: Robbie Villavicencio Condition: Stable
== END 2024-07-30 15:05 | disposition home or self-care (01) ==
LOC: ANHED 03:21 → ANH3MEDSUR 08:57
PROVIDERS: Admitting Provider Internal Medicine; Emergency Provider Student in an Organized Health Care Education/Training Program; PCP Internal Medicine; Visit Provider Internal Medicine
DX: R19.7 Diarrhea, unspecified (principal); R53.1 Weakness; E11.22 Type 2 diabetes mellitus with diabetic chronic kidney disease; I13.0 Hypertensive heart and chronic kidney disease with heart failure and stage 1 through stage 4 chronic kidney disease, or unspecified chronic kidney disease; I50.9 Heart failure, unspecified; N18.9 Chronic kidney disease, unspecified; N17.9 Acute kidney failure, unspecified; E11.65 Type 2 diabetes mellitus with hyperglycemia; E11.69 Type 2 diabetes mellitus with other specified complication; R80.9 Proteinuria, unspecified; D58.2 Other hemoglobinopathies; J44.9 Chronic obstructive pulmonary disease, unspecified; K21.9 Gastro-esophageal reflux disease without esophagitis; E78.5 Hyperlipidemia, unspecified; E66.9 Obesity, unspecified; Z68.32 Body mass index [BMI] 32.0-32.9, adult; F32.A Depression, unspecified; Z20.822 Contact with and (suspected) exposure to COVID-19; Z79.51 Long term (current) use of inhaled steroids; Z79.84 Long term (current) use of oral hypoglycemic drugs; Z79.899 Other long term (current) drug therapy
CPT/HCPCS: 36415; 71045; 74177; 80053; 81001; 82803; 82948; 83605; 83735; 83880; 84484; 85025; 85610; 85730; 87637; 93005; 96361; 96365; 96375; 97165; 99285; A9270; G0378; J2405; J7030; J7120; Q9967

== ENCOUNTER 2024-09-26 00:53 | Emergency (ER) | payer MEDICARE, MEDICAID, SELFPAY ==
--- NOTE | ~2024-09-26 | XR_ITS ---
Clinical Indication: Weakness PA and lateral views of the chest: Comparison: 07/29/2024 Findings: The lungs are clear, without evidence of focal consolidation or pleural effusion. Cardiome diastinal silhouette is within normal limits. Bones and soft tissues are unremarkable, aside from rig ht shoulder arthroplasty. Impression: Clear lungs. Reviewed, dictated and finalized at location . Impression: Clear lungs.
[2024-09-26 00:52] VITALS: BP 156/66; PULSE 65; RESP 14; TEMP 36.4; O2SAT 95
--- NOTE | 2024-09-26 01:00 | ECG_ITS ---
Test Date: 2024-09-26 01:02:48 Measurements Intervals [place] Rate: 60 P: 69 AK: 178 QRS: 0 QRSD: 93 T: 68 QT: 423 QTc: 426 Interpretive Statements SINUS RHYTHM DELAYED PRECORDIAL R/S TRANSITION CONSIDER INFERIOR INFARCT, AGE INDETERMINATE NONSPECIFIC T-WAVE ABNORMALITY- HIGH LATERAL LEADS ABNORMAL ECG Compared to ECG 07/29/2024 02:55:01 NO SIGNIFICANT CHANGE Electronically Signed On 09-26-2024 06:16:11 CDT by Jacob Bardales D.O.
[2024-09-26 01:40] LABS: Basophils Percent Auto 0.2 % (0.2-1.2); Hematocrit 44.4 % (37.0-47.0); Hemoglobin 14.7 g/dL (12.0-15.0); Immature Granulocyte Absolute 0.04 K/mm3 (0.00-0.031); Immature Granulocyte Percent A 0.5 % (0-0.5); Lymphocytes Absolute Auto 1.74 K/mm3 (0.9-3.2); Lymphocytes Percent Auto 19.9 % (18.3-44.2); Mean Corpuscular HGB Conc 33.1 g/dl (32-36); Mean Corpuscular Hemoglobin 28.9 pg (26-34); Mean Corpuscular Volume 87.2 fl (80-100); Mean Platelet Volume 9.7 fl (7.4-10.4); Monocytes Absolute Auto 0.5 K/mm3 (0.1-0.6); Monocytes Percent Auto 5.6 % (2.6-8.5); Neutrophils Absolute Auto 6.5 K/mm3 (1.3-6.7); Neutrophils Percent Auto 73.8 % (45.5-73.1); Platelet Count Result 270 k/mm3 (150-375); Red Blood Count 5.09 M/mm3 (4.2-5.4); Red Cell Distribution Width 14.6 % (11.5-14.5); White Blood Count 8.7 K/mm3 (4.5-10.0)
[2024-09-26 01:51] LABS: Alanine Aminotransferase 37 U/L (6-35); Albumin Level 4.2 g/dL (3.5-5.1); Alkaline Phosphatase 111 U/L (38-126); Anion Gap 16 mmol/L (4-12); Aspartate Amino Transferase 25 U/L (14-36); Bilirubin,Total 0.3 mg/dL (0.2-1.3); Blood Urea Nitrogen 21 mg/dL (7-17); Calcium 8.6 mg/dL (8.4-10.2); Carbon Dioxide 17 mmol/L (22-30); Chloride 105 mmol/L (98-107); Estimated CRCL calculation 40 ml/min; Estimated Glomerular Filt Rate 40; Glucose 193 mg/dL (65-110); Potassium 3.7 mmol/L (3.4-5.0); Sodium 138 mmol/L (137-145)
[2024-09-26 01:56] LABS: Add Urine Microscopic? YES; Appearance Urine Clear (Clear); Bacteria Urine None Seen /hpf; Bilirubin Urine Negative (Negative); Blood Urine Negative (Negative); Color Urine Yellow (Yellow); Glucose Urine UA 3+ mg/dL (Negative); Hyaline Casts Urine Present /lpf; Ketones Urine Negative (Negative); Leukocyte Esterase Ur Negative LEU/UL (Negative); Need Manual Microscopic Reviewed; Nitrate Urine Negative (Negative); Protein Urine 3+ mg/dL (Negative); RBC Urine 0-2 /hpf (0-2); Specific Grav Ur 1.032 (1.001-1.035); Squamous Epithelial Cell Urine Occasional /hpf (Few); Urobilinogen Urine 0.2 mg/dL (<2.0); WBC Urine 0-5 /hpf (0-3)
--- OUTSIDE RECORDS SUMMARY | 2024-09-26 02:08 | XMS_ITS | Encounter Summary ---
Author Organization [facility] Address 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
--- OUTSIDE RECORDS SUMMARY | 2024-09-26 02:08 | XMS_ITS | Encounter Summary ---
Author Organization [facility] Address 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
--- OUTSIDE RECORDS SUMMARY | 2024-09-26 02:08 | XMS_ITS | Data Portability ---
Author Organization [facility], Main Office Address [address] [place] [address] Care Team Providers Care Street Inspector Name Role Phone [facility] FAX OTHER Assessment Encounter Date Assessment Date [...] None recorded. Imaging None recorded. Medication Orders cyanocobala min (vitamin B-12) 5,000 mcg capsule 2021 022 [email or web address] Not available 2 04:09:03 metformin 500 mg tablet 2021 022 [...] nded release 2021 022 [email or web address] Not available 2 04:09:03 gabapentin 300 mg capsule 2021 022 [email or web address] Not available 04:09:55 cyanocobala min (vitamin B-12) 5,000 mcg capsule 2021 022 [email or web address] Not available 04:09:55 metformin 500 mg tablet 2021 022 [email or web address] Not available 2 04:09:55 niacin 100 mg tablet 2021 022 [email or web address] Not available 04:09:56 nortriptyli ne 50 mg capsule 2021 022 [email or web address] Not available 04:09:55 omeprazole 20 mg capsule,del ayed release 2021 022 [email or web address] Not available 04:09:56 albuterol sulfate 2.5 mg/3 mL (0.083 %) solution for nebulizatio n 2021 022 [email or web address] Not available 04:09:54 albuterol sulfate HFA 90 mcg/actuati on [...] mg tablet 2021 022 [email or web address] Not available 2 04:09:56 furosemide 20 mg tablet 2021 022 [email or web address] Not available 04:09:55 verapamil ER (SR) 180 mg tablet,exte nded release 2021 022 [email or web address] Not available 04:09:56 allopurinol 300 mg tablet 2021 022 [email or web address] Not available 2 04:11:25 cyanocobala min (vitamin B-12) 5,000 mcg capsule 2021 022 [email or web address] Not available 04:11:25 metformin 500 mg tablet 2021 022 [email or web address] Not available 2 04:11:25 niacin 100 mg tablet 2021 022 [email or web address] Not available 04:11:26 albuterol sulfate 2.5 mg/3 mL (0.083 %) solution for nebulizatio n 2021 022 [email or web address] Not available 04:11:24 albuterol sulfate HFA 90 mcg/actuati on aerosol inhaler 2021 022 [email or web address] Not available 04:11:25 hydrocodone 10 mg-acetamin ophen 325 mg tablet 2021 022 [email or web address] Not available 2 04:11:25 ibuprofen 600 mg tablet 2021 022 [email or web address] Not available 04:11:26 trazodone 100 mg tablet 2021 022 [email or web address] Not available 2 04:11:26 furosemide 20 mg tablet 2021 022 [email or web address] Not available 04:11:26 verapamil ER (SR) 180 mg tablet,exte nded release 2021 022 [email or web address] Not available 2 04:11:26 gabapentin 300 mg capsule 2021 022 [email or web address] Not available 2 04:11:25 nortriptyli ne 50 mg capsule 2021 022 [email or web address] Not available 2 04:11:26 omeprazole 20 mg capsule,del ayed release 2021 022 [email or web address] Not available 2 04:11:26 ferrous sulfate 325 mg (65 mg iron) tablet 2021 022 [email or web address] Not available 04:11:25 atorvastati n 10 mg tablet 2021 022 pcheng9 Not available 04:11:25 meclizine 25 mg tablet 2021 022 [email or web address] Not available 04:11:26 aspirin 325 mg tablet,carson yed release 2021 022 [email or web address] Not available 04:11:25 Patient TargetsNo targets recorded. Patient Instructions Encounter Date Encounter Id Patient Instructions Last Modified By Organization Details Last Modified Time 10/12/2021 [id number] gout: care instructions aitzkowitz Not available 10/18/2021 [...] care. aitzkowitz Not available 10/18/2021 19:01:33 10/13/2021 [id number] learning about t ype 2 diabetes aitzkowitz [...] pressure aitzkowitz Not available 10/18/2021 20:29:01 10/15/2021 [id number] learning about t ype 2 diabetes aitzkowitz [...] Organization Details Recorded Time Generalized anxiety disorder 84496654 [place] 2021 [place] [address] [place], [address], [place] [facility] 2 17:34:46 Lumbar radiculopat hy 090450902 Active 2021 [place] [address] [place], [address], [place] [facility] 2 17:34:55 Chronic kidney disease stage 3 689033046 Active 2021 [place] [address] [place], [address], [place] [facility] 2 17:35:07 Chronic obstructive pulmonary disease 89934901 Active 2021 [place] [address] [place], [address], [place] [facility] 2 17:35:19 Type 2 diabetes mellitus 31449146 Active 2021 Remy Gutierrez MD [address] [place] [address], [address], [place] - [facility] 2 17:38:36 Diabetic peripheral neuropathy 106917314 Active 2021 [place] [address] [place], [address], [place] [facility] 2 17:38:47 Essential hypertensio n 96669633 Active 2021 [place] [address] [place], [address], [place] [facility] 2 17:38:59 Gastroesoph ageal reflux disease 999933842 Active 2021 [place] [address] [place], [address], [place] [facility] 2 17:39:05 Gout 56483753 Active 2021 Remy Gutierrez MD [address] [place] [address], [address], [place] - [facility] 2 17:39:10 Hyperlipide andrew 54156154 Active 2021 Remy Gutierrez [place] [address] [place] [address], [address], [place] [facility] 2 17:39:17 Irritable bowel syndrome 80867432 Active 2021 Remy [place]ier[place] [address] [place] [address], [place], [address], [place] [facility] 2 17:39:28 Obesity 216373431 Active 2021 [place] [address] [place], [address], [place] [facility] 2 17:39:33 Obstructive sleep apnea syndrome 02775991 Active 2021 Remy Gutierrez MD [address] [place] [address], [address], [place] [facility] 2 17:39:40 Rheumatoid arthritis 10814775 Active 2021 [place] [address] [place], [address], [place] [facility] 2 17:39:47 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 2021 [place] [address] [address] [facility], [place], [address], [place] [facility] 2 17:52:30 Chronic kidney disease due to type 2 diabetes mellitus 285119400413 Active 2021 [place] [address] [facility], [place], [address], [place] [facility] 2 17:53:12 Morbid obesity 054054084 Active 2021 [place] [address] [address] [facility], [place], [address], [place] [facility] 2 17:53:23 Major depressive disorder 379301064 Active 2021 [place] [address] [address] [facility], [place], [address], [place] [facility] 2 18:29:52 Total shoulder replacement Active 2021 [place] [address] [facility], [place], [address], [place] [facility] 2 18:30:17 Disorder of rotator cuff 737814168 Active 2021 [place] [address] [address] [facility], [place], [address], [place] [facility] 2 18:31:03 Anemia 994859698 Active 2021 [place] [address] [address] [facility], [place], [address], [place] [facility] 2 18:41:47 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 Procedures Surgical History Date Name Laterality Status Provider Name and Address Organization Details Recorded Time Appendectomy completed Remy Gutierrez MD [address] [place] [address], [address], [facility] 10/18/2021 17:40:32 total hysterectomy completed Remy Gutierrez MD [address] [place] [address], [address], [facility] 10/18/2021 17:48:32 cholecystectomy completed Remy Gutierrez MD [address] [place] [address], [address], [facility] 10/18/2021 17:48:46 Cardiac Catheterization / PCI completed Remy Gutierrez MD [address] [place] [address], [address], [facility] 10/18/2021 17:48:57 Imaging Results None recorded. Procedure [...] /min 96 % 96 % 86 /min 72462.2 9 g 31 kg/m2 170.18 cm 173 mm[Hg] 91 mm[Hg] [place] [address] [place], [address], [facility] 17:50:37 Date Recorded Body height Heart rate Oxygen saturation Oxygen saturation in Arterial blood by Pulse oximetry Respiratory rate Body temperature Systolic blood pressure Diastolic blood pressure Provider Name and Address Organization Details Last Updated DateTime 2 170.18 cm 83 /min 96 % 96 % 18 /min 97.1 [degF] 143 mm[Hg] 74 mm[Hg] [place] [address] [place], [address] , [facility] 19:57:41 Date Recorded Body height Heart rate Oxygen saturation Oxygen saturation in Arterial blood by Pulse oximetry Respiratory rate Body temperature Systolic blood pressure Diastolic blood pressure Provider Name and Address Organization Details Last Updated DateTime 2 170.18 cm 78 /min 96 % 96 % 16 /min 98.7 [degF] 137 mm[Hg] 63 mm[Hg] [place] [address] [place], [address] [facility] 2 20:56:45 Social History Question Answer Notes LastModified by Organizat ion Details LastModified Time Tobacco Smoking Status Never Smoker Marie Boby [facility], [facility] 10/10/2021 17:08:32 Do You Have [...] Do You Have A Medical Power Of Global Program Manager? Yes Information not available 10/18/2021 How Many [...] History Nothing Reported. Medical History Condition Response Psychiatric -- Anxiety Disorder Y Osteoarthritis / DJD Y Obesity Y Sleep Apnea / RON Y Anemia Y Back Pain Y Diabetes Y Hyperlipidemia Y Asthma Y GERD / Reflux Y Hypertension Y Gynecological HistoryNo gynecological history [...] SNOMED-CT Code Diagnosis ICD10 Code Diagnosis Note [id number] Remy Gutierrez MD [facility] [address] [place] [address] 10/12/2021 16:41:51 10/24/2021 00:38:14 Disorder of rotator cuff 327527136 M75.81 has had total right shoulder replacemen t , Chronic ki dney disease due to type 2 diabetes mellitus 0755416145 08 E11.22 stage three , avoid nsaids and nephrotoxi c agentsmoni tor hgbaic , Chronic ob structive pulmonary disease 64029293 J44.9 has had some issues before leaving hospital ,, was evaluted for PE and was negativesh e does not want to use cpap at night , Major depr essive disorder 171529348 F32.9 long history of mdd , will continue nortryptyl ine Essential hypertension 82411105 I10 vital signs every eight hours ,echo Global systolic function was normal. The estimated ejection fraction was65%.- Left atrium: The atrium was normal in size.- Right ventricle: The cavity size was normal. Systolic function was normal. Gastroesop hageal reflux disease 251929384 K21.9 no complaints of reflux , continue ppi Diabetic p eripheral neuropathy 861556836 E11.40 on low dose of gabapentin ,, will titrate if needed, Gout 62698868 M10.9 no recnet flares, remains on allopurina l at high dose which can be nephrotoxi c in itself, will need to monitor renal function as well as uric acid Hyperlipidemia 52880467 E78.5 continue on low alessandra sugar diabetic diet as well as low fat cardiac Type 2 melvin betes mellitus 45755914 E11.22 accuchecks ac and hadhgbaic with admission labson low dose of metformin ,, only on one dose a day , Anemia 151390456 D64.9 monitor cbc to trend H?h History of reverse prosthetic total arthroplasty of right shoulder 8913929796 2502275 Z96.611 has done well ,, ar remains in sling, has followup appt with orthopedic surgeon on ontinu e PT and pain managemnt Vertigo 146338073 R42 long hisotry ,, uses meclizine prn Generalize d anxiety disorder 26744054 F41.1 has been taking trazdone and can increase dose during day if needed Anterior epistaxis 80717 4002 R04.0 sudden onset on 10/11.. 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 The estimated ejection fraction was65%.- Left atrium: The atrium was normal in size.- Right ventricle: The cavity size was normal. Systolic function was normal. Gastroesop hageal reflux disease 511964079 K21.9 no complaints of reflux , continue ppi Diabetic p eripheral neuropathy 078178390 E11.40 on low dose of gabapentin ,, will titrate if needed, Hyperlipidemia 67277326 E78.5 continue on low alessandra sugar diabetic diet as well as low fat cardiac Type 2 melvin betes mellitus 41884583 E11.22 accuchecks ac and hadhgbaic with admission labson low dose of metformin ,, only on one dose a day , History of reverse prosthetic total arthroplasty of right shoulder 1569911822 1889816 Z96.611 has done well ,, ar remains in sling, has followup appt with orthopedic surgeon on ontinu e PT and pain managemnt Generalize d anxiety disorder 54850833 F41.1 has been taking trazodone and can increase dose during day if needed Anterior epistaxis 35642 4002 R04.0 sudden onset on 10/11.. continues today ,, packed with vaseline gauze and taped in place, will followup in am10/13.. 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 The estimated ejection fraction was65%.- Left atrium: The atrium was normal in size.- Right ventricle: The cavity size was normal. Systolic function was normal. Diabetic p eripheral neuropathy 207789708 E11.40 on low dose of gabapentin ,, will titrate if needed, Type 2 melvin betes mellitus 42701864 E11.22 accuchecks ac and hadhgbaic with admission labson low dose of metformin ,, only on one dose a day ,10/15 hgbaic 7.3.. will continue meds as ordered, History of reverse prosthetic total arthroplasty of right shoulder 3879666783 3190931 Z96.611 has done well ,, ar remains in sling, has followup appt with orthopedic surgeon on ontinu e PT and pain managemnt Generalize d anxiety disorder 83835009 F41.1 has been taking trazodone and can increase dose during day if needed Health Concerns Section Related Observation LastModified by Organization Detai ls LastModified Time None Recorded Concern Status LastModified by Organization Details LastModified Time None Recorded Advance Directives Directive Y: Payers Encounter Date Sequence Insurance Name Policy Number Policy De Jesus Covered Member ID De Jesus Member ID Guarantor Name 10/12/2021 1 [facility] (MEDICARE REPLACEMENT/A DVANTAGE - HMO) [id number] Cristal Martínez [id number] Brad Martínez 10/13/2021 [facility] (MEDICARE REPLACEMENT/A DVANTAGE - HMO) [id number] Cristal Martínez [id number] Brad Martínez 10/15/2021 1 [facility] (MEDICARE REPLACEMENT/A DVANTAGE - HMO) [id number] Cristal Martínez [id number] Brad Martínez Notes Date Note Type Note Provider Name and Address Organization Details Recorded Time 10/12/2021 text/html 71 y.o. female p mh signif for copd, t2dm ckd 3 , morbid obesity and gout admitted from [facility] on 10/09 after admission of 10/05-10/09 after [...] well, with pain reasonably well managed with [place] 10 mg.was discharged to skilled rehab for ongoing nursing [place] [address] [place], [address], [facility] [place] [facility] 10/18/2021 19:03:38 10/13/2021 text/html 71 y.o. female p mh signif for copd, t2dm ckd 3 , morbid obesity and gout admitted from [facility] on 10/09 after admission of 10/05-10/09 after [...] well, with pain reasonably well managed with Bergland 10 mg.was discharged to skilled rehab for [...] her is aware , [place] [address] [facility], [place], [address], [place] [facility] 10/18/2021 20:30:22 10/15/2021 text/html 71 y.o. female p mh signif for copd, t2dm ckd 3 , morbid obesity and gout admitted from [facility] on 10/09 after admission of 10/05-10/09 after [...] well, with pain reasonably well managed with Bergland 10 mg.was discharged to skilled rehab for [...] consistently under 200 ,, [place] [address] [place], [address], [facility] 10/18/2021 21:16:01 OBGyn Episode No OBEpisode recorded.
--- OUTSIDE RECORDS SUMMARY | 2024-09-26 02:08 | XMS_ITS | Encounter Summary ---
Author Organization [facility] Address 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
--- OUTSIDE RECORDS SUMMARY | 2024-09-26 02:08 | XMS_ITS | Encounter Summary ---
Author Organization [facility] Address 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
--- OUTSIDE RECORDS SUMMARY | 2024-09-26 02:08 | XMS_ITS | Encounter Summary ---
Author Organization [facility] Address 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
--- OUTSIDE RECORDS SUMMARY | 2024-09-26 02:09 | XMS_ITS | Encounter Summary ---
Author Organization [facility] Address 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
--- OUTSIDE RECORDS SUMMARY | 2024-09-26 02:09 | XMS_ITS | Encounter Summary ---
Author Organization [facility] Address 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
--- OUTSIDE RECORDS SUMMARY | 2024-09-26 02:09 | XMS_ITS | Referral Summary ---
Author Organization [facility] Healthcare Address [address] [place] [address] Care Team Providers Care Desk Representative Name Role Phone Regina Matt MD Unavailable Lindsay Nettles MD PhD Unavailable [phone] Linwood Franco MD Unavailable [phone] Jevon Felix MD Unavailable [phone] Jevon Felix MD Primary Care Provider [phone] Allergies No known active allergies Medications amitriptyline [...] Abdominal mass 10/20/2020 Polyarthralgia 10/20/2020 Unstable angina 10/20/2020 MOOSE (acute kidney injury) 12/26/2019 CAMACHO (dyspnea on exertion) 12/26/2019 Syncope 12/26/2019 Aortic atherosclerosis 12/01/2018 Overview (10/20/2020): Chest XR; 04-03-18, Care Everywhere kh Special screening for malignant neoplasms, colon 07/04/2018 Overview (07/04/2018): Added automatically from request for surgery [id number] Gastric polyp 07/04/2018 Overview (07/04/2018): Added automatically from request for surgery [id number] Multiple gastric polyps 07/03/2018 Bowel habit changes 07/03/2018 Colon cancer screening 07/03/2018 Abnormal liver scan 07/03/2018 Chronic right-sided low back pain 06/07/2018 Dupuytren's contracture of both hands 06/07/2018 Primary osteoarthritis of right knee 06/07/2018 Hypokalemia 04/03/2018 Ovarian mass, left 04/03/2018 Chest pain 04/03/2018 Acute epigastric pain 04/02/2018 Overview (04/03/2018): Added automatically from request for surgery [id number] Anemia 04/02/2018 Overview (04/03/2018): Added automatically from request for surgery [id number] Absolute anemia 04/02/2018 Overview (04/04/2018): Added automatically from request for surgery [id number] Obesity (BMI 30.0-34.9) 09/09/2015 Chronic post-traumatic headache 11/22/2014 Memory loss 11/20/2013 Post concussion syndrome 07/04/2013 Anxiety 09/22/2010 Cardiac enlargement 09/17/2010 Carpal tunnel syndrome 09/17/2010 Moderate persistent asthma without complication 07/08/2008 Overview (10/20/2020): Updated per 04-10-18 query Sleep apnea 07/08/2008 Type 2 diabetes mellitus with hypoglycemia witho ut coma 07/08/2008 Overview (10/20/2020): Updated per 11-28-18 query Immunizations Immunization Administration Dates Next Due Hep A, Adult [...] drink = 0.6 oz pur e alcohol) [facility] Utilities Answer Date Recorded In the past 12 months has [employer], [employer], oil, or water [employer] threatened to shut off services in your [...] often do you attend chur ch or mandaen services? Never 04/10/2024 Do you belong to any clubs o r organizations such as methodist groups, unions, fraternal or athletic groups, or [...] any time in the past 12 m [facility], were you homeless or living in a residential (including now)? No 04/10/2024 Personal Safety Answer Date Recorded Have you ever been in or are you currently in a harmful physical or emotional relationship or is someone making you feel afraid or unsafe? Denies 04/10/2024 Comments No Sex and Gender Information Value Date Recorded Sex Assigned at Not on file Legal Sex Female 9:32 AM LOIN PULLER Gender Identity Not on file Sexual Orientation [...] on file Medical Devices Implanted Type Area Coremaker Experimental Device Identifier Shelf Expiration Date Model / Serial / Lot [employer] Inc/C R Bard [id number] [id number] Monofilament Scaffold Full Resorbable Square Mesh - Sna - [id number] Implanted:Qty: 1 on 01/27/2021 by Marlon Decker MD at [facility] Mesh N/A: Abdomen [employer]/C R Bard [id number] 08/17/2023 [id number] / NA / Procedures Procedure Name Priority [...] Hwang MD LAB BLOOD ORDERABLES Final Result [address] Department [place] [address] * (ABNORMAL) Hemoglobin A1c (02/07/2022 6:13 AM CDT) Pathologist [facility] Hgb A1C 6.5(H) 4.0 - 5.6 % [facility] Estimated Average Glucose 140 mg/dL [facility] Comment: The ADA recommends reporting an estimated Average Glucose (eAG) with all Hemoglobin A1c results using the equation derived from a study of 507 normal and diabetic adults. Minority populations were underrepresented and children were not included. (Diabetes Care 31:9223-3519, 2008). The eAG is not equivalent to a fasting glucose. Blood 02/07/2022 6:13 AM CDT 02/07/2022 7:05 AM CDT Jake Roberts LAB BLOOD ORDERABLES F inal Result [facility] [address] [facility] Department [place] [address] * (ABNORMAL) Lipid panel (01/27/2021 10:44 PM CDT) Cholesterol 116 30 - 199 mg/dL [facility] Comment: Interpretive Data Ages < or = [...] revised on 2018. Triglycerides 197(H) <=149 mg/dL [facility] Comment: Interpretive Data Ages < or = [...] revised on 2018. HDL 27(L) >=40 mg/dL [facility] Comment: Interpretive Data Ages < [...] on 2018. LDL, calculated 50 <=129 mg/dL [facility] Comment: Interpretive Data Ages < or [...] revised on 2018. Non-HDL Cholesterol 89 mg/dL [facility] Comment: Interpretive Data Ages < or = [...] last revised on 2018. Chol/HDL ratio 4 [facility] Blood specimen (specimen) 01/27/2021 10:44 PM CDT 01/27/2021 11:33 PM CDT us Marlon Decker MD LAB BLOOD ORDERABLES Fin al Result [facility] [address] [facility] Department [place] [address] * COLONOSCOPY (12/12/2020 9:17 AM CDT) Anatomical Region Laterality Modality Other Narrative Procedure Note DavalosPepito MD - 12/12/2020 9:17 AM CDT [facility] Patient Name: Sathya Martínez Procedure Date: 12/12/2020 9:17 AM Date of : 1950 Admit Type: Outpatient Age: 70 Gender: Female Attending MD: Pepito Davalos M.D. Room: [facility] ENDOSCOPY ROOM 8 Note Status: Finalized [...] The scope was passed under direct vision.The [id number] endoscope was introduced through the anus [...] bowel preparation was evaluated using the BBPS ([place] Bowel Preparation Scale)with scores of: Right Colon [...] meats, exercise regularly, maintain healthy weight. See [facility] Cancer website for moreprevention tips. - Call the Colorectal Surgery offices [phone] with any questions, concerns, complications. After hours and weekends/Holidays, you will be directedto the on-call physician, if needed. Electronically signed by Pepito Davalos MD Pepito Davalos M.D. 12/12/2020 10:25:58 AM . Number of Addenda: 0 Note Initiated On: 12/12/2020 9:17 AM Recognized by the [employer] for promoting quality in endoscopy Pepito Davalos MD ENDOSCOPY PROCEDURES Final R esult from Last 3 Months or Most Recently Relevant to Health Maintenance Insurance [facility] MDCR HMO REF [facility] MEDICARE ADVANTAGE IDPA IDPA U[employer] MEDICARE ADVANTAGE Advance Directives For more information, please contact: [phone] * Full Code (Latest Code Status on [...] 8:00 AM 12/12/2020 10:21 AM Care Teams Desk Representative Relationship Specialty Start Date End Date Jevon Felix MD [address] [facility] [phone] [place] [address] PCP - General Internal Medicine 02/17/22 Regina Matt MD [address] [facility] [address] [place] [address] Consulting Physician Gastroenterology 04/06/18 José MiguelLindsay MD PhD [address] [facility] [address] [place] [address] Referring Physician Obstetrics and Gynecology 11/11/20 Linwood Franco MD [address] [facility] [phone] [place] [address] Surgeon Colon and Rectal Surgery 11/11/20 Jevon Felix MD [address] [facility] [phone] [place] [address] Referring Physician Internal Medicine 02/09/22
--- OUTSIDE RECORDS SUMMARY | 2024-09-26 02:09 | XMS_ITS | Encounter Summary ---
Author Organization [employer] Address 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
--- OUTSIDE RECORDS SUMMARY | 2024-09-26 02:09 | XMS_ITS | Encounter Summary ---
Author Organization [facility] Address 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
--- OUTSIDE RECORDS SUMMARY | 2024-09-26 02:09 | XMS_ITS | Encounter Summary ---
Author Organization [facility] Address [address] [place] [address] Care Team Providers Care Latin American Studies Professor Name Role Phone Jevon Felix MD Primary Care Provider [phone] Encounter Details Date Type Department Care Team (Late st Contact Info) Description 11/16/2000 Outpatient Historical [address] [place] [phone] Liam Galeano MD NO ADDRESS ON FILE Social History Tobacco Use Types Packs/Day Years Used Date Smoking Tobacco: Never Assessed Comments Unknown Sex and Gender Information Value Date Recorded Sex Assigned at Not on file Legal Sex Female 3:06 AM CERTIFIED [employer] Gender Identity Not on file Sexual Orientation [...] documented as of this encounter Care Teams Latin American Studies Professor Relationship Specialty Start Date End Date Jevon Felix MD [address] [phone] PCP - General Internal Medicine 09/01/21 documented as of this encounter
--- OUTSIDE RECORDS SUMMARY | 2024-09-26 02:09 | XMS_ITS | Encounter Summary ---
Author Organization [facility] Address 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
--- OUTSIDE RECORDS SUMMARY | 2024-09-26 02:09 | XMS_ITS | Data Portability ---
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 Thank you. 2024 025 [email or web address] Kush Mancini MD, [address] [place], [address], 5 10:49:58 physical therapist referral 2023 024 [email or web address] Not available 12:20:17 Procedures injection/a spiration joint/bursa (PROC) 2023 024 [email or web address] In-Office Order, Internal Use Only DO Not Attach Compendium DO Not Attach Compendium, Do Not Delete/merge, [id number] 12:25:14 Surgeries None recorded. Imaging XR, knee 2023 024 ÓSCAR [facility], [facility] [place], [address], 4 14:44:40 Medication Orders escitalopra m 10 mg tablet 2024 025 [facility] [address], [address], 5 12:15:22 loperamide 2 mg capsule 2024 025 [facility] [address], [address], 5 13:17:40 ondansetron 4 mg disintegrat ing tablet 2024 025 [facility] [address], [address], 5 13:17:41 Zithromax Z-Abram 250 mg tablet 2024 025 [email or web address] [facility] [address], [address], 5 11:35:29 benzonatate 200 mg capsule 2023 024 [email or web address] [facility] [address], [address], 4 10:09:04 trazodone 100 mg tablet 2023 024 [facility] [address], [address], 4 10:20:30 Diflucan 150 mg tablet 2023 024 [email or web address] [facility] [place], [address] [place] [address], [address], 5 11:35:39 clotrimazol e-betametha sone 1 %-0.05 % topical cream 2023 024 [facility]AR [facility] [address], [address], 4 10:20:30 albuterol sulf 90 mcg/actuati on breath activated powder inhaler,sen sor 2023 024 [email or web address] [facility] [address], [address], 4 14:00:58 fluconazole 150 mg tablet 2023 024 [email or web address] [facility] [address], [address], 5 11:35:39 Marcaine (PF) 0.5 % (5 mg/mL) injection solution 2023 024 [email or web address] [facility] [address], [address], 4 10:00:48 Kenalog 10 mg/mL suspension for injection 2023 024 [email or web address] [facility] [address], [address], 4 10:00:43 meloxicam 15 mg tablet 2023 024 [email or web address] [facility] [address], [address], 5 12:11:44 Patient TargetsNo targets recorded. Patient Instructions Encounter Date Encounter Id Patient Instructions Last Modified By Organization Details Last Modified Time 04/26/2024 [id number] Thank you for your visit to our [...] homebound status}} Required Home Health Services: {{none prison, physical therapy, occupational therapy prison, physical therapy prison}} Durable Medical Equipment needed: {{cane walker wal ker with seat manual wheelchair bedsid e commode oxygen}} Billing Guidelines CPT code 00686- Transitional Care Management services with moderate medical decision complexity (muli-gw-spzh visit within 14 days of discharge). CPT code 79322- Transitional Care Management services with high medical decision complexity (zhyn-bw-gzdg visit within 7 days of discharge). Not available 04/26/2024 10:07:48 Reason for Referral Physical Therapist Referral for Pain of bilateral knee joints Referring Physician: Rolando Tripathi, Orthopedic Surgery, Encounter Date: 04/02/2024 General Counselor Referral for M ultiple nodules of lung Please call patient to schedule an appointment. Thank you. Referring Physician: Shun Felix, Internal Medicine, Encounter Date: 07/20/2024 Results Created Date Observation Date Name Description Value Unit Range Abnormal Flag Note LastModifiedBy Organization Detail LastModifiedTime 04/02/20 24 XR, knee No observ ation record ed. [email or web address] [facility] [address], [place], [address], 04/02/2024 12:05:22 04/16/2004/02/2024 XR, knee No observ ation record ed. [email or web address] [facility] [address] [place], [address], 04/17/2024 09:15:39 Result Notes None recorded. Problems Name Problem SNOMED Code Status Onset Date Resolution Date Notes Provider Name and Address Organization Details Recorded Time Diverticu litis of colon 620115643 Active 2021 Not Available [facility] 4 22:35:30 Chronic back pain 762204821 Active 2021 Not Available [facility] 4 22:35:30 Folliculi tis 12130527 Completed 202109/01/2022 Chiquis mcgovern RMA null, [place] [facility] 3 12:12:39 Hearing loss 24240751 Active 2021 Not Available [facility] 4 22:35:30 Acute sinusitis 30851597 Completed 202109/01/2022 Kush Mancini MD [address] [facility], [place], [address] , [place] [facility] 3 16:50:25 Recurrent urinary tract infection 391319802 Completed 202109/01/2022 Chiquis mcgovern RMA null, [place] [facility] 3 12:13:05 Microscop ic hematuria 972813024 Completed 202109/01/2022 Chiquis mcgovern RMA null, [place] [facility] 3 12:13:42 Gastroeso phageal reflux disease 492712603 Active 2021 Not Available [facility] 4 22:35:31 Hypertrig lyceridem ia 636082368 Active 2021 Not Available [facility] 4 22:35:31 Polyp of nasal sinus 98218696 Active 2021 Not Available [facility] 4 22:35:31 Blood in urine 71784437 Completed 202109/01/2022 Chiquis mcgovern RMA null, [place] [facility] 3 12:12:15 Vitamin D deficienc y 87829995 Active 2021 Not Available [facility] 4 22:35:31 Neuropath y 119033436 Active 2021 Not Available [facility] 4 22:35:31 Osteoarth ritis 055463318 Active 2021 Not Available [facility] 4 22:35:31 Vertigo 321353163 Active 2021 Not Available [facility] 4 22:35:31 Bilateral tinnitus 40198342270 02 Active 2021 Not Available [facility] 4 22:35:31 Anxiety 69182283 Active 2021 Not Available [facility] 4 22:35:31 Acute upper respirato ry infection 43567650 Completed 202109/01/2022 Chiquis mcgovern RMA null, [place] [facility] 3 12:13:32 Essential hypertens ion 69538873 Active 2021 Not Available [facility] 4 22:35:31 Diarrhea 12679919 Completed 202109/01/2022 Kyleigh Ruvalcaba MA null, [place] [facility] 4 09:16:10 Diabetes mellitus 99938580 Active 2021 Not Available [facility] 4 22:35:31 Type 2 diabetes mellitus 46283698 Completed 202209/01/2022 Chiquis mcgovern RMA null, [place] [facility] 3 12:13:54 Chronic kidney disease 750190094 Active 2022 Not Available [facility] 4 22:35:31 Multiple nodules of lung 159232986 Active 2022 Not Available [facility] 4 22:35:31 Congestiv e heart failure 67203810 Active 2022 Chiquis mcgovern RMA null, [place] [facility] 4 15:37:34 COVID-19 332512769 Completed 202208/30/2023 Chiquis Sabillon n, RMA null, [place] [facility] 4 15:38:02 Anemia 383473048 Active 2022 Chiquis Sabillon n, RMA null, [place] [facility] 4 15:37:53 Type 2 diabetes mellitus without complicat ion 973350424 Completed 202303/20/2024 Chiquis mcgovern RMA null, [place] [facility] 4 15:26:30 Dyspnea on exertion 08212402 Active 2023 Chiquis mcgovern RMA null, [place] [facility] 4 15:37:57 Hyperlipi demia 87911876 Active 2023 Chiquis Sabillon n, RMA null, [place] [facility] 4 15:26:36 Hypokalem ia 90682821 Active 2023 Chiquis Sabillon n, RMA null, [place] [facility] 4 15:26:32 Gout 89114800 Active 2023 Chiquis mcgovern, RMA null, [place] [facility] 4 15:26:21 Candidias is of vagina 26704511 Completed 202303/20/2024 Shun Felix MD [address] [place] [address], [address] , [place] [facility] 4 10:16:38 Acute urinary tract infection 549483814 Completed 202303/20/2024 Chiquis mcgovern RMA null, [place] [facility] 10/01/202 4 15:26:14 Atrophic vaginitis 53829224 Completed 202303/20/2024 Chiquis mcgovern, RMA null, [facility] 4 15:26:18 Viral gastroent eritis 148642020 Active 2023 Shun Felix MD [address], [place], [address] , [facility] 4 15:39:45 Diarrhea 12140080 Active 2023 Kyleigh Ruvalcaba MA null, [facility] 4 09:16:10 Pain of bilateral knee joints 24986397851 4104 Active 2023 Tamy Keenan CNA null, [facility] 4 12:05:02 Candidias is of skin 33909557 Active 2023 Stacy Jesus NP [address], [address], [place], [address] , [facility] 4 15:14:46 Chronic bronchiti s 84914327 Active 2023 Stacy Jesus NP [address], [address], [place], [address] , [facility] 4 15:17:10 Cataract 118807714 Active 2023 Stacy Jesus NP [address], [place], [address] , [facility] 4 15:18:25 Pneumonia 869087707 Active 2023 Shun Felix MD [address], [place], [address] , [facility] 4 10:16:18 Candidias is of vagina 25959316 Active 2023 Shun Felix MD [address], [place], [address] , [facility] 4 10:16:38 Insomnia 443867832 Active 2023 Shun Felix MD [address], [place], [address] , [facility] 4 10:17:45 Upper respirato ry infection 17323059 Active 2024 Shun Felix MD [address], [place], [address] , [facility] 5 13:13:23 Chronic diarrhea 267807055 Active 2024 Shun Felix MD [address], [place], [address] , [facility] 5 13:14:05 Nausea 091163653 Active 2024 Shun Felix MD [address], [place], [address] , [facility] 5 13:15:26 Edema 975562602 Active 2024 Shun Felix MD [address], [place], [address] , [facility] 5 12:11:21 Notes:Medical History: Anxie ty Vertigo [...] Appendectomy 1970 Cholecystectomy 1973 PARVEEN 1983 BSO 2019 Right shoulder arthroplasty 2021 Occupational History: [employer] Some problems listed in Document: #[id number] could not be added to this patient's chart. Please review this document and add these problems to the patient's chart manually as needed. Problem Notes None recorded. Procedures Surgical History Date Name Laterality Status Provider Name and Address Organization Details Recorded Time 04/26/20 24 Transitional_Care_M anagement completed Chiquis Arellano , A [facility] 04/26/2024 10:07:48 04/02/20 24 Ortho - Cortisone Injection completed Rolando Tripathi MD [address] [facility], [facility] [address], [place], [address], [facility] 04/03/2024 14:10:13 04/21/20 23 Transitional_Care_M anagement completed Margie Peterson RN [facility] 04/21/2023 10:43:53 Cholecystectomy completed Tamy Keenan CNA [facility] 04/02/2024 12:02:03 Appendectomy completed Tamy Keenan CNA [facility] 04/02/2024 12:01:56 Imaging Results Imaging Date Name Status LastModified by Organiz ation Details LastModified Time 04/02/2024 XR, knee completed [email or web address] [facility] [address] [facility], [place], [address], 04/02/2024 12:05:22 04/02/2024 XR, knee completed [email or web address] [facility] [address] [place], [address], 04/17/2024 09:15:39 Procedure Notes None recorded. Medical [...] TABLET BY MOUTH EVERY DAY 2024 active Not Available Not Available Not Avai lable cyclobenz aprine 10 mg tablet TAKE 1 TABLET BY MOUTH TWICE A DAY NEEDED FOR MUSCLE SPASM 11/17 completed Not Available Not Available Not Available amoxicill in 500 mg capsule TAKE 1 CAPSULE BY MOUTH 3 TIMES A DAY 06/15 completed Not Available Not Available Not Available Anti-Diar rheal (loperami de) 2 mg tablet TAKE 1 TABLET BY MOUTH EVERY 3 HOURS NEEDED active Not Available Not Available No t Available furosemid e 40 mg tablet TAKE [...] TABLET BY MOUTH EVERY DAY 2024 active Not Available Not Available Not Avai lable lisinopri l 20 mg tablet TAKE 1 [...] TABLET BY MOUTH EVERY 8 HOURS NEEDED 12/27 /2023 completed Not Available Not Available Not Available amitripty line 50 mg tablet TAKE 1 TABLET BY MOUTH TWICE A DAY 2024 active ANTON 07/20/24 ok to rf Not Available Not Available Not Available triamcino lone acetonide 0.1 % topical [...] 1 TABLET BY MOUTH EVERYDAY AT BEDTIME. active Not Available Not Available No t Available dicyclomi ne 20 mg tablet TAKE 1 [...] mg by injectio n route. 04/26 completed [facility] [place]: 0003-049 20 Not Available Not Available Not Available meclizine [...] TABLET BY MOUTH EVERY DAY 2024 active Not Available Not Available Not [...] BY MOUTH EVERY WEEK FOR 12 WEEKS 09/14 completed Not Available Not Available Not Available ibuprofen 600 mg tablet Take 1 [...] ondansetr on 4 mg disintegr ating tablet DISSOLVE 1 TABLET ON TONGUE AND SWALLOW EVERY 8 HOURS NEEDED active Not Available Not Available [...] Not Available escitalop vikram 10 mg tablet TAKE 1 TABLET BY MOUTH EVERY DAY active Not Available Not Available No t Available rosuvasta tin 20 mg tablet TAKE 1 TABLET BY MOUTH EVERY DAY. PATIENT SHOULD CALL OFFICE 04/06 completed Not Available Not Available Not Available bupropion HCl XL 150 mg 24 hr tablet, extended release TAKE 1 TABLET (150 MG) BY MOUTH DAILY HAND FUR CLEANER. 08/12 completed Not Available Not Available Not [...] Updated DateTime 04/02/2024 165.1 cm 31.6 kg/m2 25166.55 g Tamy Keenan CNA [facility] [employer] [facility] 04/02/2024 11:53:28 Date Recorded Body height Body mass index (BMI) Body weight Body temperature Oxygen saturation Oxygen saturation in Arterial blood by Pulse oximetry Heart rate Systolic blood pressure Diastolic blood pressure Provider Name and Address Organization Details Last Updated DateTime 165.1 cm 33.5 kg/m2 70808.5 g 99.9 [degF] 94 % 94 % 113 /min 180 mm[Hg] 88 mm[Hg] Nancy Pablo RN [facility] [employer] [facility] 14:32:10 Date Recorded Body weight Body temperature Heart rate Oxygen saturation Oxygen saturation in Arterial blood by Pulse oximetry Systolic blood pressure Diastolic blood pressure Provider Name and Address Organization Details Last Updated DateTime 4 43695.7 g 97.2 [degF] 92 /min 96 % 96 % 138 mm[Hg] 70 mm[Hg] Chiquis becker Elieser [email or web address] [facility] [employer] [facility] 4 09:58:11 Date Recorded Body weight Body temperature Heart rate Oxygen saturation Oxygen saturation in Arterial blood by Pulse oximetry Systolic blood pressure Diastolic blood pressure Provider Name and Address Organization Details Last Updated DateTime 5 42952.8 4 g 98.1 [degF] 77 /min 95 % 95 % 138 mm[Hg] 64 mm[Hg] Mariposa Ferrarijonathan fernando [place] [employer] [facility] [employer] 5 12:55:32 Date Recorded Body height Body mass index (BMI) Body weight Body temperature Heart rate Oxygen saturation Oxygen saturation in Arterial blood by Pulse oximetry Systolic blood pressure Diastolic blood pressure Provider Name and Address Organization Details Last Updated DateTime 5 165.1 cm 34.6 kg/m2 03042.2 1 g 96.8 [degF] 98 /min 95 % 95 % 130 mm[Hg] 60 mm[Hg] Chiquis becker [facility] [email or web address] [facility] 5 11:33:19 Social History Question Answer Notes LastModified by Organizat ion Details LastModified Time Tobacco Smoking Status Never Smoker Not Available [facility] 08/18/2022 10:41:35 What Is Your Level Of Alcohol Consumption? None [id number] Information not available 08/18/2022 What Is Your Level Of Caffeine Consumption? None [id number] Information not available 08/18/2022 In The 14 Days Before Symptom Onset, Have You Had Close Contact With A Laboratory-confir med COVID-19 While That Case Was Ill? No Her, And Son Positive 05/20/23 Information not available 06/23/2023 In The 14 Days Before Symptom Onset, Have You Had Close Contact With A Person Who Is Under Investigation For COVID-19 While That Person Was Ill? No [id number] Information not available 08/18/2022 What Type Of [...] Use Any Illicit Or Recreational Drugs? No [id number] Information not available 08/18/2022 Do You Use Sunscreen Routinely? No Doesn't Get Out In The Sun, When Out Will Use Information not available 06/23/2023 Has Tobacco Cessation Counseling Been Provided? No MIGRATION.[id number] 00565 Information not available 08/18/2022 Have You Recently Traveled Abroad? No MIGRATION.09579 [id number] Information not available 08/18/2022 Do You Have Any Dietary Restrictions? No Information not available 06/23/2023 Do You Or Have You Ever Used Any Other Forms Of Tobacco Or Nicotine? No [email or web address].[id number] Information not available 08/18/2022 Sex: Unknown Functional Status None recorded. Mental Status None recorded. Family History Relationship Description Onset Age of this Age Resolved Age Notes LastModified by Organization Details LastModified Time Father Diabetes mellitus [email or web address] [id number] Not available 08/18/2022 10:42:52 Father Heart disease [email or web address] [id number] Not available 08/18/2022 10:42:52 Father Hypertensive disorder [email or web address] [id number] Not available 08/18/2022 10:42:52 Mother Diabetes mellitus [...] N INFECTIOUS DISEASE N LUNG DISEASE/DISORDER N PROSTATE N HEART ARRHYTHMIA N INSOMNIA N HISTORY OF DRUG ABUSE N RADIATION / CHEMOTHERAPY N COPD Y HIGH CHOLESTEROL / HYPERLIPIDEMIA N HYPERTHYROIDISM N UTI N BLOOD DISEASES N EDEMA N HYPOTHYROIDISM N SHINGLES N BACK / NECK PROBLEMS N DEPRESSION (INCLUDING POST ) N BOWEL PROBLEMS N HAVE YOU BEEN HOSPITALIZED OR SEEN IN [facility] ER IN THE PAST YEAR ? N STROKE/TIA N THYROID DISEASE N BENIGN PROSTATIC HYPERPLASIA N DIALYSIS N OBESITY N GERD/NAUSEA N ANEURYSM N HISTORY WITH COMPLICATIONS WITH ANESTHES IA ? N OSTEOPOROSIS N Increased Urination N URINARY/BLADDER/KIDNEY PROBLEMS N CORONARY ARTERY DISEASE (CAD) N ARTHRITIS [...] influenza nasal, unspecified formulation 04/02/2024 completed [facility] [employer] 04/03/2024 09:05:56 Past Encounters Encounter ID Performer Location Encounter Start Date Encounter Closed Date Diagnosis/Indication Diagnosis SNOMED-CT Code Diagnosis ICD10 Code Diagnosis Note [id number] [facility] Internal Med [address] [address] 08/12/2021 00:00:00 08/12/2021 17:29:05 [id number] [facility] Internal Med [address] [address] 09/10/2021 00:00:00 09/10/2021 11:36:36 [id number] [facility] [place] [address] [place] [address] 09/17/2021 00:00:00 09/17/2021 11:09:32 [id number] [facility] [address] [place] [address] 09/28/2021 00:00:00 09/28/2021 11:44:52 [id number] [facility] [place] [address] [facility] [place] [address] 10/27/2021 00:00:00 10/27/2021 12:15:12 [id number] [facility] [address] [place] [address] 11/10/2021 00:00:00 11/10/2021 13:24:08 [id number] [facility] [place] [address] [place] [address] 12/16/2021 00:00:00 12/16/2021 15:53:32 [id number] [facility] [place] [address] [facility] [place] [address] 02/18/2022 00:00:00 02/18/2022 16:20:23 [id number] [facility] [address] [facility] [place] [address] 06/08/2022 00:00:00 06/08/2022 13:07:13 [id number] Shun Felix MD [facility] [address] [facility] [place] [address] 08/18/2022 14:29:24 08/18/2022 14:54:04 Pre-surgery evaluation 045530486 Z01.818 check labs then decide Type 2 melvin betes mellitus 04445062 E11.9 needs labs Long-term drug therapy 456037810 Z79.899 [id number] Shun Felix MD [facility] [address] [place] [address] 09/01/2022 11:59:20 09/01/2022 12:48:20 Diabetes mellitus 99949006 E11.9 not under control, watch diet, stop metformin Essential hypertension 39531156 I10 ^ the dose Incontinence of feces 72 843030 R15.9 uisng depends Kidney disease 07891144 N08 stop metformin Liver func tion tests outside reference range 170127856 R94.5 lose weight, follow low fat diet [id number] Shun Felix MD [facility] Internal [facility] [address] [place] [address] 11/03/2022 11:49:29 11/03/2022 12:16:01 Injury of finger 72625119 S69.90XA Essential hypertension 85482067 I10 advise dto take 20 mg qd Diabetes mellitus 266603 09 E11.9 not under control,ad d glimepride [id number] Shun Felix MD [facility] Internal [address] [place] [address] 01/17/2023 12:00:11 01/17/2023 12:49:43 Diabetes mellitus 27744498 E11.9 getting better Essential hypertension 39413445 I10 better Incontinence of feces 72 566024 R15.9 using depends Kidney disease 12596765 N08 to see nephrology Liver func tion tests outside reference range 689690456 R94.5 lose weight, Adult heal th examination 158844435 Z00.00 Gastroesop hageal reflux disease 946928804 K21.9 meds help Hypertriglyceridemia 302 473807 E78.1 advised to watch diet Insomnia 372655348 G47.0 0 on trazodone Proteinuria 26390840 R80 .9 on lisinopril Bilateral tinnitus 44227 05096 102 H93.13 seen ENT Vitamin D deficiency 347 83242 E55.9 ON OTC Vertigo 757420284 R42 MECLIZINE HELP Osteoarthritis 747278525 M19.90 OTC Hyperlipidemia 56697958 E78.5 watch diet Neuropathy 724998944 G62 .9 ^ pm dose of gabapentin 600 mg Pre-surger y evaluation 448439118 Z01.818 labs , then decide [id number] Shun Felix MD S_[facility] Internal Med [facility] [address] [facility] [place] [address] 04/21/2023 10:49:15 04/21/2023 12:00:38 Transition of care 6091574844 105 Z75.8 Facility: [facility] Date: 04/13/23Di scharge Date: 04/15/23 scharge Diagnoses: Chest pain, orthostati c headache, hypokalemi a, heart failure Congestive heart failure 70684980 I50.9 better Essential hypertension 42005248 I10 better Nausea 035661004 R11.0 [id number] Shun Felix MD [facility] Internal [place] [address] [place] [address] 06/02/2023 14:46:17 06/02/2023 15:28:31 Cough 09115335 R05.9 likely covid ( just diagnosed today ) Pneumonia 833995651 J18. 9 already treated in the hospital Solitary n odule of lung 841319989 R91.1 needs f/u CT in 3 months [id number] Kush Mancini MD [facility] [place] [address] 06/23/2023 11:57:19 06/24/2023 08:20:06 Dyspnea on exertion 47512350 R06.09 R05.9 T78.40XA D89.9 J98.4 Solitary n odule of lung 163332660 R91.1 [id number] Shun Felix MD [facility] Internal Med [address] [address] 06/23/2023 15:22:39 06/23/2023 16:35:33 Edema of lower extremity 306133953 R60.0 keep taking furosemide [id number] Kush Mancini MD [facility] [place] [address] 07/20/2023 09:01:19 07/21/2023 15:30:03 Solitary nodule of lung 718084339 R91.1 Dyspnea on exertion 6084 5006 R06.09 R05.9 T78.40XA D89.9 J98.4 [id number] Suhn Felix MD [facility] Internal Med [facility] [address] [facility] [place] [address] 08/30/2023 15:24:33 08/30/2023 16:02:55 Pre-surgery evaluation 418258060 Z01.818 low risk for cataract surgery Essential hypertension 43222193 I10 under control Diabetes mellitus 974877 09 E11.9 getting better, acu checks reviewed Long-term drug therapy 301632617 Z79.631 [id number] Stacy Jesus NP [facility] Internal Med [facility] [address] [facility] [place] [address] 02/17/2024 11:31:04 02/17/2024 12:36:43 Diabetes mellitus 41237317 E11.9 needs update labs, has urinary issues and skin is sore Dyspnea on exertion 6084 5006 R06.09 R05.9 T78.40XA D89.9 J98.4 sees pulmonary and f/u every six months Essential hypertension 74896911 I10 blood pressure borderline today, taking meds as prescribed needs to update labs; have pharmacy call if needs refills Osteoarthritis 780048721 M19.90 has arthritis in the knees, right worse, has used cream in the past but is thinking an injection might help better, the cream does not help (voltaren) Acute urin brock tract infection 548049006 N39.0 Atrophic vaginitis 60625 000 N95.2 needs to use mild soap like dove or plain dialneeds to rinse with water and pat dry with wash cloth, avoid any topical over the counter creams like vagisil Vitamin D deficiency 347 27706 E55.9 will treat with meds and recheck labs at a later date Vertigo 537876823 R42 [id number] Shun Felix MD [facility] Internal Med [facility] [address] [facility] [place] [address] 03/20/2024 14:55:07 03/20/2024 15:42:59 Viral gastroenteritis 278448910 A08.4 diet discussed, imodium prn, liquids [id number] Rolando Tripathi MD [facility] Ortho [address] [address] 04/02/2024 11:47:47 04/02/2024 12:44:33 Pain of bilateral knee joints 3802021301 50408 M25.561 M25.030 [id number] Stacy Jesus NP [facility] Internal Med [address] [place] [address] 04/06/2024 14:01:52 04/06/2024 15:32:08 Candidiasis of skin 37204949 B37.2 Candidiasis of vagina 72 190161 B37.31 Chronic bronchitis 50636 004 J42 Cataract 208469232 H26.9 trying to get right cataract completed, [...] has an upcoming appointmen with dr felix [id number] Shun Felix MD [facility] Internal [address] [place] [address] 04/26/2024 09:46:59 04/26/2024 10:31:12 Transition of care 2363032085 105 Z75.8 Facility: [facility] Date: 04/13/23 scharge Date: 04/15/23 scharge Diagnoses: Chest pain, orthostati c headache, hypokalemi a, heart failure Pneumonia 276082261 J18. 9 already treated in the hospital and better Candidiasis of vagina 72 333116 B37.31 Insomnia 351451371 G47.0 0 on trazodone [id number] Shun Felix MD [facility] Internal Med [address] [place] [address] 07/02/2024 12:38:08 07/02/2024 13:22:06 Upper respiratory infection 98633672 J06.9 Chronic diarrhea 7059825 09 K52.9 Nausea 426243862 R11.0 [id number] Shun Felix MD [facility] Internal [address] [place] [address] 07/20/2024 11:23:50 07/20/2024 12:22:01 Anemia 879902855 D64.9 improved Chronic back pain 995934 002 G89.29 otc Anxiety 27076470 F41.9 getting worse Chronic ki dney disease 802421687 N18.9 stable Congestive heart failure 01637296 I50.9 better Diabetes mellitus 306434 09 E11.9 better Essential hypertension 42020233 I10 under control Gastroesop hageal reflux disease 650641593 K21.9 meds help Hearing loss 53497760 H9 1.93 Hyperlipidemia 23885922 E78.5 watch diet Neuropathy 072095320 G62 .9 gabapentin helps Multiple n odules of lung 914433467 R91.8 to see pulm Osteoarthritis 963064705 M19.90 OTC Vitamin D deficiency 347 37989 E55.9 ON OTC Adult heal th examination 315041715 Z00.00 Colonoscop y- In the pastMammog vikram- 2022- NL per ptDEXA- NEVERPneum ovax- States that shes hadFLU- 04/02/2024 COVID- Had the first 3, does not want any more Edema 263119960 R60.9 on furosemide Pre-surger y evaluation 263147290 Z01.818 low risk for cataract surgery Health Concerns Section Related Observation LastModified by Organization Detai ls LastModified Time None Recorded Concern Status LastModified by Organization Details LastModified Time None Recorded Advance Directives Directive None Recorded Payers Encounter Date Sequence Insurance Name Policy Number Policy De Jesus Covered Member ID De Jesus Member ID Guarantor Name 04/02/2024 1 [facility] (MEDICARE REPLACEMENT/A DVANTAGE - HMO) [id number] Cristal Martínez [id number] Cristal Martínez 04/02/2024 2 [facility] OF PUBLIC AID Cristal Martínez [id number] Cristal Martínez 04/06/2024 1 [facility] (MEDICARE REPLACEMENT/A DVANTAGE - HMO) [id number] Cristal Martínez [id number] Cristal Martínez 04/06/2024 2 [place] [facility] OF PUBLIC AID Cristal Martínez [id number] Cristal Martínez 04/26/2024 1 [facility] (MEDICARE REPLACEMENT/A DVANTAGE - HMO) [id number] Cristal Mckeon McQuay [id number] Cristal Mckeon McQugaurav 04/26/2024 2 [place] [facility] OF PUBLIC AID Cristal Dcay [id number] Cristal Mckeon McQuay 07/02/2024 1 [facility] (MEDICARE REPLACEMENT/A DVANTAGE - HMO) [id number] Cristal Mckeon McQuay [id number] Cristal Mckeon McQuay 07/02/2024 2 [place] [facility] OF PUBLIC AID Cristal Martínez [id number] Cristal Martínez 07/20/2024 1 [facility] (MEDICARE REPLACEMENT/A DVANTAGE - HMO) [id number] Cristal Mckeon McQuay [id number] Cristal Martínez 07/20/2024 2 [place] [facility] Cristal Martínez [id number] Cristal Martínez Notes Date Note Type Note Provider Name and Address Organization Details Recorded Time 04/06/2024 text/html patient is here for surgical clearance for cataract surgery for right eye. Patient experiencing grief over loss of , has son who is going through divorce living with her. Displays stress. Stacy Jesus NP [address] [facility], [facility] [address], [place], [address], [facility] [employer] 04/06/2024 17:19:38 04/26/2024 text/html Pt is here [...] helping. Itches real bad.PT IS FASTING ( [facility] ) Shun Felix MD [address], [facility] [address], [place], [address], [facility] [employer] [facility] [employer] [facility] 04/26/2024 10:29:37 07/02/2024 text/html pt is here [...] it helps Shun Felix MD [address], [facility] [address], [place], [address], [employer] 07/02/2024 13:18:00 07/20/2024 text/html Pt is here [...] to see GI Shun Felix MD [address] [facility], [facility] [address], [place], [address], [facility] 07/20/2024 12:17:05 OBGyn Episode No OBEpisode recorded.
--- OUTSIDE RECORDS SUMMARY | 2024-09-26 02:09 | XMS_ITS | Encounter Summary ---
Author Organization [facility] Address [address] [place] [address] Care Team Providers Care Target Setter Name Role Phone Jevon Felix MD Primary Care Provider [phone] Encounter Details Date Type Department Care Team (Late st Contact Info) Description 04/11/2000 Outpatient Historical [address] [place] [phone] Liam Galeano MD NO ADDRESS ON FILE Social History Tobacco Use Types Packs/Day Years Used Date Smoking Tobacco: Never Assessed Comments Unknown Sex and Gender Information Value Date Recorded Sex Assigned at Not on file Legal Sex Female 3:06 AM INSULATION BOARD BACK TENDER Gender Identity Not on file Sexual Orientation [...] documented as of this encounter Care Teams Target Setter Relationship Specialty Start Date End Date Jevon Felix MD [address] [phone] PCP - General Internal Medicine 09/01/21 documented as of this encounter
--- OUTSIDE RECORDS SUMMARY | 2024-09-26 02:09 | XMS_ITS | Encounter Summary ---
Author Organization [facility] Address [address] [place] [address] Care Team Providers Care Business Management Manager Name Role Phone Jevon Felix MD Primary Care Provider Encounter Details Date Type Department Care Team (Late st Contact Info) Description 07/04/2001 Outpatient Historical [address] [place] [phone] Liam Galeano MD NO ADDRESS ON FILE Social History Tobacco Use Types Packs/Day Years Used Date Smoking Tobacco: Never Assessed Comments Unknown Sex and Gender Information Value Date Recorded Sex Assigned at Not on file Legal Sex Female 3:06 AM SUGAR CANE GROWER Gender Identity Not on file Sexual Orientation [...] documented as of this encounter Care Teams Business Management Manager Relationship Specialty Start Date End Date Jevon Felix MD [address] [phone] PCP - General Internal Medicine 09/01/21 documented as of this encounter
--- OUTSIDE RECORDS SUMMARY | 2024-09-26 02:09 | XMS_ITS | Encounter Summary ---
Author Organization [facility] Address [address] [place] [address] Care Team Providers Care Lockstitch Tunnel Elastic Operator Name Role Phone Jevon Felix MD Primary Care Provider [phone] Encounter Details Date Type Department Care Team (Late st Contact Info) Description 05/19/2000 Outpatient Historical [address] [place] [phone] Liam Galeano MD NO ADDRESS ON FILE Social History Tobacco Use Types Packs/Day Years Used Date Smoking Tobacco: Never Assessed Comments Unknown Sex and Gender Information Value Date Recorded Sex Assigned at Not on file Legal Sex Female 3:06 AM PHOTOVOLTAIC SUBCONTRACTOR Gender Identity Not on file Sexual Orientation [...] documented as of this encounter Care Teams Lockstitch Tunnel Elastic Operator Relationship Specialty Start Date End Date Jevno Felix MD [address] [phone] PCP - General Internal Medicine 09/01/21 documented as of this encounter
--- OUTSIDE RECORDS SUMMARY | 2024-09-26 02:09 | XMS_ITS | Encounter Summary ---
Author Organization [facility] Address [address] [place] [address] Care Team Providers Care Engine Generator Assembler Name Role Phone Jevon Felix MD Primary Care Provider [phone] Encounter Details Date Type Department Care Team (Late st Contact Info) Description 10/12/1999 Outpatient Historical [address] [place] [phone] Liam Galeano MD NO ADDRESS ON FILE Social History Tobacco Use Types Packs/Day Years Used Date Smoking Tobacco: Never Assessed Comments Unknown Sex and Gender Information Value Date Recorded Sex Assigned at Not on file Legal Sex Female 3:06 AM COREMAKER APPRENTICE Gender Identity Not on file Sexual Orientation [...] documented as of this encounter Care Teams Engine Generator Assembler Relationship Specialty Start Date End Date Jevon Felix MD [address] [phone] PCP - General Internal Medicine 09/01/21 documented as of this encounter
--- OUTSIDE RECORDS SUMMARY | 2024-09-26 02:09 | XMS_ITS | Clinical Summary ---
Author Organization [facility] Address [address] [place] [address] Care Team Providers Care Associate Automation Engineer Name Role Phone Regina Matt MD Unavailable Lindsay Nettles MD PhD Unavailable [phone] Linwood Franco MD Unavailable [phone] Jevon Felix MD Unavailable [phone] Jevon Felix MD Primary Care Provider [phone] Allergies No known active allergies Medications amitriptyline [...] (07/04/2018): Added automatically from request for surgery [id number] Gastric polyp 07/04/2018 Overview (07/04/2018): Added automatically from request for surgery [id number] Multiple gastric polyps 07/03/2018 Bowel habit changes 07/03/2018 Colon cancer screening 07/03/2018 Abnormal liver scan 07/03/2018 Chronic right-sided low back pain 06/07/2018 Dupuytren's contracture of both hands 06/07/2018 Primary osteoarthritis of right knee 06/07/2018 Hypokalemia 04/03/2018 Ovarian mass, left 04/03/2018 Chest pain 04/03/2018 Acute epigastric pain 04/02/2018 Overview (04/03/2018): Added automatically from request for surgery [id number] Anemia 04/02/2018 Overview (04/03/2018): Added automatically from request for surgery [id number] Absolute anemia 04/02/2018 Overview (04/04/2018): Added automatically from request for surgery [id number] Obesity (BMI 30.0-34.9) 09/09/2015 Chronic post-traumatic headache [...] drink = 0.6 oz pur e alcohol) [facility] Utilities Answer Date Recorded In the [...] often do you attend chur ch or evangelical services? Never 04/10/2024 Do you belong to any clubs o r organizations such as baptist groups, unions, fraternal or athletic groups, or [...] any time in the past 12 [facility], were you homeless or living in a longterm (including now)? No 04/10/2024 Personal Safety Answer Date Recorded Have you ever been in or are you currently in a harmful physical or emotional relationship or is someone making you feel afraid or unsafe? Denies 04/10/2024 Comments No Sex and Gender Information Value Date Recorded Sex Assigned at Not on file Legal Sex Female 9:32 AM HERD TESTER Gender Identity Not on file Sexual Orientation [...] 65+ 2016 Lipid Panel 01/27/2022 01/27/2021, 05/09/2018 Breast Cancer Screening-Mammogram 09/17/2022 09/17/2021, 09/17/2021, 01/15/2020, Additional history exists Osteoporosis Screening-Bone Density Scan 09/18/2023 09/17/2021, 09/17/2021 Covid-19 Vaccine (3 - 2023-2 5 season) 2024 09/23/2020, 08/07/2020 Hemoglobin A1C 03/08/2024 09/06/2023, 01/19, 06/09/2021, Additional history exists Influenza Vaccine (Season Ended) 2025 04/02/2024, 04/16/2020, 04/18/2019, Additional history exists Fall Risk [...] 12/12/2020, 04/05/2018 Medical Devices Implanted Type Area Dry Cell Sealer Device Identifier Shelf Expiration Date Model / Serial / Lot [employer]/C R Bard [id number] [id number] Monofilament Scaffold Full Resorbable Square Mesh - Sna - [id number] Implanted:Qty: 1 on 01/27/2021 by Marlon Decker MD at [facility] Mesh N/A: Abdomen [employer] [id number] 08/17/2023 [id number] / NA / Procedures Procedure Name Priority [...] Hwang MD LAB BLOOD ORDERABLES Final Result [facility] [address] [facility] Department [place] [address] * (ABNORMAL) Hemoglobin A1c (02/07/2022 6:13 AM CDT) Hgb A1C 6.5(H) 4.0 - 5.6 % [facility] Estimated Average Glucose 140 mg/dL [facility] Comment: The ADA recommends reporting an estimated Average Glucose (eAG) with all Hemoglobin A1c results using the equation derived from a study of 507 normal and diabetic adults. Minority populations were underrepresented and children were not included. (Diabetes Care 31:3569-9858, 2008). The eAG is not equivalent to a fasting glucose. Blood 02/07/2022 6:13 AM CDT 02/07/2022 7:05 AM CDT Jake Roberts NP LAB BLOOD ORDERABLES F inal Result [facility] [address] [facility] Department [place] [address] * (ABNORMAL) Lipid panel (01/27/2021 10:44 PM CDT) Cholesterol 116 30 - 199 mg/dL [facility] Comment: Interpretive Data Ages < or [...] revised on 2018. Triglycerides 197(H) <=149 mg/dL [facility] Comment: Interpretive Data Ages < or [...] revised on 2018. HDL 27(L) >=40 mg/dL [facility] Comment: Interpretive Data Ages < or [...] on 2018. LDL, calculated 50 <=129 mg/dL [facility] Comment: Interpretive Data Ages < or [...] revised on 2018. Non-HDL Cholesterol 89 mg/dL [facility] Comment: Interpretive Data Ages < or [...] last revised on 2018. Chol/HDL ratio 4 [facility] Blood specimen (specimen) 01/27/2021 10:44 PM CDT 01/27/2021 11:33 PM CDT us Marlon Decker MD LAB BLOOD ORDERABLES Fin al Result [facility] [address] [facility] Department [place] [address] * COLONOSCOPY (12/12/2020 9:17 AM CDT) Anatomical Region Laterality Modality Other Narrative Procedure Note Pepito Davalos MD - 12/12/2020 9:17 AM CDT [facility] Patient Name: Sathya Martínez Procedure Date: 12/12/2020 9:17 AM Date of : 1950 Admit Type: Outpatient Age: 70 Gender: Female Attending MD: Pepito Davalos M.D. Room: [facility] ENDOSCOPY ROOM 8 Note Status: Finalized Procedure: Colonoscopy Indications: Screening for colorectal malignant neoplasm, Last colonoscopy: March 2018, Incidental constipation noted, Last scope inadequate (poor prep), pre-op planning for pelvic mass Referring MD: Linwood Fracno M.D., Lindsay Nettles MD,PHD, Marlon Decker M.D. [...] The scope was passed under direct vision.The [id number] endoscope was introduced through the anus [...] bowel preparation was evaluated using the BBPS ([place] Bowel Preparation Scale)with scores of: Right Colon [...] meats, exercise regularly, maintain healthy weight. See [facility] Cancer website for moreprevention tips. - Call the Colorectal Surgery offices [phone] with any questions, concerns, complications. After hours and weekends/Holidays, you will be directedto the on-call physician, if needed. Electronically signed by Pepito Davalos MD Pepito Davalos M.D. 12/12/2020 10:25:58 AM . Number of Addenda: 0 Note Initiated On: 12/12/2020 9:17 AM Recognized by the [employer] for promoting quality in endoscopy Pepito Davalos MD ENDOSCOPY PROCEDURES Final R esult from Last 3 Months or Most Recently Relevant to Health Maintenance Insurance [facility] MDCR HMO REF [facility] MEDICARE ADVANTAGE [facility] MEDICARE ADVANTAGE Advance Directives For more information, please contact: [phone] * Full Code (Latest Code Status on [...] 8:00 AM 12/12/2020 10:21 AM Care Teams Associate Automation Engineer Relationship Specialty Start Date End Date Jevon Felix MD [phone] [place] [address] PCP - General Internal Medicine 02/17/22 Regina Matt MD [address] [facility] [address] [address] [place] [address] Consulting Physician Gastroenterology 04/06/18 Lindsay Nettles MD PhD [address] [facility] [address] [place] [address] Referring Physician Obstetrics and Gynecology 11/11/20 Linwood Franco MD [phone] [place] [address] Surgeon Colon and Rectal Surgery 11/11/20 Jevon Felix MD [phone] [place] [address] Referring Physician Internal Medicine 02/09/22
--- OUTSIDE RECORDS SUMMARY | 2024-09-26 02:09 | XMS_ITS | Encounter Summary ---
Author Organization [facility] Address [address] [place] [address] Care Team Providers Care Material Preparation Worker Name Role Phone Jevon Felix MD Primary Care Provider [phone] Encounter Details Date Type Department Care Team (Late st Contact Info) Description 11/12/1999 Outpatient Historical [address] [place] [phone] Liam Galeano MD NO ADDRESS ON FILE Social History Tobacco Use Types Packs/Day Years Used Date Smoking Tobacco: Never Assessed Comments Unknown Sex and Gender Information Value Date Recorded Sex Assigned at Not on file Legal Sex Female 3:06 AM MAINTENANCE DIRECTOR Gender Identity Not on file Sexual [...] documented as of this encounter Care Teams Material Preparation Worker Relationship Specialty Start Date End Date Jevon Felix MD [address] [phone] PCP - General Internal Medicine 09/01/21 documented as of this encounter
--- OUTSIDE RECORDS SUMMARY | 2024-09-26 02:09 | XMS_ITS | Encounter Summary ---
Author Organization [facility] Address [address] [place] [address] Care Team Providers Care Sustainability Manager Name Role Phone Jevon Felix MD Primary Care Provider [phone] Encounter Details Date Type Department Care Team (Late st Contact Info) Description 07/14/2001 Outpatient Historical [address] [place] [phone] Liam Galeano MD NO ADDRESS ON FILE Social History Tobacco Use Types Packs/Day Years Used Date Smoking Tobacco: Never Assessed Comments Unknown Sex and Gender Information Value Date Recorded Sex Assigned at Not on file Legal Sex Female 3:06 AM CAR INSTALLATIONS SUPERVISOR Gender Identity Not on file Sexual [...] documented as of this encounter Care Teams Sustainability Manager Relationship Specialty Start Date End Date Jevon Felix MD [address] [phone] PCP - General Internal Medicine 09/01/21 documented as of this encounter
--- OUTSIDE RECORDS SUMMARY | 2024-09-26 02:09 | XMS_ITS | Encounter Summary ---
Author Organization [facility] Address [address] [place] [address] Care Team Providers Care Rental Agent Name Role Phone Jevon Felix MD Primary Care Provider [phone] Encounter Details Date Type Department Care Team (Late st Contact Info) Description 01/26/2000 Outpatient Historical [address] [place] [phone] Liam Galeano MD NO ADDRESS ON FILE Social History Tobacco Use Types Packs/Day Years Used Date Smoking Tobacco: Never Assessed Comments Unknown Sex and Gender Information Value Date Recorded Sex Assigned at Not on file Legal Sex Female 3:06 AM SEARCH SPECIALIST Gender Identity Not on file Sexual [...] documented as of this encounter Care Teams Rental Agent Relationship Specialty Start Date End Date Jevon Felix MD [address] [phone] PCP - General Internal Medicine 09/01/21 documented as of this encounter
--- OUTSIDE RECORDS SUMMARY | 2024-09-26 02:09 | XMS_ITS | Continuity of Care Document ---
Author Organization [facility] Address [address] [place] [address] Phone Care Team Providers Care Dental Hygiene Professor Name Role Phone Deandre Lea MD Unavailable [...] Diagnoses Date Provider Providers Copied on Encounter [facility], [address] [place] [address], [address], [place] [phone] [facility] Follow Up of lbp (chief complaint) LumbagoSacroili itisOther chronic pain 5 Venu Carrera. [address], [place], [id number] . tel: [phone] [facility], [address] [place] [address], [address], [place] [phone] [facility] Follow Up of lbp (chief complaint) LumbagoLumbosac ral spondylosis without myelopathyChron ic pain disorder 5 Venu Carrera. [address], [place], [id number] . tel: [phone] OFFICE/OUTPA TIENT VISIT EST [facility], [address] [place] [address], [address], [place] [phone] [facility] B L3 L4 L5 RFN (chief complaint) Lumbosacral spondylosis without myelopathyLumba go 5 Mima Beal. [address], [place], [id number] . tel: [phone] Referring Provider: Deandre Lea, [place], [address] . [facility], [address] [place] [address], [address], [place] tel:[phone] [facility] [address] Lumbosacral spondylosis without myelopathy 5 Mima Beal. [address], [place], [id number] . tel: [phone] [facility], [address] [place] [address], [address], [place] [phone] [facility] Follow Up of neck and back (chief complaint) LumbagoCervical giaChronic painLumbosacral spondylosis without myelopathy 5 Venu Deandre. [address], [place], [id number] . tel: [phone] [facility], [address] [place] [address], [address], [phone] [facility] Follow Up of neck, shoulder, and back pain (chief complaint) NECK DISORDER/SYMPT NOSShoulder pain 5 Venu Deandre. [address] [place], [place], [id number] . tel: [phone] OFFICE/OUTPA TIENT VISIT [facility], [address] [place] [address], [address], [place] tel:[phone] [facility] neck pain (chief complaint) NECK DISORDER/SYMPT NOS 4 Venu Deandre. [address] [place] [address], [id number] . tel: [phone] [facility], [address] [place] [address], [address], [place] [phone] [facility] neck pain (chief complaint) NECK DISORDER/SYMPT NOSCervicalgiaS houlder pain 4 Venu Deandre. [address] [place] [address], [id number] . tel: [phone] OFFICE/OUTPA TIENT VISIT [facility], [address] [place] [address], [address], [place] tel:[phone] [facility] Follow Up of neck and arm symptoms (chief complaint) NECK DISORDER/SYMPT NOS 4 Venu Deandre. [address] [place] [address], [id number] . tel: [phone] Referring Provider: Liam crowley, RETIRED [address], [place], [address] . tel:[phone] [facility], [address] [place] [address] [place], [address], [place] tel:[phone] [facility] shoulder pain (chief complaint) Shoulder painRotator cuff tear Nov-2 - 4 Venu Carrera. [address], [place], [place], [id number] . tel: [phone] OFFICE/OUTPA TIENT VISIT [facility], [address] [place] [address], [place], [address], [place] tel:[phone] [facility] Rt shoulder (chief complaint) Rotator cuff tear Simon-0 4 Allan Henry. [address] . [place], [place], [id number] . tel: [phone] OFFICE/OUTPA TIENT VISIT [facility], [address] [place] [address], [place], [address], [place] tel:[phone] [facility] MRI RESULTS (chief complaint) Rotator cuff tear Simon-0 4 Radha Diaz. [address] [facility] [address], [place], [place], [id number] . tel: [phone] OFFICE/OUTPA TIENT VISIT [facility], [address] [place] [address], [place], [address], [place] tel:[phone] [facility] Shoulder pain 4 Radha Diaz. [address] [place] [address] [address], [place], [place], [id number] . tel: [phone] OFFICE/OUTPA TIENT VISIT [facility], [address] [place] [address], [place], [address], [place] tel:[phone] [facility] Lumbosacral spondylosis without myelopathyLumba go 4 Mima Beal. [address] [facility], [place], [place], [id number] . tel: [phone] OFFICE/OUTPA TIENT VISIT [facility], [address] [place] [address] 200, [place], [address], [place] tel:[phone] [facility] LBP (chief complaint) LumbagoLumbosac ral spondylosis without myelopathy 4 Venu Carrera. [address] [place] [address], [id number] . tel: [phone] [facility], [address] [place] [address], [address], [place] [phone] [facility] Lumbosacral spondylosis without myelopathyLumba go 4 Mima Beal. [address] [place] [address], [id number] . tel: [phone] Referring Provider: Deandre Lea, [place], [address] . [facility], [address] [place] [address], [address], [phone] [facility] Lumbosacral spondylosis without myelopathy 4 Venu Carrera. [address] [place] [address], [id number] . tel: [phone] [facility], [address] [place] [address], [address], [place] [phone] [facility] medial branch blocks (chief complaint) Lumbago 4 Venu Carrera. [address] [place] [address], [id number] . tel: [phone] Referring Provider: Eleazar Thomson, [address] [place] [address], [address] . tel:[phone] OFFICE/OUTPA TIENT VISIT EST [facility], [address] [place] [address], [address], [place] tel:[phone] [facility] neck and back pain (chief complaint) CervicalgiaLumb ago 0 8 4 Venu Carrera. [address] [place] [address], [id number] . tel: [phone] Referring Provider: Eleazar Thomson, [address] [place] [address], [address] . tel:[phone] OFFICE/OUTPA TIENT VISIT [facility], [address] [place] [address], [address], tel:[phone] [facility] LumbagoCervical giaRotator cuff strain 4 Venu Carrera. [address] [place] [address], [id number] . tel:[phone] Referring Provider: Eleazar Thomson, [address] [place] [address], [address] . tel:[phone] OFFICE/OUTPA TIENT VISIT [facility], [address] [place] [address], [address], tel:[phone] [facility] Rotator cuff strain 4 Carly Bush. [address] [place] [address], [id number] . tel:[phone] Family History Family Member Type Diagnosis Age At Onset No Information Payers Payer name Insurance type Covered constitution party ID Authoriza tion(s) No Information Social History [...] PT. Has obtained the services of an assistant attorney general to help with the issues related to her fall last fall at [facility]. Reason For Referral Reason For [...] PT. Has obtained the services of an assistant attorney general to help with the issues related to her fall last fall at [facility]. Follow Up of lbp F/U RFN. Having LBP. 2 weeks post RFN. Some left leg instability with LBP. Hydrocodone 10/325 per PMD. Also having CABAN B L3 L4 L5 RFN Follow Up of neck and back Pain in neck toward the right shoulder. Associated headaches. can't deal with the pain anymore . Not functioning. Has had PT. Dr Lmeus recommended surgery on the right shoulder. Discussed [...] Information Instructions Date Instruction Additional Infor mation Activity as tolerated. Related t o Sacroiliitis Avoid prolonged bed rest. Relate d to [...]
--- OUTSIDE RECORDS SUMMARY | 2024-09-26 02:09 | XMS_ITS | Clinical Summary ---
Author Organization [facility] e Address [address] [place] [address] Care Team Providers Care Food Beverage Attendant Name Role Phone Jevon Felix MD Primary Care Provider [phone] Allergies No known active allergies Medications albuterol HFA 90 mcg inhaler Take 2 Puffs by inhalation every 6 hours as needed for Shortness of Breath. 6.7 Gram 1 9 Active lancets (One Touch Delica) 33 gauge E11.9 TEST TID 300 Each 6 0 Active acetaminophen (TYLENOL) 325 mg tablet Take 2 Tablets (650 mg) by mouth every 6 hours as needed (pain/temp). 0 Active Nebulizer & Compressor For Neb Device NEBULIZER MACHINE AND SUPPLIES, [facility] PATIENT; [id number] 1 Each 2 0 Active albuterol (PROVENTIL,CHARITO NANY) 2.5 mg /3 mL (0.083 %) Solution for Nebulization Take 3 mL (2.5 mg) by inhalation every 6 hours. [facility] PATIENT; [id number] 360 mL 11 0 Active blood sugar diagnostic (OneTouch Verio test strips) Strip USE 4 TIMES DAILY 400 Strip 3 0 Active allopurinoL (ZYLOPRIM) 300 mg tablet TAKE 1 TABLET BY MOUTH DAILY 90 Tablet 3 0 Active atorvastatin (LIPITOR) 10 mg tablet TAKE 1 TABLET BY MOUTH DAILY LATE IN DAY 90 Tablet 3 0 Active gabapentin (NEURONTIN) 300 mg capsuleIndicatio ns:Neuropathy involving both lower extremities TAKE 1 CAPSULE BY MOUTH DAILY AT BEDTIME 90 Capsule 3 1 Active Additional Information Patient taking differently: 300 mg Oral THREE TIMES DAILY, Reported on 08/25/2023 ondansetron (ZOFRAN) 4 mg Tablet Take 1 Tablet (4 mg) by mouth every 8 hours as needed for Nausea/Emesis. 24 Tablet 1 1 Active traZODone (DESYREL) 100 mg tablet TAKE 1 TABLET BY MOUTH EVERYDAY AT BEDTIME 30 Tablet 2 1 Active omeprazole (PriLOSEC) 20 mg Capsule, Delayed Release(E.C.) TAKE 1 CAPSULE BY MOUTH TWICE DAILY 180 Capsule 3 1 Active metFORMIN (GLUCOPHAGE) 500 mg tablet TAKE 1 TABLET BY MOUTH DAILY WITH BREAKFAST 90 Tablet 3 1 Active ferrous sulfate 325 mg (65 mg iron) tabletIndication s:Iron deficiency anemia, unspecified iron deficiency anemia type Take 1 Tablet (325 mg) by mouth daily. 30 Tablet 2 1 Active meclizine (ANTIVERT) 25 mg tablet TAKE 1 TABLET BY MOUTH 3 TIMES DAILY NEEDED FOR DIZZINESS 90 Tablet 1 Active amitriptyline (ELAVIL) 50 mg tabletIndication s:Pain in joint, multiple sites Take 1 Tablet (50 mg) by mouth 2 times daily. 180 Tablet 2 Active cyanocobalamin, vitamin B-12, 5,000 mcg tablet, IR & ER, biphasic Take by mouth. Activ e niacin (NIACOR) 100 mg Tablet Take 100 mg by mouth daily. Active ergocalciferol (VITAMIN D2) 50,000 unit capsule 2 Active ondansetron (ZOFRAN ODT) 4 mg Tablet, Rapid Dissolve DISSOLVE ONE TABLET ON TONGUE FOUR TIMES A DAY NEEDED 2 Active triamterene-hydr oCHLOROthiazide (MAXZIDE) 75-50 mg tablet 2 Active dapagliflozin propanediol (Farxiga) 10 mg Tablet Take 10 mg by mouth 2 times daily. Active diphenhydrAMINE (CHILDREN'S BENADRYL) 12.5 mg Tablet, Chewable Take by mouth. Activ e glimepiride (AMARYL) 2 mg tablet Take 2 mg by mouth daily with breakfast. Active HYDROcodone-acet aminophen (NORCO) 5-325 mg tablet Take 1 Tablet [...] mg) by mouth daily. 90 Tablet 3 4 Active furosemide (LASIX) 40 mg tablet take 1 tablet by mouth every day 90 Tablet 1 4 Active dicyclomine (BENTYL) 10 mg capsuleIndicatio ns:Generalized abdominal pain TAKE 1 CAPSULE BY MOUTH THREE TIMES A DAY 270 Capsule 5 Active Active Problems Problem Noted Date Diagnosed Date Benign hypertension 09/01/2023 Bilateral lower extremity edema 09/01/2023 Mild CAD 09/01/2023 Polyarthralgia 10/20/2020 CAMACHO (dyspnea on exertion) 12/26/2019 Aortic atherosclerosis 12/01/2018 Overview (12/01/2018): Chest XR; 04-03-18, Care Everywhere kh Multiple gastric polyps 07/03/2018 Overview (10/08/2021): Added automatically from request for surgery [id number] Added automatically from request for surgery [id number] Primary osteoarthritis of right knee 06/07/2018 Dupuytren's [...] Encounters Date Type Department Care Team Description 09/05/2024 External Device Data [facility] ABSTRACTION Provider, Abstract 08/25/2024 External Device Data [facility] ABSTRACTION Provider, Abstract 08/24/2024 External Device Data [facility] ABSTRACTION Provider, Abstract 08/22/2024 External Device Data [facility] ABSTRACTION Provider, Abstract 08/21/2024 External Device Data [facility] ABSTRACTION Provider, Abstract 07/11/2024 External Device Data [facility] ABSTRACTION Provider, Abstract 07/11/2024 External Device Data [facility] ABSTRACTION Provider, Abstract 07/04/2024 External Device Data [facility] ABSTRACTION Provider, Abstract 06/30/2024 [facility] [place] [address] [address] Eleazar Branham MD Generalized abdominal pain from [...] on file Legal Sex Female 3:06 AM FOOD SERVICE COORDINATOR Gender Identity Not on file Sexual Orientation Not on file Occupation Industry Job Start Date Job End Date Not on file Not on file Not on file Not on file Last Filed Vital Signs Vital Sign Reading Time Taken Comments Blood Pressure 168/70 08/25/2023 3:00 PM FOOD SERVICE COORDINATOR Pulse 72 08/25/2023 3:00 PM FOOD SERVICE COORDINATOR Temperature 36.8 C (98.2 F) 10/09/2021 8:24 AM CDT Respiratory Rate 18 10/09/2021 3:02 PM CDT Oxygen Saturation 96% 08/25/2023 3:00 PM FOOD SERVICE COORDINATOR Inhaled Oxygen Concentration - - Weight 89.4 kg (197 lb) 08/25/2023 3:00 PM FOOD SERVICE COORDINATOR Height 165.1 cm (5' 5 ) 08/25/2023 3:00 PM FOOD SERVICE COORDINATOR Body Mass Index 32.78 08/25/2023 3:00 PM FOOD SERVICE COORDINATOR Plan of Treatment Health Maintenance Due Date [...] 10/21/2021 10/21/2020, BREAST CANCER SCREENING 09/17/2022 09/18/19, 09/17/2021, 01/15/2020, Additional history exists INFLUENZA VACCINE (#1) 2024 , 04/16/2020, 04/18/2019, Additional history exists COVID-19 Vaccine ( - 2023-2 5 season) 2024 09/23/2020, 08/07/2020 DIABETES HBA1C Q 6 MONTHS 03/08/20242023, 02/07/2022, 06/09/2021, Additional history exists DIABETES MICROALBUMIN ANNUAL SCREEN 09/05/2024 09/06/2023, 04/13/2021, 12/10/2019, Additional history exists LDL CHOLESTEROL ANNUAL 09/05/2024 , 06/09/2021, 04/13/2021, Additional history exists DTAP/TDAP/TD VACCINES (3 - T d or Tdap) 09/08/2025 09/09/2015, 07/14/2005 COLORECTAL SCREENING 12/12/2030 12/12/2020, 12/12/2020, 04/05/2018, Additional history exists Colorectal Cancer Screening 12/12/2030 PNEUMOCOCCAL VACCINE 50+ YEARS Completed 1 , 04/18/2019, 03/19/2010 OSTEOPOROSIS SCREENING Completed 09/17/2021, 2021 Medical Devices Implanted Type Area Cannery Worker Device Identifier Shelf Expiration Date Model / Serial / Lot Screw Comp Fix Loc 4.57x42om [id number] - [id number] Implanted:Qty: 1 on 10/05/2021 by Carloz Angel MD at [facility] Screw Right: Shoulder FARHANA BIOMET 07/28/2031 [id number] / / [id number] Screw Comp Carlos [id number] 290728 - [id number] Implanted:Qty: 1 on 10/05/2021 by Carloz Angel MD at [facility] Screw Right: Shoulder FARHANA BIOMET 06/30/2030 [id number] / / [id number] Screw Comp Carlos [id number] - [id number] Implanted:Qty: 1 on 10/05/2021 by Carloz Angel MD at [facility] Screw Right: Shoulder FARHANA BIOMET 05/06/2031 [id number] / / [id number] Screw Cntrl Comp Rvs 6.5x30mm [id number] - [id number] Implanted:Qty: 1 on 10/05/2021 by Carloz Angel MD at [facility] Screw Right: Shoulder FARHANA BIOMET 07/03/2031 [id number] / / [id number] Screw Comp Fix Loc 4.32k77uu 046899 - [id number] Implanted:Qty: 1 on 10/05/2021 by Carloz Angel MD at [facility] Screw Right: Shoulder FARHANA BIOMET 07/26/2031 [id number] / / [id number] Sealant Floseal 10ml [id number] - [id number] Implanted:Qty: 1 on 01/31/2017 by Spenser Shaw MD at [facility] Sealant N/A: Abdomen SINGLETARY- Dispatch 03/03/2018 [id number] / / [id number] Baseplate Hum Comp Rvrs Mini 25mm [id number] - [id number] Implanted:Qty: 1 on 10/05/2021 by Carloz Angel MD at [facility] Shoulder Right: Shoulder FARHANA BIOMET 09/15/2031 [id number] / / [id number] Description:All Biomet shoul joanne components are processed on requisition, [id number]. Glnsphr Versa-Dial Comp Rvs [id number] - [id number] Implanted:Qty: 1 on 10/05/2021 by Carloz Angel MD at [facility] Shoulder Right: Shoulder FARHANA BIOMET 07/29/2031 [id number] / / [id number] Stem Hum Comp Mini 11mm [id number] - [id number] Implanted:Qty: 1 on 10/05/2021 by Carloz Angel MD at [facility] Shoulder Right: Shoulder FARHANA BIOMET 01/21/2031 [id number] / / [id number] Comprehensive Reverse Shoulder System Prolon Highly Crosslinked Polyethylene Bearing Standard Implanted:Qty: 1 on 10/05/2021 by Carloz Angel MD at [facility] Shoulder Right: Shoulder FARHANA BIOMET [id number] 03/31/2026 [id number] / / [id number] Comprehensive Reverse Shoulder System Mini Humeral Tray Standard Thickness Implanted:Qty: 1 on 10/05/2021 by Carloz Angel MD at [facility] Shoulder Right: Shoulder FARHANA BIOMET [id number] 08/18/2031 [id number] / / [id number] Explanted Type Area Cannery Worker Device Identifier Shelf Expiration Date Model / Serial / Lot Frank [place] Thrd Tip [id number] - [id number] Explanted:Qty: 1 on 10/05/2021 by Carloz Angel MD at [facility] Pin Right: Shoulder FARHANA BIOMET 09/16/2031 [id number] / / [id number] Procedures Procedure Name Priority Date/Time Associated Diagnosis [...] patient to be within a diagnostic category. [facility] [address] [place] [address] 09/06/2023 10:4 3 AM CDT 09/06/2023 10:44 AM CDT Jevon Felix MD URINE ORDERABLES Final Result [facility] [phone] [facility] [address] [place] [address] * (ABNORMAL) HEMOGLOBIN A1C (09/06/2023 10:43 AM CDT) HEMOGLOBIN A1C 6.7(H) <5.7 % of total Hgb [facility] Comment: For someone without known diabetes, [...] change in test platforms from the Vargas Bar Tacker to the Sharonda chio [id number] may have shifted HbA1c results compared to historical results. Based on laboratory validation testing conducted at [facility], the Sharonda platform relative to the Vargas [...] INS CARD ON PHONE FASTING:YES FASTING: YES [facility] [address] [address] 09/06/2023 10:4 3 AM CDT 09/06/2023 10:44 AM CDT us Jevon Felix MD CHEMISTRY ORDERABLES Final Res ult [facility] [phone] [facility] [address] [place] [address] * (ABNORMAL) LIPID PANEL (09/06/2023 10:43 AM CDT) CHOLESTEROL 226(H) <200 mg/dL [facility] el[facility] Ye[facility] HDL 35(L) > OR = 50 mg/dL [facility] el[facility] Ye[facility] TRIGLYCERIDE 476(H) <150 mg/dL BoniS elham Yeager Comment: If a non-fasting specimen was collected, consider repeat triglyceride testing on a fasting specimen if clinically indicated. Jennifer et al. J. of Clin. Lipidol. 2015;9:129-169. LDL CALCULATED mg/dL (calc) Rufino lizarraga Toy Comment: LDL cholesterol not calculated. Triglyceride levels [...] equation in the estimation of LDL-C. Enoc SS et al. LACIE. 2013;310(19): 6378-1642 (http://education.SimpleTherapy/faq/TKN914) CHOL/HDL RATIO 6.5(H) <5.0 (calc) Rufino WaggonerSportfortSheree elham Yeager TOTAL NON-HDL CHOL(LDL+VLDL) 191(H) <130 mg/dL (calc) Rufino [facility] el[facility] Yeager Comment: For patients with diabetes plus 1 major ASCVD risk factor, treating to a non-HDL-C goal of <100 mg/dL (LDL-C of <70 mg/dL) is considered a therapeutic option. [address] [address] 09/06/2023 10:4 3 AM CDT 09/06/2023 10:44 AM CDT Jevon Felix MD CHEMISTRY ORDERABLES Final Res ult [facility] [phone] [place] [address] [place] [address] * MAMMO SCRN BILAT 3D BRENTON W [...] Overall Assessment: Birads Category 1: Negative Lian ZHOU MAMMO ORDERABLES Final Result * XR DEXA BONE DENSITY AXIAL 1 OR MORE SITES (09/17/2021 1:50 PM CDT) Anatomical Region Laterality Modality Digital Radiogra phy 09/17/2021 1:51 PM CDT Impressions 09/17/2021 1:54 PM CDT IMPRESSION: This is a summary page. Please refer to the complete detailed report found in the Imaging Section of the [facility] EMR. Normal bone mineral densities. Lumbar [...] found in the Imaging Section of the [facility] EMR. Normal bone mineral densities. Lumbar [...] PROCEDURE ORDERABLES Edite d Result - Final [facility] [id number] [address] [address] from Last 3 Months or Most Recently Relevant to Health Maintenance Insurance RX OPT[employer] RX Member Subscriber Plan / Payer (Ef fective 2016-Present) Name:Cristal Martínez Relation to Subscriber:Self Name:Cristal Martínez Payer ID:Not on file Group ID:[id number] Type:RX Medicare Part D Address: [address] Advance Directives For more information, please contact: [phone] * Full Code (Latest Code Status on [...] 11:38 AM 02/03/2017 9:56 PM Care Teams Food Beverage Attendant Relationship Specialty Start Date End Date Jevon Felix MD [address] [place] [place] [phone] PCP - General Internal Medicine 09/01/21
--- OUTSIDE RECORDS SUMMARY | 2024-09-26 02:10 | XMS_ITS | Encounter Summary ---
Author Organization [facility] Address [address] [place] [address] Care Team Providers Care Compliance Representative Name Role Phone Jevon Felix MD Primary Care Provider [phone] Encounter Details Date Type Department Care Team (Late st Contact Info) Description 08/15/2007 Outpatient Historical [address] [place] [phone] Liam Galeano MD NO ADDRESS ON FILE Social History Tobacco Use Types Packs/Day Years Used Date Smoking Tobacco: Never Assessed Comments No Sex and Gender Information Value Date Recorded Sex Assigned at Not on file Legal Sex Female 3:06 AM DINKEY ENGINE FIRER Gender Identity Not on file Sexual Orientation [...] documented as of this encounter Care Teams Compliance Representative Relationship Specialty Start Date End Date Jevon Felix MD [address] [place] [phone] PCP - General Internal Medicine 09/01/21 documented as of this encounter
--- OUTSIDE RECORDS SUMMARY | 2024-09-26 02:10 | XMS_ITS | Encounter Summary ---
Author Organization [employer] Address [address] [place] [address] Care Team Providers Care Shipping Order Clerk Name Role Phone Jevon Felix MD Primary Care Provider [phone] Encounter Details Date Type Department Care Team [...] on file Legal Sex Female 3:06 AM PICKER Gender Identity Not on file Sexual [...] as of this encounter Care Teams Shipping Order Clerk Relationship Specialty Start Date End Date Jevon Felix MD [address] [facility] [address] [place] [phone] PCP - General Internal Medicine 09/01/21 documented as of this encounter
--- OUTSIDE RECORDS SUMMARY | 2024-09-26 02:10 | XMS_ITS | Encounter Summary ---
Author Organization [facility] Address [address] [place] [address] Care Team Providers Care Rug Drying Machine Operator Name Role Phone Jevon Felix MD Primary Care Provider [phone] Encounter Details Date Type Department Care Team (Late st Contact Info) Description 11/07/2003 Outpatient Historical [address] [place] [phone] Liam Galeano MD NO ADDRESS ON FILE Social History Tobacco Use Types Packs/Day Years Used Date Smoking Tobacco: Never Assessed Comments Unknown Sex and Gender Information Value Date Recorded Sex Assigned at Not on file Legal Sex Female 3:06 AM EYE CLINIC MANAGER Gender Identity Not on file Sexual [...] documented as of this encounter Care Teams Rug Drying Machine Operator Relationship Specialty Start Date End Date Jevon Felix MD [address] [phone] PCP - General Internal Medicine 09/01/21 documented as of this encounter
--- OUTSIDE RECORDS SUMMARY | 2024-09-26 02:10 | XMS_ITS | Encounter Summary ---
Author Organization [employer] Address [address] [place] [address] Care Team Providers Care Television Analyzer Name Role Phone Jevon Felix MD Primary Care Provider [phone] Encounter Details Date Type Department Care Team (Latest Contact Info) Description 04/16/2008 Outpatient Historical [facility], [address] Liam Galeano MD NO ADDRESS ON FILE Hematuria, Unspecified Social History Tobacco Use Types Packs/Day Years Used Date Smoking Tobacco: Never Alcohol Use Standard Drinks/Week Comments Not Asked 0 (1 standard drink = 0.6 oz pur e alcohol) Comments No Sex and Gender Information Value Date Recorded Sex Assigned at Not on file Legal Sex Female 3:06 AM MANHOLE STRIPPER Gender Identity Not on file Sexual Orientation [...] documented as of this encounter Care Teams Television Analyzer Relationship Specialty Start Date End Date Jevon Felix MD [address] [phone] PCP - General Internal Medicine 09/01/21 documented as of this encounter
--- OUTSIDE RECORDS SUMMARY | 2024-09-26 02:10 | XMS_ITS | Encounter Summary ---
Author Organization [facility] Address [address] [place] [address] Care Team Providers Care Licensed Occupational Therapy Assistant Name Role Phone Jevon Felix MD Primary Care Provider [phone] Encounter Details Date Type Department Care Team (Late st Contact Info) Description 10/02/2002 Outpatient Historical [address] [place] [phone] Liam Galeano MD NO ADDRESS ON FILE Social History Tobacco Use Types Packs/Day Years Used Date Smoking Tobacco: Never Assessed Comments Unknown Sex and Gender Information Value Date Recorded Sex Assigned at Not on file Legal Sex Female 3:06 AM TERRITORY SALES CONSULTANT Gender Identity Not on file Sexual Orientation [...] documented as of this encounter Care Teams Licensed Occupational Therapy Assistant Relationship Specialty Start Date End Date Jevon Felix MD [address] [phone] PCP - General Internal Medicine 09/01/21 documented as of this encounter
--- OUTSIDE RECORDS SUMMARY | 2024-09-26 02:10 | XMS_ITS | Encounter Summary ---
Author Organization [facility] Address [address] [place] [address] Care Team Providers Care Knife Setter Grinder Machine Name Role Phone Jevon Felix MD Primary Care Provider [phone] Encounter Details Date Type Department Care Team (Late st Contact Info) Description 04/04/2006 Outpatient Historical [address] [place] [phone] Liam Galeano MD NO ADDRESS ON FILE Social History Tobacco Use Types Packs/Day Years Used Date Smoking Tobacco: Never Assessed Comments Unknown Sex and Gender Information Value Date Recorded Sex Assigned at Not on file Legal Sex Female 3:06 AM RESPIRATORY SUPERVISOR Gender Identity Not on file Sexual [...] documented as of this encounter Care Teams Knife Setter Grinder Machine Relationship Specialty Start Date End Date Jevon Felix MD [address] [phone] PCP - General Internal Medicine 09/01/21 documented as of this encounter
--- OUTSIDE RECORDS SUMMARY | 2024-09-26 02:10 | XMS_ITS | Encounter Summary ---
Author Organization [employer] Address [address] [place] [address] Care Team Providers Care Oracle Hyperion Consultant Name Role Phone Jevon Felix MD Primary Care Provider [phone] Encounter Details Date Type Department Care Team (Latest Contact Info) Description 01/25/2007 Outpatient Historical [facility], [address] [place] Acquired Keratoderma (Primary Dx) Social History Tobacco Use Types Packs/Day Years Used Date Smoking Tobacco: Never Assessed Comments Unknown Sex and Gender Information Value Date Recorded Sex Assigned at Not on file Legal Sex Female 3:06 AM BARNWORKER GROOM Gender Identity Not on file Sexual Orientation [...] documented as of this encounter Care Teams Oracle Hyperion Consultant Relationship Specialty Start Date End Date Jevon Felix MD [address] [phone] PCP - General Internal Medicine 09/01/21 documented as of this encounter
--- OUTSIDE RECORDS SUMMARY | 2024-09-26 02:10 | XMS_ITS | Encounter Summary ---
Author Organization [facility] Address [address] [place] [address] Care Team Providers Care Service Parts Coordinator Name Role Phone Jevon Felix MD Primary Care Provider [phone] Encounter Details Date Type Department Care Team (Late st Contact Info) Description 03/20/2003 Outpatient Historical [address] [place] [phone] Liam Galeano MD NO ADDRESS ON FILE Social History Tobacco Use Types Packs/Day Years Used Date Smoking Tobacco: Never Assessed Comments Unknown Sex and Gender Information Value Date Recorded Sex Assigned at Not on file Legal Sex Female 3:06 AM RIVER TRANSPORTATION WORKER Gender Identity Not on file Sexual [...] documented as of this encounter Care Teams Service Parts Coordinator Relationship Specialty Start Date End Date Jevon Felix MD [address] [phone] PCP - General Internal Medicine 09/01/21 documented as of this encounter
--- OUTSIDE RECORDS SUMMARY | 2024-09-26 02:10 | XMS_ITS | Encounter Summary ---
Author Organization [employer] [facility] Address [address] [place] [address] Care Team Providers Care Sanitation Laborer Name Role Phone Jevon Felix MD Primary Care Provider [phone] Encounter Details Date Type Department Care Team (Latest Contact Info) Description 05/19/2006 Outpatient Historical [facility] [place] Calculus of Kidney (Primary Dx) Social History Tobacco Use Types Packs/Day Years Used Date Smoking Tobacco: Never Assessed Comments Unknown Sex and Gender Information Value Date Recorded Sex Assigned at Not on file Legal Sex Female 3:06 AM GRANITE INSTALLER Gender Identity Not on file Sexual Orientation Not on file documented as of this encounter Plan of Treatment Not on file documented as of this encounter Procedures Procedure Name Priority Date/Time Associated Diagnosis Comments POC CREATININE Routine 05/19/2006 10:19 AM GRANITE INSTALLER documented in this encounter Results * POC CREATININE (05/19/2006 10:19 AM GRANITE INSTALLER) CREATININE POC 0.9 0.6 - 1.3 mg/dL INTERFACE SYSTEM 05/19/2006 10:1 9 AM GRANITE INSTALLER [facility] POINT OF CARE TESTING Final Resu lt INTERFACE SYSTEM Refer to clinic/hospital department documented in this encounter Visit Diagnoses Diagnosis Calculus of kidney- Primary documented in this encounter Additional Health Concerns Infection Onset Date Last Indicated Resolved Time R/O COVID-19 12/27/2019 12/27/2019 12/28/2019 3:23 AM CDT C Diff 12/04/2021 12/04/2021 11/03/2022 1:00 AM CDT R/O C. diff 12/05/2021 12/04/2021 12/05/2021 3:51 PM CDT R/O C. diff 04/11/2023 04/11/2023 04/11/2023 8:12 AM CDT documented as of this encounter Care Teams Sanitation Laborer Relationship Specialty Start Date End Date Jevon Felix MD [address] [phone] PCP - General Internal Medicine 09/01/21 documented as of this encounter
--- OUTSIDE RECORDS SUMMARY | 2024-09-26 02:10 | XMS_ITS | Encounter Summary ---
Author Organization [facility] Address [address] [place] [address] Care Team Providers Care Plant Breeder Scientist Name Role Phone Jevon Felix MD Primary Care Provider [phone] Encounter Details Date Type Department Care Team (Late st Contact Info) Description 12/10/1998 Outpatient Historical [address] [place] [phone] Liam Galeano MD NO ADDRESS ON FILE Social History Tobacco Use Types Packs/Day Years Used Date Smoking Tobacco: Never Assessed Comments Unknown Sex and Gender Information Value Date Recorded Sex Assigned at Not on file Legal Sex Female 3:06 AM SWEATBAND FLANGER Gender Identity Not on file Sexual Orientation [...] documented as of this encounter Care Teams Plant Breeder Scientist Relationship Specialty Start Date End Date Jevon Felix MD [address] [phone] PCP - General Internal Medicine 09/01/21 documented as of this encounter
--- OUTSIDE RECORDS SUMMARY | 2024-09-26 02:10 | XMS_ITS | Encounter Summary ---
Author Organization [employer] Address [address] [place] [address] Care Team Providers Care Gravity Prospecting Operator Helper Name Role Phone Jevon Felix MD Primary Care Provider [phone] Encounter Details Date Type Department Care Team (Late st Contact Info) Description 01/24/2006 Outpatient Historical [facility] Support Serv. (Adt Cardiology[facility]) [address] [place] [phone] Toy Anguiano MD NO ADDRESS ON FILE Social History Tobacco Use Types Packs/Day Years Used Date Smoking Tobacco: Never Assessed Comments Unknown Sex and Gender Information Value Date Recorded Sex Assigned at Not on file Legal Sex Female 3:06 AM BOX MAKER PAPERBOARD Gender Identity Not on file Sexual Orientation [...] documented as of this encounter Care Teams Gravity Prospecting Operator Helper Relationship Specialty Start Date End Date Jevon Felix MD [address] [phone] PCP - General Internal Medicine 09/01/21 documented as of this encounter
--- OUTSIDE RECORDS SUMMARY | 2024-09-26 02:10 | XMS_ITS | Encounter Summary ---
Author Organization [facility] Address 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
--- OUTSIDE RECORDS SUMMARY | 2024-09-26 02:10 | XMS_ITS | Encounter Summary ---
Author Organization [facility] Address 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
--- OUTSIDE RECORDS SUMMARY | 2024-09-26 02:10 | XMS_ITS | Encounter Summary ---
Author Organization [facility] Address [address] [place] [address] Care Team Providers Care Pipe Chipper Name Role Phone Jevon Felix MD Primary Care Provider [phone] Encounter Details Date Type Department Care Team (Latest Contact Info) Description 02/13/2007 Outpatient Historical [facility] [place] Other Chronic Nonalcoholic Liver Disease (Primary Dx) Social History Tobacco Use Types Packs/Day Years Used Date Smoking Tobacco: Never Assessed Comments Unknown Sex and Gender Information Value Date Recorded Sex Assigned at Not on file Legal Sex Female 3:06 AM VOUCHER EXAMINER Gender Identity Not on file Sexual Orientation [...] mg/dL INTERFACE SYSTEM 02/13/2007 1:46 PM CDT [facility] POINT OF CARE TESTING Edited INTERFACE SYSTEM [...] documented as of this encounter Care Teams Pipe Chipper Relationship Specialty Start Date End Date Jevon Felix MD [address] [phone] PCP - General Internal Medicine 09/01/21 documented as of this encounter
--- OUTSIDE RECORDS SUMMARY | 2024-09-26 02:10 | XMS_ITS | Encounter Summary ---
Author Organization [facility] Address 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
--- OUTSIDE RECORDS SUMMARY | 2024-09-26 02:10 | XMS_ITS | Encounter Summary ---
Author Organization [employer] Address [address] [place] [address] Care Team Providers Care Leases And Land Supervisor Name Role Phone Jevon Felix MD Primary Care Provider [phone] Encounter Details Date Type Department Care Team (Late st Contact Info) Description 04/17/2008 Outpatient Historical [facility], Authorized P NO ADDRESS ON FILE Ronaldo Puentes DO [address] [facility] [address] [place] [address] Social History Tobacco Use Types Packs/Day Years Used Date Smoking Tobacco: Never Alcohol Use Standard Drinks/Week Comments Not Asked 0 (1 standard drink = 0.6 oz pur e alcohol) Comments No Sex and Gender Information Value Date Recorded Sex Assigned at Not on file 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 [place], [place] [address] Admit Date: 04/17/2008 RITUARNOLDOSATHYA Sex: F Admit Prov: CON, RUDY P Date:1950 Primary Care Prov: PILLOLiam WOODS CMRN: [id number] [facility] SS[facility]: [id number] IMAGING SERVICES Ordering Prov: N/A Interpretation Exam: [...] Escherichia coli Normal urethral dom also present. [facility] SUSCEPTIBILITY PERFORMED ON ESCHERICHIA COLI [facility] 04/17/2008 6:39 PM CDT 04/17/2008 7:03 [...] Result INTERFACE SYSTEM Refer to clinic/hospital department [facility] CLIA# [id number] [address], [place] [address] * PT AND APTT (04/17/2008 6:35 PM CDT) INR 1.0 0.9 - 1.1 [facility] Comment: INR Therapeutic Range: Adult: 2.0 - 3.0 for pulmonary embolism or prophylaxis against venous thrombosis or systemic embolization. 2.0 - 3.0 for patients with tissue heart valves. 2.5 - 3.5 for patients with mechanical heart valves or post PA. Pediatric (12 years and under): 1.5 - 3.0 Although the target range in children is not well established, INR values of 1.5 - 3.0 are recommended for most patients. Higher values have been used in children with prosthetic cardiac valves and hereditary clotting disorders. [place] (<3 days) therapeutic ranges have not been established. PROTIME 13.7 12.7 - 15.1 Seconds [facility] PTT 29.2 24.4 - 36.4 Seconds [facility] Comment: PTT Therapeutic Range: Heparin Level [...] Edited INTERFACE SYSTEM Refer to clinic/hospital department [facility] CLIA# [id number] [address] [place] [address] * (ABNORMAL) COMPREHENSIVE METABOLIC PANEL (04/17/2008 6:35 PM CDT) CREATININE 0.76 0.51 - 0.95 mg/dL [facility] ALT 59(H) 0 - 31 U/L [facility] SODIUM 136 135 - 145 mmol/L [facility] ALKALINE PHOSPHATASE 68 35 - 104 U/L [facility] CO2 27 22 - 30 mmol/L [facility] BILIRUBIN TOTAL 0.3 0.2 - 1.0 mg/dL [facility] POTASSIUM 3.1(L) 3.5 - 4.9 mmol/L [facility] TOTAL PROTEIN 7.8 6.3 - 8.6 g/dL [facility] GLUCOSE 127(H) 65 - 99 mg/dL [facility] AST 44(H) 12 - 32 U/L [facility] BUN 16 6 - 20 mg/dL [facility] CALCIUM 9.0 8.6 - 10.2 mg/dL [facility] ALBUMIN 4.3 3.4 - 4.8 g/dL [facility] CHLORIDE 98 96 - 108 mmol/L [facility] GFR, >60 >=60 mL/min/1. 7 sq meter [facility] GFR >60 >=60 mL/min/1. 7 sq meter [facility] Comment: Modification of Diet in Renal Disease (MDRD) study formula. Estimated GFR rate interpretative information for both Americans and non- Americans is available on the [facility] Intranet at: [email or web address] Select: Lab Policies and Procedures Select: Reference Ranges - GFR Blood specimen (specimen) 04/17/2008 6:35 PM CDT 04/17/2008 6:42 PM CDT us Ronaldo Puentes DO CHEMISTRY ORDERABLES Edited INTERFACE SYSTEM Refer to clinic/hospital department [facility] CLIA# [id number] [address], [place] [address] * (ABNORMAL) CBC WITH DIFFERENTIAL (04/17/2008 6:35 PM CDT) HEMATOCRIT 41.9 35.5 - 44.0 % [facility] RDW-STDEV 41.5 37.1 - 48.7 fL [facility] RBC 5.02(H) 3.90 - 4.90 M/uL [facility] MCHC 35.3 31.5 - 35.5 % [facility] MCV 83.5 82.0 - 99.0 fL [facility] PLATELETS 339 140 - 350 K/uL [facility] HEMOGLOBIN 14.8 11.8 - 14.8 g/dL [facility] RDW 13.8 11.5 - 14.5 % [facility] WBC 10.5(H) 4.0 - 9.8 K/uL [facility] MCH 29.5 27.2 - 32.6 pg [facility] MPV 9.9 9.3 - 12.4 fL [facility] MONOCYTE ABSOLUTE 0.73 0.10 - 1.30 K/uL [facility] NEUTROPHIL ABSOLUTE 6.59 1.90 - 7.00 K/uL [facility] NEUTROPHILS 63 45 - 70 % [facility] EOSINOPHILS 0 0 - 7 % [facility] EOSINOPHIL ABSOLUTE 0.00 0.00 - 0.70 K/uL [facility] LYMPHOCYTE ABSOLUTE 3.13 0.70 - 4.50 K/uL [facility] LYMPHOCYTES 30 16 - 45 % [facility] BASOPHILS 0 0 - 2 % [facility] BASOPHILS ABSOLUTE 0.03 0.00 - 0.20 K/uL [facility] MONOCYTES 7 3 - 13 % [facility] Blood specimen (specimen) 04/17/2008 6:35 PM CDT 04/17/2008 6:42 PM CDT us Ronaldo Puentes DO HEMATOLOGY ORDERABLES Edited INTERFACE SYSTEM Refer to clinic/hospital department [facility] CLIA# [id number] [address] [place] [address] * POC URINALYSIS DIPSTICK NON AUTOMATED (04/17/2008 6:23 PM CDT) CLARITY UA Clear [facility] BLOOD UA Negative Negative [facility] PROTEIN UA Negative Negative [facility] LEUKOCYTE ESTERASE UA Negative Negative [facility] UROBILINOGEN UA Normal <=1 mg/dL [facility] SPECIFIC GRAVITY UA 1.025 1.001 - 1.030 [facility] GLUCOSE UA Negative Negative [facility] COLOR UA Yellow [facility] NITRITE UA Negative Negative [facility] BILIRUBIN UA Negative Negative [facility] PH UA 5.0 5.0 - 8.0 [facility] KETONES UA Negative Negative [facility] Urine specimen (specimen) 04/17/2008 6:23 PM CDT 04/17/2008 6:23 PM CDT us Authorized P Er POINT OF CARE TESTING Final Resu lt INTERFACE SYSTEM Refer to clinic/hospital department [facility] CLIA# [id number] [address] [place] [address] * URINALYSIS (04/17/2008 6:20 PM CDT) SPECIFIC GRAVITY UA 1.013 1.001 - 1.035 [facility] BLOOD UA Negative Negative [facility] GLUCOSE UA Negative Negative [facility] COLOR UA Yellow [facility] NITRITE UA Negative Negative [facility] UROBILINOGEN UA <1 <=1 mg/dL [facility] PH UA 5.0 5.0 - 8.0 [facility] KETONES UA Negative Negative [facility] CLARITY UA Clear Clear [facility] PROTEIN UA Negative Negative [facility] BILIRUBIN UA Negative Negative [facility] LEUKOCYTE ESTERASE UA Negative Negative [facility] Urine specimen (specimen) 04/17/2008 6:20 PM CDT 04/17/2008 6:32 PM CDT us Ronaldo Puentes DO URINE ORDERABLES Final Resul t INTERFACE SYSTEM Refer to clinic/hospital department [facility] CLIA# [id number] [address], [place] [address] documented in this encounter Visit Diagnoses Not on filedocumented in this encounter Additional Health Concerns Infection Onset Date Last Indicated Resolved Time R/O COVID-19 12/27/2019 12/27/2019 12/28/2019 3:23 AM CDT C Diff 12/04/2021 12/04/2021 11/03/2022 1:00 AM CDT R/O C. diff 12/05/2021 12/04/2021 12/05/2021 3:51 PM CDT R/O C. diff 04/11/2023 04/11/2023 04/11/2023 8:12 AM CDT documented as of this encounter Care Teams Leases And Land Supervisor Relationship Specialty Start Date End Date Jevon Felix MD [address] [facility] [address] [place] [phone] PCP - General Internal Medicine 09/01/21 documented as of this encounter
--- OUTSIDE RECORDS SUMMARY | 2024-09-26 02:10 | XMS_ITS | Encounter Summary ---
Author Organization [employer] Address 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
--- OUTSIDE RECORDS SUMMARY | 2024-09-26 02:10 | XMS_ITS | Encounter Summary ---
Author Organization [facility] Address 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
--- OUTSIDE RECORDS SUMMARY | 2024-09-26 02:10 | XMS_ITS | Encounter Summary ---
Author Organization [facility] Address 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
--- OUTSIDE RECORDS SUMMARY | 2024-09-26 02:10 | XMS_ITS | Encounter Summary ---
Author Organization [facility] Address 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
--- OUTSIDE RECORDS SUMMARY | 2024-09-26 02:10 | XMS_ITS | Encounter Summary ---
Author Organization [facility] Address 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
--- OUTSIDE RECORDS SUMMARY | 2024-09-26 02:10 | XMS_ITS | Encounter Summary ---
Author Organization [facility] Address [address] [place] [address] Care Team Providers Care Cephalometric Tracer Name Role Phone Jevon Felix MD Primary Care Provider [phone] Encounter Details Date Type Department Care Team (Late st Contact Info) Description 09/30/2005 Outpatient Historical [address] [place] [phone] Liam Galeano MD NO ADDRESS ON FILE Social History Tobacco Use Types Packs/Day Years Used Date Smoking Tobacco: Never Assessed Comments Unknown Sex and Gender Information Value Date Recorded Sex Assigned at Not on file Legal Sex Female 3:06 AM MEDICAL INTERN Gender Identity Not on file Sexual Orientation [...] documented as of this encounter Care Teams Cephalometric Tracer Relationship Specialty Start Date End Date Jevon Felix MD [address] [phone] PCP - General Internal Medicine 09/01/21 documented as of this encounter
--- OUTSIDE RECORDS SUMMARY | 2024-09-26 02:10 | XMS_ITS | Encounter Summary ---
Author Organization [facility] Address 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
--- OUTSIDE RECORDS SUMMARY | 2024-09-26 02:10 | XMS_ITS | Encounter Summary ---
Author Organization [employer] Address [address] [place] [address] Care Team Providers Care Tempering Kiln Tender Name Role Phone Jevon Felix MD Primary Care Provider [phone] Encounter Details Date Type Department Care Team (Late st Contact Info) Description 09/24/2002 Outpatient Historical [facility] [address] 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
--- OUTSIDE RECORDS SUMMARY | 2024-09-26 02:10 | XMS_ITS | Encounter Summary ---
Author Organization [facility] Address [address] [place] [address] Care Team Providers Care Clerk Supervisor Name Role Phone Jevon Felix MD Primary Care Provider [phone] Encounter Details Date Type Department Care Team (Late st Contact Info) Description 12/17/1998 Outpatient Historical [address] [place] [phone] Liam Galeano MD NO ADDRESS ON FILE Social History Tobacco Use Types Packs/Day Years Used Date Smoking Tobacco: Never Assessed Comments Unknown Sex and Gender Information Value Date Recorded Sex Assigned at Not on file Legal Sex Female 3:06 AM LICENSING REPRESENTATIVE Gender Identity Not on file Sexual [...] documented as of this encounter Care Teams Clerk Supervisor Relationship Specialty Start Date End Date Jevon Felix MD [address] [phone] PCP - General Internal Medicine 09/01/21 documented as of this encounter
--- OUTSIDE RECORDS SUMMARY | 2024-09-26 02:10 | XMS_ITS | Encounter Summary ---
Author Organization [facility] Address 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
--- OUTSIDE RECORDS SUMMARY | 2024-09-26 02:10 | XMS_ITS | Encounter Summary ---
Author Organization [facility] Address 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
--- OUTSIDE RECORDS SUMMARY | 2024-09-26 02:10 | XMS_ITS | Encounter Summary ---
Author Organization [facility] Address [address] [place] [address] Care Team Providers Care Reimbursement Analyst Name Role Phone Jevon Felix MD Primary Care Provider [phone] Encounter Details Date Type Department Care Team (Late st Contact Info) Description 07/14/2005 Outpatient Historical [address] [place] [phone] Liam Galeano MD NO ADDRESS ON FILE Social History Tobacco Use Types Packs/Day Years Used Date Smoking Tobacco: Never Assessed Comments Unknown Sex and Gender Information Value Date Recorded Sex Assigned at Not on file Legal Sex Female 3:06 AM BABY REGISTRY SALES CONSULTANT Gender Identity Not on file [...] documented as of this encounter Care Teams Reimbursement Analyst Relationship Specialty Start Date End Date Jevon Felix MD [address] [phone] PCP - General Internal Medicine 09/01/21 documented as of this encounter
--- OUTSIDE RECORDS SUMMARY | 2024-09-26 02:10 | XMS_ITS | Encounter Summary ---
Author Organization [facility] Address 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
--- OUTSIDE RECORDS SUMMARY | 2024-09-26 02:10 | XMS_ITS | Encounter Summary ---
Author Organization [facility] Address 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
--- OUTSIDE RECORDS SUMMARY | 2024-09-26 02:10 | XMS_ITS | Encounter Summary ---
Author Organization [facility] Address 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
--- OUTSIDE RECORDS SUMMARY | 2024-09-26 02:10 | XMS_ITS | Encounter Summary ---
Author Organization [facility] Address 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
--- OUTSIDE RECORDS SUMMARY | 2024-09-26 02:10 | XMS_ITS | Encounter Summary ---
Author Organization [facility] Address 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
--- OUTSIDE RECORDS SUMMARY | 2024-09-26 02:10 | XMS_ITS | Encounter Summary ---
Author Organization [employer] Address 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
--- OUTSIDE RECORDS SUMMARY | 2024-09-26 02:10 | XMS_ITS | Continuity of Care Document ---
Author Organization [facility] Main Address [address] [place] [address] Insurance Providers Payer Plan Claims Address Claims Phone Policy Number Group Number Relation Employer Guarantor Name Guarantor Guarantor Address Guarantor Phone [facility] MEDICA RE ADVANT AGE [place] [address] [place] [facility] MEDIC ARE ADVAN JAIME [address] [address], [place] [address] tel:[phone] Self SATHYA Mckeon ISMA [address] [place], [place] [id number] RX OPTUM RX RX OPTUM RX [place], [place] tel:[phone] [phone] [id number] Self SATHYA Mckeon RITUARNOLDO 1950 [address] [place], [place] [id number] [facility] MEDICA RE COMPLE TE O [facility] MEDIC ARE COMPL ETE O [address] [address], [place] [address] tel:[phone] Self SATHYA Mckeon MCQUARNOLDO [address] [place], [place] [id number] Problems Condition ICD9 code ICD10 code SNOMED code Start Date End Date S tatus Acute respiratory failure with hypoxia J96.01 Work ing Type 2 diabetes mellitus without complications E11.9 Wor marielle Unspecified abnormal findings in urine R82.90 Working Pneumonia, unspecified organism J18.9 Final Acute respiratory failure with hypoxia J96.01 Joelle boyd Solitary pulmonary nodule R91.1 Final Unspecified kidney failure N19 Final Chronic obstructive pulmonary disease, unspecified J44.9 Final Unspecified abnormal findings in urine R82.90 Final Type 2 diabetes mellitus without complications E11.9 Fin al Syncope and collapse R55 Wor marielle Hypokalemia E87.6 Working Type 2 diabetes mellitus without complications E11.9 Wor marielle Essential (primary) hypertension I10 Working Diarrhea, unspecified R19.7 Wo rking Syncope and collapse R55 Fin al Hypokalemia E87.6 Final Type 2 diabetes mellitus without complications E11.9 Fin al Hypocalcemia E83.51 Final Chronic kidney disease, unspecified N18.9 Final Essential (primary) hypertension I10 Final Diarrhea, unspecified R19.7 Fi nal Solitary pulmonary nodule R91.1 Final Results No Results Allergies, adverse reactions, alerts No known allergies and adverse reactions Immunizations Vaccine Route Date Status Covid-19 07/25/2020 Completed Covid-19 08/22/2020 Completed influenza 03/25/2022 Completed influenza 04/17/2024 Completed Covid-19 Completed Medications No administered medications reported Vital Signs Date Vital Result Comment 06/24/2022 Oxygen saturation in Arterial blood 93.0 - 93.0 % Temperature 97.3 F Heart Rate 102 beats/minute Blood Pressure Systolic 144 mmHg Blood Pressure Diastolic 62 mmHg Body Height 65 in Body Weight 200 lbs 07/19/2022 Oxygen saturation in Arterial blood 91.0 - 91.0 % Temperature 97.4 F Heart Rate 104 beats/minute Blood Pressure Systolic 126 mmHg Blood Pressure Diastolic 58 mmHg 08/16/2022 Oxygen saturation in Arterial blood 93.0 - 93.0 % Temperature 97.3 F Heart Rate 88 beats/minute Blood Pressure Systolic 126 mmHg Blood Pressure Diastolic 60 mmHg Body Weight 200 lbs 06/24/2022 Temperature 97.3 [degF] N Oxygen Saturation 93 % N Respiratory Rate 22 /min N Heart Rate 102 /min N Blood Pressure Systolic 144 mm[Hg] N Blood Pressure Diastolic 62 mm[Hg] N 07/19/2022 Temperature 97.4 [degF] N Oxygen Saturation 91 % N Respiratory Rate 22 /min N Heart Rate 104 /min N Blood Pressure Systolic 126 mm[Hg] N Blood Pressure Diastolic 58 mm[Hg] N 08/16/2022 Oxygen Saturation 93 % N Heart Rate 88 /min N Blood Pressure Systolic 126 mm[Hg] N Blood Pressure Diastolic 60 mm[Hg] N Body Weight 200 [lb_av] N 09/28/2022 Inhaled Oxygen Concentration 21.0 % N Blood Sugar 111.0 mg/dl N HbA1c 8.2 % N Temperature 97.9 [degF] N Oxygen Saturation 94 % N Respiratory Rate 18 /min N Heart Rate 81 /min N Blood Pressure Systolic 136 mm[Hg] N Blood Pressure Diastolic 60 mm[Hg] N Body Height 65 [in_i] N Body Weight 200 [lb_av] N Body Mass Index 33.3 kg/m2 N 11/08/2023 Inhaled Oxygen Concentration 21.0 % N Faces Pain Scale 0.0 N Temperature 97.2 [degF] N Oxygen Saturation 98 % N Respiratory Rate 16 /min N Heart Rate 76 /min N Blood Pressure Systolic 142 mm[Hg] N Blood Pressure Diastolic 76 mm[Hg] N Body Height 65 [in_i] N Body Weight 190 [lb_av] N Body Mass Index 31.6 kg/m2 N 07/29/2023 Inhaled Oxygen Concentration 21.0 % N Blood Sugar 377.0 mg/dl N HbA1c 5.3 % N Oxygen Saturation 90 % N Respiratory Rate 20 /min N Heart Rate 76 /min N Blood Pressure Systolic 120 mm[Hg] N Blood Pressure Diastolic 60 mm[Hg] N Body Height 65 [in_i] N 09/09/2023 Inhaled Oxygen Concentration 21.0 % N Faces Pain Scale 0.0 N Temperature 97.6 [degF] N Oxygen Saturation 98 % N Respiratory Rate 22 /min N Heart Rate 100 /min N Blood Pressure Systolic 178 mm[Hg] N Blood Pressure Diastolic 88 mm[Hg] N Body Height 65 [in_i] N Body Weight 197 [lb_av] N Body Mass Index 32.8 kg/m2 N 01/10/2024 Inhaled Oxygen Concentration 21.0 % N Faces Pain Scale 0.0 N Temperature 98.6 [degF] N Oxygen Saturation 92 % N Respiratory Rate 16 /min N Heart Rate 97 /min N Blood Pressure Systolic 122 mm[Hg] N Blood Pressure Diastolic 60 mm[Hg] N Body Height 65 [in_i] N Body Weight 195 [lb_av] N Body Mass Index 32.4 kg/m2 N 03/21/2024 Faces Pain Scale 0.0 N Body Height 65 [in_i] N 04/20/2024 Inhaled Oxygen Concentration 21.0 % N Faces Pain Scale 0.0 N Temperature 98 [degF] N Oxygen Saturation 98 % N Respiratory Rate 16 /min N Heart Rate 86 /min N Blood Pressure Systolic 136 mm[Hg] N Blood Pressure Diastolic 72 mm[Hg] N Body Height 65 [in_i] N Body Weight 190 [lb_av] N Body Mass Index 31.6 kg/m2 N 04/17/2024 Faces Pain Scale 0.0 N Body Height 65 [in_i] N Body Weight 190 [lb_av] N Body Mass Index 31.6 kg/m2 N 06/04/2024 Inhaled Oxygen Concentration 21.0 % N Faces Pain Scale 0.0 N Temperature 97.1 [degF] N Oxygen Saturation 96 % N Respiratory Rate 16 /min N Heart Rate 90 /min N Blood Pressure Systolic 146 mm[Hg] N Blood Pressure Diastolic 62 mm[Hg] N Body Height 65 [in_i] N Body Weight 196 [lb_av] N Body Mass Index 32.6 kg/m2 N Social History No smoking Hx information available Functional Status Category Condition Date Problem (Feeding: Independent) Feeding: Independ ent 09/30/2022 Problem (Bathing: Independen t (or in shower)) Bathing: Independent (or in shower) 09/30/2022 Problem (Grooming: Independe nt face/hair/teeth/ shaving (implements provided)) Grooming: Independent face/hair/teeth/ shaving (implements provided) 09/30/2022 Problem (Dressing: Independe nt (including buttons, zips, laces, etc.)) Dressing: Independent (including buttons, zips, laces, etc.) 09/30/2022 Problem (Bowels: Occasional accident) Bowels: Oc casional accident 09/30/2022 Problem (Bladder: Continent) Bladder: Continent 09/30/2022 Problem (Toilet use: Indepen dent (on and off, dressing, wiping)) Toilet use: Independent (on and off, dressing, wiping) 09/30/2022 Problem (Transfers (bed to c hair and back): Independent) Transfers (bed to chair and back): Independent 09/30/2022 Problem (Mobility (on level surfaces): Independent (but may use any aid; for example, stick) >50 yards) Mobility (on level surfaces): Independent (but may use any aid; for example, stick) >50 yards 09/30/2022 Problem (Stairs: Independent) Stairs: Independen t 09/30/2022 Problem (Total score: 95) Total score: 95 2022 Problem (Feeding: Independent) Feeding: Independ ent 11/11/2023 Problem (Bathing: Independen t (or in shower)) Bathing: Independent (or in shower) 11/11/2023 Problem (Grooming: Independe nt face/hair/teeth/ shaving (implements provided)) Grooming: Independent face/hair/teeth/ shaving (implements provided) 11/11/2023 Problem (Dressing: Independe nt (including buttons, zips, laces, etc.)) Dressing: Independent (including buttons, zips, laces, etc.) 11/11/2023 Problem (Bowels: Occasional accident) Bowels: Oc casional accident 11/11/2023 Problem (Bladder: Occasional accident) Bladder: Occasional accident 11/11/2023 Problem (Toilet use: Indepen dent (on and off, dressing, wiping)) Toilet use: Independent (on and off, dressing, wiping) 11/11/2023 Problem (Transfers (bed to c hair and back): Independent) Transfers (bed to chair and back): Independent 11/11/2023 Problem (Mobility (on level surfaces): Independent (but may use any aid; for example, stick) >50 yards) Mobility (on level surfaces): Independent (but may use any aid; for example, stick) >50 yards 11/11/2023 Problem (Stairs: Independent) Stairs: Independen t 11/11/2023 Problem (Total score: 90) Total score: 90 2023 Problem (Feeding: Independent) Feeding: Independ ent 03/21/2024 Problem (Bathing: Independen t (or in shower)) Bathing: Independent (or in shower) 03/21/2024 Problem (Grooming: Independe nt face/hair/teeth/ shaving (implements provided)) Grooming: Independent face/hair/teeth/ shaving (implements provided) 03/21/2024 Problem (Dressing: Independe nt (including buttons, zips, laces, etc.)) Dressing: Independent (including buttons, zips, laces, etc.) 03/21/2024 Problem (Bowels: Continent) Bowels: Continent Problem (Bladder: Occasional accident) Bladder: Occasional accident 03/21/2024 Problem (Toilet use: Indepen dent (on and off, dressing, wiping)) Toilet use: Independent (on and off, dressing, wiping) 03/21/2024 Problem (Transfers (bed to c hair and back): Independent) Transfers (bed to chair and back): Independent 03/21/2024 Problem (Mobility (on level surfaces): Independent (but may use any aid; for example, stick) >50 yards) Mobility (on level surfaces): Independent (but may use any aid; for example, stick) >50 yards 03/21/2024 Problem (Stairs: Independent) Stairs: Independen t 03/21/2024 Problem (Total score: 95) Total score: 95 2023 Problem (Bowels: Continent) Bowels: Continent Problem (Feeding: Independent) Feeding: Independ ent 04/20/2024 Problem (Bathing: Independen t (or in shower)) Bathing: Independent (or in shower) 04/20/2024 Problem (Mobility (on level surfaces): Independent (but may use any aid; for example, stick) >50 yards) Mobility (on level surfaces): Independent (but may use any aid; for example, stick) >50 yards 04/20/2024 Problem (Grooming: Independe nt face/hair/teeth/ shaving (implements provided)) Grooming: Independent face/hair/teeth/ shaving (implements provided) 04/20/2024 Problem (Transfers (bed to c hair and back): Independent) Transfers (bed to chair and back): Independent 04/20/2024 Problem (Bladder: Occasional accident) Bladder: Occasional accident 04/20/2024 Problem (Total score: 95) Total score: 95 2023 Problem (Dressing: Independe nt (including buttons, zips, laces, etc.)) Dressing: Independent (including buttons, zips, laces, etc.) 04/20/2024 Problem (Toilet use: Indepen dent (on and off, dressing, wiping)) Toilet use: Independent (on and off, dressing, wiping) 04/20/2024 Problem (Stairs: Independent) Stairs: Independen t 04/20/2024 Problem (Dressing: Independe nt (including buttons, zips, laces, etc.)) Dressing: Independent (including buttons, zips, laces, etc.) 05/03/2024 Problem (Transfers (bed to c hair and back): Independent) Transfers (bed to chair and back): Independent 05/03/2024 Problem (Bathing: Independen t (or in shower)) Bathing: Independent (or in shower) 05/03/2024 Problem (Bowels: Continent) Bowels: Continent Problem (Stairs: Independent) Stairs: Independen t 05/03/2024 Problem (Feeding: Independent) Feeding: Independ ent 05/03/2024 Problem (Toilet use: Indepen dent (on and off, dressing, wiping)) Toilet use: Independent (on and off, dressing, wiping) 05/03/2024 Problem (Grooming: Independe nt face/hair/teeth/ shaving (implements provided)) Grooming: Independent face/hair/teeth/ shaving (implements provided) 05/03/2024 Problem (Mobility (on level surfaces): Independent (but may use any aid; for example, stick) >50 yards) Mobility (on level surfaces): Independent (but may use any aid; for example, stick) >50 yards 05/03/2024 Problem (Bladder: Occasional accident) Bladder: Occasional accident 05/03/2024 Problem (Total score: 95) Total score: 95 2023 Problem (Feeding: Independent) Feeding: Independ ent 08/08/2024 Problem (Bathing: Independen t (or in shower)) Bathing: Independent (or in shower) 08/08/2024 Problem (Grooming: Independe nt face/hair/teeth/ shaving (implements provided)) Grooming: Independent face/hair/teeth/ shaving (implements provided) 08/08/2024 Problem (Dressing: Independe nt (including buttons, zips, laces, etc.)) Dressing: Independent (including buttons, zips, laces, etc.) 08/08/2024 Problem (Bowels: Continent) Bowels: Continent Problem (Bladder: Occasional accident) Bladder: Occasional accident 08/08/2024 Problem (Toilet use: Indepen dent (on and off, dressing, wiping)) Toilet use: Independent (on and off, dressing, wiping) 08/08/2024 Problem (Transfers (bed to c hair and back): Independent) Transfers (bed to chair and back): Independent 08/08/2024 Problem (Mobility (on level surfaces): Independent (but may use any aid; for example, stick) >50 yards) Mobility (on level surfaces): Independent (but may use any aid; for example, stick) >50 yards 08/08/2024 Problem (Stairs: Independent) Stairs: Independen t 08/08/2024 Problem (Total score: 95) Total score: 95 2024 Mental Status Category Condition Date Cognitive function Normal 07/29/2023 Cognitive function Normal 04/20/2024
--- OUTSIDE RECORDS SUMMARY | 2024-09-26 02:10 | XMS_ITS | Encounter Summary ---
Author Organization [facility] Address 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
--- OUTSIDE RECORDS SUMMARY | 2024-09-26 02:10 | XMS_ITS | Encounter Summary ---
Author Organization [facility] Address 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
--- OUTSIDE RECORDS SUMMARY | 2024-09-26 02:10 | XMS_ITS | Encounter Summary ---
Author Organization [facility] Address [address] [place] [address] Care Team Providers Care Offbearer Name Role Phone Jevon Felix MD Primary Care Provider [phone] Encounter Details Date Type Department Care Team (Late st Contact Info) Description 09/25/[address] [facility] Support Serv. ([facility] Cardiology[facility]) [address] 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
--- OUTSIDE RECORDS SUMMARY | 2024-09-26 02:10 | XMS_ITS | Encounter Summary ---
Author Organization [employer] Address 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
--- OUTSIDE RECORDS SUMMARY | 2024-09-26 02:10 | XMS_ITS | Encounter Summary ---
Author Organization [facility] Address 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
--- OUTSIDE RECORDS SUMMARY | 2024-09-26 02:10 | XMS_ITS | Encounter Summary ---
Author Organization [facility] Address 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
--- OUTSIDE RECORDS SUMMARY | 2024-09-26 02:10 | XMS_ITS | Encounter Summary ---
Author Organization [facility] Address 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
--- OUTSIDE RECORDS SUMMARY | 2024-09-26 02:10 | XMS_ITS | Encounter Summary ---
Author Organization [employer] [facility] Address [address] [place] [address] Care Team Providers Care Right Of Way Agent Name Role Phone Jevon Felix MD Primary Care Provider [phone] Encounter Details Date Type Department Care Team (Late st Contact Info) Description 09/25/2002 Outpatient Historical [facility] Support Serv. ([facility] Cardiology[facility]) [address] 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
--- OUTSIDE RECORDS SUMMARY | 2024-09-26 02:10 | XMS_ITS | CONTINUITY OF CARE DOCUMENT ---
Author Name archanaguccijessica Address Unknown Organization [facility] Address [address] [facility] [address] [place] [address] Phone [phone] Care Team Providers Care Product Management Specialist Name Role Phone Humberto Connelly MD Unavailable Liam LOPEZ MD Unavailable Liam LOPEZ MD Unavailable [phone] INSURANCE PROVIDERS Payer name Policy type / Coverage type [place] red libertarian [employer] [facility] Medicaid 3 [id number] [facility] MEDICARE COMPLETE HMO Other [id number]
--- OUTSIDE RECORDS SUMMARY | 2024-09-26 02:10 | XMS_ITS | Encounter Summary ---
Author Organization [employer] Address 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 Gender Identity Not on file Sexual [...] ORDERABLES Final Resu lt Performing Organization Address City/[facility] de Phone Number INTERFACE SYSTEM [...] ORDERABLES Final Resul t Performing Organization Address [facility] Phone Number INTERFACE SYSTEM Refer to clinic/hospital [...] ORDERABLES Final Resul t Performing Organization Address [facility] Phone Number INTERFACE SYSTEM Refer to clinic/hospital [...] of this encounter Care Teams Director Of Creative Services Relationship Specialty Start Date End Date Jevon Felix MD [address] [phone] PCP - General Internal Medicine 09/01/21 documented as of this encounter
--- OUTSIDE RECORDS SUMMARY | 2024-09-26 02:10 | XMS_ITS | Encounter Summary ---
Author Organization [facility] Address 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
--- OUTSIDE RECORDS SUMMARY | 2024-09-26 02:10 | XMS_ITS | Encounter Summary ---
Author Organization [facility] Address 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
--- OUTSIDE RECORDS SUMMARY | 2024-09-26 02:10 | XMS_ITS | Encounter Summary ---
Author Organization [facility] Address 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
--- OUTSIDE RECORDS SUMMARY | 2024-09-26 02:10 | XMS_ITS | Encounter Summary ---
Author Organization [facility] Address 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
--- OUTSIDE RECORDS SUMMARY | 2024-09-26 02:10 | XMS_ITS | Encounter Summary ---
Author Organization [facility] Address 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
--- OUTSIDE RECORDS SUMMARY | 2024-09-26 02:10 | XMS_ITS | Encounter Summary ---
Author Organization [facility] Address 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
--- OUTSIDE RECORDS SUMMARY | 2024-09-26 02:10 | XMS_ITS | Encounter Summary ---
Author Organization [facility] Address 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
--- OUTSIDE RECORDS SUMMARY | 2024-09-26 02:10 | XMS_ITS | Encounter Summary ---
Author Organization [facility] Address 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
--- OUTSIDE RECORDS SUMMARY | 2024-09-26 02:10 | XMS_ITS | Encounter Summary ---
Author Organization [facility] Address 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
--- OUTSIDE RECORDS SUMMARY | 2024-09-26 02:10 | XMS_ITS | Encounter Summary ---
Author Organization [facility] Address 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
--- OUTSIDE RECORDS SUMMARY | 2024-09-26 02:11 | XMS_ITS ---
Author Organization [facility] Address [address] [place] [address] Care Team Providers Care Wrecker Operator Name Role Phone Nicholas Bernstein Unavailable [phone] Encounters Encounter Location Date Provider Diagnosis [facility] [address] [facility] [address] [place] [address] 09/12/2024 Nicholas Bernstein PLAN OF TREATMENT No Information Progress Notes * ROD ASHBYOB: (74 yo F)Acc No.[id number]:09/12/2024 Progress Notes Patient: SATHYA ASHBY Provider: MD FREDA, Alix.Elieser.C.P, F.A.S.N. :1950 Age:74 Y Sex:Female Date:09/12/2024 Address:[facility] [address] [address] Subjective: * Chief Complaints: * * Medical History: Objective: Assessment: Plan: * Treatment: * Billing Information: * Visit Code: * Procedure Codes: * Sign off status: Pending * Provider: MD FREDA, F.Elieser.C.P, F.A.S.N. Date: 09/12/2024
--- NOTE | 2024-09-26 02:21 | ED_ITS ---
HPI - Weakness General Chief complaint: Weakness Stated complaint: GEN WKNS W/NAUSEA X 45 MINUTES Time Seen by Provider: 09/26/24 01:08 Source: patient Mode of arrival: EMS Limitations: no limitations History of Present Illness HPI Narrative: This is a 74-year-old female, brought in by EMS from home complaining of lightheadedness. The patient states over the past several days she has had difficulty sleeping related to anxiety from loss of her . She states she feels this has resulted in the increase in her blood pressure. She checked this at home and found it to be high. She took an additional verapamil tablet and approximately 30 minutes later began feeling lightheaded. She otherwise denies chest pain, shortness of breath, loss of consciousness, nausea, vomiting or abdominal pain. She states she just wants to be able to sleep. Related Data Home Medications ?Medication ?Instructions ?Recorded ?Confirmed ?Last Taken ?Type allopurinol 300 mg tablet 300 mg PO DAILY 11/13/19 07/29/24 07/22/24 History amitriptyline 50 mg tablet 50 mg PO BID 11/13/19 07/29/24 07/22/24 History omeprazole 20 mg capsule,delayed 20 mg PO BID 11/13/19 07/29/24 07/22/24 History release albuterol 90 mcg/actuation aerosol 90 mcg inhalation Q6H PRN short of 05/21/23 07/29/24 Unknown History inhaler breath albuterol sulfate 2.5 mg/3 mL 2.5 mg inhalation Q6H 05/21/23 07/29/24 Unknown History (0.083 %) solution for nebulization cyanocobalamin (vitamin B-12) 1 tab-cap PO DIRECTED 05/21/23 07/29/24 Unknown History dapagliflozin propanediol 10 mg 10 mg PO BID 05/21/23 07/29/24 07/22/24 History tablet (Farxiga) dicyclomine 10 mg capsule 10 mg PO TID 05/21/23 07/29/24 07/22/24 History ergocalciferol (vitamin D2) 50,000 50,000 unit PO DIRECTED 05/21/23 07/29/24 07/22/24 History unit tablet ferrous sulfate 325 mg (65 mg 325 mg PO DAILY 05/21/23 07/29/24 07/22/24 History iron) tablet gabapentin 300 mg capsule 300 mg PO TID 05/21/23 07/29/24 07/22/24 History loperamide 2 mg tablet 2 mg PO Q3H PRN Diarrhea 05/21/23 07/29/24 07/22/24 History niacin 100 mg tablet 100 mg PO DAILY 05/21/23 07/29/24 Unknown History ondansetron 4 mg disintegrating 4 mg PO Q8H PRN Nausea And Vomiting 05/21/23 07/29/24 07/22/24 History tablet trazodone 100 mg tablet 100 mg PO HS 05/21/23 07/29/24 07/22/24 History glimepiride 2 mg tablet 2 mg PO DAILY 09/21/23 07/29/24 07/22/24 History meclizine 25 mg tablet 25 mg PO TID PRN Dizziness Or 09/21/23 07/29/24 07/22/24 History Vertigo metformin 500 mg tablet 500 mg PO DAILY 09/21/23 07/29/24 Unknown History torsemide 40 mg tablet 40 mg PO QAM 09/21/23 07/29/24 07/22/24 History clotrimazole-betamethasone 1 1 applic topical BID 07/29/24 07/29/24 Unknown History %-0.05 % topical cream escitalopram oxalate 10 mg tablet 10 mg PO DAILY 07/29/24 07/29/24 07/22/24 History furosemide 40 mg tablet mg 07/29/24 07/22/24 History triamcinolone acetonide 0.1 % applic topical 07/29/24 Unknown History topical cream Allergies Allergy/AdvReac Type Severity Reaction Status Date / Time No Known Allergies Allergy Verified 07/29/24 09:41 Review of Systems 2 Review of Systems: All systems reviewed & are unremarkable except as noted in HPI and below PMFSH Past Medical History Medical History HLD (hyperlipidemia) CKD (chronic kidney disease) Type 2 diabetes mellitus Gastroesophageal reflux disease Chronic obstructive pulmonary disease Anxiety Depression Arthritis Fractures Right foot Fibromyalgia Sleep apnea Intolerant of CPAP. Pneumonia Bronchitis Asthma Hypertension Surgical History Surgical History History of cardiac catheterization Per patient, showed signs of prior ID but no interventions undertaken. History of exploratory laparotomy initial, had 2 additional abdominal surgeries History of cholecystectomy History of hysterectomy Family History Family History Father Cardiomegaly Mother Breast cancer Social History Social History Social History: Previous Surrogate medical decision maker: Rolando Kearns, spouse (but she states she underwent a divorce and that he recently ) Code status: Full code. Smoking status: Never smoker Alcohol intake: never Substance use: never Do You Feel Safe in your Home?: Yes Lack of Transportation: No Lack of Food: Never True Current Housing: I Have Housing Concerned About Future Housing: No Difficulty Paying Gas/Electric Bills: No Difficulty Paying for Meds: No Currently Unemployed: No Education: High School Diploma/GED Difficulty w/ Childcare or Family Care: No Living arrangements: with family Additional living arrangements comments: son moved in Spiritual care concerns: No Exam 2 Narrative: GENERAL: Well-developed, well-nourished, and in no acute distress. HEAD: Normocephalic, atraumatic. EYES: PERRLA and EOMI. NECK: Supple. No carotid bruits or JVD CHEST: Clear to auscultation. No respiratory distress. No wheezes rales or rhonchi HEART: Regular rate and rhythm. No murmur heard. Normal peripheral pulses. ABDOMEN: Soft, nontender, nondistended, normal active bowel sounds. EXTREMITIES: Normal range of motion. No edema. SKIN: Warm, dry, no rash. NEURO: Alert and oriented x3. No focal deficit. Moving all 4 limbs spontaneously PSYCH: mildly anxious mood and affect. Course Course Emergency Course: 05:30 - CBC unremarkable. Chemistries demonstrate baseline creatinine elevation of 1.3 without other acute changes. urinalysis demonstrates protein and glucose but is not concerning for urinary tract infection. The patient tested negative for COVID, influenza and RSV. EKG unremarkable. Chest x-ray not concerning for acute cardiopulmonary process. The patient was given a L of fluids and allowed to rest. Orthostatic vital signs were within normal limits. The patient states she feels improved and wishes to go. Will discharge. I discussed the findings and recommendations with The patient. Discussed return and emergency precautions including signs/symptoms of ACS and respiratory distress. The patient voiced understanding and agreement with the plan. All questions answered to her satisfaction. Vital Signs Vital signs: Vital Signs Temperature 97.6 F 09/26/24 00:52 Pulse Rate 65 09/26/24 00:52 Respiratory Rate 14 09/26/24 00:52 Blood Pressure 156/66 H 09/26/24 00:52 Pulse Oximetry 95 09/26/24 00:52 Oxygen Delivery Room Air 09/26/24 00:52 Temperature 97.6 F 09/26/24 00:52 Pulse Rate 72 09/26/24 06:19 Respiratory Rate 17 09/26/24 06:19 Blood Pressure 151/69 H 09/26/24 06:19 Pulse Oximetry 97 09/26/24 06:19 Oxygen Delivery Room Air 09/26/24 00:52 MDM - Weakness MDM Narrative Medical decision making narrative: Plan: labs, imaging, EKG, IV fluids, orthostatic vital signs, reassess Differential Diagnosis Differential diagnosis: Likely anemia, dehydration and other (MOOSE, medication side effect, metabolic abnormality, grief reaction, other) Lab Data 09/26/24 01:32 09/26/24 01:32 Labs: Lab Results 09/26/24 09/26/24 Range/Units 01:32 02:34 WBC 8.7 (4.5-10.0) K/mm3 RBC 5.09 (4.2-5.4) M/mm3 Hgb 14.7 (12.0-15.0) g/dL Hct 44.4 (37.0-47.0) % MCV 87.2 (80-100) fl MCH 28.9 (26-34) pg MCHC 33.1 (32-36) g/dl RDW 14.6 H (11.5-14.5) % Plt Count 270 (150-375) k/mm3 MPV 9.7 (7.4-10.4) fl Immature Gran % (Auto) 0.5 (0-0.5) % Neut % (Auto) 73.8 H (45.5-73.1) % Lymph % (Auto) 19.9 (18.3-44.2) % Boyd % (Auto) 5.6 (2.6-8.5) % Eos % (Auto) 0.0 (0-4.4) % Baso % (Auto) 0.2 (0.2-1.2) % Lymph # (Auto) 1.74 (0.9-3.2) K/mm3 Boyd # (Auto) 0.5 (0.1-0.6) K/mm3 Eos # (Auto) 0.0 (0-0.3) K/mm3 Baso # (Auto) 0.0 (0.0-0.1) K/mm3 Abs Immat Gran (auto) 0.04 H (0.00-0.031) K/mm3 Absolute Neuts (auto) 6.5 (1.3-6.7) K/mm3 Absolute Nucleated RBC 0.000 (0.0-0.012) K/mm3 Nucleated RBC % 0.0 (0.0-0.2) % Sodium 138 (137-145) mmol/L Potassium 3.7 (3.4-5.0) mmol/L Chloride 105 (98-107) mmol/L Carbon Dioxide 17 L (22-30) mmol/L Anion Gap 16 H (4-12) mmol/L BUN 21 H D (7-17) mg/dL Creatinine 1.31 H (0.7-1.0) mg/dL Estim Creat Clear Calc 40 ml/min Estimated GFR 40 L (59 - ) Glucose 193 H (65-110) mg/dL Calcium 8.6 (8.4-10.2) mg/dL Total Bilirubin 0.3 (0.2-1.3) mg/dL AST 25 (14-36) U/L ALT 37 H (6-35) U/L Alkaline Phosphatase 111 (38-126) U/L Total Protein 8.0 (6.3-8.2) g/dL Albumin 4.2 (3.5-5.1) g/dL Urine Color Yellow (Yellow) Urine Appearance Clear (Clear) Urine pH 5.0 (5.0-9.0) Ur Specific [place] 1.032 (1.001-1.035) Urine Protein 3+ H (Negative) mg/dL Urine Glucose (UA) 3+ H (Negative) mg/dL Urine Ketones Negative (Negative) mg/dL Ur Blood (Man) Negative (Negative) Urine Nitrate Negative (Negative) Urine Bilirubin Negative (Negative) Urine Urobilinogen 0.2 (<2.0) mg/dL Add Ur Microanalysis Reviewed Leukocyte Esterase Rfl Negative (Negative) CARL[place]/UL Urine RBC 0-2 (0-2) /hpf Urine WBC 0-5 (0-3) /hpf Ur Squamous Epith Cells Occasional (Few) /hpf Urine Bacteria None seen /hpf Urine Casts 6-10 Hyaline Casts Present (None) /lpf Influenza A (RT-PCR) Negative (Negative) Influenza B (RT-PCR) Negative (Negative) RSV (RT-PCR) Negative (Negative) SARS-CoV-2 RNA (RT-PCR) Negative (Negative) ECG Data EKG #1: Attestation: I personally reviewed and interpreted this ECG as follows: ECG completion date: 09/26/24 ECG completion time: :02 Prior ECG tracings: available for review Interpretation: Sinus rhythm, rate 60, normal axis, no ST segment elevations concerning for ischemia. T-wave inversions in aVL. Normal intervals with QTc of 426. Compared to previous ECG done in July 2024, there are no significant changes. Discharge Plan Discharge Clinical Impression: Medication side effect, Grief reaction with prolonged bereavement Patient Disposition: Home Condition: Stable Instructions: Antibiotic Form, Lightheadedness (ED) Additional Instructions: You were seen in the emergency department. Your labs, chest x-ray and EKG are not concerning for liver or kidney injury or abnormal heart rhythm. A urinalysis was not concerning for urinary tract infection. He you tested negative for COVID, influenza and RSV. I suspect your lightheadedness was related to the use of additional verapamil. I recommend following up with your primary care doctor. If you develop chest pain, shortness of breath, loss of consciousness, or if you have other emergent concerns for life, limb, or eyesight, return to the emergency department. Patient Language: Filipino Prescriptions: No Action amitriptyline 50 mg tablet 50 mg PO BID omeprazole 20 mg capsule,delayed release(DR/EC) 20 mg PO BID allopurinol 300 mg tablet 300 mg PO DAILY metformin 500 mg Tablet 500 mg PO DAILY glimepiride 2 mg Tablet 2 mg PO DAILY meclizine 25 mg Tablet 25 mg PO TID PRN (Reason: Dizziness Or Vertigo) torsemide 40 mg Tablet 40 mg PO QAM cyclobenzaprine 10 mg Tablet 10 mg PO BID PRN (Reason: Muscle Spasm) Qty: 30 0RF lidocaine [Lidoderm] 5 % Adhesive Patch,Medicated 1 patch transdermal DAILY Qty: 30 0RF nifedipine [Procardia XL] 30 mg Tablet Extended Release 24hr 30 mg PO QAM Qty: 30 0RF potassium chloride [K-Tab] 20 mEq Tablet Extended Release 40 meq PO DAILY Qty: 30 0RF atorvastatin 40 mg tablet 40 mg PO HS Qty: 30 0RF hydrocodone-acetaminophen 5-325 mg Tablet 1 tablet PO Q4H PRN (Reason: pain 4-6) Qty: 15 0RF furosemide 40 mg tablet triamcinolone acetonide 0.1 % cream TOPICAL escitalopram oxalate 10 mg tablet 10 mg PO DAILY clotrimazole-betamethasone 1-0.05 % cream 1 applic TOPICAL BID albuterol sulfate 2.5 mg /3 mL (0.083 %) Solution For Nebulization 2.5 mg INHALATION Q6H loperamide 2 mg Tablet 2 mg PO Q3H PRN (Reason: Diarrhea) Rx Instructions: administer after each loose stool until symptoms controlled; do not exceed 8 mg per 24 hrs ergocalciferol (vitamin D2) 50,000 unit Tablet 50,000 unit PO DIRECTED Rx Instructions: continue taking same as home trazodone 100 mg tablet 100 mg PO HS ferrous sulfate 325 mg (65 mg iron) Tablet 325 mg PO DAILY niacin 100 mg Tablet 100 mg PO DAILY gabapentin 300 mg Capsule 300 mg PO TID albuterol 90 mcg/actuation Aerosol 90 mcg INHALATION Q6H PRN (Reason: short of breath) Rx Instructions: take 2 puffs inhaled as needed every 6 hours ondansetron 4 mg tablet,disintegrating 4 mg PO Q8H PRN (Reason: Nausea And Vomiting) dicyclomine 10 mg capsule 10 mg PO TID dapagliflozin propanediol [Farxiga] 10 mg tablet 10 mg PO BID cyanocobalamin (vitamin B-12) 1 tab-cap PO DIRECTED Rx Instructions: continue taking same as home Follow-up/Referrals: Elvira,Jevon Vilchis MD [Primary Care Provider] - 1 Week Time of Disposition: 05:40
[2024-09-26] MEDS: SODIUM CHLORIDE 0.9% IV 1,000 ML 999 ML IV CONT (02:35)
[2024-09-26 03:17] LABS: Influenza A QL RT-PCR Negative (Negative); Influenza B QL RT-PCR Negative (Negative); RSV RNA, RT-PCR Negative (Negative); SARS-CoV-2 RNA PCR Negative (Negative)
[2024-09-26 03:59] VITALS: BP 162/80; BP 167/79; PULSE 73; PULSE 83
[2024-09-26 04:01] VITALS: BP 158/65; PULSE 93
[2024-09-26 06:18] VITALS: BP 151/69; PULSE 72; RESP 17; O2SAT 97
[2024-09-26 06:19] VITALS: BP 151/69; PULSE 72; RESP 17; O2SAT 97
== END 2024-09-26 06:20 | disposition home or self-care (01) ==
PROVIDERS: Emergency Provider Preventive Medicine Aerospace Medicine; PCP Internal Medicine
DX: R42 Dizziness and giddiness (principal); F43.81 Prolonged grief disorder; T46.1X1A Poisoning by calcium-channel blockers, accidental (unintentional), initial encounter; Z20.822 Contact with and (suspected) exposure to COVID-19; E78.5 Hyperlipidemia, unspecified; E11.22 Type 2 diabetes mellitus with diabetic chronic kidney disease; I12.9 Hypertensive chronic kidney disease with stage 1 through stage 4 chronic kidney disease, or unspecified chronic kidney disease; N18.9 Chronic kidney disease, unspecified; J44.9 Chronic obstructive pulmonary disease, unspecified; M19.90 Unspecified osteoarthritis, unspecified site; M79.7 Fibromyalgia; G47.30 Sleep apnea, unspecified; F32.A Depression, unspecified; F41.9 Anxiety disorder, unspecified; Z87.01 Personal history of pneumonia (recurrent); Z90.49 Acquired absence of other specified parts of digestive tract; Z90.710 Acquired absence of both cervix and uterus; Z79.899 Other long term (current) drug therapy; Z79.84 Long term (current) use of oral hypoglycemic drugs
CPT/HCPCS: 36415; 71046; 80053; 81001; 85025; 87637; 93005; 96360; 99284; J7030